=== PATIENT | female | born 1955 | race Caucasian/White ===

== ENCOUNTER 2024-02-29 07:29 | Outpatient (REF) | payer MEDICARE, SELFPAY ==
--- NOTE | ~2024-02-29 | MM_ITS ---
EXAMINATION: MM SCREENING DIGITAL BREAST TOMOSYNTHESIS, BILATERAL CLINICAL INFORMATION: Screening. Asymptomatic. COMPARISON: Mammography: This study is compared with prior exams dating back to 2017. TECHNIQUE: Digital breast tomosynthesis is performed in both the craniocaudal and mediolateral oblique views along with computer-aided detection (CAD). Synthesized 2D images are generated from the tomosynthesis. FINDINGS: The breasts are almost entirely fatty (ACR BI-RADS breast composition Category a). There are no significant masses, abnormal calcifications, or other abnormalities. MM/MM tomosynthesis screening BI IMPRESSION: No mammographic evidence of malignancy. ASSESSMENT: BI-RADS BI-RADS 1 - Negative RECOMMENDATION: Routine annual mammography screening. 1 year F/U This examination should not preclude the clinical evaluation of a suspicious palpable abnormality. This patient's information was entered into a reminder system with a target due date for their next mammogram.
== END 2024-02-29 07:30 | disposition home or self-care (01) ==
LOC: HO.MAMMO 07:29
PROVIDERS: PCP Internal Medicine; Visit Provider Internal Medicine
DX: Z12.31 Encounter for screening mammogram for malignant neoplasm of breast (principal)
CPT/HCPCS: 77063; 77067

== ENCOUNTER → 2024-02-29 07:30 | Outpatient (BNV) | payer MEDICARE, SELFPAY | PROVIDERS: PCP Internal Medicine; Visit Provider Radiology Diagnostic Radiology | DX: Z12.31 Encounter for screening mammogram for malignant neoplasm of breast (principal) | CPT/HCPCS: 77063; 77067 ==

== ENCOUNTER 2024-03-26 08:33 | Outpatient (AMB) | payer MEDICARE, SELFPAY ==
--- NOTE | 2024-03-26 08:32 | A.OFFVIS_ITS ---
Vital Signs 3 03/26/24 08:37 Height 5 ft 8 in Weight 247 lb 2 oz BMI 37.6 BP 108/66 Blood Pressure Location Rt brachial Position Sitting Pulse 70 Pulse Source Pulse Oximeter Pulse Oximetry (%) 91 L Oxygen Delivery Method Nasal Cannula Intake Visit Reasons: copd Allergies acetaminophen [From TYLENOL-CODEINE #3] Allergy (Intermediate, Unverified 03/26/24 08:39) FLUSHING From DEMEROL Allergy (Intermediate, Uncoded 03/26/24 08:39) VOMITING From TYLENOL-CODEINE #3 Allergy (Intermediate, Uncoded 03/26/24 08:39) FLUSHING Demerol Allergy (Unknown, Uncoded 03/26/24 08:39) Vomiting Tylenol/Codeine #3 Allergy (Unknown, Uncoded 03/26/24 08:39) Redness of Skin HPI HPI copd: Details: Jeny is a pleasant 68 year old female, former smoker with 20 pack year history, quit 20 years ago with underlying COPD, bronchietasis, diastolic dysfunction and h/o acute respiratory failure with hypoxemia on supplemental oxygen. She was referred by PCP for pulmonary evaluation. She was recently evaluated at [facility] in December for acute respiratory failure due to COPD exacerbation. Since then she has required supplemental oxygen. She reports suboptimal control on Trelegy and albuterol MDI. She continues to report dyspnea on exertion requiring 3-4 L of supplemental oxygen she and occasional dry cough. Her PCP recently placed referral for pulmonary rehab as well as a home sleep study for witnessed apneas. She denies any prior diagnosis of asthma. She reports son with asthma, otherwise no pertinent family history. She reports working in a [employer] company but denies any occupational exposures. 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 She is under the care of cardiology. Last echo 09/2023 EF 60-65% with grade I diastolic dysfunction. She denies any bilateral extremity edema, proximal nocturnal dyspnea or orthopnea. [facility] Social History (Updated 03/26/24 @ 08:44 by Lavinia Friedman [facility]) Patient Tobacco Use Status: Former Tobacco user Quit Date: 20 years ago Tobacco use type: Cigarette Review of Systems Const Denies chills, Denies excessive sweating, Denies fever(s), Denies headache(s) and Denies night sweats Eyes Denies dry eyes, Denies irritation and Denies itchy eyes ENT Reports Normal hearing present, Denies headache(s), Denies nasal congestion, Denies nasal discharge, Denies post nasal drip and Denies sore throat Card Denies chest pain, Denies chest pain at rest, Denies chest pain with activity, Denies claudication, Denies leg edema, Denies orthopnea and Denies paroxysmal nocturnal dyspnea Resp Denies chest congestion, Denies excessive phlegm production, Denies pain on inspiration, Denies pain with cough and Denies stridor Musc Denies myalgias Neuro Reports Normal hearing present and Denies headache(s) Endo Denies excessive sweating Newton/Lymph Denies lymphadenopathy Aller/Immun Denies itchy eyes and Denies seasonal rhinorrhea Physical Exam Vital Signs: Last Vital Signs Pulse 70 03/26/24 08:37 BP 108/66 03/26/24 08:37 Pulse Ox 91 L 03/26/24 08:37 Oxygen Delivery Method Nasal Cannula 03/26/24 08:37 BMI result Body Mass Index 37.6 Const General: cooperative, healthy appearing, comfortable, no acute distress, well developed and alert Nutritional Appearance: obese Orientation/consciousness: patient oriented x3 Limitations: no limitations HEENT Head: Yes normal to inspection, Yes normocephalic and Yes atraumatic Ears: hearing grossly normal bilaterally and external ears normal Eyes General: appearance normal, both eyes and all related structures Eyelids: Yes eyelids normal Sclerae: sclerae normal EOM: EOMs intact bilaterally Neck Neck: Yes normal visual inspection and Yes no lymphadenopathy Lymphatic: no lymphadenopathy noted Chest Chest palpation & inspection: normal inspection of the chest Resp Other: diminished lung sounds throughout Effort & Inspection: normal respiratory effort, able to speak in complete sentences, no audible wheezes, no cough, no stridor, not tachypneic, no tripod positioning and no use of accessory muscles Cardio Jugular venous distension: no JVD Rate: regular rate Rhythm: regular rhythm Skin Other: warm, dry General skin exam: no rashes or lesions noted Neuro General: patient oriented x3 Cranial nerves: Yes Normal hearing present Cognition (Neuro): normal cognition Gait exam (Neuro): Normal gait present Extrem General: Yes normal to inspection, Yes capillary refill normal, Yes no clubbing, cyanosis or edema and Yes no pedal edema Psych Appearance: grossly normal and well kempt Speech and movement: Normal speech and movement present and Clear speech present Affect: normal affect Attitude: cooperative Thought process: Normal thought process present Thought content: Normal thought content present Insight: Good insight present (Psych) Judgement: Good judgement present (Psych) Office Procedures 6 Minute Walk Time:: 09:18 SPO2 % at rest: 91 Pulse at rest: 66 SPO2 % during excercise: 80 Pulse during excercise: 112 SPO2 % after excercise: 92 Pulse after excercise: 88 Distance in yards walked: 50 Rober Score: 8 Performance Observations:: Patient walked unassisted on level ground at a slow pace. Patient walked for approx 1 minute before O2 saturation dropped to 84 then 80%. O2 applied via nasal cannula at 3L..After approx 2 minutes of rest saturation returned to 92%. O2 changed to 2L and walk continued and saturation dropped after a minute to 86 and then 80% with heart rate of 112..O2 increased to 3L and rested. Patient is short of breath and confirms this is what happens when she goes out. Patient will benefit from the use of supplemental oxygen. [id number] - 6 Minute Walk Results Reviewed Results Reviewed: Assessment & Plan Assessment & Plan (1) COPD (chronic obstructive pulmonary disease): Code(s): J44.9 - Chronic obstructive pulmonary disease, unspecified Category: Medical (2) History of acute respiratory failure: Code(s): Z87.09 - Personal history of other diseases of the respiratory system Category: Medical (3) On supplemental oxygen therapy: Code(s): Z99.81 - Dependence on supplemental oxygen Category: Medical Plan Jeny's symptoms are PFT revealed moderate to severe COPD with DLCO 21%. Will obtain CTA from December to review. Will also obtain prior echo from 09/2023, patient believes this was performed at [facility] as well. At this time, advised to continue Trelegy and will add DuoNeb b.i.d.. 6 minute walk test performed and patient requires 3 L at rest and 4 L with exertion, which is greater than noted in PCP referral. Patient has supplemental oxygen already established which is provided through [facility]. Will follow-up with patient in in 6-8 weeks or sooner if needed. All questions were answered and patient is in agreement of plan. Orders: Orders 2 AMB 6 minute walk 03/26/24 J44.9 - Chronic obstructive pulmonary disease, unspecified Coding Level of Care Code New Pt Level 4 (92829) Diagnoses COPD (chronic obstructive pulmonary disease) J44.9 History of acute respiratory failure Z87.09 On supplemental oxygen therapy Z99.81 CPT Codes Coding ([id number])
[2024-03-26 08:37] VITALS: BP 108/66; PULSE 70; O2SAT 91; BMI 37.6
[2024-03-26 09:49] VITALS: PULSE 66; O2SAT 91
== END 2024-03-26 09:52 | disposition home or self-care (01) ==
PROVIDERS: PCP Internal Medicine; Visit Provider Nurse Practitioner Family
DX: J44.9 Chronic obstructive pulmonary disease, unspecified (principal); Z87.09 Personal history of other diseases of the respiratory system; Z99.81 Dependence on supplemental oxygen
CPT/HCPCS: 94618; 99204

== ENCOUNTER → 2024-03-26 08:33 | Outpatient (BNVA) | payer MEDICARE, SELFPAY | PROVIDERS: PCP Internal Medicine; Visit Provider Nurse Practitioner Family | DX: J44.9 Chronic obstructive pulmonary disease, unspecified (principal); Z87.09 Personal history of other diseases of the respiratory system; Z79.899 Other long term (current) drug therapy; Z99.81 Dependence on supplemental oxygen | CPT/HCPCS: 94618; 99202 ==

== ENCOUNTER 2024-04-30 09:59 | Outpatient (AMB) | payer MEDICARE, SELFPAY ==
--- NOTE | 2024-04-30 10:04 | A.OFFVIS_ITS ---
Vital Signs 04/30/24 10:05 Height 5 ft 8 in Weight 247 lb 8 oz BMI 37.6 BP 104/68 Blood Pressure Location Lt brachial Position Sitting Pulse 63 Pulse Source Pulse Oximeter Pulse Oximetry (%) 95 Oxygen Delivery Method Nasal Cannula Intake Visit Reasons: COPD Allergies acetaminophen [From TYLENOL-CODEINE #3] Allergy (Intermediate, Unverified 04/30/24 10:09) FLUSHING From DEMEROL Allergy (Intermediate, Uncoded 04/30/24 10:09) VOMITING From TYLENOL-CODEINE #3 Allergy (Intermediate, Uncoded 04/30/24 10:09) FLUSHING Demerol Allergy (Unknown, Uncoded 04/30/24 10:09) Vomiting Tylenol/Codeine #3 Allergy (Unknown, Uncoded 04/30/24 10:09) Redness of Skin HPI HPI COPD: Details: Jeny is a pleasant 68 year old female, former smoker with 20 pack year history, quit 20 years ago with underlying COPD, bronchietasis, diastolic dysfunction and h/o acute respiratory failure with hypoxemia on supplemental oxygen. At the last visit, duoneb was added to regimen of Trelegy and albuterol MDI with improvements in symptoms. She reports occasional dyspnea on exertion and dry cough. She has been continuously using 3-4 L of supplemental oxygen, checking O2 frequently noting >92%. She has an upcoming sleep study and will likely be evaluated to nocturnal hypoxemia. [facility] Social History (Updated 03/26/24 @ 08:44 by Lavinia Friedman CMA) Patient Tobacco Use Status: Former Tobacco user Tobacco use type: Cigarette Review of Systems Const Denies chills, Denies excessive sweating, Denies fever(s), Denies headache(s) and Denies night sweats Eyes Denies dry eyes, Denies irritation and Denies itchy eyes ENT Reports Normal hearing present, Denies headache(s), Denies nasal congestion, Denies nasal discharge, Denies post nasal drip and Denies sore throat Card Denies chest pain, Denies chest pain at rest, Denies chest pain with activity, Denies claudication, Denies leg edema, Denies orthopnea and Denies paroxysmal nocturnal dyspnea Resp Denies chest congestion, Denies excessive phlegm production, Denies pain on inspiration, Denies pain with cough and Denies stridor Musc Denies myalgias Neuro Reports Normal hearing present and Denies headache(s) Endo Denies excessive sweating Newton/Lymph Denies lymphadenopathy Aller/Immun Denies itchy eyes and Denies seasonal rhinorrhea Physical Exam Vital Signs: Last Vital Signs Pulse 63 04/30/24 10:05 BP 104/68 04/30/24 10:05 Pulse Ox 95 04/30/24 10:05 Oxygen Delivery Method Nasal Cannula 04/30/24 10:05 BMI result Body Mass Index 37.6 Const General: cooperative, healthy appearing, comfortable, no acute distress, well developed and alert Nutritional Appearance: obese Orientation/consciousness: patient oriented x3 Limitations: no limitations HEENT Head: Yes normal to inspection, Yes normocephalic and Yes atraumatic Ears: hearing grossly normal bilaterally and external ears normal Eyes General: appearance normal, both eyes and all related structures Eyelids: Yes eyelids normal Sclerae: sclerae normal EOM: EOMs intact bilaterally Neck Neck: Yes normal visual inspection and Yes no lymphadenopathy Lymphatic: no lymphadenopathy noted Chest Chest palpation & inspection: normal inspection of the chest Resp Effort & Inspection: normal respiratory effort, able to speak in complete sentences, no audible wheezes, no cough, no stridor, not tachypneic, no tripod positioning and no use of accessory muscles Auscultation: diminished lung sounds Cardio Jugular venous distension: no JVD Rate: regular rate Rhythm: regular rhythm Skin Other: warm, dry General skin exam: no rashes or lesions noted Neuro General: patient oriented x3 Cranial nerves: Yes Normal hearing present Cognition (Neuro): normal cognition Gait exam (Neuro): Normal gait present Extrem General: Yes normal to inspection, Yes capillary refill normal, Yes no clubbing, cyanosis or edema and Yes no pedal edema Psych Appearance: grossly normal and well kempt Speech and movement: Normal speech and movement present and Clear speech present Affect: normal affect Attitude: cooperative Thought process: Normal thought process present Thought content: Normal thought content present Insight: Good insight present (Psych) Judgement: Good judgement present (Psych) Assessment & Plan Assessment & Plan (1) COPD (chronic obstructive pulmonary disease): Code(s): J44.9 - Chronic obstructive pulmonary disease, unspecified Category: Medical (2) History of acute respiratory failure: Code(s): Z87.09 - Personal history of other diseases of the respiratory system Category: Medical (3) On supplemental oxygen therapy: Code(s): Z99.81 - Dependence on supplemental oxygen Category: Medical (4) Emphysema of lung: Code(s): J43.9 - Emphysema, unspecified Category: Medical Plan Jeny reports good control of respiratory symptoms with Trelegy and duoneb. Advised to continue. Patient has been compliant with supplemental oxygen using 3 L at rest and 4 L with exertion. She is motivated to start pulmonary rehab and would like a referral placed through [facility] [facility]. Reviewed CTA report from 01/13 performed at [facility], noting emphysema. Will attempt to obtain actual images. Will follow-up with patient in 8-10 weeks or sooner if needed. All questions were answered and patient is in agreement of plan. Orders: Orders Pulmonary Rehab Today J44.9 - Chronic obstructive pulmonary disease, unspecified, Z99.81 - Dependence on supplemental oxygen Medications: New 2 [id number] 200-62.5-25 mcg (Trelegy Ellipta) 1 inh inhalation DAILY 60 ea 3RF Coding Level of Care Code Est Pt Level 4 (31962) Diagnoses COPD (chronic obstructive pulmonary disease) J44.9 History of acute respiratory failure Z87.09 On supplemental oxygen therapy Z99.81 Emphysema of lung J43.9
[2024-04-30 10:05] VITALS: BP 104/68; PULSE 63; O2SAT 95; BMI 37.6
== END 2024-04-30 10:46 | disposition home or self-care (01) ==
PROVIDERS: PCP Internal Medicine; Visit Provider Nurse Practitioner Family
DX: J44.9 Chronic obstructive pulmonary disease, unspecified (principal); Z87.09 Personal history of other diseases of the respiratory system; Z99.81 Dependence on supplemental oxygen; J43.9 Emphysema, unspecified
CPT/HCPCS: 99214

== ENCOUNTER → 2024-04-30 09:59 | Outpatient (BNVA) | payer MEDICARE, SELFPAY | PROVIDERS: PCP Internal Medicine; Visit Provider Nurse Practitioner Family | DX: J43.9 Emphysema, unspecified (principal); J44.9 Chronic obstructive pulmonary disease, unspecified; Z87.09 Personal history of other diseases of the respiratory system; Z99.81 Dependence on supplemental oxygen | CPT/HCPCS: 99212 ==

== ENCOUNTER 2024-06-18 11:30 | Outpatient (REF) | payer MEDICARE, SELFPAY ==
--- NOTE | ~2024-06-18 | XR_ITS ---
EXAMINATION: XR CHEST CLINICAL INFORMATION: Cough COMPARISON: None available. TECHNIQUE: 2 views of the chest were obtained. FINDINGS: vascularity. LUNGS: Diffuse reticular interstitial prominence is seen in bilateral lungs, with relative hyperlucency in bilateral upper lobes. No pneumothorax is seen. Medium-sized retrocardiac hiatus hernia containing air is present. BONES: Bony skeleton is intact. XR/XR chest 2V IMPRESSION: 1. Emphysematous COPD is present. 2. Medium-sized retrocardiac hiatus hernia is present.
== END 2024-06-18 11:31 | disposition home or self-care (01) ==
LOC: HO.XRAY 11:30
PROVIDERS: PCP Internal Medicine; Visit Provider Nurse Practitioner Family
DX: R05.9 Cough, unspecified (principal); J44.9 Chronic obstructive pulmonary disease, unspecified; J43.9 Emphysema, unspecified
CPT/HCPCS: 71046; 99212

== ENCOUNTER 2024-06-18 11:30 | Outpatient (AMB) | payer MEDICARE, MEDICAID, SELFPAY ==
[2024-06-18 11:32] VITALS: BP 110/64; PULSE 77; O2SAT 95; BMI 37.9
--- NOTE | 2024-06-18 11:32 | MHC.OFFVIS ---
Vital Signs 06/18/24 11:32 Height 5 ft 8 in Weight 249 lb 6 oz BMI 37.9 BP 110/64 Blood Pressure Location Lt brachial Position Sitting Pulse 77 Pulse Source Pulse Oximeter Pulse Oximetry (%) 95 Oxygen Delivery Method Nasal Cannula Oxygen Flow Rate 3 Intake Visit Reasons: Hypoxia Allergies acetaminophen [From TYLENOL-CODEINE #3] Allergy (Intermediate, Unverified 06/18/24 11:34) FLUSHING From DEMEROL Allergy (Intermediate, Uncoded 06/18/24 11:34) VOMITING From TYLENOL-CODEINE #3 Allergy (Intermediate, Uncoded 06/18/24 11:34) FLUSHING Demerol Allergy (Unknown, Uncoded 06/18/24 11:34) Vomiting Tylenol/Codeine #3 Allergy (Unknown, Uncoded 06/18/24 11:34) Redness of Skin HPI HPI Hypoxia: Details: Jeny is a pleasant 68 year old female, former smoker with 20 pack year history, quit 20 years ago with underlying COPD, bronchietasis, diastolic dysfunction and h/o acute respiratory failure with hypoxemia on supplemental oxygen. She has been moderately controlled on Trelegy and Duoneb. She reports continues to report occasional dyspnea on exertion and dry cough. Denies wheezing or chest tightness. She has been continuously using 4-5 L of supplemental oxygen, checking O2 frequently noting >92%. Since the last visit, she has attended pulmonary rehab. She attended today, with activity decreased to 89% on 6L recovering to 93% with 3L. She has noticed more dyspnea over the last few weeks. Denies BLE edema or orthopnea. [facility] Social History Patient Tobacco Use Status: Former Tobacco user Tobacco use type: Cigarette Review of Systems Const Denies chills, Denies excessive sweating, Denies fever(s), Denies headache(s) and Denies night sweats Eyes Denies dry eyes, Denies irritation and Denies itchy eyes ENT Reports Normal hearing present, Denies headache(s), Denies nasal congestion, Denies nasal discharge, Denies post nasal drip and Denies sore throat Card Denies chest pain, Denies chest pain at rest, Denies chest pain with activity, Denies claudication, Denies leg edema, Denies orthopnea and Denies paroxysmal nocturnal dyspnea Resp Denies chest congestion, Denies excessive phlegm production, Denies pain on inspiration, Denies pain with cough, Denies stridor and Denies wheezing Musc Denies myalgias Neuro Reports Normal hearing present and Denies headache(s) Endo Denies excessive sweating Newton/Lymph Denies lymphadenopathy Aller/Immun Denies itchy eyes, Denies seasonal rhinorrhea and Denies wheezing Physical Exam Vital Signs: Last Vital Signs Pulse 77 06/18/24 11:32 BP 110/64 06/18/24 11:32 Pulse Ox 95 06/18/24 11:32 Oxygen Delivery Method Nasal Cannula 06/18/24 11:32 Oxygen Flow Rate 3 06/18/24 11:32 BMI result Body Mass Index 37.9 Const General: cooperative, healthy appearing, comfortable, no acute distress, well developed and alert Nutritional Appearance: obese Orientation/consciousness: patient oriented x3 Limitations: no limitations HEENT Head: Yes normal to inspection, Yes normocephalic and Yes atraumatic Ears: hearing grossly normal bilaterally and external ears normal Eyes General: appearance normal, both eyes and all related structures Eyelids: Yes eyelids normal Sclerae: sclerae normal EOM: EOMs intact bilaterally Neck Neck: Yes normal visual inspection and Yes no lymphadenopathy Lymphatic: no lymphadenopathy noted Chest Chest palpation & inspection: normal inspection of the chest Resp Other: inspiratory bibasilar crackles, otherwise diminished no wheezing appreciated. Effort & Inspection: able to speak in complete sentences, no audible wheezes, no cough, no stridor, not tachypneic, no tripod positioning and no use of accessory muscles Cardio Jugular venous distension: no JVD Rate: regular rate Rhythm: regular rhythm Skin Other: warm, dry General skin exam: no rashes or lesions noted Neuro General: patient oriented x3 Cranial nerves: Yes Normal hearing present Cognition (Neuro): normal cognition Gait exam (Neuro): Normal gait present Extrem Other: trace BLE Psych Appearance: grossly normal and well kempt Speech and movement: Normal speech and movement present and Clear speech present Affect: normal affect Attitude: cooperative Thought process: Normal thought process present Thought content: Normal thought content present Insight: Good insight present (Psych) Judgement: Good judgement present (Psych) Assessment & Plan Assessment & Plan (1) COPD (chronic obstructive pulmonary disease): Code(s): J44.9 - Chronic obstructive pulmonary disease, unspecified Category: Medical (2) History of acute respiratory failure: Code(s): Z87.09 - Personal history of other diseases of the respiratory system Category: Medical (3) On supplemental oxygen therapy: Code(s): Z99.81 - Dependence on supplemental oxygen Category: Medical (4) Emphysema of lung: Code(s): J43.9 - Emphysema, unspecified Category: Medical Plan At baseline Jeny reports good control of respiratory symptoms with Trelegy and duoneb, however has noticed more dyspnea over the last few weeks. On exam patient with bibasilar inspiratory crackles. Will send for CXR. Patient aware if symptoms worsen or there is a need for increased oxygen, to seek emergent care. Will consider echo if there are signs suggestive of heart failure. All questions were answered and patient is in agreement of plan. Will follow up in 4 weeks or sooner if needed. Orders: Orders XR chest 2V 06/18/24 R05.9 - Cough, unspecified Coding Level of Care Code Est Pt Level 4 (03052) Diagnoses COPD (chronic obstructive pulmonary disease) J44.9 History of acute respiratory failure Z87.09 On supplemental oxygen therapy Z99.81 Emphysema of lung J43.9
== END 2024-06-18 12:18 | disposition home or self-care (01) ==
PROVIDERS: PCP Internal Medicine; Visit Provider Nurse Practitioner Family
DX: J44.9 Chronic obstructive pulmonary disease, unspecified (principal); Z87.09 Personal history of other diseases of the respiratory system; Z99.81 Dependence on supplemental oxygen; J43.9 Emphysema, unspecified
CPT/HCPCS: 99214

== ENCOUNTER 2024-07-11 11:49 | Outpatient (REF) | payer MEDICARE, SELFPAY ==
[2024-07-11 12:21] LABS: Blood Urea Nitrogen 23 mg/dL (9-16); Estimated Glomerular Filt Rate 43
== END 2024-07-11 11:50 | disposition home or self-care (01) ==
LOC: HO.LAB 11:49
PROVIDERS: PCP Internal Medicine; Visit Provider Nurse Practitioner Family
DX: Z01.818 Encounter for other preprocedural examination (principal)
CPT/HCPCS: 36415; 82565; 84520

== ENCOUNTER 2024-07-17 10:49 | Outpatient (AMB) | payer MEDICARE, MEDICAID, SELFPAY ==
--- NOTE | 2024-07-17 10:51 | MHC.OFFVIS ---
Vital Signs 07/17/24 10:52 Height 5 ft 8 in Weight 248 lb 8 oz BMI 37.8 BP 114/68 Blood Pressure Location Rt brachial Position Sitting Pulse 67 Pulse Source Pulse Oximeter Pulse Oximetry (%) 94 Oxygen Delivery Method Nasal Cannula Oxygen Flow Rate 3 Intake Visit Reasons: Hypoxia Allergies acetaminophen [From TYLENOL-CODEINE #3] Allergy (Intermediate, Unverified 07/17/24 10:54) FLUSHING From DEMEROL Allergy (Intermediate, Uncoded 07/17/24 10:54) VOMITING From TYLENOL-CODEINE #3 Allergy (Intermediate, Uncoded 07/17/24 10:54) FLUSHING Demerol Allergy (Unknown, Uncoded 07/17/24 10:54) Vomiting Tylenol/Codeine #3 Allergy (Unknown, Uncoded 07/17/24 10:54) Redness of Skin HPI HPI Hypoxia: Details: Jeny is a pleasant 68 year old female, former smoker with 20 pack year history, quit 20 years ago with underlying COPD, bronchiectasis, diastolic dysfunction and h/o acute respiratory failure with hypoxemia on supplemental oxygen. She has been moderately controlled on Trelegy and Duoneb. She continues to report occasional dyspnea on exertion and dry cough. Denies wheezing or chest tightness. She has been continuously using 3 L of supplemental oxygen, checking O2 frequently noting >92%. She has been attending pulmonary rehab and notes increasing requirements of supplemental oxygen with exertion, mostly with the treadmill. Reviewed last pulmonary rehab visit note, patient required up to 8L. At the last visit she was trialed on lasix with minimal improvement symptoms. She was sent for echo and chest CT however these have not been scheduled yet. She continues to deny BLE edema or orthopnea. [facility] Social History Patient Tobacco Use Status: Former Tobacco user Tobacco use type: Cigarette Review of Systems Const Denies chills, Denies excessive sweating, Denies fever(s), Denies headache(s) and Denies night sweats Eyes Denies dry eyes, Denies irritation and Denies itchy eyes ENT Reports Normal hearing present, Denies headache(s), Denies nasal congestion, Denies nasal discharge, Denies post nasal drip and Denies sore throat Card Denies chest pain, Denies chest pain at rest, Denies chest pain with activity, Denies claudication, Denies leg edema, Denies orthopnea and Denies paroxysmal nocturnal dyspnea Resp Denies chest congestion, Denies excessive phlegm production, Denies pain on inspiration, Denies pain with cough, Denies stridor and Denies wheezing Musc Denies myalgias Neuro Reports Normal hearing present and Denies headache(s) Endo Denies excessive sweating Newton/Lymph Denies lymphadenopathy Aller/Immun Denies itchy eyes, Denies seasonal rhinorrhea and Denies wheezing Physical Exam Vital Signs: Last Vital Signs Pulse 67 07/17/24 10:52 BP 114/68 07/17/24 10:52 Pulse Ox 94 07/17/24 10:52 Oxygen Delivery Method Nasal Cannula 07/17/24 10:52 Oxygen Flow Rate 3 07/17/24 10:52 BMI result Body Mass Index 37.8 Const General: cooperative, healthy appearing, comfortable, no acute distress, well developed and alert Nutritional Appearance: obese Orientation/consciousness: patient oriented x3 Limitations: no limitations HEENT Head: Yes normal to inspection, Yes normocephalic and Yes atraumatic Ears: hearing grossly normal bilaterally and external ears normal Eyes General: appearance normal, both eyes and all related structures Eyelids: Yes eyelids normal Sclerae: sclerae normal EOM: EOMs intact bilaterally Neck Neck: Yes normal visual inspection and Yes no lymphadenopathy Lymphatic: no lymphadenopathy noted Chest Chest palpation & inspection: normal inspection of the chest Resp Other: inspiratory bibasilar coarse crackles, otherwise diminished no wheezing appreciated. Effort & Inspection: able to speak in complete sentences, no audible wheezes, no cough, no stridor, not tachypneic, no tripod positioning and no use of accessory muscles Cardio Jugular venous distension: no JVD Rate: regular rate Rhythm: regular rhythm Skin Other: warm, dry General skin exam: no rashes or lesions noted Neuro General: patient oriented x3 Cranial nerves: Yes Normal hearing present Cognition (Neuro): normal cognition Gait exam (Neuro): Normal gait present Extrem Other: trace BLE Psych Appearance: grossly normal and well kempt Speech and movement: Normal speech and movement present and Clear speech present Affect: normal affect Attitude: cooperative Thought process: Normal thought process present Thought content: Normal thought content present Insight: Good insight present (Psych) Judgement: Good judgement present (Psych) Assessment & Plan Assessment & Plan (1) COPD (chronic obstructive pulmonary disease): Code(s): J44.9 - Chronic obstructive pulmonary disease, unspecified Category: Medical (2) History of acute respiratory failure: Code(s): Z87.09 - Personal history of other diseases of the respiratory system Category: Medical (3) On supplemental oxygen therapy: Code(s): Z99.81 - Dependence on supplemental oxygen Category: Medical (4) Emphysema of lung: Code(s): J43.9 - Emphysema, unspecified Category: Medical Plan Jeny continues with bibasilar inspiratory crackles, no symptomatic change with lasix. Awaiting chest CT and echo. Will look into why these were not scheduled. Advised to continue current regimen. Discussed if increasing need for supplemental oxygen while at rest, to seek emergent care. All questions were answered and patient is in agreement of plan. Will follow up to review results or sooner if needed. Coding Level of Care Code Est Pt Level 4 (61505) Diagnoses COPD (chronic obstructive pulmonary disease) J44.9 History of acute respiratory failure Z87.09 On supplemental oxygen therapy Z99.81 Emphysema of lung J43.9
[2024-07-17 10:52] VITALS: BP 114/68; PULSE 67; O2SAT 94; BMI 37.8
== END 2024-07-17 11:50 | disposition home or self-care (01) ==
PROVIDERS: PCP Internal Medicine; Visit Provider Nurse Practitioner Family
DX: J44.9 Chronic obstructive pulmonary disease, unspecified (principal); Z87.09 Personal history of other diseases of the respiratory system; Z99.81 Dependence on supplemental oxygen; J43.9 Emphysema, unspecified
CPT/HCPCS: 99214

== ENCOUNTER → 2024-07-17 10:49 | Outpatient (BNVA) | payer MEDICARE, MEDICAID, SELFPAY | PROVIDERS: PCP Internal Medicine; Visit Provider Nurse Practitioner Family | DX: J43.9 Emphysema, unspecified (principal); Z87.891 Personal history of nicotine dependence; Z99.81 Dependence on supplemental oxygen; Z87.09 Personal history of other diseases of the respiratory system | CPT/HCPCS: 99212 ==

== ENCOUNTER → 2024-08-13 09:53 | Outpatient (REF) | payer MEDICARE, MEDICAID, SELFPAY ==
--- NOTE | 2024-08-13 09:55 | CA_ITS ---
Transthoracic Echocardiogram Patient (Last, First, Middle): Jeny Diez A Gender: Female Date of : 1955 Age: 68 Procedure Date: 08/13/2024 Procedure Type: Transthoracic Echocardiogram Location: OP Height: 172.72 cm Weight: 111.13 kg BSA: 2.23 m2 Heart Rate: bpm BP: 114 / 66 mmHg Alignment Specialist: ANA M Referring MD: Dilcia Urban [employer] Symptoms: R06.00 - Dyspnea, unspecified Study Quality: Fair ECG Rhythm: Sinus Conclusions: - The left ventricular systolic function is normal. The calculated ejection fraction is 63% by biplane method. - No obvious valvular pathology seen on this study. - There is no evidence of pulmonary hypertension. Findings Left Ventricle Normal left ventricular cavity size. There is normal left ventricular wall thickness. The left ventricular systolic function is normal. The calculated ejection fraction is 63% by biplane method. There is no evidence of regional wall motion abnormalities. Diastolic function is normal for age. Right Ventricle Normal right ventricular cavity size and systolic function. Atria Both atria are normal in size. Aortic Valve There is a normal trileaflet aortic valve. There is no aortic valve stenosis. There is no aortic valve regurgitation. Mitral Valve The mitral valve appears normal. There is no mitral valve regurgitation. There is no mitral valve stenosis. Pulmonic Valve The pulmonic valve is likely normal. Tricuspid Valve There is trace tricuspid valve regurgitation. There is no evidence of pulmonary hypertension. Great Vessels The asc aorta is normal in size. Venous The inferior vena cava is normal in size and collapses greater than 50% with inspiration. Pericardium/Pleural There is no evidence of pericardial effusion. Prior Study Comparison No prior study available for comparison. Recommendations, Care & Conclusions No obvious valvular pathology seen on this study. Measurements 2D Linear Measurements IVSd: 1.00 0.6-0.9/0.6-1.0 cm LVIDd: 4.57 3.9-5.3/4.2-5.9 cm LVIDd Index: 2.05 2.4-3.2/2.2-3.1 cm/m2 LVIDs: 2.71 2.0-3.6 cm LVPWd: 1.08 0.7-1.1 cm LA Diam: 3.80 2.7-3.8/3.0-4.0 cm LAIDs Index: 1.70 1.5-2.3 cm/m2 LV Mass: 206.58 67-162/88-224 g LV Mass Index: 92.64 43-95/49-115 g/m2 LVOT Diam: 2.00 3.0+(-)1.3 cm 2D Systolic Function EF 4C: 65.60 >55% EF 2C: 60.80 >55% EF BiP: 63.30 >55% Mitral Valve MV Pk E: 0.51 MV PK A: 0.63 MV Decel Time: 355.00 E/A: 0.80 E'Lateral: 11.60 E'Medial: 6.53 E/E' Med: 7.80 E/E' Lat: 4.40 PHT: 104.00 MVA PHT: 2.12 Decel Pinal: 1.44 Aortic Valve AoV Pk Jin: 1.23 AoV Mn Jin: 0.90 AoV VTI: 0.30 AoV Pk Grad: 6.00 Aov Mn Grad: 4.00 JOLENE Cont.VTI: 2.47 LVOT LVOT Pk Jin: 1.02 LVOT Mn Jin: 0.72 LVOT VTI: 0.23 LVOT Pk Grad: 4.00 LVOT Mn Grad: 2.00 LVOT Diam: 2.00 LVOT Area: 3.14 Diastolic Function MV Pk E: 0.51 MV Pk A: 0.63 E/A: 0.80 E'Medial: 6.53 E/E' Med: 7.80 E' Laterial: 11.60 E/E' Lat: 4.40 Right Ventricle TAPSE (mm): 22.60 TVS' Jin: 10.70 Tricuspid Valve TR Pk Jin: 2.70 TR Pk Grad: 29.00 RA Press: 3.00 RVSP: 32.00 Great Vessels Aorta Sinus of Valsalva: 3.73 2.0-3.[address] [place]: 3.05 1.7-3.4 cm Ao Asc: 3.40 2.1-3.4 cm Updated in Other Vendor System with Status of Final Gaston Diane MD electronically signed on 08/14/2024 11:40:57 AM with status of Final
== END ==
LOC: HO.CARD 09:53
PROVIDERS: PCP Internal Medicine; Visit Provider Nurse Practitioner Family
DX: R06.00 Dyspnea, unspecified (principal)
CPT/HCPCS: 93306

== ENCOUNTER → 2024-08-13 09:55 | Outpatient (BNV) | payer MEDICARE, MEDICAID, SELFPAY | PROVIDERS: PCP Internal Medicine; Visit Provider Internal Medicine | DX: R06.02 Shortness of breath (principal) | CPT/HCPCS: 93306 ==

== ENCOUNTER 2024-08-27 07:45 | Outpatient (REF) | payer MEDICARE, MEDICAID, SELFPAY ==
--- NOTE | ~2024-08-27 | CT_ITS ---
EXAMINATION: CT CHEST WITH CONTRAST CLINICAL INFORMATION: Enlarged lymph nodes. COMPARISON: CT from an outside institution dated January 01, 2024. TECHNIQUE: Multidetector volumetric CT imaging of the chest was obtained after the administration of 65 mL of Omnipaque 350 intravenous contrast without immediate adverse reactions. Axial MIP volume rendering provided. Sagittal and coronal reformatted images were obtained. This CT examination was performed using dose optimization techniques as appropriate, variously including the following: *Automated exposure control *Adjustment of mA and/or kV according to patient size (this includes techniques or standardized protocols for targeted exams where dose is matched to indication/reason for exam; i.e. extremities or head) *Use of iterative reconstruction technique DLP: 208 mGy-cm FINDINGS: Submitted for interpretation on September 26, 2024. LUNGS: Centrilobular and paraseptal emphysematous changes, bilaterally. Honeycombing in the periphery of the upper and lower lung lobes. Pulmonary patchy groundglass in the periphery of the lungs. No consolidation. No gross pulmonary nodules. Respiratory airway is patent. MEDIASTINUM: Lymphadenopathy in the mediastinum/right pretracheal and pulmonary hilum bilaterally. The largest measures 2 cm. No aneurysm or dissection, thoracic aorta. Calcified plaques in the thoracic aortic arch and the origin of the left subclavian artery. Unable to evaluate the pulmonary artery and its main branches. No pericardial effusion. PLEURA: No pleural effusion. No pneumothorax. AXILLA: Fatty hilum lymph nodes both axillary. UPPER ABDOMEN: Hiatal hernia, moderate to large size. Cystic lesion in the upper pole midportion right kidney. Metallic coils in the epigastric abdominal wall likely Meige procedure. OSSEOUS STRUCTURES: Multilevel spondylosis without acute fracture or listhesis. No lytic or blastic lesions. CT/CT chest w IV con IMPRESSION: Mediastinal and perihilar lymphadenopathy, stable. Lymphoproliferative disorder versus sarcoidosis among other differential diagnosis. Emphysematous changes and associated honeycombing suggesting mixed of interstitial lung disease. Hiatal hernia, moderate size.. Fleischner guidelines were followed. Electronically signed by: Steve Cabrera MD 09/26/2024 02:36 PM EST
[2024-08-27] MEDS: iohexoL 350 MG/ML 100 ML INFUS..BTL IV (08:18)
[2024-08-28 10:33] LABS: Creatinine POC 1.2 mg/dL (0.5-1.4); GFR POC 46
== END 2024-08-27 07:46 | disposition home or self-care (01) ==
LOC: HO.CT 07:45
PROVIDERS: PCP Internal Medicine; Visit Provider Nurse Practitioner Family
DX: R59.0 Localized enlarged lymph nodes (principal)
CPT/HCPCS: 71260; 82565; Q9967

== ENCOUNTER → 2024-08-27 07:46 | Outpatient (BNV) | payer MEDICARE, MEDICAID, SELFPAY | PROVIDERS: PCP Internal Medicine; Visit Provider Radiology Diagnostic Radiology | DX: R59.0 Localized enlarged lymph nodes (principal) | CPT/HCPCS: 71260 ==

== ENCOUNTER 2024-09-03 09:57 | Outpatient (AMB) | payer MEDICARE, SELFPAY ==
[2024-09-03 09:58] VITALS: BP 108/62; PULSE 87; O2SAT 91; BMI 38.1
--- NOTE | 2024-09-03 09:58 | MHC.OFFVIS ---
Vital Signs 09/03/24 09:58 Height 5 ft 8 in Weight 250 lb 6 oz BMI 38.1 BP 108/62 Blood Pressure Location Lt brachial Position Sitting Pulse 87 Pulse Source Pulse Oximeter Pulse Oximetry (%) 91 L Oxygen Delivery Method Nasal Cannula Oxygen Flow Rate 4 Intake Visit Reasons: COPD Allergies acetaminophen [From TYLENOL-CODEINE #3] Allergy (Intermediate, Unverified 09/03/24 10:05) FLUSHING From DEMEROL Allergy (Intermediate, Uncoded 09/03/24 10:05) VOMITING From TYLENOL-CODEINE #3 Allergy (Intermediate, Uncoded 09/03/24 10:05) FLUSHING Demerol Allergy (Unknown, Uncoded 09/03/24 10:05) Vomiting Tylenol/Codeine #3 Allergy (Unknown, Uncoded 09/03/24 10:05) Redness of Skin HPI HPI COPD: Details: Jeny is a pleasant 68 year old female, former smoker with 20 pack year history, quit 20 years ago with underlying COPD, bronchiectasis, diastolic dysfunction and h/o acute respiratory failure with hypoxemia since COVID 12/13 on supplemental oxygen. 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 She has been moderately controlled on Trelegy and Duoneb. She continues to report occasional dyspnea on exertion and dry cough. Denies wheezing or chest tightness. She has been continuously using 3 L of supplemental oxygen, 5L with exertion checking O2 frequently noting >92%. She has two sessions left of pulmonary rehab. She denies any visits to urgent care or hospitalizations since the last visit. Today she presents to review echo and chest CT results. Unfortunately the chest CT is not formally read by radiology at this time. [facility] Social History Patient Tobacco Use Status: Former Tobacco user Tobacco use type: Cigarette Review of Systems Const Denies chills, Denies excessive sweating, Denies fever(s), Denies headache(s) and Denies night sweats Eyes Denies dry eyes, Denies irritation and Denies itchy eyes ENT Reports Normal hearing present, Denies headache(s), Denies nasal congestion, Denies nasal discharge, Denies post nasal drip and Denies sore throat Card Denies chest pain, Denies chest pain at rest, Denies chest pain with activity, Denies claudication, Denies leg edema, Denies orthopnea and Denies paroxysmal nocturnal dyspnea Resp Denies chest congestion, Denies excessive phlegm production, Denies pain on inspiration, Denies pain with cough, Denies stridor and Denies wheezing Musc Denies myalgias Neuro Reports Normal hearing present and Denies headache(s) Endo Denies excessive sweating Newton/Lymph Denies lymphadenopathy Aller/Immun Denies itchy eyes, Denies seasonal rhinorrhea and Denies wheezing Physical Exam Vital Signs: Last Vital Signs Pulse 87 09/03/24 09:58 BP 108/62 09/03/24 09:58 Pulse Ox 91 L 09/03/24 09:58 Oxygen Delivery Method Nasal Cannula 09/03/24 09:58 Oxygen Flow Rate 4 09/03/24 09:58 BMI result Body Mass Index 38.1 Const General: cooperative, healthy appearing, comfortable, no acute distress, well developed and alert Nutritional Appearance: obese Orientation/consciousness: patient oriented x3 Limitations: no limitations HEENT Head: Yes normal to inspection, Yes normocephalic and Yes atraumatic Ears: hearing grossly normal bilaterally and external ears normal Eyes General: appearance normal, both eyes and all related structures Eyelids: Yes eyelids normal Sclerae: sclerae normal EOM: EOMs intact bilaterally Neck Neck: Yes normal visual inspection and Yes no lymphadenopathy Lymphatic: no lymphadenopathy noted Chest Chest palpation & inspection: normal inspection of the chest Resp Other: inspiratory bibasilar coarse crackles, otherwise diminished no wheezing appreciated. Effort & Inspection: able to speak in complete sentences, no audible wheezes, no cough, no stridor, not tachypneic, no tripod positioning and no use of accessory muscles Cardio Jugular venous distension: no JVD Rate: regular rate Rhythm: regular rhythm Skin Other: warm, dry General skin exam: no rashes or lesions noted Neuro General: patient oriented x3 Cranial nerves: Yes Normal hearing present Cognition (Neuro): normal cognition Gait exam (Neuro): Normal gait present Extrem Other: trace BLE Psych Appearance: grossly normal and well kempt Speech and movement: Normal speech and movement present and Clear speech present Affect: normal affect Attitude: cooperative Thought process: Normal thought process present Thought content: Normal thought content present Insight: Good insight present (Psych) Judgement: Good judgement present (Psych) Assessment & Plan Assessment & Plan (1) COPD (chronic obstructive pulmonary disease): Code(s): J44.9 - Chronic obstructive pulmonary disease, unspecified Category: Medical (2) History of acute respiratory failure: Code(s): Z87.09 - Personal history of other diseases of the respiratory system Category: Medical (3) On supplemental oxygen therapy: Code(s): Z99.81 - Dependence on supplemental oxygen Category: Medical (4) Emphysema of lung: Code(s): J43.9 - Emphysema, unspecified Category: Medical Plan Jeny continues with bibasilar inspiratory crackles and upon arriving to exam room 91% on 3L, rechecked and 97% on 3 L at rest. Awaiting final read from radiology on chest CT. Possibility of evolving ILD. Will await read and possibly start on prednisone. Echo did not reveal any significant findings, nothing to suggest pulmonary HTN. Advised to continue current regimen, will consider daliresp if no findings of ILD on Chest CT. All questions were answered and patient is in agreement of plan. Will follow up in 4 weeks or sooner if needed. Medications: Refilled ipratropium-albuterol 0.5 mg-3 mg(2.5 mg base)/3 mL 3 mL inhalation Q6H PRN 180 mL 3RF wheezing [id number] 200-62.5-25 mcg (Trelegy Ellipta) 1 inh inhalation DAILY 60 ea 3RF Coding Level of Care Code Est Pt Level 4 (43107) Diagnoses COPD (chronic obstructive pulmonary disease) J44.9 History of acute respiratory failure Z87.09 On supplemental oxygen therapy Z99.81 Emphysema of lung J43.9
== END 2024-09-03 11:02 | disposition home or self-care (01) ==
PROVIDERS: PCP Internal Medicine; Visit Provider Nurse Practitioner Family
DX: J44.9 Chronic obstructive pulmonary disease, unspecified (principal); Z87.09 Personal history of other diseases of the respiratory system; Z99.81 Dependence on supplemental oxygen; J43.9 Emphysema, unspecified
CPT/HCPCS: 99214

== ENCOUNTER → 2024-09-03 09:57 | Outpatient (BNVA) | payer MEDICARE, SELFPAY | PROVIDERS: PCP Internal Medicine; Visit Provider Nurse Practitioner Family | DX: J44.9 Chronic obstructive pulmonary disease, unspecified (principal); J43.9 Emphysema, unspecified; Z87.09 Personal history of other diseases of the respiratory system; Z99.81 Dependence on supplemental oxygen | CPT/HCPCS: 99212 ==

== ENCOUNTER 2024-11-08 07:20 | Outpatient (REF) | payer MEDICARE, SELFPAY ==
--- NOTE | ~2024-11-08 | CT_ITS ---
EXAMINATION: CT CHEST WITHOUT CONTRAST CLINICAL INFORMATION: Cough COMPARISON: CT chest 08/27/2024 TECHNIQUE: Multidetector volumetric CT imaging of the chest was done. Axial MIP volume rendering provided. Sagittal and coronal reformatted images were obtained. This CT examination was performed using dose optimization techniques as appropriate, variously including the following: *Automated exposure control *Adjustment of mA and/or kV according to patient size (this includes techniques or standardized protocols for targeted exams where dose is matched to indication/reason for exam; i.e. extremities or head) *Use of iterative reconstruction technique DLP: 220 mGy-cm FINDINGS: LUNGS: There is moderate to marked emphysematous changes. Again seen is subpleural reticulation with some minimal honeycombing suggesting interstitial lung disease. Pleural calcification is present at the left lung base. No gross consolidations or suspicious pulmonary masses. MEDIASTINUM: Mediastinal lymph nodes appear smaller than prior. A right pretracheal lymph node had measured 1 cm in short axis dimension now measures 0.8 cm. Right hilar adenopathy was present previously which likely has decreased but evaluation is limited without IV contrast. CORONARY ARTERY CALCIFICATION: Mild to moderate PLEURA: There is no pleural effusion. No pleural mass or thickening. Pleural calcification on the left as described above. AXILLA: No lymphadenopathy. UPPER ABDOMEN: Moderate sized hiatal hernia again noted OSSEOUS STRUCTURES: Unremarkable. CT/CT chest wo IV con IMPRESSION: 1. Moderate to marked emphysematous changes with subpleural reticulation and minimal honeycombing suggesting interstitial lung disease. 2. Pleural calcification left lung base. 3. Mediastinal and right hilar adenopathy appears smaller than prior. 4. Moderate-sized hiatal hernia. 5. No acute intrathoracic disease. Fleischner guidelines were followed. Electronically signed by: Red Moncada MD 11/11/2024 01:00 PM [facility]
== END 2024-11-08 07:21 | disposition home or self-care (01) ==
LOC: HO.CT 07:20
PROVIDERS: PCP Internal Medicine; Visit Provider Nurse Practitioner Family
DX: R05.9 Cough, unspecified (principal); R93.89 Abnormal findings on diagnostic imaging of other specified body structures
CPT/HCPCS: 71250

== ENCOUNTER 2024-11-27 09:56 | Outpatient (AMB) | payer MEDICARE, SELFPAY ==
--- NOTE | 2024-11-27 10:02 | MHC.OFFVIS ---
Vital Signs 11/27/24 10:15 Pulse Oximetry (%) 88 L Oxygen Delivery Method Nasal Cannula Oxygen Flow Rate 8 Intake Visit Reasons: COPD/ CT FU Allergies acetaminophen [From TYLENOL-CODEINE #3] Allergy (Intermediate, Verified 11/27/24 11:38) FLUSHING From DEMEROL Allergy (Intermediate, Uncoded 11/27/24 11:38) VOMITING From TYLENOL-CODEINE #3 Allergy (Intermediate, Uncoded 11/27/24 11:38) FLUSHING Demerol Allergy (Unknown, Uncoded 11/27/24 11:38) Vomiting Tylenol/Codeine #3 Allergy (Unknown, Uncoded 11/27/24 11:38) Redness of Skin HPI HPI COPD/ CT FU: Details: Jeny is a pleasant 68 year old female, former smoker with 20 pack year history, quit 20 years ago with underlying COPD, bronchiectasis, diastolic dysfunction and h/o acute respiratory failure with hypoxemia since COVID 12/13 on supplemental oxygen. 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 She has been moderately controlled on Trelegy and Duoneb. Over the last few months she reported worsening dyspnea as well as increased oxygen demand. She was sent for chest CT which was suggestive of underlying ILD. She was started on prednisone 50 mg QD with significant improvements in symptoms, requiring 3L at rest and 4L with exertion vs prior requiring 8L with exertion. Unfortunately over the last 2-3 weeks developed URI with dry cough unable to expectorate, chest congestion, chills, worsening dyspnea, fatigue, wheezing and increase in O2 requirement. She did not call office or seek urgent care/PCP during this time. Upon arrival to room patient satting in the 50s on 3L, slow to recover to 88-92% on 8L. Discussed urgency of ED evaluation with ambulance however patient wanted to drive her. Notified ED of pending arrival, aware to go straight to ED with patient. Of note, patient did state over the few days she has been monitoring oxygen saturation and with any exertion desaturates anywhere to 50s-70s and low 90s with rest. [facility] Social History Patient Tobacco Use Status: Former Tobacco user Tobacco use type: Cigarette Review of Systems Const Denies chills, Denies excessive sweating, Denies fever(s), Denies headache(s) and Denies night sweats Eyes Denies dry eyes, Denies irritation and Denies itchy eyes ENT Reports Normal hearing present, Denies headache(s), Denies post nasal drip and Denies sore throat Card Denies chest pain, Denies chest pain at rest, Denies chest pain with activity, Denies claudication, Denies leg edema, Denies orthopnea and Denies paroxysmal nocturnal dyspnea Resp Denies excessive phlegm production, Denies pain on inspiration, Denies pain with cough and Denies stridor Musc Denies myalgias Neuro Reports Normal hearing present and Denies headache(s) Endo Denies excessive sweating Newton/Lymph Denies lymphadenopathy Aller/Immun Denies itchy eyes and Denies seasonal rhinorrhea Physical Exam Vital Signs: Last Vital Signs Pulse Ox 88 L 11/27/24 10:15 Oxygen Delivery Method Nasal Cannula 11/27/24 10:15 Oxygen Flow Rate 8 11/27/24 10:15 Const General: cooperative, well developed, alert and acute distress Nutritional Appearance: obese Orientation/consciousness: patient oriented x3 Limitations: no limitations HEENT Head: Yes normal to inspection, Yes normocephalic and Yes atraumatic Ears: hearing grossly normal bilaterally and external ears normal Eyes General: appearance normal, both eyes and all related structures Eyelids: Yes eyelids normal Sclerae: sclerae normal EOM: EOMs intact bilaterally Neck Neck: Yes normal visual inspection and Yes no lymphadenopathy Lymphatic: no lymphadenopathy noted Chest Chest palpation & inspection: normal inspection of the chest Resp Other: inspiratory bibasilar coarse crackles mid to lower lungs, harsh cough throughout visit, Effort & Inspection: Actively coughing, pursed lip breathing, respiratory distress, no stridor, not tachypneic, no tripod positioning and no use of accessory muscles Cardio Jugular venous distension: no JVD Rate: regular rate Rhythm: regular rhythm Skin Other: warm, dry General skin exam: no rashes or lesions noted Neuro General: patient oriented x3 Cranial nerves: Yes Normal hearing present Cognition (Neuro): normal cognition Gait exam (Neuro): Normal gait present Extrem Other: trace BLE Psych Appearance: grossly normal and well kempt Speech and movement: Normal speech and movement present and Clear speech present Affect: normal affect Attitude: cooperative Thought process: Normal thought process present Thought content: Normal thought content present Insight: Good insight present (Psych) Judgement: Good judgement present (Psych) Assessment & Plan Assessment & Plan (1) COPD (chronic obstructive pulmonary disease): Code(s): J44.9 - Chronic obstructive pulmonary disease, unspecified Category: Medical (2) History of acute respiratory failure: Code(s): Z87.09 - Personal history of other diseases of the respiratory system Category: Medical (3) On supplemental oxygen therapy: Code(s): Z99.81 - Dependence on supplemental oxygen Category: Medical (4) Emphysema of lung: Code(s): J43.9 - Emphysema, unspecified Category: Medical Plan Patient with worsening bronchitic symptoms over the last few weeks and increased oxygen demand, now in respiratory distress. Sending patient to ED for emergent evaluation for acute respiratory failure. Discussed importance for emergent evaluation with need for ambulance as she should not drive, however she called to take to ED. He was instructed to take patient immediately to ED, ensured patient had O2 tank for travel. All questions were answered and patient is in agreement of plan. Will follow up after discharge. Coding Level of Care Code Est Pt Level 5 (64048) Complex EM visit Add On G2211 Diagnoses COPD (chronic obstructive pulmonary disease) J44.9 History of acute respiratory failure Z87.09 On supplemental oxygen therapy Z99.81 Emphysema of lung J43.9
--- OUTSIDE RECORDS SUMMARY | 2024-11-27 10:10 | XMS_ITS | Patient Health Record ---
[facility] Address [address] [place] [address] Care Team Providers Care [employer] Name Role Phone Artis Whiting MD Primary Care Provider Dillon Hough Unavailable [phone] Allergies Allergen (clinical drug ingredient) Drug/Non Drug Allergy documented on EMR Reaction Allergy Type Onset Date Status meperidine Demerol vomiting Drug Allergy Active Adhesive Tape itch Drug Allergy Act ava codeine Codeine Skin turns red Drug Allergy Ac tive Reason For Referral No Information Medications Medication SIG (Take, Route, Frequency, Duration) Notes Start Date End Date Status Pravastatin Sodium 40 MG 1 tablet Orally Once a day Active Citalopram Hydrobromide 40 MG 0.5 tablet Orally Once a day 09/17/2015 Active Trelegy Ellipta 100-62.5-25 MCG/ACT 1 puff Inhalation Once a day Active Social History Tobacco Use: Social History Observation Description Date Details (start date - stop date) Former Smoker NA - NA Tobacco Use/Smoking Question Answer Notes Are you a: former smoker Additional Findings: Tobacco Non-User Current no n-smoker Alcohol Screen Question Answer Notes Did you have a drink containing alcohol in the p ast year? No Points 0 Interpretation Negative Tobacco use other than smoking: Question Answer Notes Are you an other tobacco user? 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 Plan Of Treatment Pending Test Test Name Order Date X ray : Foot, right 3V 03/16/2023 Insurance Providers Payer Name Payer Address Payer Phone Subscriber Number Group Number Insured Name Patient Relationship to Insured Coverage Start Date Coverage End Date A[employer] Medicare Complete [address] [address] [place] [address] [phone] [id number] Jeny Diez Self - patient is the insured [employer] [address] [place] [address] [id number] Jeny Diez Self - patient is the insured Medical (General) History Medical History History ICD Code Broken bones Chicken pox skin cancer Depression Measles Mumps Psoriasis/Eczema COPD Surgical History Surgery Date(Month/Year) back surgery lung surgery shoulder surgery Hospitalization History Reason Date(Month/Year) [facility]
[2024-11-27 10:15] VITALS: O2SAT 88
== END 2024-11-27 11:01 | disposition home or self-care (01) ==
PROVIDERS: PCP Internal Medicine; Visit Provider Nurse Practitioner Family
DX: J43.9 Emphysema, unspecified (principal); Z99.81 Dependence on supplemental oxygen; Z87.09 Personal history of other diseases of the respiratory system
CPT/HCPCS: 99215; G2211

== ENCOUNTER → 2024-11-27 09:56 | Outpatient (BNVA) | payer MEDICARE, SELFPAY | PROVIDERS: PCP Internal Medicine; Visit Provider Nurse Practitioner Family | DX: J44.9 Chronic obstructive pulmonary disease, unspecified (principal); J43.9 Emphysema, unspecified; Z87.09 Personal history of other diseases of the respiratory system; Z99.81 Dependence on supplemental oxygen | CPT/HCPCS: 99212 ==

== ENCOUNTER 2024-11-27 11:25 | Inpatient (IN) | payer MEDICARE, SELFPAY ==
[2024-11-27] VITALS (13 sets, daily range): BP systolic 95–128; BP diastolic 52–71; PULSE 74–107; RESP 16–30; TEMP 36.1–37.1; O2SAT 60–97; BMI 35.3; BMI 36.2
--- NOTE | ~2024-11-27 | US_ITS ---
CLINICAL HISTORY: DVT? PE Bilateral lower extremity duplex venous Doppler Comparison: None Technique: Grayscale/Color/Duplex Doppler sonographic evaluation of the deep venous system within both lower extremities. Findings: Right lower extremity Common femoral vein: Patent CFV/GSV junction: Patent Femoral vein: Patent Popliteal vein: Patent Infrapopliteal veins: Patent where seen Soft tissue: No focal abnormality Left lower extremity Common femoral vein: Patent CFV/GSV junction: Patent Femoral vein: Patent Popliteal vein: Patent Infrapopliteal veins: Occlusive thrombus in the posterior tibial vein. Thrombus in the small saphenous vein in the calf. Soft tissues: No focal abnormality Impression: 1. Negative for right lower extremity DVT 2. Positive DVT left posterior tibial vein. 3. Thrombus in the small saphenous vein left calf. This document has been electronically signed by: Tej Garvey MD on 11/30/2024 16:43:22
--- NOTE | ~2024-11-27 | CT_ITS ---
CLINICAL HISTORY: hypoxia CT angiography chest with contrast. 3D Postprocessing. Comparison: CT/[place] - CT CHEST WO IV CON - 11/08/24 07:36 EST Findings: The heart is normal size. RV/LV ratio is normal. Unremarkable thoracic aorta and great vessels. No aneurysm. There are filling defects within multiple pulmonary arteries with involvement of all lobes. Unremarkable visualized thyroid. There is an enlarged right paratracheal lymph node measuring 1.4 cm in short axis dimension. This is normal morphology and contains a fatty hilum but is significantly increased in size since the prior study. No hilar lymphadenopathy. Moderate hiatal hernia. There are diffuse ground-glass opacities within the bilateral lungs, new since the prior study. Multifocal pulmonary fibrosis with possible worsening. Moderate pulmonary emphysema. Small focus of pleural-based calcification within the left lower lobe without change. The upper abdomen is unremarkable. No acute fractures. IMPRESSION: 1. 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 No saddle embolus. No right heart strain. 2. Enlarged right paratracheal lymph node with interval increase in size. 3. Moderate hiatal hernia. 4. Diffuse ground-glass opacities within the bilateral lungs may be secondary to an interstitial infiltrate, interstitial edema or worsening of interstitial scarring. 5. There is an enlarged right paratracheal lymph node, significantly increased in size. This document has been electronically signed by: Mary Collins MD on 11/30/2024 14:34:15
--- NOTE | ~2024-11-27 | XR_ITS ---
EXAMINATION: XR CHEST 1 VIEW HISTORY: SOB COMPARISON: Comparison is made with the prior examination dated 06/18/2024. FINDINGS: A single AP portable view of the chest performed at 12:14 PM is submitted. There are low lung volumes. Again seen are increased interstitial opacities bilaterally, consistent with fibrosis. No definite focal airspace opacity is seen. There is no pleural effusion, pneumothorax, or pulmonary vascular congestion. The heart is normal in size. The bones are intact. XR/XR chest 1V IMPRESSION: Pulmonary fibrosis. No acute cardiopulmonary abnormality. Electronically signed by: Milo Burnett MD 11/27/2024 12:37 PM [facility]
--- NOTE | 2024-11-27 11:40 | PC.NURSE ---
tanvir presented to the ED private vehicle from pulm office, patient satting 60% on her baseline 3lNC. patient brought back to room 5, ED provider called to bed side, bilat IV started, lab work obtained. patient placed onnon rebreather 15L, came up to 96%. patient placed on 4l NC satting 88%. plan for neb treatment, crackles through out lungs.
[2024-11-27 11:45] LABS: MANUAL DIFF FLAG NO
[2024-11-27 11:47] LABS: Basophils Percent Auto 0.2 % (0-2); Hematocrit 40.7 % (37.0-47.0); Hemoglobin 13.7 g/dl (12.0-16.0); Imm Gran Pct Auto 1.1 % (0.0-0.4); Lymphocytes Absolute Auto 2.7 X10*3/uL (1.2-4.9); Lymphocytes Percent Auto 14.3 % (20-40); Mean Corpuscular HGB Conc 33.7 g/dl (31.0-35.0); Mean Corpuscular Hemoglobin 32.1 pg (27.0-33.0); Mean Corpuscular Volume 95.3 fL (80.0-98.0); Monocytes Absolute Auto 0.7 X10*3/uL (0.1-1.2); Monocytes Percent Auto 3.5 % (2-11); Neutrophils Absolute Auto 15.2 x10*3/uL (2.0-8.3); Neutrophils Percent Auto 80.9 % (45-73); Platelet Count 238 X10*3/uL (160-400); Red Blood Count 4.27 X10*6/uL (4.20-5.50); Red Cell Distribution Width 14.8 % (11.0-16.0); White Blood Count 18.8 X10*3/uL (4.8-10.8)
[2024-11-27 11:48] LABS: Venous Blood Gas Refer to POC result
[2024-11-27 11:51] LABS: VBG Base Excess 3.8 mmol/L; VBG HCO3 28 mmol/L (22-26); VBG pCO2 43 mmHg; VBG pH 7.42 (7.32-7.43); VBG pO2 30 mmHg
[2024-11-27] MEDS: Albuterol Sulfate 7.5 MG, Albuterol/Iprat 2.5/0.5MG 3 ML 3 ML INHALE (12:04)
[2024-11-27 12:07] LABS: Alanine Aminotransferase 42 U/L (0-31); Albumin Level 3.9 g/dL (3.5-5.0); Alkaline Phosphatase 54 U/L (39-117); Anion Gap 21 (12-20); Aspartate Amino Transferase 32 U/L (5-31); Blood Urea Nitrogen 24 mg/dL (9-16); Calcium 9.1 mg/dL (8.4-10.2); Carbon Dioxide 25 mmol/L (22-29); Chloride 102 mmol/L (96-108); Creatinine Clr Calc Pharmacy 54.9; Estimated Glomerular Filt Rate 42; Glucose Random 81 mg/dL (60-115); Potassium 3.6 mmol/L (3.3-5.1); Sodium 144 mmol/L (135-145); Total Protein 6.8 g/dL (6.5-8.0)
--- NOTE | 2024-11-27 12:19 | ED_ITS ---
HPI - SOB/Dyspnea General Chief Complaint: Dyspnea Stated Complaint: Diff Breathing Time Seen by Provider: 11/27/24 11:32 Source: patient Mode of arrival: ambulatory History of Present Illness ED Provider: Kourtney TRUONG Narrative: 68F presents with acute hypoxemic shortness of breath that has been worsening over the past few days. Patient with increased work of breathing/tachypnea and initially 66% O2 sat. Related Data Home Medications ?Medication ?Instructions ?Recorded ?Confirmed albuterol sulfate 90 mcg/actuation 2 puff inhalation Q6H PRN 03/26/24 aerosol inhaler citalopram 40 mg tablet (Celexa) 40 mg PO DAILY 03/26/24 pravastatin 40 mg tablet 40 mg PO BEDTIME 03/26/24 fluticasone fur. 200 mcg-umeclid 1 ea inhalation DAILY 11/27/24 62.5 mcg-vilant 25 mcg inhalat.powder (Trelegy Ellipta) Previous Rx's ?Medication ?Instructions ?Recorded furosemide 20 mg tablet (Lasix) 20 mg PO DAILY #5 tabs 06/19/24 ipratropium 0.5 mg-albuterol 3 mg 3 ml inhalation Q6H PRN wheezing 09/03/24 (2.5 mg base)/3 mL nebulization #180 mL soln prednisone 50 mg tablet 50 mg PO DAILY #30 tabs 11/11/24 Allergies Allergy/AdvReac Type Severity Reaction Status Date / Time acetaminophen Allergy Intermediate FLUSHING Verified 11/27/24 11:38 [From TYLENOL-CODEINE #3] From DEMEROL Allergy Intermediate VOMITING Uncoded 11/27/24 11:38 From TYLENOL-CODEINE #3 Allergy Intermediate FLUSHING Uncoded 11/27/24 11:38 Demerol Allergy Unknown Vomiting Uncoded 11/27/24 11:38 Tylenol/Codeine #3 Allergy Unknown Redness of Uncoded 11/27/24 11:38 Skin Review of Systems 2 Review of Systems: Pertinent positives and negatives as stated in HPI PMFSH Past Medical History Source: nursing notes reviewed Social History Social History Patient Tobacco Use Status: Former Tobacco user Tobacco use type: Cigarette Advance Directives: No Advance Directives Information Provided: Yes Do you have a plan to hurt others: No Plan Physical Exam 2 Vital Signs: Vital Signs: Last Vital Signs Temp 97.8 F 11/27/24 11:45 Pulse 107 H 11/27/24 12:27 Resp 20 11/27/24 12:27 BP 96/56 L 11/27/24 12:27 Pulse Ox 88 L 11/27/24 12:27 O2 Del Method High Flow Nasal C annula 11/27/24 12:27 O2 Flow Rate 40 11/27/24 12:27 FiO2 42 11/27/24 12:27 BMI result Body Mass Index 35.3 VITAL SIGNS: Reviewed. GENERAL: Well developed, well nourished, in no acute distress. HEAD: Normocephalic/atraumatic EYES: PERRLA, EOMI EARS: Ext canals without abnormality NOSE: Nares patent bilateral OROPHARYNX: no oral lesions noted, posterior pharynx clear NECK: Supple, no adenopathy LUNGS: Tachypnea, increased work of breathing, crackles, unable to complete sentences. SpO2<60> placed on nasal cannula and 100% non-rebreather CARDIOVASCULAR: Regular rate and rhythm without noted murmurs ABDOMEN: Soft, non-tender, non-distended with bowel sounds. MUSCULOSKELETAL: No tenderness, deformities, or effusions noted on gross inspection. EXTREMITIES: No cyanosis, clubbing or edema. SKIN: Inspection of the skin reveals no rashes NEUROLOGIC: Alert and oriented x 4. Strength and sensation to light touch were grossly intact x 4. Medications Administered Discontinued Medications Generic Name Dose Route Start Last Admin Trade Name Freq PRN Reason Stop Dose Admin Acetaminophen 975 mg 11/27/24 12:20 11/27/24 12:25 Acetaminophen 325 Mg Tablet PO 11/27/24 12:21 975 mg ONCE ONE Administration Albuterol Sulfate 7.5 mg/ 0 mg 11/27/24 11:55 11/27/24 12:04 Albuterol/Ipratropium 3 ml INHALE 11/27/24 11:56 10 each ONCE ONE Administration Methylprednisolone Sodium Succinate 125 mg 11/27/24 13:05 11/27/24 13:17 Methylprednisolone Sod Succ 125 Mg/2 Ml Vial IVPUSH 11/27/24 13:06 125 mg ONCE ONE Administration Medical Decision Making Medical Decision Making [facility] Narrative: 1130: 68-year-old female with history and clinical presentation, acute respiratory failure with hypoxemia and will rule out underlying viral or bacterial infection. INTERVENTION: Hi-flow, Nebs, steroids 1224: VBG does not demonstrate acute respiratory acidosis or hypercapnia so do not feel that respiratory failure secondary to COPD, elevated lactic acid does not meet indication for sepsis fluids and suspect that the elevation is secondary to nebulized treatments. I do not suspect bacteria pneumonia. I reviewed interpreted all investigations and there is a noninfectious leukocytosis as patient is currently on steroids, there is no anemia or thrombocytopenia. VBG does not demonstrate any respiratory acidosis, there is no significant hypercapnia over baseline. There is no demonstrated RUY/electrolyte and there are chronically stable elevated transaminases. Viral testing is positive for COVID-19. Chest x-ray negative for infiltrate or venous congestion. 1300: On re-evaluation patient is feeling much improved, she is alert and much easier breathing, she is tachycardic secondary to nebulized treatments. 1337: I discussed with inpatient hospitalist who have agreed to admission as long as patient continues to stay respiratory stable. Differential Diagnosis Differential Diagnoses: The differential diagnosis associated with the presentation includes See above Admission/Observation Consideration of admission/observation: Escalation of care including admission/observation considered Patient meets inpatient level of care. Consult Healthcare Provider Management of the patient was discussed with: Hospitalist See above Lab Data MDM Lab Attestation statement: I reviewed the patient's lab results. See above 11/27/24 11:39 11/27/24 11:39 Labs: Lab Results 11/27/24 11/27/24 11/27/24 Range/Units 11:39 11:41 11:45 WBC 18.8 H (4.8-10.8) X10*3/uL RBC 4.27 (4.20-5.50) X10*6/uL Hgb 13.7 (12.0-16.0) g/dl Hct 40.7 (37.0-47.0) % MCV 95.3 (80.0-98.0) fL MCH 32.1 (27.0-33.0) pg MCHC 33.7 (31.0-35.0) g/dl RDW 14.8 (11.0-16.0) % Plt Count 238 (160-400) X10*3/uL MPV 9.0 L (9.4-12.3) fL Immature Gran % (Auto) 1.1 H (0.0-0.4) % Neut % (Auto) 80.9 H (45-73) % Lymph % (Auto) 14.3 L (20-40) % [place] % (Auto) 3.5 (2-11) % Eos % (Auto) 0.0 (0-4) % Baso % (Auto) 0.2 (0-2) % Lymph # (Auto) 2.7 (1.2-4.9) X10*3/uL [place] # (Auto) 0.7 (0.1-1.2) X10*3/uL Eos # (Auto) 0.0 (0.0-0.4) X10*3/uL Baso # (Auto) 0.0 (0.0-0.2) X10*3/uL Abs Immat Gran (auto) 0.20 H (0.00-0.03) X10*3/uL Absolute Neuts (auto) 15.2 H (2.0-8.3) x10*3/uL Absolute Nucleated RBC 0.000 (0.0-0.012) X10*3/uL Nucleated RBC % (auto) 0.0 (0.0-0.2) /100WBC VBG pH 7.42 (7.32-7.43) VBG pCO2 43 mmHg VBG pO2 30 mmHg VBG HCO3 28 H (22-26) mmol/L VBG O2 Saturation 41.0 % VBG Base Excess 3.8 mmol/L Sodium 144 (135-145) mmol/L Potassium 3.6 (3.3-5.1) mmol/L Chloride 102 (96-108) mmol/L Carbon Dioxide 25 (22-29) mmol/L Anion Gap 21 H (12-20) BUN 24 H (9-16) mg/dL Creatinine 1.28 (0.5-1.4) mg/dL Estim Creat Clear Calc 54.9 Estimated GFR 42 Random Glucose 81 (60-115) mg/dL Lactic Acid (0.5-2.0) mmol/L Calcium 9.1 (8.4-10.2) mg/dL Total Bilirubin 0.7 (0.0-1.0) mg/dL AST 32 H (5-31) U/L ALT 42 H (0-31) U/L Alkaline Phosphatase 54 (39-117) U/L Total Protein 6.8 (6.5-8.0) g/dL Albumin 3.9 (3.5-5.0) g/dL Influenza Type A (PCR) NEGATIVE (Negative) Influenza Type B (PCR) NEGATIVE (Negative) RSV RNA Qual (PCR) NEGATIVE (Negative) SARS-CoV-2 RNA (RT-PCR) POSITIVE A (Negative) 11/27/24 Range/Units 12:00 WBC (4.8-10.8) X10*3/uL RBC (4.20-5.50) X10*6/uL Hgb (12.0-16.0) g/dl Hct (37.0-47.0) % MCV (80.0-98.0) fL MCH (27.0-33.0) pg MCHC (31.0-35.0) g/dl RDW (11.0-16.0) % Plt Count (160-400) X10*3/uL MPV (9.4-12.3) fL Immature Gran % (Auto) (0.0-0.4) % Neut % (Auto) (45-73) % Lymph % (Auto) (20-40) % [place] % (Auto) (2-11) % Eos % (Auto) (0-4) % Baso % (Auto) (0-2) % Lymph # (Auto) (1.2-4.9) X10*3/uL [place] # (Auto) (0.1-1.2) X10*3/uL Eos # (Auto) (0.0-0.4) X10*3/uL Baso # (Auto) (0.0-0.2) X10*3/uL Abs Immat Gran (auto) (0.00-0.03) X10*3/uL Absolute Neuts (auto) (2.0-8.3) x10*3/uL Absolute Nucleated RBC (0.0-0.012) X10*3/uL Nucleated RBC % (auto) (0.0-0.2) /100WBC VBG pH (7.32-7.43) VBG pCO2 mmHg VBG pO2 mmHg VBG HCO3 (22-26) mmol/L VBG O2 Saturation % VBG Base Excess mmol/L Sodium (135-145) mmol/L Potassium (3.3-5.1) mmol/L Chloride (96-108) mmol/L Carbon Dioxide (22-29) mmol/L Anion Gap (12-20) BUN (9-16) mg/dL Creatinine (0.5-1.4) mg/dL Estim Creat Clear Calc Estimated GFR Random Glucose (60-115) mg/dL Lactic Acid 2.8 H* (0.5-2.0) mmol/L Calcium (8.4-10.2) mg/dL Total Bilirubin (0.0-1.0) mg/dL AST (5-31) U/L ALT (0-31) U/L Alkaline Phosphatase (39-117) U/L Total Protein (6.5-8.0) g/dL Albumin (3.5-5.0) g/dL Influenza Type A (PCR) (Negative) Influenza Type B (PCR) (Negative) RSV RNA Qual (PCR) (Negative) SARS-CoV-2 RNA (RT-PCR) (Negative) Independent Interpretation I performed an independent interpretation of an: EKG Interpretation: See above Radiology Impression Discussion of test interpretation with radiology: I have reviewed the radiologist's reading. Radiologist Impression: See above External Record Review External record reviewed: Prior outpatient labs and Prior outpatient radiology Chronic Conditions COPD Critical Care Time Critical Care Time Critical Care Time: Yes Total Critical Care Time: 60 Attestation: I personally attest to this time spent taking care of the patient. Discharge Plan Discharge Clinical Impression: Acute hypoxemic respiratory failure, COVID-19 Patient Disposition: Admitted As Inpatient Print Language: Irish
[2024-11-27 12:20] LABS: Bilirubin Total 0.7 mg/dL (0.0-1.0)
[2024-11-27 12:22] LABS: Lactic Acid 2.8 mmol/L (0.5-2.0)
[2024-11-27] MEDS: Acetaminophen 325 MG TABLET 975 MG PO (12:25)
[2024-11-27 12:26] LABS: Influenza A PCR NEGATIVE (Negative); Influenza B PCR NEGATIVE (Negative); Resp Syncy Virus RNA Qual PCR NEGATIVE (Negative); SARS COV2 PCR INHOUSE POSITIVE (Negative)
[2024-11-27] MEDS: methylPREDNISolone Sod Succ 125 MG/2 ML VIAL IVPUSH (13:17)
--- NOTE | 2024-11-27 13:43 | PM.IMHP ---
History of Present Illness Date of Service: 11/27/24 Attending physician on admission: Marshall Leung Chief Complaint: SOB Pt is a 68-year-old female with a PMH significant for?HLD, pulmonary fibrosis, COPD on home O2 3L at rest and 4L with exertion, and former smoker with a 20 pack-year history who presents to the ED for pulmonology office after noting to be satting in the 50s on 3L O2. Pt reports has had increased SOB and difficulty breathing for the past few months. Was started on prednisone 50 mg daily at the end of August with initially significant improvement. Pt then began experiencing increased SOB, RODRIGUEZ, nonproductive cough, and ?extreme? fatigue x2-3 weeks. Pt increased her home O2 to 5 L at rest without significant improvement. Denies fever or myalgias, but has had some chills. No lower leg edema. Has been eating and drinking normally. Pt today went pulmonology office as a routine follow-up appointment. Denies chest pain/pressure, palpitations. No nausea, vomiting, abdominal pain. Denies headache. Pt was placed on high-flow in the ED and reports she has had significant improvement in symptoms. In the ED pt was tachycardic up to 107, tachypneic up to 30, with soft BP as low as 95/55, and desatting into the 60s on home 3L O2. Labs were significant for leukocytosis of 18.8, acid 2.8 AST 32 and ALT 42. CXR showed pulmonary fibrosis without acute cardiopulmonary abnormality. Pt was treated with DuoNeb, acetaminophen, and Solu-Medrol. Pt will be admitted to the hospital for treatment and further evaluation of acute on chronic hypoxic respiratory failure in the setting of acute COPD exacerbation secondary to acute COVID infection. Review of Systems Review of Systems: Negative except for that which is stated in [facility] Medical History (Updated 11/27/24 @ 14:38 by BECCA Morgan) HLD (hyperlipidemia) Pulmonary fibrosis Social History Patient Tobacco Use Status: Former Tobacco user Tobacco use type: Cigarette Advance Directives: No Advance Directives Information Provided: Yes Do you have a plan to hurt others: No Plan Meds Allergies Allergy/AdvReac Type Severity Reaction Status Date / Time acetaminophen Allergy Intermediate FLUSHING Verified 11/27/24 11:38 [From TYLENOL-CODEINE #3] From DEMEROL Allergy Intermediate VOMITING Uncoded 11/27/24 11:38 From TYLENOL-CODEINE #3 Allergy Intermediate FLUSHING Uncoded 11/27/24 11:38 Demerol Allergy Unknown Vomiting Uncoded 11/27/24 11:38 Tylenol/Codeine #3 Allergy Unknown Redness of Uncoded 11/27/24 11:38 Skin Home Medications ?Medication ?Instructions ?Recorded ?Confirmed ?Last Taken ?Type albuterol sulfate 90 mcg/actuation 2 puff inhalation Q6H PRN 03/26/24 11/27/24 Unknown History aerosol inhaler Shortness Of Breath Or Wheezing citalopram 40 mg tablet (Celexa) 40 mg PO DAILY 03/26/24 11/27/24 11/26/24 History pravastatin 40 mg tablet 40 mg PO BEDTIME 03/26/24 11/27/24 11/26/24 History fluticasone fur. 200 mcg-umeclid 1 ea inhalation DAILY 11/27/24 11/27/24 11/26/24 History 62.5 mcg-vilant 25 mcg inhalat.powder (Trelegy Ellipta) Physical Exam Vital Signs and Narrative: Vital Signs: Last Vital Signs Temp 97.8 F 11/27/24 11:45 Pulse 107 H 11/27/24 12:27 Resp 20 11/27/24 12:27 BP 96/56 L 11/27/24 12:27 Pulse Ox 88 L 11/27/24 12:27 O2 Del Method High Flow Nasal C annula 11/27/24 12:27 O2 Flow Rate 40 11/27/24 12:27 FiO2 42 11/27/24 12:27 BMI result Body Mass Index 35.3 Constitutional: Alert, in no acute distress. Mental Status: Oriented to person, place and time. Eyes: Pupils are equal, round, and reactive to light. Ear, Nose, and Throat: Oropharynx clear, mucous membranes moist. Ears and nose without deformities. Trachea midline. Respiratory: Mild expiratory crackles. On Hi Flow. Incapable of speaking in complete sentences. Cardiovascular: S1, S2 regular. No murmurs, rubs, or gallops. Gastrointestinal: Abdomen soft, non-tender, non-distended. Normal bowel sounds. Neurologic: Cranial nerves II-XII are grossly intact bilaterally. No focal neurological deficits. Moves all extremities spontaneously. Skin: Warm, dry. Extremities: No edema. Psychiatric: Normal mood and affect. Results Labs 11/27/24 11:39 11/27/24 11:39 Labs: Laboratory Results - last 24 hr 11/27/24 11/27/24 11/27/24 11:39 11:41 11:45 MCV 95.3 MCH 32.1 MCHC 33.7 RDW 14.8 Plt Count 238 MPV 9.0 L Immature Gran % (Auto) 1.1 H Neut % (Auto) 80.9 H Lymph % (Auto) 14.3 L Converse % (Auto) 3.5 Eos % (Auto) 0.0 Baso % (Auto) 0.2 Lymph # (Auto) 2.7 Converse # (Auto) 0.7 Eos # (Auto) 0.0 Baso # (Auto) 0.0 Abs Immat Gran (auto) 0.20 H Absolute Neuts (auto) 15.2 H Absolute Nucleated RBC 0.000 Nucleated RBC % (auto) 0.0 VBG pH 7.42 VBG pCO2 43 VBG pO2 30 VBG HCO3 28 H VBG O2 Saturation 41.0 VBG Base Excess 3.8 Anion Gap 21 H Estim Creat Clear Calc 54.9 Estimated GFR 42 Random Glucose 81 Lactic Acid Calcium 9.1 Total Bilirubin 0.7 AST 32 H ALT 42 H Alkaline Phosphatase 54 Total Protein 6.8 Albumin 3.9 Influenza Type A (PCR) NEGATIVE Influenza Type B (PCR) NEGATIVE RSV RNA Qual (PCR) NEGATIVE SARS-CoV-2 RNA (RT-PCR) POSITIVE A 11/27/24 12:00 MCV MCH MCHC RDW Plt Count MPV Immature Gran % (Auto) Neut % (Auto) Lymph % (Auto) Converse % (Auto) Eos % (Auto) Baso % (Auto) Lymph # (Auto) Converse # (Auto) Eos # (Auto) Baso # (Auto) Abs Immat Gran (auto) Absolute Neuts (auto) Absolute Nucleated RBC Nucleated RBC % (auto) VBG pH VBG pCO2 VBG pO2 VBG HCO3 VBG O2 Saturation VBG Base Excess Anion Gap Estim Creat Clear Calc Estimated GFR Random Glucose Lactic Acid 2.8 H* Calcium Total Bilirubin AST ALT Alkaline Phosphatase Total Protein Albumin Influenza Type A (PCR) Influenza Type B (PCR) RSV RNA Qual (PCR) SARS-CoV-2 RNA (RT-PCR) Imaging Radiologist's Impressions: Impressions Chest X-Ray 11/27/24 12:18 IMPRESSION: Pulmonary fibrosis. No acute cardiopulmonary abnormality. Electronically signed by: Milo Burnett MD 11/27/2024 12:37 PM EST Assessment and Plan (1) COVID-19: Status: Acute (2) Acute hypoxemic respiratory failure: Status: Acute Plan Pt is a 68-year-old female with a PMH significant for?HLD, pulmonary fibrosis, COPD on home O2 3L at rest and 4L with exertion, and former smoker with a 20 pack-year history who presents to the ED for pulmonology office after noting to be satting in the 50s on 3L O2. Pt will be admitted to the hospital for treatment and further evaluation of acute on chronic hypoxic respiratory failure in the setting of acute COPD exacerbation secondary to acute COVID infection. Acute on chronic hypoxic respiratory failure in the setting of COPD exacerbation from acute COVID infection Pt desatting to 50s on home 3L O2, COVID+ Will treat with Solu-Medrol, DuoNebs, guaifenesin, and azithromycin x3 days for pleiotropic effects Continued to high-flow for now, wean as tolerated to patient's chronic 3L NC Monitor respiratory status Viral sepsis Pt with tachycardia, tachypnea, initial lactic acid 2.8 with repeat 1.8 Secondary to viral COVID illness; CXR negative, leukocytosis secondary to chronic prednisone use, no indication of underlying pneumonia HLD Continue statin Mood disorder Continue citalopram Full Code Attending:?Dr. Leung DVT Prophylaxis: Lovenox Pt will require a hospitalization of at least two nights for treatment of?acute on chronic hypoxic respiratory failure in the setting of COPD exacerbation from acute COVID infection. Pt administration of increased supplemental O2 above baseline, IV steroids, and close of respiratory status. Quality Stroke Does the patient have a stroke diagnosis?: No VTE Prior VTE?: No VTE Risk Level:: Medical - moderate - high VTE Device Contraindication: Treatment Not Indicated VTE Drug Contraindication: N/A - Med Ordered
--- NOTE | 2024-11-27 13:57 | ECG_ITS ---
Test Reason : SOB Blood Pressure : */* mmHG Vent. Rate : 85 BPM Atrial Rate : 85 BPM P-R Int : 128 ms QRS Dur : 96 ms QT Int : 386 ms P-R-T Axes : 102 64 12 degrees QTcB Int : 459 ms Normal sinus rhythm Normal ECG No previous ECGs available Referred By: Dimple Oconnell Electronically Signed By: CHRISTINA LOVE
[2024-11-27 14:03] LABS: Reflex Lactate? Lactic Acid Added
--- NOTE | 2024-11-27 14:32 | PHA.MEDREC ---
Addendum entered by Michaela Ricketts [facility] 12/12/24 13:13: per Patient, and pharmacy claims. Pt takes Ozempic 0.5mg q7 days on . Addendum entered by Giovanna Moore [facility] 11/27/24 14:49: reviewed by [facility]. Original Note: Pharmacy Consult ? Medication Reconciliation Pharmacy has completed the medication reconciliation. Spoke to patient to confirm med list. patient states she is no longer taking Furosemide 20 mg. patient confirm she is still taking Prednisone 50 mg daily. Last time patient took her medications was 11/27/23.
[2024-11-27] MEDS: Albuterol/Iprat 2.5/0.5MG 3 ML AMPUL.NEB INHALE ×2 (14:45→20:08)
[2024-11-27 14:50] LABS: ~Lactic Acid-LAB USE ONLY 1.8 mmol/L (0.5-2.0)
[2024-11-27] MEDS: Azithromycin 500 MG in 0.9 % Sodium Chloride 250 ML 125 MG IV (14:51)
--- NOTE | 2024-11-27 16:12 | PC.NURSE ---
patient sitting up in bed, resp even and unlabored, patient remains on high flow o2, VSS. patient given sandwich, crackers, and jim flavio. patient is very polite
[2024-11-27] MEDS: Enoxaparin Sodium 40 MG/0.4 ML SYRINGE SUBCUT (17:04)
[2024-11-27] MEDS: Pravastatin Sodium 40 MG TABLET PO (19:44)
[2024-11-27] MEDS: methylPREDNISolone Sod Succ 125 MG/2 ML VIAL 60 MG IVPUSH (19:44)
[2024-11-27] MEDS: 0.9 % Sodium Chloride Flush 3 ML SYRINGE IVFLUSH (19:44)
[2024-11-27] MEDS: guaiFENesin DM 200/20/10 ML 10 ML SYRUP PO (19:55)
--- NOTE | 2024-11-27 20:03 | PC.NURSE ---
Addendum entered by Ariana Oh RN 11/28/24 02:12: Pt requesting tylenol for headache brought on by coughing episode after up to BR to void. Prn cough syrup given per pt request. Allergies on assuming care listed tylenol and tylenol w/ codeine respectively. Allergies reviewed with the patient who states she is allergic to codeine (flushing/rash she reports is her reaction) but NOT tylenol, and stated that she received tylenol previously this admission (confirmed in JAN). Covering Dr. Bustamante notified of patient request with prn order placed. Allergies list updated. Addendum entered by Ariana Oh RN 11/27/24 23:41: 22:00 hour: Patient noted with desats again to mid 80's on continuous spo2 monitoring. Senior Network Architect to bedside, pt states I was just rolling over onto her side/ repositioning herself in bed. Spo2 checked again showing 90-92% on the same 6L nc though slow to recover. Denies sob. Dr. Bustamante notified and spo2 goal clarification requested as pt has non-copd oxygen protocol ordered though is seen this admission for hypoxic respiratory failure in the setting of copd exacerbation 2/2 covid per MD report review. MD goal for >88% per [employer]. Original Note: Assumed care of patient at 19:00. Seen on S4, +covid. Pt on 4L nc on assuming care. Senior Network Architect notified by CMT of desats on continuous spo2 monitoring 86% lowest with good pleth. Senior Network Architect to bedside, pt states she just got back from the bathroom and took her oxygen off to go. Pt educated on calling staff for assistance to BR and importance on bringing her oxygen with her to the bathroom. +RODRIGUEZ, denies SOB at rest. Pt o2 increased to 6L with +effect, spo2 maintaining between 93-95%. Pt also states she wears 3L at home at rest, 4-5L with activity. Pt stated she will call for help though refused the bed alarm for this story writer despite education. Scheduled solumedrol and prn cough syrup given per JAN. RT to bedside for scheduled duoneb. Covering Dr. Bustamante notified of desats and interventions. Plan of care continues.
[2024-11-28] VITALS (10 sets, daily range): BP systolic 118–142; BP diastolic 59–77; PULSE 82–95; RESP 16–20; TEMP 36.3–37.2; O2SAT 89–95
[2024-11-28] MEDS: methylPREDNISolone Sod Succ 125 MG/2 ML VIAL 60 MG IVPUSH ×3 (01:50→13:28)
[2024-11-28] MEDS: guaiFENesin DM 200/20/10 ML 10 ML SYRUP PO ×4 (02:03→21:04)
[2024-11-28] MEDS: Acetaminophen 325 MG TABLET 650 MG PO (02:21)
--- NOTE | 2024-11-28 07:50 | PC.NURSE ---
pt reusing bed alarm. pts o2 on monitor was found to be in 60s. this RN founf pt in bathroom with no o2 on. pt was placed on 15L rob until able to rest. pt is currently in bed at 8L rob. re-educated pt to ring call bed and not to get up without staff assistance. pt understood at this time. will continue to re-educate pt during shift
[2024-11-28] MEDS: 0.9 % Sodium Chloride Flush 3 ML SYRINGE IVFLUSH ×3 (08:04→21:05)
[2024-11-28] MEDS: Escitalopram Oxalate 20 MG TABLET PO (08:04)
[2024-11-28] MEDS: Albuterol/Iprat 2.5/0.5MG 3 ML AMPUL.NEB INHALE ×4 (08:08→19:52)
--- NOTE | 2024-11-28 08:50 | MHC.CM.PN ---
IMM 11/28/23, EMR REVIEWED PT W/COVID19, CM COMPLETED INTAKE OVER PHONE HOWEVER THEN WENT TO BEDSIDE SO PT COULD SIGN HER HCP, PT PROVIDED W/EDUCATION AND NAMED HER MAYUR CORNEJO [phone] HER HCA AND HER DTR JOHN TOM [phone] HER ALTERNATE, [facility] AND PLACED IN CHART. PT REPORTS SHE LIVES W/, IS INDEP W/ALL CARE, HAS HOME O2 W/LINCARE AND USES 3L AT REST AND 4L W/ACTIVITY HOWEVER PRIOR TO COMING IN PT WAS USING 5 AND IT WAS NOT HELPING, NO HOME SERVICES AND GOAL FOR DC IS HOME. PCP ON FILE VERIFIED.
[2024-11-28] MEDS: Fluticasone/Umeclidinium/Vilanterol 200/62.5/25 BLST.W.DEV 1 PUFF INHALE (11:43)
--- NOTE | 2024-11-28 13:56 | P.PNIM_ITS ---
Subjective Subjective Date of Service: 11/28/24 Interval History: Minimal improvement since admission. Still with extreme desaturation off O2 and movement Review of Systems Denies chest pain Admits shortness of breath with minimal exertion Denies fever chills Denies nausea vomiting diarrhea Physical Exam 2 Vital Signs: Vital Signs: Last Vital Signs Temp 97.8 F 11/28/24 12:00 Pulse 85 11/28/24 12:00 Resp 16 11/28/24 12:00 BP 133/59 L 11/28/24 12:00 Pulse Ox 91 L 11/28/24 12:00 O2 Del Method Nasal Cannula 11/28/24 12:00 O2 Flow Rate 8 11/28/24 12:00 FiO2 42 11/27/24 16:00 BMI result Body Mass Index 36.2 Const: Other: Awake awake alert no acute distress. Able to speak in full sentences on 8 L Resp: Other: Diminished throughout with end inspiratory crackles to inferior scapular border bilaterally Cardio: Other: No S4; positive S1-S2; no S3 murmurs rubs or gallops GI: Other: Soft nontender nondistended normoactive bowel sounds Extrem: Other: No edema bilaterally Objective Data Active Medications Acetaminophen (Acetaminophen 325 Mg Tablet) 650 mg PO Q6H PRN PRN Reason: Pain, Mild (Pain Scale 1-3) Last Admin: 11/28/24 02:21 Dose: 650 mg Documented By: JACK Albuterol/Ipratropium (Albuterol/Iprat 2.5/0.5mg 3 Ml Ampul.Neb) 3 ml INHALE RQ4H WHILE AWAKE [facility] Last Admin: 11/28/24 11:43 Dose: 3 ml Documented By: MARIBEL Albuterol/Ipratropium (Albuterol/Iprat 2.5/0.5mg 3 Ml Ampul.Neb) 3 ml INHALE RQ4H WHILE AWAKE PRN PRN Reason: Shortness of Breath/Wheezing Calcium Carbonate (Calcium Carbonate 750 Mg Tab.Chew) 750 mg PO Q4H PRN PRN Reason: Heartburn Enoxaparin Sodium (Enoxaparin Sodium 40 Mg/0.4 Ml Syringe) 40 mg SUBCUT Q24H [facility] Last Admin: 11/27/24 17:04 Dose: 40 mg Documented By: RAINE Escitalopram Oxalate (Escitalopram Oxalate 20 Mg Tablet) 20 mg PO DAILY [facility] Last Admin: 11/28/24 08:04 Dose: 20 mg Documented By: KELSEY Fluticasone/Umeclidinium/Vilanterol (Fluticasone/Umeclidinium/Vilanterol 200/62.5/25 Blst.W.Dev) 1 puff INHALE RDAILY [facility] Last Admin: 11/28/24 11:43 Dose: 1 puff Documented By: MARIBEL Guaifenesin/Dextromethorphan (Guaifenesin Dm 200/20/10 Ml 10 Ml Syrup) 10 ml PO Q4H PRN PRN Reason: Cough Last Admin: 11/28/24 13:27 Dose: 10 ml Documented By: KELSEY Azithromycin 500 mg/ Sodium (Chloride) 250 mls @ 125 mls/hr IV Q24H [facility] Stop: 11/30/24 15:01 Last Infusion: 11/27/24 18:41 Dose: Infused Documented By: KELSEY Magnesium Hydroxide (Milk Of Magnesia 30 Ml Oral.Susp) 30 ml PO DAILY PRN PRN Reason: Constipation Melatonin (Melatonin 3 Mg Tablet) 6 mg PO BEDTIME PRN PRN Reason: Insomnia Methylprednisolone Sodium Succinate (Methylprednisolone Sod Succ 125 Mg/2 Ml Vial) 60 mg IVPUSH Q6H [facility] Stop: 11/28/24 18:59 Last Admin: 11/28/24 13:28 Dose: 60 mg Documented By: KELSEY Ondansetron HCl (Ondansetron Hcl 4 Mg/2 Ml Vial) 4 mg IVPUSH Q8H PRN PRN Reason: Nausea and Vomiting Pravastatin Sodium (Pravastatin Sodium 40 Mg Tablet) 40 mg PO BEDTIME [facility] Last Admin: 11/27/24 19:44 Dose: 40 mg Documented By: JACK Sodium Chloride (0.9 % Sodium Chloride Flush 3 Ml Syringe) 3 ml IVFLUSH QSHIFT [facility] Last Admin: 11/28/24 08:04 Dose: 3 ml Documented By: KELSEY Labs 11/27/24 11:39 11/27/24 11:39 Labs: Laboratory Results - last 24 hr 11/27/24 14:27 Lactic Acid F/U @ 2Hr 1.8 Assessment and Plan (1) Acute hypoxemic respiratory failure: Status: Acute (2) COVID-19: Status: Acute Plan Pt is a 68-year-old female with a PMH significant for?HLD, pulmonary fibrosis, COPD on home O2 3L at rest and 4L with exertion, and former smoker with a 20 pack-year history who presents to the ED for pulmonology office after noting to be satting in the 50s on 3L O2. Pt will be admitted to the hospital for treatment and further evaluation of acute on chronic hypoxic respiratory failure in the setting of acute COPD exacerbation secondary to acute COVID infection. 1.Acute on chronic hypoxic respiratory failure in the setting of COPD exacerbation from acute COVID infection -titrate O2 as tolerated -pulse dose steroids. Three days of azithromycin -adjust as indicated 2.Viral sepsis -resolved Full Code DVT Prophylaxis: Lovenox Quality Stroke Does the patient have a stroke diagnosis?: No VTE Prior VTE?: No VTE Risk Level:: Medical - moderate - high VTE Device Contraindication: Treatment Not Indicated VTE Drug Contraindication: N/A - Med Ordered
[2024-11-28] MEDS: Calcium Carbonate 750 MG TAB.CHEW PO ×2 (15:28→21:04)
[2024-11-28] MEDS: Enoxaparin Sodium 40 MG/0.4 ML SYRINGE SUBCUT (15:28)
[2024-11-28] MEDS: Azithromycin 500 MG in 0.9 % Sodium Chloride 250 ML 125 MG IV (15:28)
[2024-11-28 16:29] LABS: Glucose, Whole Blood 259 mg/dL (60-115)
[2024-11-28] MEDS: Insulin Lispro 100 UNIT/ML 3 ML VIAL SUBCUT ×2 (17:53→21:04)
[2024-11-28 20:19] LABS: Glucose, Whole Blood 231 mg/dL (60-115)
[2024-11-28] MEDS: Pravastatin Sodium 40 MG TABLET PO (21:04)
[2024-11-29] VITALS (10 sets, daily range): BP systolic 120–135; BP diastolic 63–70; PULSE 66–99; RESP 16–20; TEMP 36.1–36.9; O2SAT 87–97
[2024-11-29 07:10] LABS: MANUAL DIFF FLAG NO
[2024-11-29 07:13] LABS: Basophils Percent Auto 0.2 % (0-2); Hematocrit 33.4 % (37.0-47.0); Imm Gran Abs Auto 0.31 X10*3/uL (0.00-0.03); Imm Gran Pct Auto 1.7 % (0.0-0.4); Lymphocytes Absolute Auto 1.2 X10*3/uL (1.2-4.9); Lymphocytes Percent Auto 6.6 % (20-40); Mean Corpuscular HGB Conc 32.9 g/dl (31.0-35.0); Mean Corpuscular Volume 97.1 fL (80.0-98.0); Mean Platelet Volume 9.1 fL (9.4-12.3); Monocytes Absolute Auto 0.9 X10*3/uL (0.1-1.2); Monocytes Percent Auto 4.7 % (2-11); Neutrophils Percent Auto 86.8 % (45-73); Platelet Count 245 X10*3/uL (160-400); Red Blood Count 3.44 X10*6/uL (4.20-5.50); White Blood Count 18.4 X10*3/uL (4.8-10.8)
[2024-11-29 07:19] LABS: Glucose, Whole Blood 135 mg/dL (60-115)
[2024-11-29 07:39] LABS: Alanine Aminotransferase 32 U/L (0-31); Albumin Level 3.3 g/dL (3.5-5.0); Alkaline Phosphatase 41 U/L (39-117); Aspartate Amino Transferase 23 U/L (5-31); Bilirubin Total 0.4 mg/dL (0.0-1.0); Blood Urea Nitrogen 25 mg/dL (9-16); Calcium 9.1 mg/dL (8.4-10.2); Creatinine Clr Calc Pharmacy 67.8; Estimated Glomerular Filt Rate 52; Glucose Fasting 140 mg/dL (60-99); Total Protein 5.7 g/dL (6.5-8.0)
[2024-11-29 07:52] LABS: Anion Gap 13 (12-20); Carbon Dioxide 27 mmol/L (22-29); Chloride 109 mmol/L (96-108); Potassium 5.1 mmol/L (3.3-5.1); Sodium 144 mmol/L (135-145)
[2024-11-29] MEDS: Albuterol/Iprat 2.5/0.5MG 3 ML AMPUL.NEB INHALE ×4 (08:02→19:49)
[2024-11-29] MEDS: Fluticasone/Umeclidinium/Vilanterol 200/62.5/25 BLST.W.DEV 1 PUFF INHALE (08:02)
--- NOTE | 2024-11-29 08:25 | P.CDIM_ITS ---
PROVIDER RESPONSE TEXT: To clarify, the appropriate diagnosis supported by the clinical indicators: Obesity Due to excess calories QUERY TEXT: PHYSICIAN'S DOCUMENTATION REQUEST Date of Query: 11/29/2024 08:01 AM EST Patient Name: Jeny Diez Admit Date: 11/27/2024 Dear Marshall Leung DO, A review of the medical record indicates additional documentation may be needed. Please review below and update the documentation accordingly. Clinical Indicators: Height: 5ft 8in Weight: 108kg BMI: 36.2 Other Clinical Notes Supporting Significance of the BMI: Nursing notes Height and Weight: Obese class II If possible, please provide an associated diagnosis related to the abnormal BMI, such as: Overweight Obesity Due to excess calories Obesity Drug induced Obesity Due to other cause Specify the other cause Other (explain) Clinically unable to determine (explain) Thank you, Marybel Cooley, CCS, CDIS Use of terms such as suspected, likely, concern for, or probable (associated with a specific diagnosi s that is being evaluated, monitored, or treated as if it exists) are acceptable and can be coded in the inpatient se tting, when documented at the time of discharge. Please use your independent medical judgment in providing your response. THIS QUERY IS PART OF THE PERMANENT MEDICAL RECORD
[2024-11-29] MEDS: 0.9 % Sodium Chloride Flush 3 ML SYRINGE IVFLUSH ×3 (08:38→21:19)
[2024-11-29] MEDS: Acetaminophen 325 MG TABLET 650 MG PO (08:46)
[2024-11-29] MEDS: Escitalopram Oxalate 20 MG TABLET PO (08:47)
[2024-11-29 11:31] LABS: Glucose, Whole Blood 137 mg/dL (60-115)
--- NOTE | 2024-11-29 12:59 | P.PNIM_ITS ---
Subjective Subjective Date of Service: 11/29/24 Interval History: Sats acceptable at rest however drop significantly with ambulation. Minimal improvement since admission Review of Systems Denies chest pain Admits shortness of breath with minimal exertion Denies fever chills Denies nausea vomiting diarrhea Physical Exam 2 Vital Signs: Vital Signs: Last Vital Signs Temp 97.6 F 11/29/24 11:13 Pulse 86 11/29/24 11:24 Resp 18 11/29/24 11:24 BP 129/65 11/29/24 11:13 Pulse Ox 97 11/29/24 11:13 O2 Del Method Nasal Cannula 11/29/24 11:13 O2 Flow Rate 8 11/29/24 11:13 FiO2 42 11/27/24 16:00 BMI result Body Mass Index 36.2 Const: Other: Awake awake alert no acute distress. Able to speak in full sentences on 8 L Resp: Other: Diminished throughout with end inspiratory crackles to inferior scapular border bilaterally Cardio: Other: No S4; positive S1-S2; no S3 murmurs rubs or gallops GI: Other: Soft nontender nondistended normoactive bowel sounds Extrem: Other: No edema bilaterally Objective Data Active Medications Acetaminophen (Acetaminophen 325 Mg Tablet) 650 mg PO Q6H PRN PRN Reason: Pain, Mild (Pain Scale 1-3) Last Admin: 11/29/24 08:46 Dose: 650 mg Documented By: JAMIN Albuterol/Ipratropium (Albuterol/Iprat 2.5/0.5mg 3 Ml Ampul.Neb) 3 ml INHALE RQ4H WHILE AWAKE [facility] Last Admin: 11/29/24 11:24 Dose: 3 ml Documented By: MARIBEL Albuterol/Ipratropium (Albuterol/Iprat 2.5/0.5mg 3 Ml Ampul.Neb) 3 ml INHALE RQ4H WHILE AWAKE PRN PRN Reason: Shortness of Breath/Wheezing Calcium Carbonate (Calcium Carbonate 750 Mg Tab.Chew) 750 mg PO Q4H PRN PRN Reason: Heartburn Last Admin: 11/28/24 21:04 Dose: 750 mg Documented By: JACK Enoxaparin Sodium (Enoxaparin Sodium 40 Mg/0.4 Ml Syringe) 40 mg SUBCUT Q24H [facility] Last Admin: 11/28/24 15:28 Dose: 40 mg Documented By: KELSEY Escitalopram Oxalate (Escitalopram Oxalate 20 Mg Tablet) 20 mg PO DAILY [facility] Last Admin: 11/29/24 08:47 Dose: 20 mg Documented By: JAMIN Fluticasone/Umeclidinium/Vilanterol (Fluticasone/Umeclidinium/Vilanterol 200/62.5/25 Blst.W.Dev) 1 puff INHALE RDAILY [facility] Last Admin: 11/29/24 08:02 Dose: 1 puff Documented By: MARIBEL Glucose (Glucose Gel 15 Gm Gel..Gram.) 15 gm PO Q15M PRN; Protocol PRN Reason: per Hypoglycemia Standing Ord. Guaifenesin/Dextromethorphan (Guaifenesin Dm 200/20/10 Ml 10 Ml Syrup) 10 ml PO Q4H PRN PRN Reason: Cough Last Admin: 11/28/24 21:04 Dose: 10 ml Documented By: JACK Azithromycin 500 mg/ Sodium (Chloride) 250 mls @ 125 mls/hr IV Q24H [facility] Stop: 11/30/24 15:01 Last Infusion: 11/28/24 19:06 Dose: Infused Documented By: KELSEY Dextrose (D10) 250 mls @ 750 mls/hr IV Q15M PRN; Protocol PRN Reason: per Hypoglycemia Standing Ord. Insulin Human Lispro (Insulin Lispro 100 Unit/Ml 3 Ml Vial) 0 unit SUBCUT QIDACHS [facility]; Protocol Last Admin: 11/29/24 12:44 Dose: Not Given Documented By: JAMIN Non-Admin Reason: No Insulin Coverage Magnesium Hydroxide (Milk Of Magnesia 30 Ml Oral.Susp) 30 ml PO DAILY PRN PRN Reason: Constipation Melatonin (Melatonin 3 Mg Tablet) 6 mg PO BEDTIME PRN PRN Reason: Insomnia Ondansetron HCl (Ondansetron Hcl 4 Mg/2 Ml Vial) 4 mg IVPUSH Q8H PRN PRN Reason: Nausea and Vomiting Pravastatin Sodium (Pravastatin Sodium 40 Mg Tablet) 40 mg PO BEDTIME [facility] Last Admin: 11/28/24 21:04 Dose: 40 mg Documented By: JACK Sodium Chloride (0.9 % Sodium Chloride Flush 3 Ml Syringe) 3 ml IVFLUSH QSHIFT [facility] Last Admin: 11/29/24 08:38 Dose: 3 ml Documented By: JAMIN Labs 11/29/24 06:59 11/29/24 06:59 Labs: Laboratory Results - last 24 hr 11/28/24 11/28/24 11/29/24 16:25 20:16 06:59 MCV 97.1 MCH 32.0 MCHC 32.9 RDW 15.0 Plt Count 245 MPV 9.1 L Immature Gran % (Auto) 1.7 H Neut % (Auto) 86.8 H Lymph % (Auto) 6.6 L [place] % (Auto) 4.7 Eos % (Auto) 0.0 Baso % (Auto) 0.2 Lymph # (Auto) 1.2 [place] # (Auto) 0.9 Eos # (Auto) 0.0 Baso # (Auto) 0.0 Abs Immat Gran (auto) 0.31 H Absolute Neuts (auto) 16.0 H Absolute Nucleated RBC 0.000 Nucleated RBC % (auto) 0.0 Anion Gap 13 Estim Creat Clear Calc 67.8 Estimated GFR 52 POC Glucose 259 H 231 H Fasting Glucose 140 H Calcium 9.1 Total Bilirubin 0.4 AST 23 ALT 32 H Alkaline Phosphatase 41 Total Protein 5.7 L Albumin 3.3 L 11/29/24 11/29/24 07:16 11:27 MCV MCH MCHC RDW Plt Count MPV Immature Gran % (Auto) Neut % (Auto) Lymph % (Auto) [place] % (Auto) Eos % (Auto) Baso % (Auto) Lymph # (Auto) [place] # (Auto) Eos # (Auto) Baso # (Auto) Abs Immat Gran (auto) Absolute Neuts (auto) Absolute Nucleated RBC Nucleated RBC % (auto) Anion Gap Estim Creat Clear Calc Estimated GFR POC Glucose 135 H 137 H Fasting Glucose Calcium Total Bilirubin AST ALT Alkaline Phosphatase Total Protein Albumin Microbiology Microbiology Results: Microbiology 11/27/24 12:00 Blood Culture - Preliminary Blood - Venous No growth after 24 hours. 11/27/24 12:00 Blood Culture - Preliminary Blood - Venous No growth after 24 hours. Assessment and Plan (1) Acute hypoxemic respiratory failure: Status: Acute (2) COVID-19: Status: Acute Plan Pt is a 68-year-old female with a PMH significant for?HLD, pulmonary fibrosis, COPD on home O2 3L at rest and 4L with exertion, and former smoker with a 20 pack-year history who presents to the ED for pulmonology office after noting to be satting in the 50s on 3L O2. Pt will be admitted to the hospital for treatment and further evaluation of acute on chronic hypoxic respiratory failure in the setting of acute COPD exacerbation secondary to acute COVID infection. 1.Acute on chronic hypoxic respiratory failure in the setting of COPD exacerbation from acute COVID infection -titrate O2 as tolerated.... Slow to improve -pulse dose steroids. Three days of azithromycin(2/3) -adjust as indicated 2.Viral sepsis -resolved Full Code DVT Prophylaxis: Lovenox Quality Stroke Does the patient have a stroke diagnosis?: No VTE Prior VTE?: No VTE Risk Level:: Medical - moderate - high VTE Device Contraindication: Treatment Not Indicated VTE Drug Contraindication: N/A - Med Ordered
[2024-11-29] MEDS: Calcium Carbonate 750 MG TAB.CHEW PO (15:14)
--- NOTE | 2024-11-29 16:11 | MHC.CM.PN ---
EMR reviewed and per MD rounds, pt is not medically cleared for discharge due to management of covid-19 infection.
[2024-11-29 16:40] LABS: Glucose, Whole Blood 110 mg/dL (60-115)
[2024-11-29] MEDS: Azithromycin 500 MG in 0.9 % Sodium Chloride 250 ML 125 MG IV (17:59)
[2024-11-29] MEDS: Enoxaparin Sodium 40 MG/0.4 ML SYRINGE SUBCUT (18:02)
[2024-11-29] MEDS: Pravastatin Sodium 40 MG TABLET PO (21:18)
[2024-11-29 21:22] LABS: Glucose, Whole Blood 121 mg/dL (60-115)
[2024-11-30] VITALS (10 sets, daily range): BP systolic 97–139; BP diastolic 53–93; PULSE 75–92; RESP 16–20; TEMP 36.2–37; O2SAT 84–98
[2024-11-30 07:13] LABS: MANUAL DIFF FLAG NO
[2024-11-30 07:15] LABS: Basophils Percent Auto 0.2 % (0-2); Eosinophils Percent Auto 0.3 % (0-4); Hematocrit 32.2 % (37.0-47.0); Hemoglobin 10.8 g/dl (12.0-16.0); Imm Gran Abs Auto 0.34 X10*3/uL (0.00-0.03); Imm Gran Pct Auto 2.9 % (0.0-0.4); Lymphocytes Absolute Auto 2.3 X10*3/uL (1.2-4.9); Lymphocytes Percent Auto 20.1 % (20-40); Mean Corpuscular HGB Conc 33.5 g/dl (31.0-35.0); Mean Corpuscular Hemoglobin 32.2 pg (27.0-33.0); Mean Corpuscular Volume 96.1 fL (80.0-98.0); Mean Platelet Volume 8.9 fL (9.4-12.3); Monocytes Absolute Auto 0.6 X10*3/uL (0.1-1.2); Monocytes Percent Auto 4.7 % (2-11); Neutrophils Absolute Auto 8.3 x10*3/uL (2.0-8.3); Neutrophils Percent Auto 71.8 % (45-73); Platelet Count 239 X10*3/uL (160-400); Red Blood Count 3.35 X10*6/uL (4.20-5.50); White Blood Count 11.6 X10*3/uL (4.8-10.8)
[2024-11-30 07:33] LABS: Glucose, Whole Blood 78 mg/dL (60-115)
[2024-11-30 07:34] LABS: Alanine Aminotransferase 51 U/L (0-31); Albumin Level 3.2 g/dL (3.5-5.0); Alkaline Phosphatase 45 U/L (39-117); Anion Gap 12 (12-20); Aspartate Amino Transferase 33 U/L (5-31); Bilirubin Total 0.5 mg/dL (0.0-1.0); Blood Urea Nitrogen 27 mg/dL (9-16); Calcium 8.4 mg/dL (8.4-10.2); Carbon Dioxide 29 mmol/L (22-29); Chloride 109 mmol/L (96-108); Creatinine Clr Calc Pharmacy 67.2; Estimated Glomerular Filt Rate 52; Glucose Fasting 77 mg/dL (60-99); Potassium 4.5 mmol/L (3.3-5.1); Sodium 145 mmol/L (135-145); Total Protein 5.5 g/dL (6.5-8.0)
[2024-11-30] MEDS: Albuterol/Iprat 2.5/0.5MG 3 ML AMPUL.NEB INHALE ×4 (08:01→21:23)
[2024-11-30] MEDS: Fluticasone/Umeclidinium/Vilanterol 200/62.5/25 BLST.W.DEV 1 PUFF INHALE (08:01)
[2024-11-30] MEDS: 0.9 % Sodium Chloride Flush 3 ML SYRINGE IVFLUSH ×3 (08:07→21:09)
[2024-11-30] MEDS: Escitalopram Oxalate 20 MG TABLET PO (08:08)
[2024-11-30 09:24] LABS: C Reactive Protein 1.92 mg/dL (< or = 0.50)
[2024-11-30 09:47] LABS: Procalcitonin 0.05 ng/mL
[2024-11-30] MEDS: methylPREDNISolone Sod Succ 40 MG/ML VIAL 60 MG IVPUSH ×2 (11:00→17:26)
[2024-11-30 11:52] LABS: Glucose, Whole Blood 114 mg/dL (60-115)
[2024-11-30] MEDS: iohexoL 350 MG/ML 100 ML INFUS..BTL IV (13:57)
[2024-11-30] MEDS: Azithromycin 500 MG in 0.9 % Sodium Chloride 250 ML 125 MG IV (14:06)
--- NOTE | 2024-11-30 15:27 | P.PNIM_ITS ---
Subjective Subjective Date of Service: 11/30/24 Interval History: Pt was dyspneic + hypoxic this AM down to SaO2 88% on 10L nasal cannula I ordered HFNC and she is feeling better, SaO2 96% on 55% fiO2, 45 Lpm No hx of VTE. CTA positive for bilateral PEs without strain/saddle Review of Systems Review of Systems: Yes all other systems are reviewed and are negative Physical Exam 2 Vital Signs: Vital Signs: Last Vital Signs Temp 97.4 F 11/30/24 11:22 Pulse 81 11/30/24 11:34 Resp 18 11/30/24 11:34 BP 97/53 L 11/30/24 11:22 Pulse Ox 98 11/30/24 11:22 O2 Del Method High Flow Nasal C annula 11/30/24 11:22 O2 Flow Rate 50 11/30/24 11:22 FiO2 60 11/30/24 11:22 BMI result Body Mass Index 36.2 Gen: in no acute distress HEENT: sclera anicteric, moist mucus membranes Neck: supple Lungs: diminished Heart: regular rate and rhythm, no murmurs Abd: soft, non-tender, non-distended Ext: no edema Skin: warm/well-perfused Neuro: alert and oriented x3, no focal findings Psych: appropriate affect Objective Data Active Medications Acetaminophen (Acetaminophen 325 Mg Tablet) 650 mg PO Q6H PRN PRN Reason: Pain, Mild (Pain Scale 1-3) Last Admin: 11/29/24 08:46 Dose: 650 mg Documented By: JAMIN Albuterol/Ipratropium (Albuterol/Iprat 2.5/0.5mg 3 Ml Ampul.Neb) 3 ml INHALE RQ4H WHILE AWAKE [facility] Last Admin: 11/30/24 14:08 Dose: 3 ml Documented By: RAYMOND Albuterol/Ipratropium (Albuterol/Iprat 2.5/0.5mg 3 Ml Ampul.Neb) 3 ml INHALE RQ4H WHILE AWAKE PRN PRN Reason: Shortness of Breath/Wheezing Calcium Carbonate (Calcium Carbonate 750 Mg Tab.Chew) 750 mg PO Q4H PRN PRN Reason: Heartburn Last Admin: 11/29/24 15:14 Dose: 750 mg Documented By: FARRAH Enoxaparin Sodium (Enoxaparin Sodium 120 Mg/0.8 Ml Syringe) 110 mg SUBCUT Q12H [facility] Escitalopram Oxalate (Escitalopram Oxalate 20 Mg Tablet) 20 mg PO DAILY [facility] Last Admin: 11/30/24 08:08 Dose: 20 mg Documented By: RAYMOND Fluticasone/Umeclidinium/Vilanterol (Fluticasone/Umeclidinium/Vilanterol 200/62.5/25 Blst.W.Dev) 1 puff INHALE RDAILY [facility] Last Admin: 11/30/24 08:01 Dose: 1 puff Documented By: NADRE Glucose (Glucose Gel 15 Gm Gel..Gram.) 15 gm PO Q15M PRN; Protocol PRN Reason: per Hypoglycemia Standing Ord. Guaifenesin/Dextromethorphan (Guaifenesin Dm 200/20/10 Ml 10 Ml Syrup) 10 ml PO Q4H PRN PRN Reason: Cough Last Admin: 11/28/24 21:04 Dose: 10 ml Documented By: JACK Dextrose (D10) 250 mls @ 750 mls/hr IV Q15M PRN; Protocol PRN Reason: per Hypoglycemia Standing Ord. Insulin Human Lispro (Insulin Lispro 100 Unit/Ml 3 Ml Vial) 0 unit SUBCUT QIDACHS [facility]; Protocol Last Admin: 11/30/24 11:55 Dose: Not Given Documented By: RAYMOND Non-Admin Reason: No Insulin Coverage Magnesium Hydroxide (Milk Of Magnesia 30 Ml Oral.Susp) 30 ml PO DAILY PRN PRN Reason: Constipation Melatonin (Melatonin 3 Mg Tablet) 6 mg PO BEDTIME PRN PRN Reason: Insomnia Methylprednisolone Sodium Succinate (Methylprednisolone Sod Succ 40 Mg/Ml Vial) 60 mg IVPUSH Q8H [facility] Last Admin: 11/30/24 11:00 Dose: 60 mg Documented By: RAYMOND Ondansetron HCl (Ondansetron Hcl 4 Mg/2 Ml Vial) 4 mg IVPUSH Q8H PRN PRN Reason: Nausea and Vomiting Pravastatin Sodium (Pravastatin Sodium 40 Mg Tablet) 40 mg PO BEDTIME [facility] Last Admin: 11/29/24 21:18 Dose: 40 mg Documented By: FARRAH Sodium Chloride (0.9 % Sodium Chloride Flush 3 Ml Syringe) 3 ml IVFLUSH QSHIFT [facility] Last Admin: 11/30/24 08:07 Dose: 3 ml Documented By: RAYMOND Labs 11/30/24 07:03 11/30/24 07:03 Labs: Laboratory Results - last 24 hr 11/29/24 11/29/24 11/30/24 16:36 21:14 07:03 MCV 96.1 MCH 32.2 MCHC 33.5 RDW 15.0 Plt Count 239 MPV 8.9 L Immature Gran % (Auto) 2.9 H Neut % (Auto) 71.8 Lymph % (Auto) 20.1 [place] % (Auto) 4.7 Eos % (Auto) 0.3 Baso % (Auto) 0.2 Lymph # (Auto) 2.3 [place] # (Auto) 0.6 Eos # (Auto) 0.0 Baso # (Auto) 0.0 Abs Immat Gran (auto) 0.34 H Absolute Neuts (auto) 8.3 Absolute Nucleated RBC 0.000 Nucleated RBC % (auto) 0.0 Anion Gap 12 Estim Creat Clear Calc 67.2 Estimated GFR 52 POC Glucose 110 121 H Fasting Glucose 77 Calcium 8.4 D Total Bilirubin 0.5 AST 33 H ALT 51 H Alkaline Phosphatase 45 C-Reactive Protein 1.92 H Total Protein 5.5 L Albumin 3.2 L Procalcitonin 0.05 11/30/24 11/30/24 07:20 11:21 MCV MCH MCHC RDW Plt Count MPV Immature Gran % (Auto) Neut % (Auto) Lymph % (Auto) [place] % (Auto) Eos % (Auto) Baso % (Auto) Lymph # (Auto) [place] # (Auto) Eos # (Auto) Baso # (Auto) Abs Immat Gran (auto) Absolute Neuts (auto) Absolute Nucleated RBC Nucleated RBC % (auto) Anion Gap Estim Creat Clear Calc Estimated GFR POC Glucose 78 114 Fasting Glucose Calcium Total Bilirubin AST ALT Alkaline Phosphatase C-Reactive Protein Total Protein Albumin Procalcitonin ITS Impressions Chest X-Ray 11/27/24 12:18 IMPRESSION: Pulmonary fibrosis. No acute cardiopulmonary abnormality. Electronically signed by: Milo Burnett MD 11/27/2024 12:37 PM [facility] [place] 11/30 1. 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 No saddle embolus. No right heart strain. 2. Enlarged right paratracheal lymph node with interval increase in size. 3. Moderate hiatal hernia. 4. Diffuse ground-glass opacities within the bilateral lungs may be secondary to an interstitial infiltrate, interstitial edema or worsening of interstitial scarring. 5. There is an enlarged right paratracheal lymph node, significantly increased in size. Microbiology Microbiology Results: Microbiology 11/27/24 12:00 Blood Culture - Preliminary Blood - Venous No growth after 48 hours. 11/27/24 12:00 Blood Culture - Preliminary Blood - Venous No growth after 48 hours. Assessment and Plan (1) Acute hypoxemic respiratory failure: Status: Acute (2) COVID-19: Status: Acute Plan d3 for 68yo F with bronchiectasis, hx hypersensitivity pneumonitis, and COPD on home O2 3-4L and on prednisone 50 mg/d for past 3mo; sent in from Pulmonology with hypoxia to 50s, found to have Covid-19 infection acute-chronic hypoxic resp failure due to acute pulmonary emboli and COPD exacerbation from Covid-19 - CTA 11/30 with multifocal bilateral pulmonary artery embolism with iinvolvement of all lobes - resume IV methylprednisolone that had been started on admission 11/27 but then stopped 11/28; give 60mg IV methylprednisolone q8h - start therapeutic enoxaparin; check TTE + bilateral lower extremity Duplexes - now on HFNC; wean as tolerated - trend CRP - completed 3d of azithromycin - continue Trelegy, standing/prn nebs viral sepsis - SIRS physiology resolved CHRONIC ISSUES mood disorder: escitalopram HLD: statin dispo - TBD In my clinical judgment, the patient requires continued inpatient hospitalization for the following reasons: hypoxia Total time managing care of this patient today: 50 minutes. Quality Stroke Does the patient have a stroke diagnosis?: No VTE Prior VTE?: No VTE Risk Level:: Medical - moderate - high VTE Device Contraindication: Treatment Not Indicated VTE Drug Contraindication: N/A - Med Ordered
[2024-11-30] MEDS: Enoxaparin Sodium 120 MG/0.8 ML SYRINGE 110 MG SUBCUT (15:34)
[2024-11-30 16:30] LABS: Glucose, Whole Blood 147 mg/dL (60-115)
[2024-11-30 20:36] LABS: Glucose, Whole Blood 209 mg/dL (60-115)
[2024-11-30] MEDS: Pravastatin Sodium 40 MG TABLET PO (21:08)
[2024-11-30] MEDS: Insulin Lispro 100 UNIT/ML 3 ML VIAL SUBCUT (21:08)
[2024-12-01] VITALS (12 sets, daily range): BP systolic 111–130; BP diastolic 58–72; PULSE 66–97; RESP 18–20; TEMP 36.2–36.7; O2SAT 87–96
[2024-12-01] MEDS: Enoxaparin Sodium 120 MG/0.8 ML SYRINGE 110 MG SUBCUT ×2 (03:36→16:55)
[2024-12-01] MEDS: methylPREDNISolone Sod Succ 40 MG/ML VIAL 60 MG IVPUSH ×3 (03:36→16:55)
[2024-12-01 07:32] LABS: Glucose, Whole Blood 154 mg/dL (60-115)
[2024-12-01] MEDS: Fluticasone/Umeclidinium/Vilanterol 200/62.5/25 BLST.W.DEV 1 PUFF INHALE (07:47)
[2024-12-01] MEDS: Albuterol/Iprat 2.5/0.5MG 3 ML AMPUL.NEB INHALE ×4 (07:47→19:25)
[2024-12-01 07:59] LABS: Hematocrit 33.4 % (37.0-47.0); Hemoglobin 11.1 g/dl (12.0-16.0); Mean Corpuscular HGB Conc 33.2 g/dl (31.0-35.0); Mean Corpuscular Hemoglobin 31.6 pg (27.0-33.0); Mean Corpuscular Volume 95.2 fL (80.0-98.0); Mean Platelet Volume 9.4 fL (9.4-12.3); Platelet Count 294 X10*3/uL (160-400); Red Blood Count 3.51 X10*6/uL (4.20-5.50); Red Cell Distribution Width 14.7 % (11.0-16.0)
[2024-12-01 08:17] LABS: Anion Gap 14 (12-20); Blood Urea Nitrogen 25 mg/dL (9-16); Calcium 9.2 mg/dL (8.4-10.2); Carbon Dioxide 26 mmol/L (22-29); Chloride 106 mmol/L (96-108); Creatinine Clr Calc Pharmacy 81.9; Estimated Glomerular Filt Rate > 60; Glucose Random 152 mg/dL (60-115); Potassium 4.3 mmol/L (3.3-5.1); Sodium 142 mmol/L (135-145)
[2024-12-01 09:01] LABS: B Type Natriuretic Peptide 51 pg/mL (<100)
[2024-12-01] MEDS: Escitalopram Oxalate 20 MG TABLET PO (09:20)
[2024-12-01] MEDS: Insulin Lispro 100 UNIT/ML 3 ML VIAL SUBCUT ×3 (09:21→20:41)
[2024-12-01] MEDS: 0.9 % Sodium Chloride Flush 3 ML SYRINGE IVFLUSH ×3 (09:21→20:42)
[2024-12-01 11:36] LABS: Glucose, Whole Blood 254 mg/dL (60-115)
--- NOTE | 2024-12-01 16:31 | HO.PM.IMPN ---
Subjective Subjective Date of Service: 12/01/24 Interval History: feeling less short of breath coughing Review of Systems Review of Systems: Yes all other systems are reviewed and are negative Physical Exam Vital Signs: Vital Signs: Last Vital Signs Temp 97.1 F 12/01/24 16:00 Pulse 87 12/01/24 16:00 Resp 18 12/01/24 16:00 BP 127/64 12/01/24 16:00 Pulse Ox 96 12/01/24 16:00 O2 Del Method High Flow Nasal C annula 12/01/24 16:00 O2 Flow Rate 50 12/01/24 16:00 FiO2 60 12/01/24 16:00 BMI result Body Mass Index 36.2 Gen: in no acute distress HEENT: sclera anicteric, moist mucus membranes Neck: supple Lungs: diminished Heart: regular rate and rhythm, no murmurs Abd: soft, non-tender, non-distended Ext: no edema Skin: warm/well-perfused Neuro: alert and oriented x3, no focal findings Psych: appropriate affect Objective Data Active Medications Acetaminophen (Acetaminophen 325 Mg Tablet) 650 mg PO Q6H PRN PRN Reason: Pain, Mild (Pain Scale 1-3) Last Admin: 11/29/24 08:46 Dose: 650 mg Documented By: JAMIN Albuterol/Ipratropium (Albuterol/Iprat 2.5/0.5mg 3 Ml Ampul.Neb) 3 ml INHALE RQ4H WHILE AWAKE [facility] Last Admin: 12/01/24 15:25 Dose: 3 ml Documented By: ANDRE Albuterol/Ipratropium (Albuterol/Iprat 2.5/0.5mg 3 Ml Ampul.Neb) 3 ml INHALE RQ4H WHILE AWAKE PRN PRN Reason: Shortness of Breath/Wheezing Calcium Carbonate (Calcium Carbonate 750 Mg Tab.Chew) 750 mg PO Q4H PRN PRN Reason: Heartburn Last Admin: 11/29/24 15:14 Dose: 750 mg Documented By: FARRAH Enoxaparin Sodium (Enoxaparin Sodium 120 Mg/0.8 Ml Syringe) 110 mg SUBCUT Q12H [facility] Last Admin: 12/01/24 03:36 Dose: 110 mg Documented By: FARRAH Escitalopram Oxalate (Escitalopram Oxalate 20 Mg Tablet) 20 mg PO DAILY [facility] Last Admin: 12/01/24 09:20 Dose: 20 mg Documented By: RAYMOND Fluticasone/Umeclidinium/Vilanterol (Fluticasone/Umeclidinium/Vilanterol 200/62.5/25 Blst.W.Dev) 1 puff INHALE RDAILY [facility] Last Admin: 12/01/24 07:47 Dose: 1 puff Documented By: ANDRE Glucose (Glucose Gel 15 Gm Gel..Gram.) 15 gm PO Q15M PRN; Protocol PRN Reason: per Hypoglycemia Standing Ord. Guaifenesin/Dextromethorphan (Guaifenesin Dm 200/20/10 Ml 10 Ml Syrup) 10 ml PO Q4H PRN PRN Reason: Cough Last Admin: 11/28/24 21:04 Dose: 10 ml Documented By: JACK Dextrose (D10) 250 mls @ 750 mls/hr IV Q15M PRN; Protocol PRN Reason: per Hypoglycemia Standing Ord. Insulin Human Lispro (Insulin Lispro 100 Unit/Ml 3 Ml Vial) 0 unit SUBCUT QIDACHS [facility]; Protocol Last Admin: 12/01/24 12:17 Dose: 6 unit Documented By: RAYMOND Magnesium Hydroxide (Milk Of Magnesia 30 Ml Oral.Susp) 30 ml PO DAILY PRN PRN Reason: Constipation Melatonin (Melatonin 3 Mg Tablet) 6 mg PO BEDTIME PRN PRN Reason: Insomnia Methylprednisolone Sodium Succinate (Methylprednisolone Sod Succ 40 Mg/Ml Vial) 60 mg IVPUSH Q8H [facility] Last Admin: 12/01/24 09:21 Dose: 60 mg Documented By: RAYMOND Ondansetron HCl (Ondansetron Hcl 4 Mg/2 Ml Vial) 4 mg IVPUSH Q8H PRN PRN Reason: Nausea and Vomiting Pravastatin Sodium (Pravastatin Sodium 40 Mg Tablet) 40 mg PO BEDTIME [facility] Last Admin: 11/30/24 21:08 Dose: 40 mg Documented By: FARRAH Sodium Chloride (0.9 % Sodium Chloride Flush 3 Ml Syringe) 3 ml IVFLUSH QSHIFT [facility] Last Admin: 12/01/24 09:21 Dose: 3 ml Documented By: RAYMOND Labs 12/01/24 07:15 12/01/24 07:15 Labs: Laboratory Results - last 24 hr 11/30/24 11/30/24 12/01/24 16:19 20:31 07:15 MCV 95.2 MCH 31.6 MCHC 33.2 RDW 14.7 Plt Count 294 MPV 9.4 Absolute Nucleated RBC 0.000 Nucleated RBC % (auto) 0.0 Anion Gap 14 Estim Creat Clear Calc 81.9 Estimated GFR > 60 POC Glucose 147 H 209 H Random Glucose 152 H Calcium 9.2 D Troponin I High Sens 4.0 B-Natriuretic Peptide 51 12/01/24 12/01/24 07:16 11:15 MCV MCH MCHC RDW Plt Count MPV Absolute Nucleated RBC Nucleated RBC % (auto) Anion Gap Estim Creat Clear Calc Estimated GFR POC Glucose 154 H 254 H Random Glucose Calcium Troponin I High Sens B-Natriuretic Peptide Imaging Venous US: Radiologist's impression: US duplex BLE 11/30/24 1. Negative for right lower extremity DVT 2. Positive DVT left posterior tibial vein. 3. Thrombus in the small saphenous vein left calf. Assessment and Plan (1) Acute hypoxemic respiratory failure: Status: Acute (2) COVID-19: Status: Acute Plan d4 for 68yo F with bronchiectasis, hx hypersensitivity pneumonitis, and COPD on home O2 3-4L and on prednisone 50 mg/d for past 3mo; sent in from Pulmonology with hypoxia to 50s, found to have Covid-19 infection and multiple PEs acute-chronic hypoxic resp failure due to acute pulmonary emboli and COPD exacerbation from Covid-19 - CTA 11/30 with multifocal bilateral pulmonary artery embolism with involvement of all lobes - continue IV methylprednisolone 60 mg q8h - started therapeutic enoxaparin; consider changing to apixaban tomorrow - TTE pending; hs-Tn-I and Tn-I negative - now on HFNC; wean as tolerated [55% fiO2, 45 Lpm) - trend CRP - completed 3d of azithromycin - continue Trelegy, standing/prn nebs viral sepsis - SIRS physiology resolved CHRONIC ISSUES mood disorder: escitalopram HLD: statin dispo - TBD In my clinical judgment, the patient requires continued inpatient hospitalization for the following reasons: hypoxia Total time managing care of this patient today: 45 minutes. Quality Stroke Does the patient have a stroke diagnosis?: No VTE Prior VTE?: No VTE Risk Level:: Medical - moderate - high VTE Device Contraindication: Treatment Not Indicated VTE Drug Contraindication: N/A - Med Ordered
[2024-12-01 16:54] LABS: Glucose, Whole Blood 143 mg/dL (60-115)
[2024-12-01 20:22] LABS: Glucose, Whole Blood 230 mg/dL (60-115)
[2024-12-01] MEDS: guaiFENesin DM 200/20/10 ML 10 ML SYRUP PO (20:41)
[2024-12-01] MEDS: Pravastatin Sodium 40 MG TABLET PO (20:41)
[2024-12-02] VITALS (15 sets, daily range): BP systolic 111–138; BP diastolic 59–70; PULSE 61–89; RESP 16–20; TEMP 36.2–37.1; O2SAT 92–96
[2024-12-02] MEDS: methylPREDNISolone Sod Succ 40 MG/ML VIAL 60 MG IVPUSH ×2 (02:38→07:59)
[2024-12-02] MEDS: Enoxaparin Sodium 120 MG/0.8 ML SYRINGE 110 MG SUBCUT (02:39)
--- NOTE | 2024-12-02 07:00 | CA_ITS ---
Transthoracic Echocardiogram Patient (Last, First, Middle): Jeny Diez A Gender: Female Date of : 1955 Age: 68 Procedure Date: 12/02/2024 Procedure Type: Transthoracic Echocardiogram Location: [facility] [place] Height: 172.72 cm Weight: 107.96 kg BSA: 2.20 m2 Heart Rate: 70 bpm BP: 114 / 61 mmHg Shank Maker: Referring MD: [place] Darby MD Symptoms: assess for R heart strain, bilatearal PEs Study Quality: Adequate/limited echo ordered ECG Rhythm: Sinus Conclusions: - Normal left ventricular cavity size. There is mildly increased left ventricular wall thickness. The left ventricular systolic function is hyperdynamic. The visually estimated ejection fraction is >70%. There is no evidence of regional wall motion abnormalities. - Normal right ventricular cavity size and systolic function. Findings Left Ventricle Normal left ventricular cavity size. There is mildly increased left ventricular wall thickness. The left ventricular systolic function is hyperdynamic. The visually estimated ejection fraction is >70%. There is no evidence of regional wall motion abnormalities. Right Ventricle Normal right ventricular cavity size and systolic function. Tricuspid Valve Normal tricuspid valve structure. There is no tricuspid valve regurgitation. Normal right atrial pressure. There is no evidence of pulmonary hypertension. Venous The inferior vena cava is normal in size and collapses greater than 50% with inspiration. Pericardium/Pleural There is no evidence of pericardial effusion. Prior Study Comparison Changes noted compared to prior study dated: 08/13/2024. Hyperdynamic LV. No pulm HTN. Measurements 2D Linear Measurements IVSd: 1.03 0.6-0.9/0.6-1.0 cm LVIDd: 5.06 3.9-5.3/4.2-5.9 cm LVIDd Index: 2.30 2.4-3.2/2.2-3.1 cm/m2 LVIDs: 3.30 2.0-3.6 cm LVPWd: 1.01 0.7-1.1 cm LV Mass: 237.49 67-162/88-224 g LV Mass Index: 107.95 43-95/49-115 g/m2 2D Systolic Function EF 4C: 66.40 >55% EF 2C: 75.30 >55% EF BiP: 71.30 >55% Right Ventricle TAPSE (mm): 30.00 TVS' Jin: 18.80 Tricuspid Valve TR Pk Jin: 2.25 TR Pk Grad: 20.00 RA Press: 3.00 RVSP: 23.00 Updated in Other Vendor System with Status of Final Tree Marshall MD electronically signed on 12/02/2024 9:49:48 PM with status of Final
[2024-12-02 07:03] LABS: Hematocrit 30.7 % (37.0-47.0); Hemoglobin 10.1 g/dl (12.0-16.0); Mean Corpuscular HGB Conc 32.9 g/dl (31.0-35.0); Mean Corpuscular Hemoglobin 31.5 pg (27.0-33.0); Mean Corpuscular Volume 95.6 fL (80.0-98.0); Mean Platelet Volume 9.2 fL (9.4-12.3); Platelet Count 292 X10*3/uL (160-400); Red Blood Count 3.21 X10*6/uL (4.20-5.50); Red Cell Distribution Width 14.6 % (11.0-16.0); White Blood Count 16.5 X10*3/uL (4.8-10.8)
[2024-12-02 07:24] LABS: Venous Blood Gas Refer to POC result
[2024-12-02 07:25] LABS: VBG Base Excess 10.4 mmol/L; VBG HCO3 34 mmol/L (22-26); VBG pCO2 45 mmHg; VBG pH 7.48 (7.32-7.43); VBG pO2 65 mmHg
[2024-12-02 07:25] LABS: Anion Gap 14 (12-20); Blood Urea Nitrogen 31 mg/dL (9-16); C Reactive Protein 0.99 mg/dL (< or = 0.50); Carbon Dioxide 27 mmol/L (22-29); Chloride 106 mmol/L (96-108); Creatinine Clr Calc Pharmacy 73.4; Estimated Glomerular Filt Rate 57; Glucose Random 197 mg/dL (60-115); Potassium 4.5 mmol/L (3.3-5.1); Sodium 142 mmol/L (135-145)
[2024-12-02 07:35] LABS: Glucose, Whole Blood 184 mg/dL (60-115)
[2024-12-02 07:50] LABS: Procalcitonin 0.02 ng/mL
[2024-12-02] MEDS: Escitalopram Oxalate 20 MG TABLET PO (07:59)
[2024-12-02] MEDS: 0.9 % Sodium Chloride Flush 3 ML SYRINGE IVFLUSH ×3 (07:59→22:42)
[2024-12-02] MEDS: Insulin Lispro 100 UNIT/ML 3 ML VIAL SUBCUT ×4 (07:59→22:41)
[2024-12-02] MEDS: Albuterol/Iprat 2.5/0.5MG 3 ML AMPUL.NEB INHALE ×3 (08:12→15:15)
[2024-12-02] MEDS: Fluticasone/Umeclidinium/Vilanterol 200/62.5/25 BLST.W.DEV 1 PUFF INHALE (08:12)
[2024-12-02 11:27] LABS: Glucose, Whole Blood 250 mg/dL (60-115)
--- NOTE | 2024-12-02 12:29 | HO.PM.IMPN ---
Subjective Subjective Date of Service: 12/02/24 Interval History: feeling better, less wheeze though coughing a lot; no hemoptysis; no sputum production; no chest pain Review of Systems Review of Systems: Yes all other systems are reviewed and are negative Physical Exam Vital Signs: Vital Signs: Last Vital Signs Temp 97.5 F 12/02/24 11:33 Pulse 76 12/02/24 11:33 Resp 18 12/02/24 11:33 BP 126/60 12/02/24 11:33 Pulse Ox 94 12/02/24 11:33 O2 Del Method High Flow Nasal C annula 12/02/24 11:33 O2 Flow Rate 60 12/02/24 11:33 FiO2 40 12/02/24 11:33 BMI result Body Mass Index 36.2 Gen: in no acute distress HEENT: sclera anicteric, moist mucus membranes Neck: supple Lungs: diminished Heart: regular rate and rhythm, no murmurs Abd: soft, non-tender, non-distended Ext: no edema Skin: warm/well-perfused Neuro: alert and oriented x3, no focal findings Psych: appropriate affect Objective Data Active Medications Acetaminophen (Acetaminophen 325 Mg Tablet) 650 mg PO Q6H PRN PRN Reason: Pain, Mild (Pain Scale 1-3) Last Admin: 11/29/24 08:46 Dose: 650 mg Documented By: JAMIN Albuterol/Ipratropium (Albuterol/Iprat 2.5/0.5mg 3 Ml Ampul.Neb) 3 ml INHALE RQ4H WHILE AWAKE [facility] Last Admin: 12/02/24 11:32 Dose: 3 ml Documented By: MARIBEL Albuterol/Ipratropium (Albuterol/Iprat 2.5/0.5mg 3 Ml Ampul.Neb) 3 ml INHALE RQ4H WHILE AWAKE PRN PRN Reason: Shortness of Breath/Wheezing Calcium Carbonate (Calcium Carbonate 750 Mg Tab.Chew) 750 mg PO Q4H PRN PRN Reason: Heartburn Last Admin: 11/29/24 15:14 Dose: 750 mg Documented By: FARRAH Enoxaparin Sodium (Enoxaparin Sodium 120 Mg/0.8 Ml Syringe) 110 mg SUBCUT Q12H [facility] Last Admin: 12/02/24 02:39 Dose: 110 mg Documented By: HO.PETERR Escitalopram Oxalate (Escitalopram Oxalate 20 Mg Tablet) 20 mg PO DAILY [facility] Last Admin: 12/02/24 07:59 Dose: 20 mg Documented By: KELSEY Fluticasone/Umeclidinium/Vilanterol (Fluticasone/Umeclidinium/Vilanterol 200/62.5/25 Blst.W.Dev) 1 puff INHALE RDAILY [facility] Last Admin: 12/02/24 08:12 Dose: 1 puff Documented By: ELMER Glucose (Glucose Gel 15 Gm Gel..Gram.) 15 gm PO Q15M PRN; Protocol PRN Reason: per Hypoglycemia Standing Ord. Guaifenesin/Dextromethorphan (Guaifenesin Dm 200/20/10 Ml 10 Ml Syrup) 10 ml PO Q4H PRN PRN Reason: Cough Last Admin: 12/01/24 20:41 Dose: 10 ml Documented By: NEL Dextrose (D10) 250 mls @ 750 mls/hr IV Q15M PRN; Protocol PRN Reason: per Hypoglycemia Standing Ord. Insulin Human Lispro (Insulin Lispro 100 Unit/Ml 3 Ml Vial) [facility]; Protocol Last Admin: 12/02/24 07:59 Dose: 2 unit Documented By: KELSEY Magnesium Hydroxide (Milk Of Magnesia 30 Ml Oral.Susp) 30 ml PO DAILY PRN PRN Reason: Constipation Melatonin (Melatonin 3 Mg Tablet) 6 mg PO BEDTIME PRN PRN Reason: Insomnia Methylprednisolone Sodium Succinate (Methylprednisolone Sod Succ 40 Mg/Ml Vial) 60 mg IVPUSH Q8H [facility] Last Admin: 12/02/24 07:59 Dose: 60 mg Documented By: KELSEY Ondansetron HCl (Ondansetron Hcl 4 Mg/2 Ml Vial) 4 mg IVPUSH Q8H PRN PRN Reason: Nausea and Vomiting Pravastatin Sodium (Pravastatin Sodium 40 Mg Tablet) 40 mg PO BEDTIME [facility] Last Admin: 12/01/24 20:41 Dose: 40 mg Documented By: NEL Sodium Chloride (0.9 % Sodium Chloride Flush 3 Ml Syringe) 3 ml IVFLUSH QSHIFT [facility] Last Admin: 12/02/24 07:59 Dose: 3 ml Documented By: KELSEY Labs 12/02/24 06:31 12/02/24 06:31 Labs: Laboratory Results - last 24 hr 12/01/24 12/01/24 12/02/24 16:18 20:04 06:31 MCV 95.6 MCH 31.5 MCHC 32.9 RDW 14.6 Plt Count 292 MPV 9.2 L Absolute Nucleated RBC 0.000 Nucleated RBC % (auto) 0.0 VBG pH VBG pCO2 VBG pO2 VBG HCO3 VBG O2 Saturation VBG Base Excess Anion Gap 14 Estim Creat Clear Calc 73.4 Estimated GFR 57 POC Glucose 143 H 230 H Random Glucose 197 H Calcium 9.0 C-Reactive Protein 0.99 H Procalcitonin 0.02 12/02/24 12/02/24 12/02/24 07:18 07:24 11:20 MCV MCH MCHC RDW Plt Count MPV Absolute Nucleated RBC Nucleated RBC % (auto) VBG pH 7.48 H VBG pCO2 45 VBG pO2 65 VBG HCO3 34 H VBG O2 Saturation 92.0 VBG Base Excess 10.4 Anion Gap Estim Creat Clear Calc Estimated GFR POC Glucose 184 H 250 H Random Glucose Calcium C-Reactive Protein Procalcitonin Assessment and Plan (1) Acute hypoxemic respiratory failure: Status: Acute (2) COVID-19: Status: Acute Plan d5 for 68yo F with bronchiectasis, hx hypersensitivity pneumonitis, and COPD on home O2 3-4L and on prednisone 50 mg/d for past 3mo; sent in from Pulmonology clinic with hypoxia to 50s, found to have Covid-19 infection and multiple PEs acute-chronic hypoxic respiratory failure due to acute pulmonary emboli and COPD exacerbation from Covid-19 - CTA 11/30 with multifocal bilateral pulmonary artery embolism with involvement of all lobes - decrease IV methylprednisolone from 60 mg q8h to 40 mg q12h - started therapeutic enoxaparin; change to apixaban today, 10 mg bid x7d then 5 mg bid lifetime - TTE pending; hs-Tn-I and BNP normal - now on HFNC; wean as tolerated [55-60% fiO2, 45 Lpm) - CRP low - completed 3d of azithromycin - continue Trelegy, standing/prn nebs viral sepsis - SIRS physiology resolved CHRONIC ISSUES mood disorder: escitalopram HLD: statin dispo - TBD, PT eval once off of HFNC In my clinical judgment, the patient requires continued inpatient hospitalization for the following reasons: hypoxia Total time managing care of this patient today: 45 minutes. Quality Stroke Does the patient have a stroke diagnosis?: No VTE Prior VTE?: No VTE Risk Level:: Medical - moderate - high VTE Device Contraindication: Treatment Not Indicated VTE Drug Contraindication: N/A - Med Ordered
[2024-12-02] MEDS: guaiFENesin DM 200/20/10 ML 10 ML SYRUP PO (13:04)
--- NOTE | 2024-12-02 15:06 | MHC.CM.PN ---
EMR reviewed and per MD rounds, pt is not medically cleared for discharge due to management of hypoxia.
[2024-12-02 16:25] LABS: Glucose, Whole Blood 207 mg/dL (60-115)
[2024-12-02 21:21] LABS: Glucose, Whole Blood 193 mg/dL (60-115)
[2024-12-02] MEDS: Pravastatin Sodium 40 MG TABLET PO (22:41)
[2024-12-02] MEDS: methylPREDNISolone Sod Succ 40 MG/ML VIAL IVPUSH (22:41)
[2024-12-02] MEDS: Apixaban 5 MG TABLET 10 MG PO (22:41)
[2024-12-03] VITALS (13 sets, daily range): BP systolic 103–137; BP diastolic 62–70; PULSE 58–95; RESP 16–20; TEMP 36.1–36.8; O2SAT 85–94
[2024-12-03] MEDS: Albuterol/Iprat 2.5/0.5MG 3 ML AMPUL.NEB INHALE ×4 (07:16→20:56)
[2024-12-03 07:36] LABS: Glucose, Whole Blood 156 mg/dL (60-115)
[2024-12-03] MEDS: Fluticasone/Umeclidinium/Vilanterol 200/62.5/25 BLST.W.DEV 1 PUFF INHALE (07:45)
[2024-12-03] MEDS: methylPREDNISolone Sod Succ 40 MG/ML VIAL IVPUSH ×2 (08:20→20:37)
[2024-12-03] MEDS: Escitalopram Oxalate 20 MG TABLET PO (08:20)
[2024-12-03] MEDS: Insulin Lispro 100 UNIT/ML 3 ML VIAL SUBCUT ×4 (08:20→20:56)
[2024-12-03] MEDS: Apixaban 5 MG TABLET 10 MG PO ×2 (08:20→20:37)
[2024-12-03] MEDS: 0.9 % Sodium Chloride Flush 3 ML SYRINGE IVFLUSH ×2 (08:21→20:37)
[2024-12-03 11:34] LABS: Glucose, Whole Blood 222 mg/dL (60-115)
--- NOTE | 2024-12-03 11:58 | HO.PM.IMPN ---
Subjective Subjective Date of Service: 12/03/24 Interval History: breathing improved not wheezing but still on HFNC Review of Systems Review of Systems: Yes all other systems are reviewed and are negative Physical Exam Vital Signs: Vital Signs: Last Vital Signs Temp 98.2 F 12/03/24 07:38 Pulse 82 12/03/24 11:19 Resp 18 12/03/24 11:19 BP 119/66 12/03/24 07:38 Pulse Ox 91 L 12/03/24 07:38 O2 Del Method High Flow Nasal C annula 12/03/24 07:38 O2 Flow Rate 45 12/03/24 07:38 FiO2 50 12/03/24 07:38 BMI result Body Mass Index 36.2 Gen: in no acute distress HEENT: sclera anicteric, moist mucus membranes Neck: supple Lungs: diminished Heart: regular rate and rhythm, no murmurs Abd: soft, non-tender, non-distended Ext: no edema Skin: warm/well-perfused Neuro: alert and oriented x3, no focal findings Psych: appropriate affect Objective Data Active Medications Acetaminophen (Acetaminophen 325 Mg Tablet) 650 mg PO Q6H PRN PRN Reason: Pain, Mild (Pain Scale 1-3) Last Admin: 11/29/24 08:46 Dose: 650 mg Documented By: JAMIN Albuterol/Ipratropium (Albuterol/Iprat 2.5/0.5mg 3 Ml Ampul.Neb) 3 ml INHALE RQ4H WHILE AWAKE [facility] Last Admin: 12/03/24 11:19 Dose: 3 ml Documented By: MARIBEL Albuterol/Ipratropium (Albuterol/Iprat 2.5/0.5mg 3 Ml Ampul.Neb) 3 ml INHALE RQ4H WHILE AWAKE PRN PRN Reason: Shortness of Breath/Wheezing Apixaban (Apixaban 5 Mg Tablet) 10 mg PO BID [facility] Stop: 12/09/24 09:01 Last Admin: 12/03/24 08:20 Dose: 10 mg Documented By: IVORY Apixaban (Apixaban 5 Mg Tablet) 5 mg PO BID [facility] Calcium Carbonate (Calcium Carbonate 750 Mg Tab.Chew) 750 mg PO Q4H PRN PRN Reason: Heartburn Last Admin: 11/29/24 15:14 Dose: 750 mg Documented By: FARRAH Escitalopram Oxalate (Escitalopram Oxalate 20 Mg Tablet) 20 mg PO DAILY [facility] Last Admin: 12/03/24 08:20 Dose: 20 mg Documented By: IVORY Fluticasone/Umeclidinium/Vilanterol (Fluticasone/Umeclidinium/Vilanterol 200/62.5/25 Blst.W.Dev) 1 puff INHALE RDAILY [facility] Last Admin: 12/03/24 07:45 Dose: 1 puff Documented By: BRIDGET Glucose (Glucose Gel 15 Gm Gel..Gram.) 15 gm PO Q15M PRN; Protocol PRN Reason: per Hypoglycemia Standing Ord. Guaifenesin/Dextromethorphan (Guaifenesin Dm 200/20/10 Ml 10 Ml Syrup) 10 ml PO Q4H PRN PRN Reason: Cough Last Admin: 12/02/24 13:04 Dose: 10 ml Documented By: KELSEY Dextrose (D10) 250 mls @ 750 mls/hr IV Q15M PRN; Protocol PRN Reason: per Hypoglycemia Standing Ord. Insulin Human Lispro (Insulin Lispro 100 Unit/Ml 3 Ml Vial) [facility]; Protocol Last Admin: 12/03/24 11:41 Dose: 4 unit Documented By: IVORY Magnesium Hydroxide (Milk Of Magnesia 30 Ml Oral.Susp) 30 ml PO DAILY PRN PRN Reason: Constipation Melatonin (Melatonin 3 Mg Tablet) 6 mg PO BEDTIME PRN PRN Reason: Insomnia Methylprednisolone Sodium Succinate (Methylprednisolone Sod Succ 40 Mg/Ml Vial) 40 mg IVPUSH Q12H [facility] Last Admin: 12/03/24 08:20 Dose: 40 mg Documented By: IVORY Ondansetron HCl (Ondansetron Hcl 4 Mg/2 Ml Vial) 4 mg IVPUSH Q8H PRN PRN Reason: Nausea and Vomiting Pravastatin Sodium (Pravastatin Sodium 40 Mg Tablet) 40 mg PO BEDTIME [facility] Last Admin: 12/02/24 22:41 Dose: 40 mg Documented By: OLEG-VIRGIL Sodium Chloride (0.9 % Sodium Chloride Flush 3 Ml Syringe) 3 ml IVFLUSH QSHIFT [facility] Last Admin: 12/03/24 08:21 Dose: 3 ml Documented By: IVORY Labs 12/02/24 06:31 12/02/24 06:31 Labs: Laboratory Results - last 24 hr 12/02/24 12/02/24 12/03/24 16:17 21:02 07:27 POC Glucose 207 H 193 H 156 H 12/03/24 11:22 POC Glucose 222 H Microbiology Microbiology Results: Microbiology 11/27/24 12:00 Blood Culture - Final Blood - Venous No growth after 5 days. 11/27/24 12:00 Blood Culture - Final Blood - Venous No growth after 5 days. Assessment and Plan (1) Acute hypoxemic respiratory failure: Status: Acute (2) COVID-19: Status: Acute Plan d6 for 68yo F with bronchiectasis, hx hypersensitivity pneumonitis, and COPD on home O2 3-4L and on prednisone 50 mg/d for past 3mo; sent in from Pulmonology clinic with hypoxia to 50s, found to have Covid-19 infection and multiple PEs acute-chronic hypoxic respiratory failure due to acute pulmonary emboli and COPD exacerbation from Covid-19 - CTA 11/30 with multifocal bilateral pulmonary artery embolism with involvement of all lobes - decreased IV methylprednisolone from 60 mg q8h to 40 mg q12h 12/02, decrease further tomorrow - started therapeutic enoxaparin; changed to apixaban 12/02, 10 mg bid x7d then 5 mg bid lifetime - TTE without any signs of strain hs-Tn-I and BNP normal - now on HFNC; wean as tolerated [45% fiO2, 45 Lpm) - CRP low - completed 3d of azithromycin - continue Trelegy, standing/prn nebs viral sepsis - SIRS physiology resolved CHRONIC ISSUES mood disorder: escitalopram HLD: statin dispo - TBD, PT eval once off of HFNC In my clinical judgment, the patient requires continued inpatient hospitalization for the following reasons: hypoxia Total time managing care of this patient today: 35 minutes. Quality Stroke Does the patient have a stroke diagnosis?: No VTE Prior VTE?: No VTE Risk Level:: Medical - moderate - high VTE Device Contraindication: Treatment Not Indicated VTE Drug Contraindication: N/A - Med Ordered
[2024-12-03 17:14] LABS: Glucose, Whole Blood 208 mg/dL (60-115)
[2024-12-03] MEDS: Pravastatin Sodium 40 MG TABLET PO (20:37)
[2024-12-03 20:39] LABS: Glucose, Whole Blood 212 mg/dL (60-115)
[2024-12-04] VITALS (12 sets, daily range): BP systolic 103–137; BP diastolic 55–79; PULSE 68–80; RESP 14–20; TEMP 36.1–37.2; O2SAT 89–94
[2024-12-04 07:12] LABS: Glucose, Whole Blood 191 mg/dL (60-115)
[2024-12-04] MEDS: Apixaban 5 MG TABLET 10 MG PO ×2 (07:55→20:16)
[2024-12-04] MEDS: Insulin Lispro 100 UNIT/ML 3 ML VIAL SUBCUT ×3 (07:56→21:18)
[2024-12-04] MEDS: Escitalopram Oxalate 20 MG TABLET PO (07:56)
[2024-12-04] MEDS: 0.9 % Sodium Chloride Flush 3 ML SYRINGE IVFLUSH (07:57)
[2024-12-04] MEDS: Fluticasone/Umeclidinium/Vilanterol 200/62.5/25 BLST.W.DEV 1 PUFF INHALE (08:08)
--- NOTE | 2024-12-04 10:22 | P.PNIM_ITS ---
Subjective Subjective Date of Service: 12/04/24 Interval History: desaturates with movement but overall feels better cough improved no wheezing Review of Systems Review of Systems: Yes all other systems are reviewed and are negative Physical Exam 2 Vital Signs: Vital Signs: Last Vital Signs Temp 98.9 F 12/04/24 07:36 Pulse 73 12/04/24 08:11 Resp 20 12/04/24 08:11 BP 127/63 12/04/24 07:36 Pulse Ox 93 12/04/24 07:36 O2 Del Method High Flow Nasal C annula 12/04/24 07:36 O2 Flow Rate 45 12/03/24 12:00 FiO2 47 12/03/24 12:00 BMI result Body Mass Index 36.2 Gen: in no acute distress HEENT: sclera anicteric, moist mucus membranes Neck: supple Lungs: diminished Heart: regular rate and rhythm, no murmurs Abd: soft, non-tender, non-distended Ext: no edema Skin: warm/well-perfused Neuro: alert and oriented x3, no focal findings Psych: appropriate affect Objective Data Active Medications Acetaminophen (Acetaminophen 325 Mg Tablet) 650 mg PO Q6H PRN PRN Reason: Pain, Mild (Pain Scale 1-3) Last Admin: 11/29/24 08:46 Dose: 650 mg Documented By: JAMIN Albuterol/Ipratropium (Albuterol/Iprat 2.5/0.5mg 3 Ml Ampul.Neb) 3 ml INHALE RQ4H WHILE AWAKE PRN PRN Reason: Shortness of Breath/Wheezing Apixaban (Apixaban 5 Mg Tablet) 10 mg PO BID [facility] Stop: 12/09/24 09:01 Last Admin: 12/04/24 07:55 Dose: 10 mg Documented By: IVORY Apixaban (Apixaban 5 Mg Tablet) 5 mg PO BID [facility] Calcium Carbonate (Calcium Carbonate 750 Mg Tab.Chew) 750 mg PO Q4H PRN PRN Reason: Heartburn Last Admin: 11/29/24 15:14 Dose: 750 mg Documented By: FARRAH Escitalopram Oxalate (Escitalopram Oxalate 20 Mg Tablet) 20 mg PO DAILY [facility] Last Admin: 12/04/24 07:56 Dose: 20 mg Documented By: IVORY Fluticasone/Umeclidinium/Vilanterol (Fluticasone/Umeclidinium/Vilanterol 200/62.5/25 Blst.W.Dev) 1 puff INHALE RDAILY [facility] Last Admin: 12/04/24 08:08 Dose: 1 puff Documented By: MARIBEL Glucose (Glucose Gel 15 Gm Gel..Gram.) 15 gm PO Q15M PRN; Protocol PRN Reason: per Hypoglycemia Standing Ord. Guaifenesin/Dextromethorphan (Guaifenesin Dm 200/20/10 Ml 10 Ml Syrup) 10 ml PO Q4H PRN PRN Reason: Cough Last Admin: 12/02/24 13:04 Dose: 10 ml Documented By: KELSEY Dextrose (D10) 250 mls @ 750 mls/hr IV Q15M PRN; Protocol PRN Reason: per Hypoglycemia Standing Ord. Insulin Human Lispro (Insulin Lispro 100 Unit/Ml 3 Ml Vial) [facility]; Protocol Last Admin: 12/04/24 07:56 Dose: 2 unit Documented By: IVORY Magnesium Hydroxide (Milk Of Magnesia 30 Ml Oral.Susp) 30 ml PO DAILY PRN PRN Reason: Constipation Melatonin (Melatonin 3 Mg Tablet) 6 mg PO BEDTIME PRN PRN Reason: Insomnia Methylprednisolone Sodium Succinate (Methylprednisolone Sod Succ 40 Mg/Ml Vial) 40 mg IVPUSH Q24H [facility] Ondansetron HCl (Ondansetron Hcl 4 Mg/2 Ml Vial) 4 mg IVPUSH Q8H PRN PRN Reason: Nausea and Vomiting Pravastatin Sodium (Pravastatin Sodium 40 Mg Tablet) 40 mg PO BEDTIME [facility] Last Admin: 12/03/24 20:37 Dose: 40 mg Documented By: CUBA Sodium Chloride (0.9 % Sodium Chloride Flush 3 Ml Syringe) 3 ml IVFLUSH QSHIFT [facility] Last Admin: 12/04/24 07:57 Dose: 3 ml Documented By: IVORY Labs 12/02/24 06:31 12/02/24 06:31 Labs: Laboratory Results - last 24 hr 12/03/24 12/03/24 12/03/24 11:22 16:28 20:33 POC Glucose 222 H 208 H 212 H 12/04/24 07:01 POC Glucose 191 H Assessment and Plan (1) Acute hypoxemic respiratory failure: Status: Acute (2) COVID-19: Status: Acute Plan d7 for 68yo F with bronchiectasis, hx hypersensitivity pneumonitis, and COPD on home O2 3-4L and on prednisone 50 mg/d for past 3mo; sent in from Pulmonology clinic with hypoxia to 50s, found to have Covid-19 infection and multiple PEs acute-chronic hypoxic respiratory failure due to acute pulmonary emboli and COPD exacerbation from Covid-19 - CTA 11/30 with multifocal bilateral pulmonary artery embolism with involvement of all lobes, Doppler with L posterior tibial DVT - Steroids: Decreased IV methylprednisolone from 60 mg q8h to 40 mg q12h 12/02, to 40 mg q24h 12/04. This equals her chronic dose of prednisone 50 mg/d. - Initially treated with therapeutic enoxaparin; changed to apixaban 12/02, 10 mg bid x7d then 5 mg bid 12/09-lifetime - TTE without any signs of strain; hs-Tn-I and BNP normal - now on HFNC; wean as tolerated [45% fiO2, 45 Lpm] to NC - CRP low - completed 3d of azithromycin - continue Trelegy, standing/prn nebs viral sepsis - SIRS physiology resolved CHRONIC ISSUES mood disorder: escitalopram HLD: statin dispo - TBD, PT eval once off of HFNC, may require STR In my clinical judgment, the patient requires continued inpatient hospitalization for the following reasons: hypoxia Total time managing care of this patient today: 35 minutes. Quality Stroke Does the patient have a stroke diagnosis?: No VTE Prior VTE?: No VTE Risk Level:: Medical - moderate - high VTE Device Contraindication: Treatment Not Indicated VTE Drug Contraindication: N/A - Med Ordered
[2024-12-04 11:45] LABS: Glucose, Whole Blood 238 mg/dL (60-115)
--- NOTE | 2024-12-04 11:56 | MHC.CM.PN ---
EMR reviewed and per MD rounds, pt is not medically cleared for discharge due to management of hypoxia, pt continues on hi-flow.
--- NOTE | 2024-12-04 13:40 | P.DS_ITS ---
DS: Providers Provider Date of Service: 12/04/24 Date of admission: 11/27/24 14:12 Date of discharge: 12/04/24 Primary care physician: Artis Whiting MD DS: Diagnosis Discharge Diagnosis (1) Acute hypoxemic respiratory failure: Status: Acute (2) COVID-19: Status: Acute (3) Bronchiectasis: Status: Acute (4) Multiple pulmonary emboli: Status: Acute (5) Deep venous thrombosis: Status: Acute (6) Viral sepsis: Status: Acute DS: Summary Hospital Course Hospital Course: From the history and physical by the admitting hospitalist, BECCA Morgan, 11/27/24: Pt is a 68-year-old female with a PMH significant for?HLD, pulmonary fibrosis, COPD on home O2 3L at rest and 4L with exertion, and former smoker with a 20 pack-year history who presents to the ED for pulmonology office after noting to be satting in the 50s on 3L O2. Pt reports has had increased SOB and difficulty breathing for the past few months. Was started on prednisone 50 mg daily at the end of August with initially significant improvement. Pt then began exper iencing increased SOB, RODRIGUEZ, nonproductive cough, and ?extreme? fatigue x2-3 weeks. Pt increased her home O2 to 5 L at rest without significant improvement. Denies fever or myalgias, but has had some chills. No lower leg edema. Has been eating and drinking normally. Pt today went pulmonology office as a routine follow-up appointment. Denies chest pain/pressure, palpitations. No nausea, vomiting, abdominal pain. Denies headache. Pt was placed on high-flow in the ED and reports she has had significant improvement in symptoms. In the ED pt was tachycardic up to 107, tachypneic up to 30, with soft BP as low as 95/55, and desatting into the 60s on home 3L O2. Labs were significant for leukocytosis of 18.8, acid 2.8 AST 32 and ALT 42. CXR showed pulmonary fibrosis without acute cardiopulmonary abnormality. Pt was treated with DuoNeb, acetaminophen, and Solu-Medrol. Pt will be admitted to the hospital for treatment and further evaluation of acute on chronic hypoxic respiratory failure in the setting of acute COPD exacerbation secondary to acute COVID infection. Ms Diez is a 68yo F with bronchiectasis, hx hypersensitivity pneumonitis, and COPD on home O2 3-4L and on prednisone 50 mg/d for past 3mo. She was sent in from Pulmonology clinic with hypoxia with SaO2 in the 50s. She was found to have Covid-19 infection initially and admitted to the telemetry unit with prolonged steroid treatment. Ultimately, she was diagnosed with multifocal bilateral pulmonary artery embolism with involvement of all lobes. Doppler with L posterior tibial DVT. She was initially treated with therapeutic enoxaparin; changed to apixaban 12/02, 10 mg bid x7d then 5 mg bid 12/09-lifetime. TTE without any signs of strain; hs-Tn-I and BNP normal. She was on high-flow nasal cannula and weaned to ____. She was discharged to ___. Physical Exam Vital Signs: Vital Signs: Last Vital Signs Temp 98.1 F 12/04/24 11:32 Pulse 80 12/04/24 11:32 Resp 20 12/04/24 11:32 BP 103/73 12/04/24 11:32 Pulse Ox 90 L 12/04/24 11:32 O2 Del Method High Flow Nasal C annula 12/04/24 11:32 O2 Flow Rate 45 12/04/24 11:32 FiO2 47 12/04/24 11:32 BMI result Body Mass Index 36.2 Gen: in no acute distress HEENT: sclera anicteric, moist mucus membranes Neck: supple Lungs: diminished Heart: regular rate and rhythm, no murmurs Abd: soft, non-tender, non-distended Ext: no edema Skin: warm/well-perfused Neuro: alert and oriented x3, no focal findings Psych: appropriate affect DS: Data Data Completed and Pending Completed studies during hospitalization [Text1]: Laboratory Results WBC 16.5 X10*3/uL (4.8-10.8) H 12/02/24 06:31 RBC 3.21 X10*6/uL (4.20-5.50) L 12/02/24 06:31 Hgb 10.1 g/dl (12.0-16.0) L 12/02/24 06:31 Hct 30.7 % (37.0-47.0) L 12/02/24 06:31 MCV 95.6 fL (80.0-98.0) 12/02/24 06:31 MCH 31.5 pg (27.0-33.0) 12/02/24 06: MCHC 32.9 g/dl (31.0-35.0) 12/02/24 06:31 RDW 14.6 % (11.0-16.0) 12/02/24 06:31 Plt Count 292 X10*3/uL (160-400) 12/02/24 06:31 MPV 9.2 fL (9.4-12.3) L 12/02/24 06:31 Immature Gran % (Auto) 2.9 % (0.0-0.4) H 11/30/24 07:03 Neut % (Auto) 71.8 % (45-73) 11/30/24 07:03 Lymph % (Auto) 20.1 % (20-40) 11/30/24 07:03 Guthrie % (Auto) 4.7 % (2-11) 11/30/24 07:03 Eos % (Auto) 0.3 % (0-4) 11/30/24 07:03 Baso % (Auto) 0.2 % (0-2) 11/30/24 07:03 Lymph # (Auto) 2.3 X10*3/uL (1.2-4.9) 11/30/24 07:03 Guthrie # (Auto) 0.6 X10*3/uL (0.1-1.2) 11/30/24 07:03 Eos # (Auto) 0.0 X10*3/uL (0.0-0.4) 11/30/24 07:03 Baso # (Auto) 0.0 X10*3/uL (0.0-0.2) 11/30/24 07:03 Abs Immat Gran (auto) 0.34 X10*3/uL (0.00-0.03) H 11/30/24 07:03 Absolute Neuts (auto) 8.3 x10*3/uL (2.0-8.3) 11/30/24 07:03 Absolute Nucleated RBC 0.000 X10*3/uL (0.0-0.012) 12/02/24 06:31 Nucleated RBC % (auto) 0.0 /100WBC (0.0-0.2) 12/02/24 06:31 VBG pH 7.48 (7.32-7.43) H 12/02/24 07:18 VBG pCO2 45 mmHg 12/02/24 07:18 VBG pO2 65 mmHg 12/02/24 07:18 VBG HCO3 34 mmol/L (22-26) H 12/02/24 07:18 VBG O2 Saturation 92.0 % 12/02/24 07:18 VBG Base Excess 10.4 mmol/L 12/02/24 07:18 Sodium 142 mmol/L (135-145) 12/02/24 06:31 Potassium 4.5 mmol/L (3.3-5.1) 12/02/24 06:31 Chloride 106 mmol/L (96-108) 12/02/24 06:31 Carbon Dioxide 27 mmol/L (22-29) 12/02/24 06:31 Anion Gap 14 (12-20) 12/02/24 06:31 BUN 31 mg/dL (9-16) H 12/02/24 06:31 Creatinine 0.97 mg/dL (0.5-1.4) 12/02/24 06:31 Estim Creat Clear Calc 73.4 12/02/24 06:31 Estimated GFR 57 12/02/24 06:31 POC Glucose 238 mg/dL (60-115) H 12/04/24 11:39 Random Glucose 197 mg/dL (60-115) H 12/02/24 06:31 Fasting Glucose 77 mg/dL (60-99) 11/30/24 07:03 Lactic Acid 2.8 mmol/L (0.5-2.0) H* 11/27/24 12:00 Lactic Acid F/U @ 2Hr 1.8 mmol/L (0.5-2.0) 11/27/24 14:27 Calcium 9.0 mg/dL (8.4-10.2) 12/02/24 06:31 Total Bilirubin 0.5 mg/dL (0.0-1.0) 11/30/24 07:03 AST 33 U/L (5-31) H 11/30/24 07:03 ALT 51 U/L (0-31) H 11/30/24 07:03 Alkaline Phosphatase 45 U/L (39-117) 11/30/24 07:03 Troponin I High Sens 4.0 ng/L (<3.5-17.0) 12/01/24 07:15 C-Reactive Protein 0.99 mg/dL (< or = 0.50) H 12/02/24 06:31 B-Natriuretic Peptide 51 pg/mL (<100) 12/01/24 07:15 Total Protein 5.5 g/dL (6.5-8.0) L 11/30/24 07:03 Albumin 3.2 g/dL (3.5-5.0) L 11/30/24 07:03 Procalcitonin 0.02 ng/mL 12/02/24 06:31 Influenza Type A (PCR) NEGATIVE (Negative) 11/27/24 11:41 Influenza Type B (PCR) NEGATIVE (Negative) 11/27/24 11:41 RSV RNA Qual (PCR) NEGATIVE (Negative) 11/27/24 11:41 SARS-CoV-2 RNA (RT-PCR) POSITIVE (Negative) A 11/27/24 11:41 Impressions Chest X-Ray 11/27/24 12:18 IMPRESSION: Pulmonary fibrosis. No acute cardiopulmonary abnormality. Electronically signed by: Milo Burnett MD 11/27/2024 12:37 PM [facility] [place] CTA chest 11/30/24 1. 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 No saddle embolus. No right heart strain. 2. Enlarged right paratracheal lymph node with interval increase in size. 3. Moderate hiatal hernia. 4. Diffuse ground-glass opacities within the bilateral lungs may be secondary to an interstitial infiltrate, interstitial edema or worsening of interstitial scarring. 5. There is an enlarged right paratracheal lymph node, significantly increased in size. Bilateral venous duplex 11/30/24 1. Negative for right lower extremity DVT 2. Positive DVT left posterior tibial vein. 3. Thrombus in the small saphenous vein left calf. Discharge Plan Discharge Referrals: Artis Whiting MD [Primary Care Provider] - 1 Week Discharge Medications: No Action prednisone 50 mg tablet 50 mg PO DAILY Qty: 30 0RF Trelegy Ellipta 200-62.5-25 mcg blister with device 1 ea INHALATION DAILY citalopram [Celexa] 40 mg tablet 40 mg PO DAILY pravastatin 40 mg tablet 40 mg PO BEDTIME albuterol sulfate 90 mcg/actuation HFA aerosol inhaler 2 puff inhalation Q6H PRN (Reason: Shortness Of Breath Or Wheezing) ipratropium-albuterol 0.5 mg-3 mg(2.5 mg base)/3 mL solution for nebulization 3 ml inhalation Q6H PRN (Reason: wheezing) Qty: 180 3RF Print Language: Nepali
[2024-12-04 15:42] LABS: COVID-19 Test Negative (Negative); IDNOW Serial# 58CA691E
[2024-12-04 15:44] LABS: Glucose, Whole Blood 106 mg/dL (60-115)
[2024-12-04] MEDS: Pravastatin Sodium 40 MG TABLET PO (20:16)
[2024-12-04] MEDS: methylPREDNISolone Sod Succ 40 MG/ML VIAL IVPUSH (20:16)
[2024-12-04 20:45] LABS: Glucose, Whole Blood 171 mg/dL (60-115)
[2024-12-05] VITALS (10 sets, daily range): BP systolic 97–142; BP diastolic 57–85; PULSE 65–95; RESP 16–20; TEMP 36.1–36.8; O2SAT 90–98
[2024-12-05 07:35] LABS: Glucose, Whole Blood 160 mg/dL (60-115)
[2024-12-05] MEDS: Escitalopram Oxalate 20 MG TABLET PO (08:30)
[2024-12-05] MEDS: Apixaban 5 MG TABLET 10 MG PO ×2 (08:30→22:01)
[2024-12-05] MEDS: 0.9 % Sodium Chloride Flush 3 ML SYRINGE IVFLUSH ×2 (08:31→23:39)
[2024-12-05] MEDS: Insulin Lispro 100 UNIT/ML 3 ML VIAL SUBCUT ×3 (08:31→22:01)
[2024-12-05] MEDS: Fluticasone/Umeclidinium/Vilanterol 200/62.5/25 BLST.W.DEV 1 PUFF INHALE (08:34)
--- NOTE | 2024-12-05 11:39 | P.PNIM_ITS ---
Subjective Subjective Date of Service: 12/05/24 Interval History: weaned from HFNC to 8L via Campos cannula and maintaining SaO2 92-93% dyspnea and wheezing resolved, minimal cough Review of Systems Review of Systems: Yes all other systems are reviewed and are negative Physical Exam 2 Vital Signs: Vital Signs: Last Vital Signs Temp 97.0 F 12/05/24 08:00 Pulse 78 12/05/24 08:39 Resp 18 12/05/24 08:39 BP 130/69 12/05/24 08:00 Pulse Ox 94 12/05/24 08:00 O2 Del Method High Flow Nasal C annula 12/05/24 08:00 O2 Flow Rate 45 12/05/24 08:00 FiO2 47 12/05/24 08:00 BMI result Body Mass Index 36.2 Gen: in no acute distress HEENT: sclera anicteric, moist mucus membranes Neck: supple Lungs: clear bilaterally Heart: regular rate and rhythm, no murmurs Abd: soft, non-tender, non-distended Ext: no edema Skin: warm/well-perfused Neuro: alert and oriented x3, no focal findings Psych: appropriate affect Objective Data Active Medications Acetaminophen (Acetaminophen 325 Mg Tablet) 650 mg PO Q6H PRN PRN Reason: Pain, Mild (Pain Scale 1-3) Last Admin: 11/29/24 08:46 Dose: 650 mg Documented By: JAMIN Albuterol/Ipratropium (Albuterol/Iprat 2.5/0.5mg 3 Ml Ampul.Neb) 3 ml INHALE RQ4H WHILE AWAKE PRN PRN Reason: Shortness of Breath/Wheezing Apixaban (Apixaban 5 Mg Tablet) 10 mg PO BID [facility] Stop: 12/09/24 09:01 Last Admin: 12/05/24 08:30 Dose: 10 mg Documented By: NORMA Apixaban (Apixaban 5 Mg Tablet) 5 mg PO BID [facility] Calcium Carbonate (Calcium Carbonate 750 Mg Tab.Chew) 750 mg PO Q4H PRN PRN Reason: Heartburn Last Admin: 11/29/24 15:14 Dose: 750 mg Documented By: FARRAH Escitalopram Oxalate (Escitalopram Oxalate 20 Mg Tablet) 20 mg PO DAILY [facility] Last Admin: 12/05/24 08:30 Dose: 20 mg Documented By: NORMA Fluticasone/Umeclidinium/Vilanterol (Fluticasone/Umeclidinium/Vilanterol 200/62.5/25 Blst.W.Dev) 1 puff INHALE RDAILY [facility] Last Admin: 12/05/24 08:34 Dose: 1 puff Documented By: MARBIEL Glucose (Glucose Gel 15 Gm Gel..Gram.) 15 gm PO Q15M PRN; Protocol PRN Reason: per Hypoglycemia Standing Ord. Guaifenesin/Dextromethorphan (Guaifenesin Dm 200/20/10 Ml 10 Ml Syrup) 10 ml PO Q4H PRN PRN Reason: Cough Last Admin: 12/02/24 13:04 Dose: 10 ml Documented By: KELSEY Dextrose (D10) 250 mls @ 750 mls/hr IV Q15M PRN; Protocol PRN Reason: per Hypoglycemia Standing Ord. Insulin Human Lispro (Insulin Lispro 100 Unit/Ml 3 Ml Vial) [facility] Protocol Last Admin: 12/05/24 08:31 Dose: 2 unit Documented By: NORMA Magnesium Hydroxide (Milk Of Magnesia 30 Ml Oral.Susp) 30 ml PO DAILY PRN PRN Reason: Constipation Melatonin (Melatonin 3 Mg Tablet) 6 mg PO BEDTIME PRN PRN Reason: Insomnia Methylprednisolone Sodium Succinate (Methylprednisolone Sod Succ 40 Mg/Ml Vial) 40 mg IVPUSH Q24H [facility] Last Admin: 12/04/24 20:16 Dose: 40 mg Documented By: RADHA Ondansetron HCl (Ondansetron Hcl 4 Mg/2 Ml Vial) 4 mg IVPUSH Q8H PRN PRN Reason: Nausea and Vomiting Pravastatin Sodium (Pravastatin Sodium 40 Mg Tablet) 40 mg PO BEDTIME [facility] Last Admin: 12/04/24 20:16 Dose: 40 mg Documented By: RADHA Sodium Chloride (0.9 % Sodium Chloride Flush 3 Ml Syringe) 3 ml IVFLUSH QSHIFT [facility] Last Admin: 12/05/24 08:31 Dose: 3 ml Documented By: NORMA Labs 12/02/24 06:31 12/02/24 06:31 Labs: Laboratory Results - last 24 hr 12/04/24 12/04/24 12/04/24 11:39 15:20 15:35 POC Glucose 238 H 106 COVID-19 ([facility]) Negative COVID-19 Clin Com See Note 12/04/24 12/05/24 20:34 07:31 POC Glucose 171 H 160 H COVID-19 ([facility]) COVID-19 Clin Com Assessment and Plan (1) Acute hypoxemic respiratory failure: Status: Acute (2) COVID-19: Status: Acute Plan d8 for 68yo F with bronchiectasis, hx hypersensitivity pneumonitis, and COPD on home O2 3-4L and on prednisone 50 mg/d for past 3mo; sent in from Pulmonology clinic with hypoxia to 50s, found to have Covid-19 infection and multiple PEs acute-chronic hypoxic respiratory failure due to acute pulmonary emboli and COPD exacerbation from Covid-19 - CTA 11/30 with multifocal bilateral pulmonary artery embolism with involvement of all lobes, Doppler with L posterior tibial DVT - Steroids: Decreased IV methylprednisolone from 60 mg q8h to 40 mg q12h 12/02, to 40 mg q24h 12/04. Will change to her chronic dose of prednisone 50 mg/d which is equivalent to 40 mg of methylprednisolone. - Initially treated with therapeutic enoxaparin; changed to apixaban 12/02, 10 mg bid x7d then 5 mg bid 12/09-lifetime - TTE without any signs of strain; hs-Tn-I and BNP normal - weaned off HFNC to Campos cannula at 8L - CRP low - completed 3d of azithromycin - continue Trelegy, standing/prn nebs viral sepsis - SIRS physiology resolved CHRONIC ISSUES mood disorder: escitalopram HLD: statin dispo - PT eval, needs to be on 6L or less of O2 prior to discharge In my clinical judgment, the patient requires continued inpatient hospitalization for the following reasons: hypoxia Total time managing care of this patient today: 35 minutes. Quality Stroke Does the patient have a stroke diagnosis?: No VTE Prior VTE?: No VTE Risk Level:: Medical - moderate - high VTE Device Contraindication: Treatment Not Indicated VTE Drug Contraindication: N/A - Med Ordered
[2024-12-05 11:55] LABS: Glucose, Whole Blood 161 mg/dL (60-115)
[2024-12-05 16:35] LABS: Glucose, Whole Blood 103 mg/dL (60-115)
[2024-12-05 20:40] LABS: Glucose, Whole Blood 183 mg/dL (60-115)
[2024-12-05] MEDS: Pravastatin Sodium 40 MG TABLET PO (22:01)
[2024-12-06 03:14] VITALS: BP 116/58; PULSE 67; RESP 20; TEMP 36.3; O2SAT 96
[2024-12-06 07:02] LABS: Glucose, Whole Blood 80 mg/dL (60-115)
[2024-12-06 07:26] VITALS: BP 102/54; PULSE 73; RESP 20; TEMP 36.9; O2SAT 95
[2024-12-06] MEDS: Fluticasone/Umeclidinium/Vilanterol 200/62.5/25 BLST.W.DEV 1 PUFF INHALE (07:56)
[2024-12-06] MEDS: 0.9 % Sodium Chloride Flush 3 ML SYRINGE IVFLUSH ×3 (09:30→20:17)
[2024-12-06] MEDS: Apixaban 5 MG TABLET 10 MG PO ×2 (09:30→20:17)
[2024-12-06] MEDS: Escitalopram Oxalate 20 MG TABLET PO (09:30)
[2024-12-06] MEDS: predniSONE 10 MG TABLET 50 MG PO (09:30)
--- NOTE | 2024-12-06 10:35 | P.PNIM_ITS ---
Subjective Subjective Date of Service: 12/06/24 Interval History: seen and examined no symptoms of rest, dsypnea and hypoxia with exertion (going to commode) was down to 8L yesterday, now back on 15 Review of Systems Negative except HPI/interval history. Physical Exam 2 Vital Signs: Vital Signs: Last Vital Signs Temp 98.4 F 12/06/24 07:26 Pulse 73 12/06/24 07:26 Resp 20 12/06/24 07:26 BP 102/54 L 12/06/24 07:26 Pulse Ox 95 12/06/24 07:26 O2 Del Method Nasal Cannula 12/06/24 07:26 O2 Flow Rate 15 12/06/24 07:26 FiO2 47 12/05/24 08:00 BMI result Body Mass Index 36.2 Const: Other: General - no acute distress, appears comfortable Cardiovascular - regular rate and rhythm, S1-S2 Lungs - dim sounds with scattered rales Abdomen - soft, nontender, no rebound or guarding Extremities - no edema bilaterally Neuro - awake and alert, no focal deficits Objective Data Active Medications Acetaminophen (Acetaminophen 325 Mg Tablet) 650 mg PO Q6H PRN PRN Reason: Pain, Mild (Pain Scale 1-3) Last Admin: 11/29/24 08:46 Dose: 650 mg Documented By: JAMIN Albuterol/Ipratropium (Albuterol/Iprat 2.5/0.5mg 3 Ml Ampul.Neb) 3 ml INHALE RQ4H WHILE AWAKE PRN PRN Reason: Shortness of Breath/Wheezing Apixaban (Apixaban 5 Mg Tablet) 10 mg PO BID [facility] Stop: 12/09/24 09:01 Last Admin: 12/06/24 09:30 Dose: 10 mg Documented By: BALAJI Apixaban (Apixaban 5 Mg Tablet) 5 mg PO BID [facility] Calcium Carbonate (Calcium Carbonate 750 Mg Tab.Chew) 750 mg PO Q4H PRN PRN Reason: Heartburn Last Admin: 11/29/24 15:14 Dose: 750 mg Documented By: FARRAH Escitalopram Oxalate (Escitalopram Oxalate 20 Mg Tablet) 20 mg PO DAILY [facility] Last Admin: 12/06/24 09:30 Dose: 20 mg Documented By: BALAJI Fluticasone/Umeclidinium/Vilanterol (Fluticasone/Umeclidinium/Vilanterol 200/62.5/25 Blst.W.Dev) 1 puff INHALE RDAILY [facility] Last Admin: 12/06/24 07:56 Dose: 1 puff Documented By: CONCHA Glucose (Glucose Gel 15 Gm Gel..Gram.) 15 gm PO Q15M PRN; Protocol PRN Reason: per Hypoglycemia Standing Ord. Guaifenesin/Dextromethorphan (Guaifenesin Dm 200/20/10 Ml 10 Ml Syrup) 10 ml PO Q4H PRN PRN Reason: Cough Last Admin: 12/02/24 13:04 Dose: 10 ml Documented By: KELSEY Dextrose (D10) 250 mls @ 750 mls/hr IV Q15M PRN; Protocol PRN Reason: per Hypoglycemia Standing Ord. Insulin Human Lispro (Insulin Lispro 100 Unit/Ml 3 Ml Vial) 0 unit SUBCUT QIDACHS [facility]; Protocol Last Admin: 12/06/24 07:48 Dose: Not Given Documented By: BALAJI Non-Admin Reason: No Insulin Coverage Magnesium Hydroxide (Milk Of Magnesia 30 Ml Oral.Susp) 30 ml PO DAILY PRN PRN Reason: Constipation Melatonin (Melatonin 3 Mg Tablet) 6 mg PO BEDTIME PRN PRN Reason: Insomnia Ondansetron HCl (Ondansetron Hcl 4 Mg/2 Ml Vial) 4 mg IVPUSH Q8H PRN PRN Reason: Nausea and Vomiting Pravastatin Sodium (Pravastatin Sodium 40 Mg Tablet) 40 mg PO BEDTIME [facility] Last Admin: 12/05/24 22:01 Dose: 40 mg Documented By: HORACE Prednisone (Prednisone 10 Mg Tablet) 50 mg PO DAILY [facility] Last Admin: 12/06/24 09:30 Dose: 50 mg Documented By: BALAJI Sodium Chloride (0.9 % Sodium Chloride Flush 3 Ml Syringe) 3 ml IVFLUSH QSHIFT [facility] Last Admin: 12/06/24 09:30 Dose: 3 ml Documented By: BALAJI Labs 12/02/24 06:31 12/02/24 06:31 Labs: Laboratory Results - last 24 hr 12/05/24 12/05/24 12/05/24 11:47 16:24 20:26 POC Glucose 161 H 103 183 H 12/06/24 06:56 POC Glucose 80 Assessment and Plan (1) Acute hypoxemic respiratory failure: Status: Acute (2) COVID-19: Status: Acute Plan d8 for 68yo F with bronchiectasis, hx hypersensitivity pneumonitis, and COPD on home O2 3-4L and on prednisone 50 mg/d for past 3mo; sent in from Pulmonology clinic with hypoxia to 50s, found to have Covid-19 infection and multiple PEs acute-chronic hypoxic respiratory failure due to acute pulmonary emboli and COPD exacerbation from Covid-19 currently requiring 15L - if not improved, will check cxr - CTA 11/30 with multifocal bilateral pulmonary artery embolism with involvement of all lobes, Doppler with L posterior tibial DVT - Steroids: Decreased IV methylprednisolone from 60 mg q8h to 40 mg q12h 12/02, to 40 mg q24h 12/04. Changed to her baseline 50mg prednisone - Initially treated with therapeutic enoxaparin; changed to apixaban 12/02, 10 mg bid x7d then 5 mg bid 12/09-lifetime - TTE without any signs of strain; hs-Tn-I and BNP normal - weaned off HFNC to Campos cannula at 8L - CRP low - completed 3d of azithromycin - continue Trelegy, standing/prn nebs viral sepsis - SIRS physiology resolved CHRONIC ISSUES mood disorder: escitalopram HLD: statin dispo - PT eval, needs to be on 6L or less of O2 prior to discharge In my clinical judgment, the patient requires continued inpatient hospitalization for the following reasons: weaning of o2 requirements to transition to rehab Total time managing care of this patient today: 35 minutes. Quality Stroke Does the patient have a stroke diagnosis?: No VTE Prior VTE?: No VTE Risk Level:: Medical - moderate - high VTE Device Contraindication: Treatment Not Indicated VTE Drug Contraindication: N/A - Med Ordered
[2024-12-06 10:56] LABS: Glucose, Whole Blood 146 mg/dL (60-115)
--- NOTE | 2024-12-06 11:06 | MHC.CM.PN ---
EMR REVIEWED, PT W/COVID 19, PE AND COPD EXAC, PT REMIANS ON 15L O2 BASELINE IS 4L AT REST, P.T. RECOMMENDING PULMONARY REHAB, SNF REFERRAL PLACED TO [facility] D/T PULMONARY PROGRAMS, CM WILL CONT TO FOLLOW DC NEEDS.
[2024-12-06 11:28] VITALS: BP 94/55; PULSE 77; RESP 20; TEMP 37; O2SAT 94
[2024-12-06 16:00] VITALS: BP 135/65; PULSE 85; RESP 18; TEMP 35.9; O2SAT 91
[2024-12-06 16:16] LABS: Glucose, Whole Blood 229 mg/dL (60-115)
[2024-12-06] MEDS: Insulin Lispro 100 UNIT/ML 3 ML VIAL SUBCUT ×2 (16:40→22:13)
[2024-12-06 19:32] VITALS: BP 108/59; PULSE 88; RESP 18; TEMP 36; O2SAT 92
[2024-12-06] MEDS: Pravastatin Sodium 40 MG TABLET PO (20:17)
[2024-12-06 20:44] LABS: Glucose, Whole Blood 244 mg/dL (60-115)
[2024-12-06 23:17] VITALS: BP 122/72; PULSE 78; RESP 18; TEMP 36.7; O2SAT 93
[2024-12-07 03:55] VITALS: BP 119/63; PULSE 72; RESP 18; TEMP 36.6; O2SAT 98
--- NOTE | 2024-12-07 05:52 | PC.NURSE ---
Patient not tolerating 8L rob nasal cannula. Sats to 70% with movement to bedside commode and takes her several minutes to come back up. Occasionally sats at 70% while lying low fowlers with left lung down sleeping and RN has to wake her up to reposition. Currently on 10L rob with a sat of 90%.
[2024-12-07 07:03] VITALS: BP 109/66; PULSE 72; RESP 17; TEMP 36.3; O2SAT 95
[2024-12-07 07:37] LABS: Glucose, Whole Blood 108 mg/dL (60-115)
[2024-12-07] MEDS: Apixaban 5 MG TABLET 10 MG PO ×2 (09:44→21:18)
[2024-12-07] MEDS: Escitalopram Oxalate 20 MG TABLET PO (09:44)
[2024-12-07] MEDS: predniSONE 10 MG TABLET 50 MG PO (09:44)
[2024-12-07] MEDS: 0.9 % Sodium Chloride Flush 3 ML SYRINGE IVFLUSH ×3 (09:47→21:18)
--- NOTE | 2024-12-07 10:06 | P.PNIM_ITS ---
Subjective Subjective Date of Service: 12/07/24 Interval History: hypoxia on minimal exertionn, feels okay at rest Physical Exam 2 Vital Signs: Vital Signs: Last Vital Signs Temp 97.4 F 12/07/24 07:03 Pulse 72 12/07/24 07:03 Resp 17 12/07/24 07:03 BP 109/66 12/07/24 07:03 Pulse Ox 95 12/07/24 07:03 O2 Del Method Nasal Cannula 12/07/24 07:03 O2 Flow Rate 10 12/07/24 07:03 FiO2 47 12/05/24 08:00 BMI result Body Mass Index 36.2 Const: Other: General - no acute distress, appears comfortable Cardiovascular - regular rate and rhythm, S1-S2 Lungs - dim sounds with scattered rales Abdomen - soft, nontender, no rebound or guarding Extremities - no edema bilaterally Neuro - awake and alert, no focal deficits Objective Data Active Medications Acetaminophen (Acetaminophen 325 Mg Tablet) 650 mg PO Q6H PRN PRN Reason: Pain, Mild (Pain Scale 1-3) Last Admin: 11/29/24 08:46 Dose: 650 mg Documented By: JAMIN Albuterol/Ipratropium (Albuterol/Iprat 2.5/0.5mg 3 Ml Ampul.Neb) 3 ml INHALE RQ4H WHILE AWAKE PRN PRN Reason: Shortness of Breath/Wheezing Apixaban (Apixaban 5 Mg Tablet) 10 mg PO BID [facility] Stop: 12/09/24 09:01 Last Admin: 12/07/24 09:44 Dose: 10 mg Documented By: IVORY Apixaban (Apixaban 5 Mg Tablet) 5 mg PO BID [facility] Calcium Carbonate (Calcium Carbonate 750 Mg Tab.Chew) 750 mg PO Q4H PRN PRN Reason: Heartburn Last Admin: 11/29/24 15:14 Dose: 750 mg Documented By: FARRAH Escitalopram Oxalate (Escitalopram Oxalate 20 Mg Tablet) 20 mg PO DAILY [facility] Last Admin: 12/07/24 09:44 Dose: 20 mg Documented By: IVORY Fluticasone/Umeclidinium/Vilanterol (Fluticasone/Umeclidinium/Vilanterol 200/62.5/25 Blst.W.Dev) 1 puff INHALE RDAILY [facility] Last Admin: 12/06/24 07:56 Dose: 1 puff Documented By: CONCHA Glucose (Glucose Gel 15 Gm Gel..Gram.) 15 gm PO Q15M PRN; Protocol PRN Reason: per Hypoglycemia Standing Ord. Guaifenesin/Dextromethorphan (Guaifenesin Dm 200/20/10 Ml 10 Ml Syrup) 10 ml PO Q4H PRN PRN Reason: Cough Last Admin: 12/02/24 13:04 Dose: 10 ml Documented By: KELSEY Dextrose (D10) 250 mls @ 750 mls/hr IV Q15M PRN; Protocol PRN Reason: per Hypoglycemia Standing Ord. Insulin Human Lispro (Insulin Lispro 100 Unit/Ml 3 Ml Vial) 0 unit SUBCUT QIDACHS [facility]; Protocol Last Admin: 12/07/24 07:42 Dose: Not Given Documented By: IVORY Non-Admin Reason: No Insulin Coverage Magnesium Hydroxide (Milk Of Magnesia 30 Ml Oral.Susp) 30 ml PO DAILY PRN PRN Reason: Constipation Melatonin (Melatonin 3 Mg Tablet) 6 mg PO BEDTIME PRN PRN Reason: Insomnia Ondansetron HCl (Ondansetron Hcl 4 Mg/2 Ml Vial) 4 mg IVPUSH Q8H PRN PRN Reason: Nausea and Vomiting Pravastatin Sodium (Pravastatin Sodium 40 Mg Tablet) 40 mg PO BEDTIME [facility] Last Admin: 12/06/24 20:17 Dose: 40 mg Documented By: CUBA Prednisone (Prednisone 10 Mg Tablet) 50 mg PO DAILY [facility] Last Admin: 12/07/24 09:44 Dose: 50 mg Documented By: IVORY Sodium Chloride (0.9 % Sodium Chloride Flush 3 Ml Syringe) 3 ml IVFLUSH QSHIFT [facility] Last Admin: 12/07/24 09:47 Dose: 3 ml Documented By: IVORY Labs 12/02/24 06:31 12/02/24 06:31 Labs: Laboratory Results - last 24 hr 12/06/24 12/06/24 12/06/24 10:52 16:11 20:35 POC Glucose 146 H 229 H 244 H 12/07/24 07:18 POC Glucose 108 Assessment and Plan (1) Acute hypoxemic respiratory failure: Status: Acute (2) COVID-19: Status: Acute Plan 68F PMH bronchiectasis, hx hypersensitivity pneumonitis, and COPD with chronic hypoxic respiratory failure on home O2 3-4L and on prednisone 50 mg/d for past 3mo; sent in from Pulmonology clinic with hypoxia to 50s, found to have Covid-19 infection and multiple PEs acute-chronic hypoxic respiratory failure due to acute pulmonary emboli and COPD exacerbation from Covid-19 CTA 11/30 with multifocal bilateral pulmonary artery embolism with involvement of all lobes, Doppler with L posterior tibial DVT Steroids: Decreased IV methylprednisolone from 60 mg q8h to 40 mg q12h 12/02, to 40 mg q24h 12/04. Changed to her baseline 50mg prednisone Initially treated with therapeutic enoxaparin; changed to apixaban 12/02, 10 mg bid x7d then 5 mg bid 12/09-lifetime TTE without any signs of strain; hs-Tn-I and BNP normal weaned off HFNC to Campos cannula at 8L CRP low completed 3d of azithromycin continue Trelegy, standing/prn nebs viral sepsis SIRS physiology resolved CHRONIC ISSUES mood disorder: escitalopram HLD: statin dispo - PT eval, needs to be on 6L or less of O2 prior to discharge reason for continued hospitalization:weaning down to 6L Total time managing care of this patient today: 35 minutes. Quality Stroke Does the patient have a stroke diagnosis?: No VTE Prior VTE?: No VTE Risk Level:: Medical - moderate - high VTE Device Contraindication: Treatment Not Indicated VTE Drug Contraindication: N/A - Med Ordered
[2024-12-07 11:14] LABS: Glucose, Whole Blood 158 mg/dL (60-115)
[2024-12-07] MEDS: Fluticasone/Umeclidinium/Vilanterol 200/62.5/25 BLST.W.DEV 1 PUFF INHALE (11:25)
[2024-12-07 11:30] VITALS: PULSE 81; RESP 20; O2SAT 97
[2024-12-07 11:33] VITALS: BP 115/68; PULSE 86; RESP 19; TEMP 36.2; O2SAT 97
[2024-12-07] MEDS: Insulin Lispro 100 UNIT/ML 3 ML VIAL SUBCUT ×3 (12:32→21:18)
[2024-12-07 15:35] VITALS: BP 108/61; PULSE 84; RESP 18; TEMP 36.3; O2SAT 93
[2024-12-07 16:25] LABS: Glucose, Whole Blood 250 mg/dL (60-115)
[2024-12-07 19:58] VITALS: BP 101/58; PULSE 84; RESP 18; TEMP 36.9; O2SAT 93
[2024-12-07 20:35] LABS: Glucose, Whole Blood 218 mg/dL (60-115)
[2024-12-07] MEDS: Pravastatin Sodium 40 MG TABLET PO (21:18)
[2024-12-08] VITALS (7 sets, daily range): BP systolic 106–127; BP diastolic 59–72; PULSE 64–83; RESP 14–20; TEMP 36–37.1; O2SAT 91–97
[2024-12-08 07:02] LABS: Hematocrit 30.7 % (37.0-47.0); Hemoglobin 10.2 g/dl (12.0-16.0); Mean Corpuscular HGB Conc 33.2 g/dl (31.0-35.0); Mean Corpuscular Hemoglobin 32.4 pg (27.0-33.0); Mean Corpuscular Volume 97.5 fL (80.0-98.0); Mean Platelet Volume 9.5 fL (9.4-12.3); Platelet Count 291 X10*3/uL (160-400); Red Blood Count 3.15 X10*6/uL (4.20-5.50); Red Cell Distribution Width 14.9 % (11.0-16.0); White Blood Count 15.1 X10*3/uL (4.8-10.8)
[2024-12-08 07:22] LABS: Anion Gap 11 (12-20); Blood Urea Nitrogen 29 mg/dL (9-16); Calcium 8.6 mg/dL (8.4-10.2); Carbon Dioxide 27 mmol/L (22-29); Chloride 108 mmol/L (96-108); Estimated Glomerular Filt Rate 59; Glucose Random 118 mg/dL (60-115); Potassium 4.3 mmol/L (3.3-5.1); Sodium 142 mmol/L (135-145)
[2024-12-08 07:47] LABS: Glucose, Whole Blood 92 mg/dL (60-115)
[2024-12-08] MEDS: Fluticasone/Umeclidinium/Vilanterol 200/62.5/25 BLST.W.DEV 1 PUFF INHALE (08:14)
[2024-12-08] MEDS: Apixaban 5 MG TABLET 10 MG PO ×2 (08:35→21:30)
[2024-12-08] MEDS: predniSONE 10 MG TABLET 50 MG PO (08:36)
[2024-12-08] MEDS: Escitalopram Oxalate 20 MG TABLET PO (08:36)
[2024-12-08] MEDS: 0.9 % Sodium Chloride Flush 3 ML SYRINGE IVFLUSH ×3 (08:43→21:32)
--- NOTE | 2024-12-08 09:48 | HO.PM.IMPN ---
Subjective Subjective Date of Service: 12/08/24 Interval History: hypoxia on minimal exertionn, feels okay at rest Physical Exam Vital Signs: Vital Signs: Last Vital Signs Temp 97.1 F 12/08/24 08:00 Pulse 68 12/08/24 08:16 Resp 18 12/08/24 08:16 BP 106/72 12/08/24 08:00 Pulse Ox 94 12/08/24 08:00 O2 Del Method Oxymizer 12/08/24 08:00 O2 Flow Rate 7 12/08/24 08:00 FiO2 47 12/05/24 08:00 BMI result Body Mass Index 36.2 Const: Other: General - no acute distress, appears comfortable Cardiovascular - regular rate and rhythm, S1-S2 Lungs - dim sounds with scattered rales Abdomen - soft, nontender, no rebound or guarding Extremities - no edema bilaterally Neuro - awake and alert, no focal deficits Objective Data Active Medications Acetaminophen (Acetaminophen 325 Mg Tablet) 650 mg PO Q6H PRN PRN Reason: Pain, Mild (Pain Scale 1-3) Last Admin: 11/29/24 08:46 Dose: 650 mg Documented By: JAMIN Albuterol/Ipratropium (Albuterol/Iprat 2.5/0.5mg 3 Ml Ampul.Neb) 3 ml INHALE RQ4H WHILE AWAKE PRN PRN Reason: Shortness of Breath/Wheezing Apixaban (Apixaban 5 Mg Tablet) 10 mg PO BID [facility] Stop: 12/09/24 09:01 Last Admin: 12/08/24 08:35 Dose: 10 mg Documented By: IVORY Apixaban (Apixaban 5 Mg Tablet) 5 mg PO BID [facility] Calcium Carbonate (Calcium Carbonate 750 Mg Tab.Chew) 750 mg PO Q4H PRN PRN Reason: Heartburn Last Admin: 11/29/24 15:14 Dose: 750 mg Documented By: FARRAH Escitalopram Oxalate (Escitalopram Oxalate 20 Mg Tablet) 20 mg PO DAILY [facility] Last Admin: 12/08/24 08:36 Dose: 20 mg Documented By: IVORY Fluticasone/Umeclidinium/Vilanterol (Fluticasone/Umeclidinium/Vilanterol 200/62.5/25 Blst.W.Dev) 1 puff INHALE RDAILY [facility] Last Admin: 12/08/24 08:14 Dose: 1 puff Documented By: ELMER Glucose (Glucose Gel 15 Gm Gel..Gram.) 15 gm PO Q15M PRN; Protocol PRN Reason: per Hypoglycemia Standing Ord. Guaifenesin/Dextromethorphan (Guaifenesin Dm 200/20/10 Ml 10 Ml Syrup) 10 ml PO Q4H PRN PRN Reason: Cough Last Admin: 12/02/24 13:04 Dose: 10 ml Documented By: KELSEY Dextrose (D10) 250 mls @ 750 mls/hr IV Q15M PRN; Protocol PRN Reason: per Hypoglycemia Standing Ord. Insulin Human Lispro (Insulin Lispro 100 Unit/Ml 3 Ml Vial) 0 unit SUBCUT QIDACHS [facility]; Protocol Last Admin: 12/08/24 08:02 Dose: Not Given Documented By: IVORY Non-Admin Reason: No Insulin Coverage Magnesium Hydroxide (Milk Of Magnesia 30 Ml Oral.Susp) 30 ml PO DAILY PRN PRN Reason: Constipation Melatonin (Melatonin 3 Mg Tablet) 6 mg PO BEDTIME PRN PRN Reason: Insomnia Ondansetron HCl (Ondansetron Hcl 4 Mg/2 Ml Vial) 4 mg IVPUSH Q8H PRN PRN Reason: Nausea and Vomiting Pravastatin Sodium (Pravastatin Sodium 40 Mg Tablet) 40 mg PO BEDTIME [facility] Last Admin: 12/07/24 21:18 Dose: 40 mg Documented By: ACE Prednisone (Prednisone 10 Mg Tablet) 50 mg PO DAILY [facility] Last Admin: 12/08/24 08:36 Dose: 50 mg Documented By: IVORY Sodium Chloride (0.9 % Sodium Chloride Flush 3 Ml Syringe) 3 ml IVFLUSH QSHIFT [facility] Last Admin: 12/08/24 08:43 Dose: 3 ml Documented By: IVORY Labs 12/08/24 06:14 12/08/24 06:14 Labs: Laboratory Results - last 24 hr 12/07/24 12/07/24 12/07/24 11:09 16:16 20:30 MCV MCH MCHC RDW Plt Count MPV Absolute Nucleated RBC Nucleated RBC % (auto) Anion Gap Estim Creat Clear Calc Estimated GFR POC Glucose 158 H 250 H 218 H Random Glucose Calcium 12/08/24 12/08/24 06:14 07:39 MCV 97.5 MCH 32.4 MCHC 33.2 RDW 14.9 Plt Count 291 MPV 9.5 Absolute Nucleated RBC 0.000 Nucleated RBC % (auto) 0.0 Anion Gap 11 L Estim Creat Clear Calc 75.0 Estimated GFR 59 POC Glucose 92 Random Glucose 118 H Calcium 8.6 Assessment and Plan (1) Acute hypoxemic respiratory failure: Status: Acute (2) COVID-19: Status: Acute Plan 68F PMH bronchiectasis, hx hypersensitivity pneumonitis, and COPD with chronic hypoxic respiratory failure on home O2 3-4L and on prednisone 50 mg/d for past 3mo; sent in from Pulmonology clinic with hypoxia to 50s, found to have Covid-19 infection and multiple PEs acute-chronic hypoxic respiratory failure due to acute pulmonary emboli and COPD exacerbation from Covid-19 CTA 11/30 with multifocal bilateral pulmonary artery embolism with involvement of all lobes, Doppler with L posterior tibial DVT Steroids: Decreased IV methylprednisolone from 60 mg q8h to 40 mg q12h 12/02, to 40 mg q24h 12/04. Changed to her baseline 50mg prednisone Initially treated with therapeutic enoxaparin; changed to apixaban 12/02, 10 mg bid x7d then 5 mg bid 12/09-lifetime TTE without any signs of strain; hs-Tn-I and BNP normal weaned off HFNC to Campos cannula at 8L CRP low completed 3d of azithromycin continue Trelegy, standing/prn nebs viral sepsis SIRS physiology resolved CHRONIC ISSUES mood disorder: escitalopram HLD: statin dispo - PT eval, needs to be on 6L or less of O2 prior to discharge reason for continued hospitalization:weaning down to 6L Total time managing care of this patient today: 35 minutes. Quality Stroke Does the patient have a stroke diagnosis?: No VTE Prior VTE?: No VTE Risk Level:: Medical - moderate - high VTE Device Contraindication: Treatment Not Indicated VTE Drug Contraindication: N/A - Med Ordered
[2024-12-08 11:38] LABS: Glucose, Whole Blood 174 mg/dL (60-115)
[2024-12-08] MEDS: Insulin Lispro 100 UNIT/ML 3 ML VIAL SUBCUT ×3 (11:57→21:30)
[2024-12-08 15:28] LABS: Glucose, Whole Blood 270 mg/dL (60-115)
[2024-12-08 21:29] LABS: Glucose, Whole Blood 271 mg/dL (60-115)
[2024-12-08] MEDS: Pravastatin Sodium 40 MG TABLET PO (21:30)
[2024-12-09] VITALS (7 sets, daily range): BP systolic 107–119; BP diastolic 52–72; PULSE 71–82; RESP 14–20; TEMP 36.2–37; O2SAT 88–96
[2024-12-09] MEDS: Fluticasone/Umeclidinium/Vilanterol 200/62.5/25 BLST.W.DEV 1 PUFF INHALE (08:24)
[2024-12-09 08:56] LABS: Glucose, Whole Blood 79 mg/dL (60-115)
[2024-12-09] MEDS: predniSONE 10 MG TABLET 50 MG PO (09:12)
[2024-12-09] MEDS: 0.9 % Sodium Chloride Flush 3 ML SYRINGE IVFLUSH ×3 (09:12→20:57)
[2024-12-09] MEDS: Escitalopram Oxalate 20 MG TABLET PO (09:12)
[2024-12-09] MEDS: Apixaban 5 MG TABLET 10 MG PO (09:12)
--- NOTE | 2024-12-09 10:35 | P.PNIM_ITS ---
Subjective Subjective Date of Service: 12/09/24 Interval History: hearing loss, hypoxia on minimal exertionn, feels okay at rest Physical Exam 2 Vital Signs: Vital Signs: Last Vital Signs Temp 97.2 F 12/09/24 08:00 Pulse 76 12/09/24 08:28 Resp 20 12/09/24 08:28 BP 119/72 12/09/24 08:00 Pulse Ox 92 12/09/24 08:00 O2 Del Method Oxymizer 12/09/24 08:00 O2 Flow Rate 7 12/09/24 08:00 FiO2 47 12/05/24 08:00 BMI result Body Mass Index 36.2 Const: Other: General - no acute distress, appears comfortable Cardiovascular - regular rate and rhythm, S1-S2 Lungs - dim sounds with scattered rales Abdomen - soft, nontender, no rebound or guarding Extremities - no edema bilaterally Neuro - awake and alert, no focal deficits Objective Data Active Medications Acetaminophen (Acetaminophen 325 Mg Tablet) 650 mg PO Q6H PRN PRN Reason: Pain, Mild (Pain Scale 1-3) Last Admin: 11/29/24 08:46 Dose: 650 mg Documented By: JAMIN Albuterol/Ipratropium (Albuterol/Iprat 2.5/0.5mg 3 Ml Ampul.Neb) 3 ml INHALE RQ4H WHILE AWAKE PRN PRN Reason: Shortness of Breath/Wheezing Apixaban (Apixaban 5 Mg Tablet) 5 mg PO BID [facility] Calcium Carbonate (Calcium Carbonate 750 Mg Tab.Chew) 750 mg PO Q4H PRN PRN Reason: Heartburn Last Admin: 11/29/24 15:14 Dose: 750 mg Documented By: FARRAH Escitalopram Oxalate (Escitalopram Oxalate 20 Mg Tablet) 20 mg PO DAILY [facility] Last Admin: 12/09/24 09:12 Dose: 20 mg Documented By: TIFFANIE Fluticasone/Umeclidinium/Vilanterol (Fluticasone/Umeclidinium/Vilanterol 200/62.5/25 Blst.W.Dev) 1 puff INHALE RDAILY [facility] Last Admin: 12/09/24 08:24 Dose: 1 puff Documented By: MARIBEL Glucose (Glucose Gel 15 Gm Gel..Gram.) 15 gm PO Q15M PRN; Protocol PRN Reason: per Hypoglycemia Standing Ord. Guaifenesin/Dextromethorphan (Guaifenesin Dm 200/20/10 Ml 10 Ml Syrup) 10 ml PO Q4H PRN PRN Reason: Cough Last Admin: 12/02/24 13:04 Dose: 10 ml Documented By: KELSEY Dextrose (D10) 250 mls @ 750 mls/hr IV Q15M PRN; Protocol PRN Reason: per Hypoglycemia Standing Ord. Insulin Human Lispro (Insulin Lispro 100 Unit/Ml 3 Ml Vial) 0 unit SUBCUT QIDACHS [facility]; Protocol Last Admin: 12/09/24 09:09 Dose: Not Given Documented By: TIFFANIE Non-Admin Reason: No Insulin Coverage Magnesium Hydroxide (Milk Of Magnesia 30 Ml Oral.Susp) 30 ml PO DAILY PRN PRN Reason: Constipation Melatonin (Melatonin 3 Mg Tablet) 6 mg PO BEDTIME PRN PRN Reason: Insomnia Ondansetron HCl (Ondansetron Hcl 4 Mg/2 Ml Vial) 4 mg IVPUSH Q8H PRN PRN Reason: Nausea and Vomiting Pravastatin Sodium (Pravastatin Sodium 40 Mg Tablet) 40 mg PO BEDTIME [facility] Last Admin: 12/08/24 21:30 Dose: 40 mg Documented By: RADHA Prednisone (Prednisone 10 Mg Tablet) 50 mg PO DAILY [facility] Last Admin: 12/09/24 09:12 Dose: 50 mg Documented By: TIFFANIE Sodium Chloride (0.9 % Sodium Chloride Flush 3 Ml Syringe) [facility] Last Admin: 12/09/24 09:12 Dose: 3 ml Documented By: TIFFANIE Labs 12/08/24 06:14 12/08/24 06:14 Labs: Laboratory Results - last 24 hr 12/08/24 12/08/24 12/08/24 11:33 15:18 21:21 POC Glucose 174 H 270 H 271 H 12/09/24 08:17 POC Glucose 79 Assessment and Plan (1) Acute hypoxemic respiratory failure: Status: Acute (2) COVID-19: Status: Acute Plan 68F PMH bronchiectasis, hx hypersensitivity pneumonitis, and COPD with chronic hypoxic respiratory failure on home O2 3-4L and on prednisone 50 mg/d for past 3mo; sent in from Pulmonology clinic with hypoxia to 50s, found to have Covid-19 infection and multiple PEs acute-chronic hypoxic respiratory failure due to acute pulmonary emboli and COPD exacerbation from Covid-19 CTA 11/30 with multifocal bilateral pulmonary artery embolism with involvement of all lobes, Doppler with L posterior tibial DVT Steroids: Decreased IV methylprednisolone from 60 mg q8h to 40 mg q12h 12/02, to 40 mg q24h 12/04. Changed to her baseline 50mg prednisone Initially treated with therapeutic enoxaparin; changed to apixaban 12/02, 10 mg bid x7d then 5 mg bid 12/09-lifetime TTE without any signs of strain; hs-Tn-I and BNP normal weaned off HFNC to Campos cannula at 7-8L CRP low completed 3d of azithromycin continue Trelegy, standing/prn nebs viral sepsis SIRS physiology resolved CHRONIC ISSUES mood disorder: escitalopram HLD: statin dispo - PT eval, needs to be on 6L or less of O2 prior to discharge reason for continued hospitalization:weaning down to accceptable level for pulm rehab Total time managing care of this patient today: 35 minutes. Quality Stroke Does the patient have a stroke diagnosis?: No VTE Prior VTE?: No VTE Risk Level:: Medical - moderate - high VTE Device Contraindication: Treatment Not Indicated VTE Drug Contraindication: N/A - Med Ordered
--- NOTE | 2024-12-09 10:38 | MHC.CM.PN ---
Addendum entered by Ashley Sanches RN 12/09/24 15:06: [facility] DID CONFIRM THEY DO NOT HAVE PULMONARY REHAB OR TAKE PT'S MANAGAED MEDICARE PLAN, PT AGREEABLE TO [facility] WHO WILL GO FOR AUTH IN AM ONCE [employer] REOPENS. Addendum entered by Ashley Sanches RN 12/09/24 12:29: CM DISCUSSED CASE W/PT WHO REPORTS HER FIRST CHOICE IS [facility], PT AWARE THEY LIKELY DO NOT HAVE PULMONARY PROGRAM, PT AGREEABLE TO [facility] IF [facility] CAN NOT ACCOMMODATE. Addendum entered by Ashley Sanches RN 12/09/24 11:49: [facility] OFFERING STR BED HOWEVER REPORT THEY CONFIRMED THAT PT'S [employer] INSURANCE IS CLOSED AND THEY WILL SUBMIT FOR AUTH TOMORROW 12/10, HOSPITALIST/NSG UPDATED. Original Note: EMR REVIEWED, PT W/COVID 19, PE AND COPD EXAC NOW DOWN TO 7L O2 W/OXIMIZER MASK, SNF REFERRAL UPDATED AND CM AWAITING TOSEE IF PT WILL BE ABLE TO TRANSFER TODAY.
[2024-12-09] MEDS: Insulin Lispro 100 UNIT/ML 3 ML VIAL SUBCUT ×3 (12:40→20:55)
[2024-12-09 12:57] LABS: Glucose, Whole Blood 169 mg/dL (60-115)
[2024-12-09 16:56] LABS: Glucose, Whole Blood 218 mg/dL (60-115)
[2024-12-09 20:53] LABS: Glucose, Whole Blood 199 mg/dL (60-115)
[2024-12-09] MEDS: Apixaban 5 MG TABLET PO (20:55)
[2024-12-09] MEDS: Pravastatin Sodium 40 MG TABLET PO (20:55)
[2024-12-10] VITALS (7 sets, daily range): BP systolic 99–120; BP diastolic 56–82; PULSE 69–90; RESP 16–20; TEMP 36.2–37.1; O2SAT 90–95
[2024-12-10 07:33] LABS: Glucose, Whole Blood 81 mg/dL (60-115)
[2024-12-10] MEDS: Escitalopram Oxalate 20 MG TABLET PO (08:07)
[2024-12-10] MEDS: 0.9 % Sodium Chloride Flush 3 ML SYRINGE IVFLUSH ×3 (08:07→21:28)
[2024-12-10] MEDS: predniSONE 10 MG TABLET 50 MG PO (08:07)
[2024-12-10] MEDS: Apixaban 5 MG TABLET PO ×2 (08:07→21:28)
[2024-12-10] MEDS: Fluticasone/Umeclidinium/Vilanterol 200/62.5/25 BLST.W.DEV 1 PUFF INHALE (08:09)
--- NOTE | 2024-12-10 09:40 | HO.PM.IMPN ---
Subjective Subjective Date of Service: 12/10/24 Interval History: hearing loss, hypoxia on minimal exertionn, feels okay at rest Physical Exam Vital Signs: Vital Signs: Last Vital Signs Temp 97.4 F 12/10/24 08:00 Pulse 76 12/10/24 08:11 Resp 18 12/10/24 08:11 BP 114/70 12/10/24 08:00 Pulse Ox 95 12/10/24 08:00 O2 Del Method Nasal Cannula 12/10/24 08:00 O2 Flow Rate 7 12/10/24 08:00 FiO2 47 12/05/24 08:00 BMI result Body Mass Index 36.2 Const: Other: General - no acute distress, appears comfortable Cardiovascular - regular rate and rhythm, S1-S2 Lungs - dim sounds with scattered rales Abdomen - soft, nontender, no rebound or guarding Extremities - no edema bilaterally Neuro - awake and alert, no focal deficits Objective Data Active Medications Acetaminophen (Acetaminophen 325 Mg Tablet) 650 mg PO Q6H PRN PRN Reason: Pain, Mild (Pain Scale 1-3) Last Admin: 11/29/24 08:46 Dose: 650 mg Documented By: JAMIN Albuterol/Ipratropium (Albuterol/Iprat 2.5/0.5mg 3 Ml Ampul.Neb) 3 ml INHALE RQ4H WHILE AWAKE PRN PRN Reason: Shortness of Breath/Wheezing Apixaban (Apixaban 5 Mg Tablet) 5 mg PO BID [facility] Last Admin: 12/10/24 08:07 Dose: 5 mg Documented By: TIFFANIE Calcium Carbonate (Calcium Carbonate 750 Mg Tab.Chew) 750 mg PO Q4H PRN PRN Reason: Heartburn Last Admin: 11/29/24 15:14 Dose: 750 mg Documented By: FARRAH Escitalopram Oxalate (Escitalopram Oxalate 20 Mg Tablet) 20 mg PO DAILY [facility] Last Admin: 12/10/24 08:07 Dose: 20 mg Documented By: TIFFANIE Fluticasone/Umeclidinium/Vilanterol (Fluticasone/Umeclidinium/Vilanterol 200/62.5/25 Blst.W.Dev) 1 puff INHALE RDAILY [facility] Last Admin: 12/10/24 08:09 Dose: 1 puff Documented By: MARIBEL Glucose (Glucose Gel 15 Gm Gel..Gram.) 15 gm PO Q15M PRN; Protocol PRN Reason: per Hypoglycemia Standing Ord. Guaifenesin/Dextromethorphan (Guaifenesin Dm 200/20/10 Ml 10 Ml Syrup) 10 ml PO Q4H PRN PRN Reason: Cough Last Admin: 12/02/24 13:04 Dose: 10 ml Documented By: RICCIAV Dextrose (D10) 250 mls @ 750 mls/hr IV Q15M PRN; Protocol PRN Reason: per Hypoglycemia Standing Ord. Insulin Human Lispro (Insulin Lispro 100 Unit/Ml 3 Ml Vial) 0 unit SUBCUT QIDACHS [facility]; Protocol Last Admin: 12/10/24 08:03 Dose: Not Given Documented By: TIFFANIE Non-Admin Reason: No Insulin Coverage Magnesium Hydroxide (Milk Of Magnesia 30 Ml Oral.Susp) 30 ml PO DAILY PRN PRN Reason: Constipation Melatonin (Melatonin 3 Mg Tablet) 6 mg PO BEDTIME PRN PRN Reason: Insomnia Ondansetron HCl (Ondansetron Hcl 4 Mg/2 Ml Vial) 4 mg IVPUSH Q8H PRN PRN Reason: Nausea and Vomiting Pravastatin Sodium (Pravastatin Sodium 40 Mg Tablet) 40 mg PO BEDTIME [facility] Last Admin: 12/09/24 20:55 Dose: 40 mg Documented By: RADHA Prednisone (Prednisone 10 Mg Tablet) 50 mg PO DAILY [facility] Last Admin: 12/10/24 08:07 Dose: 50 mg Documented By: TIFFANIE Sodium Chloride (0.9 % Sodium Chloride Flush 3 Ml Syringe) 3 ml IVFLUSH QSHIFT [facility] Last Admin: 12/10/24 08:07 Dose: 3 ml Documented By: TIFFANIE Labs 12/08/24 06:14 12/08/24 06:14 Labs: Laboratory Results - last 24 hr 12/09/24 12/09/24 12/09/24 11:42 16:48 20:47 POC Glucose 169 H 218 H 199 H 12/10/24 07:28 POC Glucose 81 Assessment and Plan (1) Acute hypoxemic respiratory failure: Status: Acute (2) COVID-19: Status: Acute Plan 68F PMH bronchiectasis, hx hypersensitivity pneumonitis, and COPD with chronic hypoxic respiratory failure on home O2 3-4L and on prednisone 50 mg/d for past 3mo; sent in from Pulmonology clinic with hypoxia to 50s, found to have Covid-19 infection and multiple PEs acute-chronic hypoxic respiratory failure due to acute pulmonary emboli and COPD exacerbation from Covid-19 CTA 11/30 with multifocal bilateral pulmonary artery embolism with involvement of all lobes, Doppler with L posterior tibial DVT Steroids: Decreased IV methylprednisolone from 60 mg q8h to 40 mg q12h 12/02, to 40 mg q24h 12/04. Changed to her baseline 50mg prednisone Initially treated with therapeutic enoxaparin; changed to apixaban 12/02, 10 mg bid x7d then 5 mg bid 12/09-lifetime TTE without any signs of strain; hs-Tn-I and BNP normal weaned off HFNC to Campos cannula continue to wean to acceptable pulm rehab level CRP low completed 3d of azithromycin continue Trelegy, standing/prn nebs heraing loss likely due to covid, outpatient ENT/audiology viral sepsis SIRS physiology resolved CHRONIC ISSUES mood disorder: escitalopram HLD: statin reason for continued hospitalization:weaning down to accceptable level for pulm rehab Total time managing care of this patient today: 35 minutes. Quality Stroke Does the patient have a stroke diagnosis?: No VTE Prior VTE?: No VTE Risk Level:: Medical - moderate - high VTE Device Contraindication: Treatment Not Indicated VTE Drug Contraindication: N/A - Med Ordered
[2024-12-10 11:26] LABS: Glucose, Whole Blood 219 mg/dL (60-115)
[2024-12-10] MEDS: Insulin Lispro 100 UNIT/ML 3 ML VIAL SUBCUT ×3 (11:45→21:32)
[2024-12-10 16:50] LABS: Glucose, Whole Blood 223 mg/dL (60-115)
[2024-12-10] MEDS: Pravastatin Sodium 40 MG TABLET PO (21:28)
[2024-12-10 21:31] LABS: Glucose, Whole Blood 177 mg/dL (60-115)
[2024-12-10] MEDS: Acetaminophen 325 MG TABLET 650 MG PO (21:37)
[2024-12-11] VITALS (7 sets, daily range): BP systolic 106–129; BP diastolic 57–69; PULSE 74–84; RESP 18–20; TEMP 36.1–37.1; O2SAT 90–96
[2024-12-11] MEDS: Fluticasone/Umeclidinium/Vilanterol 200/62.5/25 BLST.W.DEV 1 PUFF INHALE (07:30)
[2024-12-11 08:38] LABS: Glucose, Whole Blood 88 mg/dL (60-115)
[2024-12-11] MEDS: Apixaban 5 MG TABLET PO ×2 (09:04→20:24)
[2024-12-11] MEDS: Escitalopram Oxalate 20 MG TABLET PO (09:04)
[2024-12-11] MEDS: predniSONE 10 MG TABLET 50 MG PO (09:04)
[2024-12-11] MEDS: 0.9 % Sodium Chloride Flush 3 ML SYRINGE IVFLUSH ×3 (09:08→20:25)
--- NOTE | 2024-12-11 09:34 | MHC.CM.PN ---
Addendum entered by Ashley Snaches RN 12/11/24 15:04: RECEIVED MESSAGE THAT [facility] IS REQUESTING PEER TO PEER BY 12/12 at 10am [phone] [employer], MESSAGE W/DETAILS SENT TO HOSPITALIST VIA [employer]. Addendum entered by Ashley Sanches RN 12/11/24 13:43: AUTH STILL PENDING, PER LIAISON POSSIBLY IN PHYSICIANS REVIEW. Original Note: ANTIC PT WILL DC TO PULMONARY REHAB AT [facility] PENDING INSUR AUTH, PT WILL NEED [employer] FOR BLS TRANSPORT
[2024-12-11 11:26] LABS: Glucose, Whole Blood 195 mg/dL (60-115)
--- NOTE | 2024-12-11 11:51 | P.PNIM_ITS ---
Subjective Subjective Date of Service: 12/11/24 Interval History: hearing loss, hypoxia on minimal exertionn, feels okay at rest Physical Exam 2 Vital Signs: Vital Signs: Last Vital Signs Temp 97.7 F 12/11/24 08:00 Pulse 74 12/11/24 08:00 Resp 20 12/11/24 08:00 BP 119/62 12/11/24 08:00 Pulse Ox 94 12/11/24 08:00 O2 Del Method Oxymizer 12/11/24 08:00 O2 Flow Rate 6 12/11/24 04:00 FiO2 47 12/05/24 08:00 BMI result Body Mass Index 36.2 Const: Other: General - no acute distress, appears comfortable Cardiovascular - regular rate and rhythm, S1-S2 Lungs - dim sounds with scattered rales Abdomen - soft, nontender, no rebound or guarding Extremities - no edema bilaterally Neuro - awake and alert, no focal deficits Objective Data Active Medications Acetaminophen (Acetaminophen 325 Mg Tablet) 650 mg PO Q6H PRN PRN Reason: Pain, Mild (Pain Scale 1-3) Last Admin: 12/10/24 21:37 Dose: 650 mg Documented By: SUE Albuterol/Ipratropium (Albuterol/Iprat 2.5/0.5mg 3 Ml Ampul.Neb) 3 ml INHALE RQ4H WHILE AWAKE PRN PRN Reason: Shortness of Breath/Wheezing Apixaban (Apixaban 5 Mg Tablet) 5 mg PO BID [facility] Last Admin: 12/11/24 09:04 Dose: 5 mg Documented By: LINDY Calcium Carbonate (Calcium Carbonate 750 Mg Tab.Chew) 750 mg PO Q4H PRN PRN Reason: Heartburn Last Admin: 11/29/24 15:14 Dose: 750 mg Documented By: FARRAH Escitalopram Oxalate (Escitalopram Oxalate 20 Mg Tablet) 20 mg PO DAILY [facility] Last Admin: 12/11/24 09:04 Dose: 20 mg Documented By: LINDY Fluticasone/Umeclidinium/Vilanterol (Fluticasone/Umeclidinium/Vilanterol 200/62.5/25 Blst.W.Dev) 1 puff INHALE RDAILY [facility] Last Admin: 12/11/24 07:30 Dose: 1 puff Documented By: MELISSA Glucose (Glucose Gel 15 Gm Gel..Gram.) 15 gm PO Q15M PRN; Protocol PRN Reason: per Hypoglycemia Standing Ord. Guaifenesin/Dextromethorphan (Guaifenesin Dm 200/20/10 Ml 10 Ml Syrup) 10 ml PO Q4H PRN PRN Reason: Cough Last Admin: 12/02/24 13:04 Dose: 10 ml Documented By: KELSEY Dextrose (D10) 250 mls @ 750 mls/hr IV Q15M PRN; Protocol PRN Reason: per Hypoglycemia Standing Ord. Insulin Human Lispro (Insulin Lispro 100 Unit/Ml 3 Ml Vial) 0 unit SUBCUT QIDACHS [facility]; Protocol Last Admin: 12/11/24 08:42 Dose: Not Given Documented By: LINDY Non-Admin Reason: No Insulin Coverage Magnesium Hydroxide (Milk Of Magnesia 30 Ml Oral.Susp) 30 ml PO DAILY PRN PRN Reason: Constipation Melatonin (Melatonin 3 Mg Tablet) 6 mg PO BEDTIME PRN PRN Reason: Insomnia Ondansetron HCl (Ondansetron Hcl 4 Mg/2 Ml Vial) 4 mg IVPUSH Q8H PRN PRN Reason: Nausea and Vomiting Pravastatin Sodium (Pravastatin Sodium 40 Mg Tablet) 40 mg PO BEDTIME [facility] Last Admin: 12/10/24 21:28 Dose: 40 mg Documented By: SUE Prednisone (Prednisone 10 Mg Tablet) 50 mg PO DAILY [facility] Last Admin: 12/11/24 09:04 Dose: 50 mg Documented By: LINDY Sodium Chloride (0.9 % Sodium Chloride Flush 3 Ml Syringe) 3 ml IVFLUSH QSHIFT [facility] Last Admin: 12/11/24 09:08 Dose: 3 ml Documented By: LINDY Labs 12/08/24 06:14 12/08/24 06:14 Labs: Laboratory Results - last 24 hr 12/10/24 12/10/24 12/11/24 16:42 21:28 08:23 POC Glucose 223 H 177 H 88 12/11/24 11:22 POC Glucose 195 H Assessment and Plan (1) Acute hypoxemic respiratory failure: Status: Acute (2) COVID-19: Status: Acute Plan 68F PMH bronchiectasis, hx hypersensitivity pneumonitis, and COPD with chronic hypoxic respiratory failure on home O2 3-4L and on prednisone 50 mg/d for past 3mo; sent in from Pulmonology clinic with hypoxia to 50s, found to have Covid-19 infection and multiple PEs acute-chronic hypoxic respiratory failure due to acute pulmonary emboli and COPD exacerbation from Covid-19 CTA 11/30 with multifocal bilateral pulmonary artery embolism with involvement of all lobes, Doppler with L posterior tibial DVT Steroids: Decreased IV methylprednisolone from 60 mg q8h to 40 mg q12h 12/02, to 40 mg q24h 12/04. Changed to her baseline 50mg prednisone Initially treated with therapeutic enoxaparin; changed to apixaban 12/02, 10 mg bid x7d then 5 mg bid 12/09-lifetime TTE without any signs of strain; hs-Tn-I and BNP normal weaned off HFNC to Campos cannula continue to wean to acceptable pulm rehab level CRP low completed 3d of azithromycin continue Trelegy, standing/prn nebs heraing loss likely due to covid, outpatient ENT/audiology viral sepsis SIRS physiology resolved CHRONIC ISSUES mood disorder: escitalopram HLD: statin reason for continued hospitalization:weaning down to accceptable level for pulm rehab Total time managing care of this patient today: 35 minutes. Quality Stroke Does the patient have a stroke diagnosis?: No VTE Prior VTE?: No VTE Risk Level:: Medical - moderate - high VTE Device Contraindication: Treatment Not Indicated VTE Drug Contraindication: N/A - Med Ordered
[2024-12-11] MEDS: Insulin Lispro 100 UNIT/ML 3 ML VIAL SUBCUT ×3 (12:32→22:15)
[2024-12-11 13:06] LABS: Estimated Average Glucose 140 mg/dL; Hemoglobin A1C 127.5051 umol/L; Hemoglobin A1c % 6.5 % (<6.0); Total Hemoglobin (HGBA1C) 2653.3388 umol/L
[2024-12-11 16:36] LABS: Glucose, Whole Blood 322 mg/dL (60-115)
[2024-12-11] MEDS: Pravastatin Sodium 40 MG TABLET PO (20:24)
[2024-12-11 20:45] LABS: Glucose, Whole Blood 189 mg/dL (60-115)
[2024-12-12] VITALS: BP 127/70; PULSE 81; RESP 20; TEMP 36.1; O2SAT 92
[2024-12-12 04:00] VITALS: BP 122/64; PULSE 74; RESP 20; TEMP 36.9; O2SAT 94
[2024-12-12 07:29] LABS: Glucose, Whole Blood 89 mg/dL (60-115)
[2024-12-12] MEDS: Fluticasone/Umeclidinium/Vilanterol 200/62.5/25 BLST.W.DEV 1 PUFF INHALE (07:48)
[2024-12-12 07:50] VITALS: PULSE 76; RESP 20; O2SAT 92
[2024-12-12 08:00] VITALS: BP 121/69; PULSE 68; RESP 18; TEMP 37.1; O2SAT 95
[2024-12-12] MEDS: Escitalopram Oxalate 20 MG TABLET PO (08:07)
[2024-12-12] MEDS: Apixaban 5 MG TABLET PO (08:07)
[2024-12-12] MEDS: predniSONE 10 MG TABLET 50 MG PO (08:07)
[2024-12-12] MEDS: 0.9 % Sodium Chloride Flush 3 ML SYRINGE IVFLUSH (08:08)
[2024-12-12] MEDS: Acetaminophen 325 MG TABLET 650 MG PO (08:12)
--- NOTE | 2024-12-12 09:12 | MHC.CM.PN ---
IMM 12/12/24 DELIVERED TO BEDSIDE, PT DISCHARGING TO DAILY [facility] AT 11AM [facility]IA [facility] FOR BLS TRANSPORT
--- NOTE | 2024-12-12 09:49 | P.DS_ITS ---
DS: Providers Provider Date of Service: 12/11/24 <Kristopher Rodriges MD - Last Filed: 12/11/24 13:08> 12/12/24 <Barry Ambrose MD - Last Filed: 12/12/24 13:31> Date of admission: 11/27/24 14:12 <Kristopher Rodriges MD - Last Filed: 12/11/24 13:08> Date of discharge: 12/11/24 <Kristopher Rodriges MD - Last Filed: 12/11/24 13:08> 12/12/24 <Barry Ambrose MD - Last Filed: 12/12/24 13:31> Primary care physician: Artis Whiting MD <Kristopher Rodriges MD - Last Filed: 12/11/24 13:08> DS: Diagnosis Discharge Diagnosis (1) Acute hypoxemic respiratory failure: Status: Acute <Kristopher Rodriges MD - Last Filed: 12/11/24 13:08> (2) COVID-19: Status: Acute <Kristopher Rodriges MD - Last Filed: 12/11/24 13:08> DS: Summary Hospital Course Hospital Course: from initial hpi: 68-year-old female with a PMH significant for?HLD, pulmonary fibrosis, COPD on home O2 3L at rest and 4L with exertion, and former smoker with a 20 pack-year history who presents to the ED for pulmonology office after noting to be satting in the 50s on 3L O2. Pt reports has had increased SOB and difficulty breathing for the past few months. Was started on prednisone 50 mg daily at the end of August with initially significant improvement. Pt then began experiencing increased SOB, RODRIGUEZ, nonproductive cough, and ?extreme? fatigue x2-3 weeks. Pt increased her home O2 to 5 L at rest without significant improvement. Denies fever or myalgias, but has had some chills. No lower leg edema. Has been eating and drinking normally. Pt today went pulmonology office as a routine follow-up appointment. Denies chest pain/pressure, palpitations. No nausea, vomiting, abdominal pain. Denies headache. Pt was placed on high-flow in the ED and reports she has had significant improvement in symptoms. In the ED pt was tachycardic up to 107, tachypneic up to 30, with soft BP as low as 95/55, and desatting into the 60s on home 3L O2. Labs were significant for leukocytosis of 18.8, acid 2.8 AST 32 and ALT 42. CXR showed pulmonary fibrosis without acute cardiopulmonary abnormality. Pt was treated with DuoNeb, acetaminophen, and Solu-Medrol. Pt will be admitted to the hospital for treatment and further evaluation of acute on chronic hypoxic respiratory failure in the setting of acute COPD exacerbation secondary to acute COVID infection. hospital course: The patient was admitted for acute on chronic hypoxic respiratory failure secondary to an acute pulmonary embolism (PE) and COPD exacerbation from COVID- 19. A CTA performed on 11/30/2024 revealed multifocal bilateral pulmonary artery embolisms involving all lobes. A Doppler ultrasound identified a left posterior tibial deep vein thrombosis (DVT). The patient was treated with a steroid taper and is now back on her baseline prednisone dose of 50 mg daily. Anticoagulation was initially managed with therapeutic enoxaparin (Lovenox) and transitioned to high-dose apixaban, currently dosed at 5 mg twice daily for life. An echocardiogram showed no signs of right heart strain. Oxygen support was gradually reduced to 6 L/min via a Campos mask. The clinical course was complicated by hearing loss, likely attributable to COVID-19. Outpatient follow- up with ENT and audiology is recommended. The patient also experienced hyperglycemia during hospitalization, managed with insulin. An A1c of 6.5% was consistent with prediabetes. The patient will begin low-dose metformin with continued monitoring of blood glucose levels. The patient is scheduled for discharge to pulmonary rehabilitation, with an anticipated duration of less than 30 days. <Kristopher Rodriges MD - Last Filed: 12/11/24 13:08> Time Attestation Discharge Coordination Time (in mins): 45 <Barry Ambrose MD - Last Filed: 12/12/24 13:31> Quality: Safe Use of Opioids Does Pt have an Active Cancer Diagnosis on the Problem List?: No <Barry Ambrose MD - Last Filed: 12/12/24 13:31> Quality: Stroke Does the patient have a stroke diagnosis?: No <Barry Ambrose MD - Last Filed: 12/12/24 13:31> Physical Exam Vital Signs: Vital Signs: Last Vital Signs Temp 97.7 F 12/11/24 08:00 Pulse 74 12/11/24 08:00 Resp 20 12/11/24 08:00 BP 119/62 12/11/24 08:00 Pulse Ox 94 12/11/24 08:00 O2 Del Method Oxymizer 12/11/24 08:00 O2 Flow Rate 6 12/11/24 04:00 FiO2 47 12/05/24 08:00 BMI result Body Mass Index 36.2 <Kristopher Rodriges MD - Last Filed: 12/11/24 13:08> Vital Signs: Selected Entries 12/12/24 08:00 Temperature 98.8 F Pulse Rate 68 Respiratory Rate 18 Blood Pressure 121/69 Pulse Oximetry 95 Oxygen Delivery Me thod Oxymizer Oxygen Flow Rate 6 <Barry Ambrose MD - Last Filed: 12/12/24 13:31> Const: Other: General - no acute distress, appears comfortable Cardiovascular - regular rate and rhythm, S1-S2 Lungs - dim sounds with scattered rales Abdomen - soft, nontender, no rebound or guarding Extremities - no edema bilaterally Neuro - awake and alert, no focal deficits <Kristopher Rodriges MD - Last Filed: 12/11/24 13:08> DS: Data Data Completed and Pending Labs on day of discharge: Laboratory Results - last 24 hr 12/10/24 12/10/24 12/11/24 16:42 21:28 08:23 POC Glucose 223 H 177 H 88 12/11/24 11:22 POC Glucose 195 H <Kristopher Rodriges MD - Last Filed: 12/11/24 13:08> Discharge Plan Discharge Anticipated Discharge Date/Time: 12/12/24 09:56 <Kristopher Rodriges MD - Last Filed: 12/11/24 13:08> Patient Disposition: Xfer SNF <Kristopher Rodriges MD - Last Filed: 12/11/24 13:08> Discharge Diagnosis: COVID, PE <Kristopher Rodriges MD - Last Filed: 12/11/24 13:08> COVID, PE <Barry Ambrose MD - Last Filed: 12/12/24 13:31> Referrals: [facility] [Outside] - 1 Week (PULMONARY REHAB) Artis Whiting MD [Primary Care Provider] - 1 Week [facility] [Physician] - 1 Week (hearing loss) <Kristopher Rodriges MD - Last Filed: 12/11/24 13:08> Discharge Medications: New Eliquis 5 mg Tablet 5 mg PO BID Qty: 0 0RF metformin 500 mg tablet 500 mg PO BIDWMEAL Qty: 180 0RF Continued prednisone 50 mg tablet 50 mg PO DAILY Qty: 30 0RF Trelegy Ellipta 200-62.5-25 mcg blister with device 1 ea INHALATION DAILY citalopram [Celexa] 40 mg tablet 40 mg PO DAILY pravastatin 40 mg tablet 40 mg PO BEDTIME albuterol sulfate 90 mcg/actuation HFA aerosol inhaler 2 puff inhalation Q6H PRN (Reason: Shortness Of Breath Or Wheezing) ipratropium-albuterol 0.5 mg-3 mg(2.5 mg base)/3 mL solution for nebulization 3 ml inhalation Q6H PRN (Reason: wheezing) Qty: 180 3RF No Action Ozempic 0.25 mg or 0.5 mg (2 mg/3 mL) pen injector 0.5 mg subcut TH <Kristopher Rodriges MD - Last Filed: 12/11/24 13:08> Discharge Orders: Discharge Order (Routine); Ordered 12/12/24 Ordered By: Barry Ambrose <Krisotpher Rodriges MD - Last Filed: 12/11/24 13:08> Diet: Diabetic diet <Kristopher Rodriges MD - Last Filed: 12/11/24 13:08> Diabetic diet <Barry Ambrose MD - Last Filed: 12/12/24 13:31> Activity on Discharge: As tolerated <Kristopher Rodriges MD - Last Filed: 12/11/24 13:08> As tolerated <Barry Ambrose MD - Last Filed: 12/12/24 13:31> Stand Alone Forms: Patient Portal Discharge page <Kristopher Rodriges MD - Last Filed: 12/11/24 13:08> Print Language: Dutch <Kristopher Rodriges MD - Last Filed: 12/11/24 13:08> Care Plan Goals: manage pe, hearing loss and pulmonary rehab <Kristopher Rodriges MD - Last Filed: 12/11/24 13:08> Health Concerns: PE, copd, hyperglycemia <Kristopher Rodriges MD - Last Filed: 12/11/24 13:08> Plan of Treatment: to pulmonary rehab [facility] for PE for at least 6 months continue prednisone chroically for chronic respiratory failure and copd <Kristopher Rodriges MD - Last Filed: 12/11/24 13:08> Assessment: see above <Kristopher Rodriges MD - Last Filed: 12/11/24 13:08>
[2024-12-12 11:31] LABS: Glucose, Whole Blood 203 mg/dL (60-115)
[2024-12-12 12:00] VITALS: BP 101/55; PULSE 80; RESP 14; TEMP 37; O2SAT 95
[2024-12-12] MEDS: Insulin Lispro 100 UNIT/ML 3 ML VIAL SUBCUT (12:28)
--- NOTE | 2024-12-16 12:48 | P.CDIM_ITS ---
PROVIDER RESPONSE TEXT: To clarify, the appropriate diagnosis supported by the clinical indicators: Viral Sepsis QUERY TEXT: PHYSICIAN'S DOCUMENTATION REQUEST Date of Query: 12/13/2024 08:58 AM EST Patient Name: Jeny Diez Admit Date: 11/27/2024 Dear Barry Ambrose MD, RETROSPECTIVE QUERY A review of the medical record indicates additional documentation may be needed. Please review below and update the documentation accordingly. Clinical indicators: H&P 11/27 - Viral Sepsis with tachycardia, tachypnea, initial lactic acid 2.8 with repeat 1.8. Secondary to viral Covid illness. Progress notes within the written Plan 11/28 - Viral Sepsis, resolved. Progress note dated 11/30 - viral sepsis, SIRS physiology resolved, WBC 18.8 Temp 18.8 HR 88/107 BP 98/53L RR 30 Discharge summary diagnosis: Acute hypoxemic respiratory failure/COVID 19 ED 11/27 - elevated lactic acid does not meet indication for sepsis fluids and suspect that the elevati on is secondary to nebulized txts. Patient was treated with DuoNeb, acetaminophen, Solumedrol, azithromycin x 3 days, high-flow for now, wean as tolerated. Sepsis Systemic manifestations of infection, with 2 or more SIRS criteria which include: Fever > 100.4?F or hypothermia < 96.8?F Leukocytosis - WBC > 12,000 or leukopenia, WBC < 4,000, or > 10% bands Tachycardia- > 90 beats/minute Tachypnea- RR > 20 breaths/minute or PaCO2 < 32mmHg Continuation of a medical diagnosis written within the medical record and, if agree, placed in the lisa summary: Viral Sepsis After study the Viral Sepsis has been ruled out SIRS Other (explain) Clinically unable to determine (explain) Thank you, Marybel Cooley, CCS, CDIS Use of terms such as suspected, likely, concern for, or probable (associated with a specific diagnosi s that is being evaluated, monitored, or treated as if it exists) are acceptable and can be coded in the inpatient se tting, when documented at the time of discharge. Please use your independent medical judgment in providing your response. THIS QUERY IS PART OF THE PERMANENT MEDICAL RECORD
== END 2024-12-12 15:25 | disposition skilled nursing facility (03) | DRG 190 ==
LOC: HO.ED 12:26 → HO.EDOVER 14:24 → HO.IMC 16:54
PROVIDERS: Family Medicine; Hospitalist; Internal Medicine; Admitting Provider Student in an Organized Health Care Education/Training Program; Emergency Provider Student in an Organized Health Care Education/Training Program; PCP Internal Medicine; Visit Provider Internal Medicine
DX: J44.1 Chronic obstructive pulmonary disease with (acute) exacerbation (principal); I26.99 Other pulmonary embolism without acute cor pulmonale; J96.21 Acute and chronic respiratory failure with hypoxia; U07.1 COVID-19; I82.442 Acute embolism and thrombosis of left tibial vein; F39 Unspecified mood [affective] disorder; E78.5 Hyperlipidemia, unspecified; J84.178 Other interstitial pulmonary diseases with fibrosis in diseases classified elsewhere; E66.09 Other obesity due to excess calories; Z68.36 Body mass index [BMI] 36.0-36.9, adult; Z99.81 Dependence on supplemental oxygen; Z87.891 Personal history of nicotine dependence; Z79.899 Other long term (current) drug therapy
CPT/HCPCS: 0241U; 36415; 71045; 71275; 80048; 80053; 82803; 82947; 83036; 83605; 83880; 84145; 84484; 85025; 85027; 86140; 87040; 87635; 93005; 93308; 93970; 94640; 97116; 97161; 97530; 99285; J0456; J1650; J2919; Q9957; Q9967

== ENCOUNTER → 2024-11-27 11:34 | Outpatient (BNV) | payer MEDICARE, SELFPAY | PROVIDERS: Emergency Provider Student in an Organized Health Care Education/Training Program; PCP Internal Medicine; Visit Provider Radiology Diagnostic Radiology | DX: R06.02 Shortness of breath (principal) | CPT/HCPCS: 71045 ==

== ENCOUNTER → 2024-11-27 13:57 | Outpatient (BNV) | payer MEDICARE, SELFPAY | PROVIDERS: Admitting Provider Student in an Organized Health Care Education/Training Program; Emergency Provider Student in an Organized Health Care Education/Training Program; PCP Internal Medicine; Visit Provider Internal Medicine | DX: R06.02 Shortness of breath (principal) | CPT/HCPCS: 93010 ==

== ENCOUNTER 2024-11-27 14:12 | Outpatient (BNV) | payer MEDICARE, SELFPAY | END 2024-11-30 13:18 | PROVIDERS: Admitting Provider Student in an Organized Health Care Education/Training Program; Emergency Provider Student in an Organized Health Care Education/Training Program; PCP Internal Medicine; Visit Provider Radiology Diagnostic Radiology | DX: R09.02 Hypoxemia (principal); I82.442 Acute embolism and thrombosis of left tibial vein | CPT/HCPCS: 71275; 93970 ==

== ENCOUNTER 2024-11-27 14:12 | Outpatient (BNV) | payer MEDICARE, SELFPAY | END 2024-12-02 07:00 | PROVIDERS: Admitting Provider Student in an Organized Health Care Education/Training Program; Emergency Provider Student in an Organized Health Care Education/Training Program; PCP Internal Medicine; Visit Provider Internal Medicine Cardiovascular Disease | DX: I26.99 Other pulmonary embolism without acute cor pulmonale (principal) | CPT/HCPCS: 93308 ==

== ENCOUNTER → 2024-11-27 14:12 | Outpatient (BNV) | payer MEDICARE, SELFPAY | PROVIDERS: Admitting Provider Student in an Organized Health Care Education/Training Program; Emergency Provider Student in an Organized Health Care Education/Training Program; PCP Internal Medicine; Visit Provider Student in an Organized Health Care Education/Training Program | DX: U07.1 COVID-19 (principal); J96.21 Acute and chronic respiratory failure with hypoxia; J44.1 Chronic obstructive pulmonary disease with (acute) exacerbation | CPT/HCPCS: 99223; 99232; 99233 ==

== ENCOUNTER 2024-12-13 05:48 | Outpatient (REF) | payer MEDICARE, SELFPAY ==
[2024-12-13 05:50] LABS: MANUAL DIFF FLAG NO
[2024-12-13 06:12] LABS: Basophils Percent Auto 0.2 % (0-2); Eosinophils Percent Auto 0.1 % (0-4); Hematocrit 33.9 % (37.0-47.0); Imm Gran Abs Auto 0.34 X10*3/uL (0.00-0.03); Imm Gran Pct Auto 2.3 % (0.0-0.4); Lymphocytes Absolute Auto 2.9 X10*3/uL (1.2-4.9); Lymphocytes Percent Auto 19.4 % (20-40); Mean Corpuscular HGB Conc 32.4 g/dl (31.0-35.0); Mean Corpuscular Hemoglobin 32.2 pg (27.0-33.0); Mean Corpuscular Volume 99.1 fL (80.0-98.0); Mean Platelet Volume 9.5 fL (9.4-12.3); Monocytes Percent Auto 6.7 % (2-11); NRBC Pct Auto 0.3 /100WBC (0.0-0.2); Neutrophils Absolute Auto 10.5 x10*3/uL (2.0-8.3); Neutrophils Percent Auto 71.3 % (45-73); Platelet Count 305 X10*3/uL (160-400); Red Blood Count 3.42 X10*6/uL (4.20-5.50); Red Cell Distribution Width 15.4 % (11.0-16.0); White Blood Count 14.7 X10*3/uL (4.8-10.8)
[2024-12-13 06:28] LABS: Alanine Aminotransferase 32 U/L (0-31); Albumin Level 3.5 g/dL (3.5-5.0); Alkaline Phosphatase 46 U/L (39-117); Anion Gap 12 (12-20); Aspartate Amino Transferase 18 U/L (5-31); Bilirubin Total 0.5 mg/dL (0.0-1.0); Blood Urea Nitrogen 24 mg/dL (9-16); Calcium 9.2 mg/dL (8.4-10.2); Carbon Dioxide 26 mmol/L (22-29); Chloride 111 mmol/L (96-108); Estimated Glomerular Filt Rate 57; Glucose Random 84 mg/dL (60-115); Potassium 3.9 mmol/L (3.3-5.1); Sodium 145 mmol/L (135-145)
== END 2024-12-13 05:49 | disposition home or self-care (01) ==
LOC: HO.MMNH1L 05:48
PROVIDERS: Visit Provider Nurse Practitioner
DX: J96.21 Acute and chronic respiratory failure with hypoxia (principal)
CPT/HCPCS: 36415; 80053; 85025

== ENCOUNTER 2024-12-16 06:19 | Outpatient (REF) | payer MEDICARE, SELFPAY ==
[2024-12-16 06:04] LABS: MANUAL DIFF FLAG NO
--- OUTSIDE RECORDS SUMMARY | 2024-12-16 06:33 | XMS_ITS | Encounter Summary ---
Author Organization [facility] Address [address] [place] [address] Care Team Providers Care Lift Truck Operator Name Role Phone Artis Whiting MD Primary Care Provider [phone] Reason for Visit * Reason Onset Date Comments Appointment 12/05/2024 1st Notification Encounter Details Date Type Department Care Team ([facility] st Contact Info) Description 12/05/2024 Telephone Lung Screening Program - [address] [place] [address] Brook Danielle [place] Appointment (1st Notification) Social History Tobacco Use Types Packs/Day Years Used Date Smoking Tobacco: Former Smokeless Tobacco: Never Alcohol Use Standard Drinks/Week Comments Not Currently 0 (1 standard drink = 0.6 oz pur e alcohol) Sex and Gender Information Value Date Recorded Sex Assigned at Not on file Gender Identity Not on file Sexual Orientation Not on file documented as of this encounter Progress Notes * Brook Danielle MA - 12/05/2024 11:59 AM EST Jeny Diez was contacted by the Lung Cancer Screening Program today to confirm the appointment of their Lung Cancer Screening. The [facility] No answer left answer For all screenings scheduled during the week, the patient will check in at Patient Registration on the first floor of the main hospital. For screenings that take place on the weekend or after 5pm, check-in directly in Radiology. The patient was given the Lung Cancer Screening Program phone number, , to contact if they have any additional questions, concerns or need to reschedule. Patients are encouraged to call our office and reschedule if they are exhibiting any cold-like symptoms, have recently been treated for Pneumonia or Influenza (the flu) or have had another CT of their Chest since their last screening. documented in this encounter Plan of Treatment Upcoming Encounters Date Type Department Care Team (Late st Contact Info) Description 12/23/2024 10:30 AM EST Appointment [facility] CT Scan [address] [place] [address] documented as of this encounter Visit Diagnoses Not on filedocumented in this encounter Care Teams Lift Truck Operator Relationship Specialty Start Date End Date Artis Whiting MD PCP - General 08/10/23 documented as of this encounter
--- OUTSIDE RECORDS SUMMARY | 2024-12-16 06:33 | XMS_ITS | Patient Health Record ---
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 Plan Of Treatment Pending Test Test Name Order Date X ray : Foot, right 3V 03/16/2023 Insurance Providers Payer Name Payer Address Payer Phone Subscriber Number Group Number Insured Name Patient Relationship to Insured Coverage Start Date Coverage End Date AARP Medicare Complete [address] [address] [place] [address] [id number] Jeny Diez Self - patient is the insured Medicare [employer] [address] [place] [address] [id number] Jeny Diez Self - patient is the insured Medical (General) History Medical History History ICD Code Broken bones Chicken pox skin cancer Depression Measles Mumps Psoriasis/Eczema COPD Surgical History Surgery Date(Month/Year) back surgery lung surgery shoulder surgery Hospitalization History Reason Date(Month/Year) [facility] xrays bilateral ankles 08/11/15
--- OUTSIDE RECORDS SUMMARY | 2024-12-16 06:33 | XMS_ITS ---
Author Organization [employer] [facility] Care Team Providers Care Senior Government Program Analyst Name Role Phone Unavailable Primary Care Provider Unavailabl e Encounters Encounter Date Encounter Type Encounter Diagnosis Care Provider Facility Start: 12-09-2024 12:00-0500 End: 12-16-2024 01:140500 Transcribe Orders Bilateral hearing loss Artis Whiting MD Work Phone: [facility] Comment on above: Bilateral hearing lo ss, unspecified hearing loss type (Primary Dx) Plan of Treatment Date Care Activity Detail Author Start: 2032 RSV Vaccine 60 years and older and Patients (1 - 1-dose 75+ series) RSV Vaccine 60 years and older and Patients (1 - 1-dose 75+ series) [facility] Start: 07-21-2024 COVID-19 Vaccine ( season) COVID-19 Vaccine ( season) [facility] Start: 2007 Hzv zoster vacc recombinant adjuvanted im njx Zoster (Shingles) Vaccine (1 of 2) [facility] Start: 2007 Pneumococcal Vaccine s 50+ (1 of 1 - PCV) Pneumococcal Vaccines 50+ (1 of 1 - PCV) [facility] Start: 1976 DTaP/Tdap/Td Vaccine s (1 - Tdap) DTaP/Tdap/Td Vaccines (1 - Tdap) [facility] Start: 1955 Hepatitis C screening Hepatiti s C Virus Screening [facility] Problems Active Problems Problem Classification Problem Date Last Recorded Documented Date Chronic Condition Indicator Provider Other ear and sense organ disorders (1 source) Bilateral hearing loss; Translations: [Unspecified hearing loss, bilateral] 12-09-2024 Chronic Elisa Andres Social History Date Type Detail Facility Start: 1955 Sex assigned at Not on file [facility] Gender identity Not on file [facility] Note Date & Type Note Facility Evaluation note Diagnosis Bilateral hearing loss, unspecified hearing loss type- Primary documented in this encounter [facility] Reason for Referral Specialty Diagnoses / Procedures Referred By Terrie mcintyre Referred To Contact Otolaryngology Diagnoses Bilateral hearing loss, unspecified hearing loss type Artis Whiting MD [address] [address] [facility] [address] [place] [address] Referral ID Status Reason Start Date Expiration Date Visits Requested Visits Authorized [id number] Pending Review Consult 12/09/2024 12/10/2025 1 1 Additional Source Comments FOR RECORDS PERTAINING TO PATIENTS WHO ARE OR HAVE BEEN ENROLLED IN A CHEMICAL DEPENDENCY/SUBSTANCEABUSE PROGRAM, SOME INFORMATION MAY BE OMITTED. This clinical summary was aggregated from multiple sources. Caution should be exercised in using it in the provision of clinical care. This summary normalizes information from multiple sources, and as a consequence, information in this document may materially change the coding, format and clinical context of patient data. In addition, data may be omitted in some cases. CLINICAL DECISIONS SHOULD BE BASED ON THE PRIMARY CLINICAL RECORDS. [employer] provides no warranty or guarantee of the accuracy or completeness of information in this document.The following information is based on time limited clinical information
--- OUTSIDE RECORDS SUMMARY | 2024-12-16 06:33 | XMS_ITS | Clinical Summary ---
Author Organization [facility] Address [address] [place] [address] Phone Care Team Providers Care Plating Stripper Name Role Phone Artis Whiting MD Primary Care Provider [phone] Encounters Date Type Department Care Team Description 12/05/2024 Telephone Lung Screening Program - [address] [id number] Brook Danielle [place] Appointment (1st Notification) from Last 3 Months Medical History Medical History Date Comments Depression DX:Depression Family History Medical History Relation Name Comments Coronary artery disease Father Heart attack Father Other: diabetes mellitus Father Stroke Mother Relation Name Status Comments Father Mother Social History Tobacco Use Types Packs/Day Years Used Date Smoking Tobacco: Former Smokeless Tobacco: Never Alcohol Use Standard Drinks/Week Comments Not Currently 0 (1 standard drink = 0.6 oz pur e alcohol) Sex and Gender Information Value Date Recorded Sex Assigned at Not on file Gender Identity Not on file Sexual Orientation Not on file Obstetrics History Last Filed Vital Signs Vital Sign Reading Time Taken Comments Blood Pressure 116/60 02/12/2024 10:58 AM EDT Pulse 73 02/12/2024 10:58 AM EDT Temperature - - Respiratory Rate - - Oxygen Saturation 90% 02/12/2024 10:58 AM EDT on 3Lo2 Inhaled Oxygen Concentration - - Weight 111 kg (245 lb) 02/12/2024 10:58 AM EDT Height 172.7 cm (5' 8 ) 02/12/2024 10:58 AM EDT Body Mass Index 37.25 02/12/2024 10:58 AM EDT Plan of Treatment Upcoming Encounters Date Type Department Care Team (Late st Contact Info) Description 12/23/2024 10:30 AM EST Appointment [facility] Scan [address] [place] [address] Health Maintenance Due Date Last Done Comments Breast Cancer Screening 1955 Pneumococcal Vaccine: 65+ Ye ars (1 of 2 - PCV) 1963 DTaP,Tdap,and Td Vaccines (1 - Tdap) 1976 Zoster Vaccines (1 of 2) 2007 RSV Immunization Patients 60 + Years Old (1 - Risk 60-74 years 1-dose series) 2017 Cholesterol Screening (Lipid Panel) 10/23/2022 Colorectal Cancer Screening: Colonoscopy 10/23/2022 Depression Screening 10/23/2022 Hepatitis C Screening 10/23/2022 Medicare Annual Wellness Visit 10/23/2022 Osteoporosis Screening (Bone Density Screening) 10/23/2022 Social Influencers of Health Screening 10/23/2022 Falls Risk Assessment 2022 COVID-19 Vaccine (2023-2 5 season) 2024 Influenza Vaccine (#1) 2024 HIB Vaccines Aged Out No longer eligi ble based on patient's age to complete this topic HPV Vaccines Aged Out No longer eligi ble based on patient's age to complete this topic Hepatitis A Vaccines Aged Out No long er eligible based on patient's age to complete this topic Hepatitis B Vaccines Aged Out No long er eligible based on patient's age to complete this topic IPV Vaccines Aged Out No longer eligi ble based on patient's age to complete this topic MMR Vaccines Aged Out No longer eligi ble based on patient's age to complete this topic Meningococcal ACWY Vaccine Aged Out N o longer eligible based on patient's age to complete this topic RSV Immunization Patients Un lidia 20 months Aged Out No longer eligible b ased on patient's age to complete this topic Varicella Vaccines Aged Out No longer eligible based on patient's age to complete this topic Care Teams Plating Stripper Relationship Specialty Start Date End Date Artis Whiting MD PCP - General 08/10/23
[2024-12-16 07:10] LABS: Basophils Percent Auto 0.1 % (0-2); Hematocrit 29.5 % (37.0-47.0); Hemoglobin 9.6 g/dl (12.0-16.0); Imm Gran Pct Auto 1.8 % (0.0-0.4); Lymphocytes Percent Auto 17.9 % (20-40); Mean Corpuscular HGB Conc 32.5 g/dl (31.0-35.0); Mean Corpuscular Hemoglobin 32.5 pg (27.0-33.0); Mean Platelet Volume 9.6 fL (9.4-12.3); Monocytes Absolute Auto 0.8 X10*3/uL (0.1-1.2); Monocytes Percent Auto 7.7 % (2-11); NRBC Pct Auto 0.2 /100WBC (0.0-0.2); Neutrophils Percent Auto 72.5 % (45-73); Platelet Count 242 X10*3/uL (160-400); Red Blood Count 2.95 X10*6/uL (4.20-5.50); Red Cell Distribution Width 15.8 % (11.0-16.0)
[2024-12-16 07:13] LABS: Anion Gap 14 (12-20); Blood Urea Nitrogen 29 mg/dL (9-16); Calcium 9.2 mg/dL (8.4-10.2); Carbon Dioxide 27 mmol/L (22-29); Chloride 108 mmol/L (96-108); Estimated Glomerular Filt Rate 49; Glucose Random 88 mg/dL (60-115); Potassium 3.8 mmol/L (3.3-5.1); Sodium 145 mmol/L (135-145)
== END 2024-12-16 06:20 | disposition home or self-care (01) ==
LOC: HO.MMNH1L 06:19
PROVIDERS: Visit Provider Nurse Practitioner
DX: J96.21 Acute and chronic respiratory failure with hypoxia (principal)
CPT/HCPCS: 36415; 80048; 85025

== ENCOUNTER 2024-12-26 19:58 | Emergency (ER) | payer MEDICARE, SELFPAY ==
--- NOTE | ~2024-12-26 | XR_ITS ---
CLINICAL HISTORY: sob 1 view chest x-ray Comparison: [place] - CT ANGIO CHEST PE PROTOCOL - 11/30/24 13:18 EST CR/SR - XR CHEST 1V - 11/27/24 12:14 EST Findings: Scattered bilateral fine reticular opacities compatible with chronic interstitial lung disease as previously noted. Areas of ground-glass opacification are likely related to chronic interstitial lung disease as well. Superimposed pneumonia is not entirely excluded. Heart size is normal. A hiatal hernia is noted. No acute fracture. IMPRESSION: No significant interval changes. Findings most compatible with chronic lung disease. This document has been electronically signed by: Prasanth Watson MD on 12/26/2024 22:22:59
[2024-12-26 20:06] VITALS: BP 112/82; BP 117/66; PULSE 102; PULSE 76; RESP 18; TEMP 36.6; O2SAT 95; O2SAT 97; BMI 45.2
[2024-12-26 21:15] VITALS: BP 105/63; PULSE 91; RESP 18; O2SAT 95
--- NOTE | 2024-12-26 21:23 | ED.EPISTAXIS ---
History of Present Illness General Chief Complaint: Epistaxis Stated Complaint: Nose bleed Time Seen by Provider: 12/26/24 21:23 Source: patient Mode of arrival: EMS Limitations: no limitations History of Present Illness HPI Narrative: 68-year-old female with a PMH significant for?HLD, pulmonary fibrosis, COPD on home O2 3L at rest and 4L with exertion, admitted on 11/27/2024 discharged on 12/12/2024 for acute on chronic hypoxic respiratory failure secondary to acute bilateral pulmonary embolism and COVID-19 started on Eliquis comes here for nosebleed which lasted for about 30 minutes prior to arrival no active nosebleed now patient has been having intermittent bleeding since started on Eliquis usually lasting for few minutes Related Data Home Medications ?Medication ?Instructions ?Recorded ?Confirmed albuterol sulfate 90 mcg/actuation 2 puff inhalation Q6H PRN 03/26/24 11/27/24 aerosol inhaler Shortness Of Breath Or Wheezing citalopram 40 mg tablet (Celexa) 40 mg PO DAILY 03/26/24 11/27/24 pravastatin 40 mg tablet 40 mg PO BEDTIME 03/26/24 11/27/24 fluticasone fur. 200 mcg-umeclid 1 ea inhalation DAILY 11/27/24 11/27/24 62.5 mcg-vilant 25 mcg inhalat.powder (Trelegy Ellipta) semaglutide 0.25 mg or 0.5 mg (2 0.5 mg subcut TH 12/12/24 12/12/24 mg/3 mL) subcutaneous pen injector (Ozempic) Previous Rx's ?Medication ?Instructions ?Recorded ipratropium 0.5 mg-albuterol 3 mg 3 ml inhalation Q6H PRN wheezing 09/03/24 (2.5 mg base)/3 mL nebulization #180 mL soln prednisone 50 mg tablet 50 mg PO DAILY #30 tabs 11/11/24 apixaban 5 mg tablet (Eliquis) 5 mg PO BID #0 tabs 12/11/24 metformin 500 mg tablet 500 mg PO BIDWMEAL #180 tabs 12/11/24 Allergies Allergy/AdvReac Type Severity Reaction Status Date / Time codeine Allergy Intermediate Rash Verified 12/26/24 20:11 From DEMEROL Allergy Intermediate VOMITING Uncoded 12/26/24 20:11 Demerol Allergy Unknown Vomiting Uncoded 12/26/24 20:11 Review of Systems Review of Systems: Yes all other systems are reviewed and are negative [facility] Past Medical History Medical History HLD (hyperlipidemia) Pulmonary fibrosis Social History Social History Household Members: Spouse Housing: House Comment: pt rings call morris appropriately for assistance OOB Patient Tobacco Use Status: Former Tobacco user Tobacco use type: Cigarette service: No Physical Exam Vital Signs: Vital Signs: Last Vital Signs Temp 98.6 F 12/26/24 22:50 Pulse 82 12/26/24 22:50 Resp 16 12/26/24 22:50 BP 108/64 12/26/24 22:50 Pulse Ox 95 12/26/24 22:50 O2 Del Method Oxymask 12/26/24 22:50 O2 Flow Rate 6 12/26/24 22:50 Oxygen Flow Rate 6 12/26/24 20:06 BMI result Body Mass Index 45.2 Appearance: Alert. Oriented X3. No acute distress. Eyes: No pallor or icterus ENT: Pharynx normal. Oral Mucosa moist nares clear no source of bleeding noticed no active bleeding Neck: Normal inspection. Neck supple. CVS: Normal heart rate and rhythm. Pulses normal. Respiratory: No respiratory distress. Equal air entry bilateral, bilateral prolonged expiration with wheezing and fine crackles Abdomen: Soft and nontender. Bowel sounds are present, no mass palpable, no CVA tenderness Skin: Skin warm and dry. Normal skin color. Normal skin turgor. Extremities: No lower extremity edema. No calf tenderness Neuro: Oriented X 3. No motor deficit. Medical Decision Making Medical Decision Making [facility] Narrative: Patient with recurrent epistaxis on Eliquis no active bleeding noticed at this time labs are stable patient advised to hold the Eliquis for tonight and restarted Eliquis in case no epistaxis from follow up with ENT Lab Data [facility] Lab Attestation statement: I reviewed the patient's lab results. 12/26/24 20:18 12/26/24 20:18 Labs: Lab Results 12/26/24 12/26/24 Range/Units 20:13 20:18 WBC 10.9 H (4.8-10.8) X10*3/uL RBC 3.34 L (4.20-5.50) X10*6/uL Hgb 11.1 L (12.0-16.0) g/dl Hct 33.6 L (37.0-47.0) % MCV 100.6 H (80.0-98.0) fL MCH 33.2 H (27.0-33.0) pg MCHC 33.0 (31.0-35.0) g/dl RDW 15.8 (11.0-16.0) % Plt Count 292 (160-400) X10*3/uL MPV 9.5 (9.4-12.3) fL Immature Gran % (Auto) 4.6 H (0.0-0.4) % Neut % (Auto) 83.0 H (45-73) % Lymph % (Auto) 8.4 L (20-40) % [place] % (Auto) 3.5 (2-11) % Eos % (Auto) 0.0 (0-4) % Baso % (Auto) 0.5 (0-2) % Lymph # (Auto) 0.9 L (1.2-4.9) X10*3/uL [place] # (Auto) 0.4 (0.1-1.2) X10*3/uL Eos # (Auto) 0.0 (0.0-0.4) X10*3/uL Baso # (Auto) 0.1 (0.0-0.2) X10*3/uL Abs Immat Gran (auto) 0.50 H (0.00-0.03) X10*3/uL Absolute Neuts (auto) 9.1 H (2.0-8.3) x10*3/uL Absolute Nucleated RBC 0.020 H (0.0-0.012) X10*3/uL Nucleated RBC % (auto) 0.2 (0.0-0.2) /100WBC PT 15.5 H (10.9-12.4) SEC INR 1.3 H (0.9-1.1) Sodium 139 (135-145) mmol/L Potassium 4.6 D (3.3-5.1) mmol/L Chloride 108 (96-108) mmol/L Carbon Dioxide 20 L (22-29) mmol/L Anion Gap 16 (12-20) BUN 31 H (9-16) mg/dL Creatinine 1.40 (0.5-1.4) mg/dL Estim Creat Clear Calc 43.2 Estimated GFR 38 Random Glucose 180 H (60-115) mg/dL Calcium 9.0 (8.4-10.2) mg/dL Total Bilirubin 0.6 (0.0-1.0) mg/dL AST 16 (5-31) U/L ALT 21 (0-31) U/L Alkaline Phosphatase 37 L (39-117) U/L Total Protein 6.2 L (6.5-8.0) g/dL Albumin 3.7 (3.5-5.0) g/dL Discharge Plan Discharge Clinical Impression: Epistaxis Patient Disposition: Home, Self-Care Instructions: Nosebleed (ED) Additional Instructions: Local care as advised Hold Eliquis tonight and restart in a.m. if no nasal bleed Use oxygen mask and humidifier Follow with brew house supervisor tomorrow as scheduled Prescriptions: No Action prednisone 50 mg tablet 50 mg PO DAILY Qty: 30 0RF Trelegy Ellipta 200-62.5-25 mcg blister with device 1 ea INHALATION DAILY Eliquis 5 mg Tablet 5 mg PO BID Qty: 0 0RF metformin 500 mg tablet 500 mg PO BIDWMEAL Qty: 180 0RF Ozempic 0.25 mg or 0.5 mg (2 mg/3 mL) pen injector 0.5 mg subcut TH citalopram [Celexa] 40 mg tablet 40 mg PO DAILY pravastatin 40 mg tablet 40 mg PO BEDTIME albuterol sulfate 90 mcg/actuation HFA aerosol inhaler 2 puff inhalation Q6H PRN (Reason: Shortness Of Breath Or Wheezing) ipratropium-albuterol 0.5 mg-3 mg(2.5 mg base)/3 mL solution for nebulization 3 ml inhalation Q6H PRN (Reason: wheezing) Qty: 180 3RF Interventions: ED Discharge Assessment Last Done: 12/26/24 22:50 Discharge Date/Time: 12/26/24 23:00 Print Language: Polish
[2024-12-26 21:31] LABS: MANUAL DIFF FLAG NO
[2024-12-26 21:32] LABS: Basophils Absolute Auto 0.1 X10*3/uL (0.0-0.2); Basophils Percent Auto 0.5 % (0-2); Hematocrit 33.6 % (37.0-47.0); Hemoglobin 11.1 g/dl (12.0-16.0); Imm Gran Pct Auto 4.6 % (0.0-0.4); Lymphocytes Absolute Auto 0.9 X10*3/uL (1.2-4.9); Lymphocytes Percent Auto 8.4 % (20-40); Mean Corpuscular Hemoglobin 33.2 pg (27.0-33.0); Mean Corpuscular Volume 100.6 fL (80.0-98.0); Mean Platelet Volume 9.5 fL (9.4-12.3); Monocytes Absolute Auto 0.4 X10*3/uL (0.1-1.2); Monocytes Percent Auto 3.5 % (2-11); NRBC Pct Auto 0.2 /100WBC (0.0-0.2); Neutrophils Absolute Auto 9.1 x10*3/uL (2.0-8.3); Platelet Count 292 X10*3/uL (160-400); Red Blood Count 3.34 X10*6/uL (4.20-5.50); Red Cell Distribution Width 15.8 % (11.0-16.0); White Blood Count 10.9 X10*3/uL (4.8-10.8)
[2024-12-26 21:36] LABS: INTERNATIONAL NORM RATIO 1.3 (0.9-1.1); Prothrombin Time 15.5 SEC (10.9-12.4)
[2024-12-26 21:42] LABS: Alanine Aminotransferase 21 U/L (0-31); Albumin Level 3.7 g/dL (3.5-5.0); Alkaline Phosphatase 37 U/L (39-117); Anion Gap 16 (12-20); Aspartate Amino Transferase 16 U/L (5-31); Bilirubin Total 0.6 mg/dL (0.0-1.0); Blood Urea Nitrogen 31 mg/dL (9-16); Carbon Dioxide 20 mmol/L (22-29); Chloride 108 mmol/L (96-108); Creatinine Clr Calc Pharmacy 43.2; Estimated Glomerular Filt Rate 38; Glucose Random 180 mg/dL (60-115); Potassium 4.6 mmol/L (3.3-5.1); Sodium 139 mmol/L (135-145); Total Protein 6.2 g/dL (6.5-8.0)
--- NOTE | 2024-12-26 22:38 | PC.NURSE ---
late entry: on arrival 2009 Isai Hannon and Yung HANNON made aware of pt sx and on eliquis, stated to obtain labs as ordered and monitor for further bleeding/resp sx. at that time no bleeding noted. 2114 18g iv established to L. ac. had 1 more episode of bleeding lasting few minutes, Isai Hannon made aware and verbal order to place clamp on nose to provide pressure. improved bleeding, vitals stable. pt axox4 speaking full clear sentences, no resp distress noted. currently pt is axox4 no further bleeding noted. pt verbalizes d/c education provided by and this RN, awaiting ride by /daughter.
[2024-12-26 22:50] VITALS: BP 108/64; PULSE 82; RESP 16; TEMP 37; O2SAT 95
== END 2024-12-26 23:00 | disposition home or self-care (01) ==
PROVIDERS: Emergency Provider Internal Medicine; PCP Internal Medicine
DX: R04.0 Epistaxis (principal); Z87.891 Personal history of nicotine dependence; Z79.01 Long term (current) use of anticoagulants; Z79.899 Other long term (current) drug therapy
CPT/HCPCS: 36415; 71045; 80053; 85025; 85610; 99282; 99283

== ENCOUNTER → 2024-12-26 21:47 | Outpatient (BNV) | payer MEDICARE, SELFPAY | PROVIDERS: Emergency Provider Internal Medicine; PCP Internal Medicine; Visit Provider Radiology Diagnostic Radiology | DX: J44.9 Chronic obstructive pulmonary disease, unspecified (principal) | CPT/HCPCS: 71045 ==

== ENCOUNTER 2024-12-27 11:00 | Outpatient (AMB) | payer MEDICARE, SELFPAY ==
--- NOTE | 2024-12-27 11:05 | A.OFFVIS_ITS ---
Vital Signs 12/27/24 11:06 Pulse 90 Pulse Source Pulse Oximeter Pulse Oximetry (%) 90 L Oxygen Delivery Method Nasal Cannula Oxygen Flow Rate 6 Intake Visit Reasons: Acute hypoxemic respiratory failure Mobile Battery Technician Required: No Accompanied by: Daughter Allergies codeine Allergy (Intermediate, Verified 12/27/24 12:47) Rash From DEMEROL Allergy (Intermediate, Uncoded 12/27/24 12:47) VOMITING Demerol Allergy (Unknown, Uncoded 12/27/24 12:47) Vomiting Medication List - Last Reconciled 12/27/24 by Fatimah Feliciano LPN albuterol sulfate 90 mcg/actuation 2 puffs inhalation Q6H PRN apixaban (Eliquis) 5 mg PO BID citalopram (Celexa) 40 mg PO DAILY [id number] 200-62.5-25 mcg (Trelegy Ellipta) 1 ea inhalation DAILY ipratropium-albuterol 0.5 mg-3 mg(2.5 mg base)/3 mL 3 mL inhalation Q6H PRN metformin 500 mg PO BIDWMEAL pravastatin 40 mg PO BEDTIME prednisone 50 mg PO DAILY semaglutide (Ozempic) 0.5 mg subcut TH HPI HPI Acute hypoxemic respiratory failure: Details: Jeny is a pleasant 68 year old female, former smoker with 20 pack year history, quit 20 years ago with underlying COPD, bronchiectasis, diastolic dysfunction and h/o acute respiratory failure with hypoxemia since COVID 12/13 on supplemental oxygen. 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 She has been moderately controlled on Trelegy and Duoneb. Over the last few months she reported worsening dyspnea as well as increased oxygen demand. She was sent for chest CT which was suggestive of underlying ILD. She was started on prednisone 50 mg QD with significant improvements in symptoms, requiring 3L at rest and 4L with exertion vs prior requiring 8L with exertion. She was scheduled for a follow up on 11/28 to taper predisone however was sent to the ED for significant hypoxia, down to 55% on 3L with exertion, along with chest congestion, chills, worsening dyspnea, fatigue, wheezing and increase in O2 requirement. She was admitted from 11/27-12/12 with acute respiratory failure with hypoxia secondary to COVID 19 and multiple PEs. She was treated with IV abx, IV steroids, nebs, and took quite some time to be titrated off BiPAP. Ultimately she was discharged to SNF on 6L with exertion. She reportedly left after 4 days at SNF for subtoptimal care and was supposed to have a visiting nurse as well as PT arranged however still awaiting this. Upon arrival to room today, she was in a wheelchair and 84% on 6L pulsed supplemental oxygen. She reports bronchitic symptoms have resolved however continues with hypoxia, daughter reports down to the 40s on supplemental oxygen with any ambulation at home, which Jeny did not disclose. She is a poor historian and seemingly minimizes symptoms. She also continues to report fatigue has not improved, denies fevers, chest congestion or chills. She has been taking Trelelgy and using DuoNeb PRN. Her daughter, Nohemi, noted patient desaturated to the 50s again when ambulating from wheelchair to car. Of note, she was started on Eliquis for PEs however had developed significant epistaxis on 3-4 occasions, last episode yesterday warranting an ED visit. In the ED h/h stable, CXR revealed chronic changes with possible superimposed PNA. During her ED visit, there was question of decreasing eliquis however patient is only 1 month out from multiple pulmonary embolisms. PFSH Medical History HLD (hyperlipidemia) Pulmonary fibrosis Social History Household Members: Spouse Housing: House Comment: pt rings call morris appropriately for assistance OOB Patient Tobacco Use Status: Former Tobacco user Tobacco use type: Cigarette Advance Directives: No Advance Directives Information Provided: Yes Do you have a plan to hurt others: No Plan service: No Review of Systems Const Denies chills, Denies excessive sweating, Denies fever(s), Denies headache(s) and Denies night sweats Eyes Denies dry eyes, Denies irritation and Denies itchy eyes ENT Reports Normal hearing present, Denies headache(s), Denies post nasal drip and Denies sore throat Card Denies chest pain, Denies chest pain at rest, Denies chest pain with activity, Denies claudication, Denies leg edema, Denies orthopnea and Denies paroxysmal nocturnal dyspnea Resp Denies excessive phlegm production, Denies pain on inspiration, Denies pain with cough and Denies stridor Musc Denies myalgias Neuro Reports Normal hearing present and Denies headache(s) Endo Denies excessive sweating [place]/Lymph Denies lymphadenopathy Aller/Immun Denies itchy eyes and Denies seasonal rhinorrhea Physical Exam Vital Signs: Last Vital Signs Pulse 90 12/27/24 11:06 Pulse Ox 90 L 12/27/24 11:06 Oxygen Delivery Method Nasal Cannula 12/27/24 11:06 Oxygen Flow Rate 6 12/27/24 11:06 Const Other: cushingoid appearance General: cooperative, well developed and alert Nutritional Appearance: obese Orientation/consciousness: patient oriented x3 Limitations: wheelchair HEENT Head: Yes normal to inspection, Yes normocephalic and Yes atraumatic Ears: hearing grossly normal bilaterally and external ears normal Eyes General: appearance normal, both eyes and all related structures Eyelids: Yes eyelids normal Sclerae: sclerae normal EOM: EOMs intact bilaterally Neck Neck: Yes normal visual inspection and Yes no lymphadenopathy Lymphatic: no lymphadenopathy noted Chest Chest palpation & inspection: normal inspection of the chest Resp Other: inspiratory bibasilar crackles R>L Effort & Inspection: no cough, no pursed lip breathing, no respiratory distress, no stridor, not tachypneic, no tripod positioning and no use of accessory muscles Auscultation: crackles, no wheezes and lung sounds not diminished Cardio Jugular venous distension: no JVD Rate: regular rate Rhythm: regular rhythm Skin Other: warm, dry General skin exam: no rashes or lesions noted Neuro General: patient oriented x3 Cranial nerves: Yes Normal hearing present Cognition (Neuro): normal cognition Gait exam (Neuro): Normal gait present Extrem Other: trace BLE Psych Appearance: grossly normal and well kempt Speech and movement: Normal speech and movement present and Clear speech present Affect: normal affect Attitude: cooperative Thought process: Normal thought process present Thought content: Normal thought content present Insight: Good insight present (Psych) Judgement: Good judgement present (Psych) Assessment & Plan Assessment & Plan (1) Chronic respiratory failure: Code(s): J96.10 - Chronic respiratory failure, unspecified whether with hypoxia or hypercapnia Category: Medical (2) History of pulmonary embolism: Code(s): Z86.711 - Personal history of pulmonary embolism Category: Medical (3) Pulmonary fibrosis: Code(s): J84.10 - Pulmonary fibrosis, unspecified Category: Medical (4) COPD (chronic obstructive pulmonary disease): Code(s): J44.9 - Chronic obstructive pulmonary disease, unspecified Category: Medical (5) On supplemental oxygen therapy: Code(s): Z99.81 - Dependence on supplemental oxygen Category: Medical (6) Emphysema of lung: Code(s): J43.9 - Emphysema, unspecified Category: Medical Plan Patient with continued hypoxia, daughter reports down into the 40s on supplemental oxygen with any ambulation. Today she initially presented in wheelchair however once daughter transferring her from wheelchair to car she desaturated into the 50s on 6 L. Although patient reports bronchitic symptoms have resolved, only lingering fatigue, patient has not taken Eliquis this morning due to epistaxis and continues with significant hypoxia with minimal exertion. Advised ED evaluation. We had discussed recent ED evaluation for epistaxis and the recommendations to continue 5 mg BID for at least three months as long as no significant bleeds develop. She is aware that she will on Eliquis for life. In the mean time will send for labs to assess for any underlying CTD as well as assess for any immunodeficiences. We also discussed NIV, will send for in lab sleep study, prior home sleep study invalid. Discussed tapering prednisone, decrease by 10 mg every 2-3 weeks depending on symptoms. All questions were answered and patient is in agreement of plan. Will follow up after ED evaluation/discharge. Orders: Orders GABO Reflex Titer and Pattern Today J84.10 - Pulmonary fibrosis, unspecified Scleroderma 70 Antibody Today J84.10 - Pulmonary fibrosis, unspecified Immunoglobulins,IgG IgA IgM Today U07.1 - COVID-19 RT PSG in-lab sleep study Today J96.10 - Chronic respiratory failure, unspecified whether with hypoxia or hypercapnia Anti DNA DS Antibody Today J84.10 - Pulmonary fibrosis, unspecified Sjogren's Antibodies Today J84.10 - Pulmonary fibrosis, unspecified Immunoglobulin G Subclasses Today U07.1 - COVID-19 Rheumatoid Factor Today J84.10 - Pulmonary fibrosis, unspecified Coding Level of Care Code Est Pt Level 5 (33406) Complex EM visit Add On G2211 Diagnoses Chronic respiratory failure J96.10 History of pulmonary embolism Z86.711 Pulmonary fibrosis J84.10 COPD (chronic obstructive pulmonary disease) J44.9 On supplemental oxygen therapy Z99.81 Emphysema of lung J43.9
[2024-12-27 11:06] VITALS: PULSE 90; O2SAT 90
--- OUTSIDE RECORDS SUMMARY | 2024-12-27 12:05 | XMS_ITS ---
Author Organization [facility] Address Unknown Allergies, Adverse Reactions, Alerts Substance Reaction Status Noted Date Resolved Date Demerol active 12/12/2024 Codeine active 12/12/2024 Medications Medication Dose Frequency Directions Start Date End Abimael e Ipratropium-Albutero l Inhalation Solution 0.5-2.5 (3) MG/3ML 3 mL 3 ml inhale orally e very 6 hours as needed for wheezing 12/12/2024 12/16/2024 Citalopram Hydrobromide Oral Tablet 40 MG 1 {tbl} 24 h Give 1 tablet by malick th one time a day for ANTIDEPRESSANTS 12/13/2024 12/16/2024 Eliquis Oral Tablet 5 MG 1 {tbl} 12 h Give 1 tablet by malick th every 12 hours for ANTICOAGULANTS 12/13/2024 12/16/2024 Albuterol Sulfate HFA Inhalation Aerosol Solution 108 (90 Base) MCG/ACT 2 2 puff inhale orally every 6 hours as needed for wheezing or shortness of breath 12/12/2024 12/16/2024 metFORMIN HCl Oral Tablet 500 MG 1 {tbl} 12 h Give 1 tablet by malick th every 12 hours for ANTIDIABETICS 12/13/2024 12/16/2024 Pravastatin Sodium Oral Tablet 40 MG 1 {tbl} Give 1 tablet by malick th at bedtime for ANTIHYPERLIPIDEMICS 12/13/2024 12/16/2024 predniSONE Oral Tablet 50 MG 1 {tbl} 24 h Give 1 tablet by malick th one time a day for CORTICOSTEROIDS 12/13/2024 12/16/2024 Trelegy Ellipta Inhalation Aerosol Powder Breath Activated 200-62.5-25 MCG/ACT 1 24 h 1 inhalation inhale orally one time a day for ANTIASTHMATIC AND BRONCHODILATOR AGENTS 12/13/2024 12/16/2024 Dulcolax Suppository 10 MG 1 Insert 1 suppository rectally as needed for Constipation every 3 days if No Bowel Movement and Milk of Magnesia ineffective 12/12/2024 12/16/2024 Milk of Magnesia Suspension 400 MG/5ML 30 mL Give 30 ml by mouth as needed for Constipation daily 12/12/2024 12/16/2024 Fleet Enema Enema 7-19 GM/118ML 1 Insert 1 application rectally as needed for Constipation daily 12/12/2024 12/16/2024 Tubersol Solution 5 UNIT/0.1ML 0.1 mL Inject 0.1 ml intradermally one time only for 1st PPD test until 12/12/2024 23:58 Inject 0.1ml[5TU] intradermally within 24 hours of admission. Record site. Read in 48 hours. If negative, administer 2nd step in 7-10 days, read in 48 hours and record 12/13/2024 12/16/2024 Tubersol Solution 5 UNIT/0.1ML 0.1 mL Inject 0.1 ml intradermally one time only for 2nd PPD test until 12/29/2024 23:59 Inject 0.1ml[5TU] intradermally. Record site. Read in 48 hours and record. 2024 12/16/2024 Acetaminophen Oral Tablet 325 MG 2 {tbl} Give 2 tablet by malick th every 6 hours as needed for Pain Total Dose 650mg DO NOT EXCEED 3 grams in 24 hours 12/13/2024 12/16/2024 Acetaminophen Oral Tablet 325 MG 2 {tbl} Give 2 tablet by malick th every 6 hours as needed for Temperature greater than 101.F Total Dose 650mg DO NOT EXCEED 3 grams in 24 hours 12/13/2024 12/16/2024 Milk of Magnesia Oral Suspension 400 MG/5ML 30 mL Give 30 ml by mouth every 24 hours as needed for Constipation Give 30ml by mouth if no bowel movement in 3 days (9 Shifts). 12/16/2024 12/16/2024 Bisacodyl Rectal Suppository 10 MG 1 Insert 1 suppository rectally every 24 hours as needed for Constipation Give 1 Suppository (10mg) via rectum if no results from Milk of Magnesia after 24 hours. 12/16/2024 12/16/2024 Fleet Enema 1 Insert 1 unit r ectally as needed for Constipation. Give if no results from laxative suppository. 12/16/2024 12/16/2024 Trelegy Ellipta Inhalation Aerosol Powder Breath Activated 200-62.5-25 MCG/ACT 1 24 h 1 inhalation inhale orally one time a day for ANTIASTHMATIC AND BRONCHODILATOR AGENTS RINSE MOUTH WITH WATER AFTER USE THEN SPIT OUT 12/17/2024 12/16/2024 Medications Administered Medication Dose Frequency Status Start Date End Date Ipratropium-Albuterol Inhala tion Solution 0.5-2.5 (3) MG/3ML 3 mL 12/12/2024 Citalopram Hydrobromide Oral Tablet 40 MG 1 {tbl} 24 h 12/16/2024 Eliquis Oral Tablet 5 MG 1 {tbl} 12 h 12/16 Albuterol Sulfate HFA Inhala tion Aerosol Solution 108 (90 Base) MCG/ACT 2 12/12/2024 metFORMIN HCl Oral Tablet 500 MG 1 {tbl} 12 h 12/16/2024 Pravastatin Sodium Oral Tablet 40 MG 1 {tbl} 12/16/2024 predniSONE Oral Tablet 50 MG 1 {tbl} 24 h 0 12/16/2024 Trelegy Ellipta Inhalation A erosol Powder Breath Activated 200-62.5-25 MCG/ACT 1 24 h 12/16/2024 Dulcolax Suppository 10 MG 1 Milk of Magnesia Suspension 400 MG/5ML 30 mL 12/12/2024 Fleet Enema Enema 7-19 GM/118ML 1 12/12/2024 Tubersol Solution 5 UNIT/0.1ML 0.1 mL 12/13/2024 Tubersol Solution 5 UNIT/0.1ML 0.1 mL 2024 Acetaminophen Oral Tablet 325 MG 2 {tbl} 12/14/2024 Acetaminophen Oral Tablet 325 MG 2 {tbl} 12/13/2024 Milk of Magnesia Oral Suspen jami 400 MG/5ML 30 mL 12/16/2024 Bisacodyl Rectal Suppository 10 MG 1 12/16/2024 Fleet Enema 1 12/16/2024 Trelegy Ellipta Inhalation A erosol Powder Breath Activated 200-62.5-25 MCG/ACT 1 24 h 12/17/2024 Problems Problem Status Start Date End Date ACUTE AND CHRONIC RESPIRATOR Y FAILURE WITH HYPOXIA (Primary) (J96.21 - ICD-10-CM) ACTIVE 12/12/2024 CHRONIC OBSTRUCTIVE PULMONAR Y DISEASE WITH (ACUTE) EXACERBATION (J44.1 - ICD-10-CM) ACTIVE 12/12/2024 BRONCHIECTASIS, UNCOMPLICATED (J47.9 - ICD-10-CM) ACTI VE 12/12/2024 COVID-19 (U07.1 - ICD-10-CM) ACTIVE 12/12/2024 DEPENDENCE ON SUPPLEMENTAL OXYGEN (Z99.81 - ICD-10-CM) ACTIVE 12/12/2024 OTHER PULMONARY EMBOLISM WIT HOUT ACUTE COR PULMONALE (I26.99 - ICD-10-CM) ACTIVE 12/12/2024 MAJOR DEPRESSIVE DISORDER, S ABIEL EPISODE, UNSPECIFIED (F32.9 - ICD-10-CM) ACTIVE 12/12/2024 HYPERLIPIDEMIA, UNSPECIFIED (E78.5 - ICD-10-CM) ACTIVE 12/12/2024 PULMONARY FIBROSIS, UNSPECIFIED (J84.10 - ICD-10-CM) A CTIVE 12/12/2024 Encounters Encounter Performer Performer Role Encounter Diagnoses Location Date Discharge - Discharged to home or self care - Home - [facility] 03:52 pm EST - 02:55 pm EST Social History Vital Signs Vital Sign Reading Time Taken painLevel 0 {score} 12/16/2024 04:58 am EST painLevel 0 {score} 12/15/2024 03:44 pm EST painLevel 0 {score} 12/15/2024 02:03 pm EST painLevel 0 {score} 12/15/2024 01:40 am EST painLevel 0 {score} 12/14/2024 03:46 pm EST painLevel 0 {score} 12/14/2024 03:46 pm EST painLevel 5 {score} 12/14/2024 12:19 pm EST painLevel 0 {score} 12/14/2024 10:24 am EST painLevel 0 {score} 12/14/2024 06:52 am EST painLevel 0 {score} 12/13/2024 03:11 pm EST painLevel 0 {score} 12/13/2024 02:22 pm EST painLevel 0 {score} 12/13/2024 06:19 am EST oxygenSaturation 93 % 12/15/2024 03:4 4 pm EST oxygenSaturation 92 % 12/14/2024 03:4 6 pm EST oxygenSaturation 94 % 12/13/2024 03:1 1 pm EST oxygenSaturation 93 % 12/12/2024 06:4 5 pm EST heartrate 84 /min 12/15/2024 03:44 pm EST heartrate 78 /min 12/14/2024 03:46 pm EST heartrate 86 /min 12/13/2024 03:11 pm EST heartrate 88 /min 12/12/2024 06:44 pm EST temperature 98.2 [degF] 12/15/2024 03:44 pm EST temperature 98.6 [degF] 12/14/2024 03:46 pm EST temperature 97.7 [degF] 12/13/2024 03:11 pm EST temperature 97.9 [degF] 12/12/2024 06:45 pm EST systolicValue 108 mm[Hg] 12/15/2024 03:44 pm EST diastolicValue 64 mm[Hg] 12/15/2024 03:44 pm EST systolicValue 114 mm[Hg] 12/14/2024 03:46 pm EST diastolicValue 66 mm[Hg] 12/14/2024 03:46 pm EST systolicValue 134 mm[Hg] 12/13/2024 03:11 pm EST diastolicValue 75 mm[Hg] 12/13/2024 03:11 pm EST systolicValue 132 mm[Hg] 12/12/2024 06:44 pm EST diastolicValue 74 mm[Hg] 12/12/2024 06:44 pm EST respirations 16 /min 12/15/2024 03:44 pm EST respirations 16 /min 12/14/2024 03:46 pm EST respirations 16 /min 12/13/2024 03:11 pm EST respirations 20 /min 12/12/2024 06:45 pm EST weight 214.2 [lb_av] 12/12/2024 06:46 pm EST height 68 [in_us] 12/12/2024 04:21 pm EST
--- OUTSIDE RECORDS SUMMARY | 2024-12-27 12:05 | XMS_ITS | Clinical Summary ---
Author Organization [facility] Address [address] [place] [address] Care Team Providers Care Aviation Technician Aircraft Name Role Phone Unavailable Primary Care Provider Unavailabl e Encounters Date Type Department Care Team Description 12/09/2024 Transcribe Orders [facility] Artis Whiting MD Bilateral hearing loss, unspecified hearing loss type (Primary Dx) from Last 3 Months Social History Tobacco Use Types Packs/Day Years Used Date Smoking Tobacco: Never Assessed Sex and Gender Information Value Date Recorded Sex Assigned at Not on file Gender Identity Not on file Sexual Orientation Not on file Plan of Treatment Health Maintenance Due Date Last Done Comments Hepatitis C Virus Screening 1955 DTaP/Tdap/Td Vaccines (1 - Tdap) 1976 Pneumococcal Vaccines 50+ (1 of 1 - PCV) 2007 Zoster (Shingles) Vaccine (1 of 2) 2007 COVID-19 Vaccine ( - 2023-2 5 season) 2024 RSV Vaccine 60 years and old er and Patients (1 - 1-dose 75+ series) 2032 Hepatitis B Vaccines Aged Out No long er eligible based on patient's age to complete this topic
--- OUTSIDE RECORDS SUMMARY | 2024-12-27 12:05 | XMS_ITS | Encounter Summary ---
Author Organization [facility] Address [address] [place] [address] Care Team Providers Care Screener Perfumer Name Role Phone Unavailable Primary Care Provider Unavailabl e Reason for Referral * ENT (Routine) - Pending Review Specialty Diagnoses / Procedures Referred By Terrie mcintyre Referred To Contact Otolaryngology Diagnoses Bilateral hearing loss, unspecified hearing loss type Artis Whiting MD [address] [address] [facility] [address] [place] [phone] Referral ID Status Reason Start Date Expiration Date Visits Requested Visits Authorized [id number] Pending Review Consult 12/09/2024 12/10/2025 1 1 Encounter Details Date Type Department Care Team (Latest Contact Info) Description 12/09/2024 Transcribe Orders [facility] PRIMARY [facility]ARE [facility] Artis Whiting MD [address] [address] Bilateral hearing loss, unspecified hearing loss type (Primary Dx) Social History Tobacco Use Types Packs/Day Years Used Date Smoking Tobacco: Never Assessed Sex and Gender Information Value Date Recorded Sex Assigned at Not on file Gender Identity Not on file Sexual Orientation Not on file documented as of this encounter Plan of Treatment Scheduled Referrals Name Type Priority Associated Diagnoses Orde r Schedule Ambulatory referral to ENT Outpatient Referral Routine Bilateral hearing loss, unspecified hearing loss type Ordered: 12/09/2024 documented as of this encounter Visit Diagnoses Diagnosis Bilateral hearing loss, unspecified hearing loss type- Primary documented in this encounter
--- OUTSIDE RECORDS SUMMARY | 2024-12-27 12:05 | XMS_ITS | Encounter Summary ---
Author Organization [facility] Address [address] [place] [address] Care Team Providers Care Transformation Manager Name Role Phone Artis Whiting MD Primary Care Provider [phone] Reason for Visit * Reason Onset Date Comments Appointment 12/05/2024 1st Notification Encounter Details Date Type Department Care Team ([facility] st Contact Info) Description 12/05/2024 Telephone Lung Screening Program - [address] [place] [phone] Brook Danielle [place] Appointment (1st Notification) Social [...] [facility] No answer left answer For all screenings [...] Care Team (Late st Contact Info) Description 01/04/2025 8:30 AM EST Appointment [facility] CT Scan [address] [place] [address] documented as of this encounter Visit Diagnoses Not on filedocumented in this encounter Care Teams Transformation Manager Relationship Specialty Start Date End Date Artis Whiting MD PCP - General 08/10/23 documented as of this encounter
--- OUTSIDE RECORDS SUMMARY | 2024-12-27 12:05 | XMS_ITS | Clinical Summary ---
Author Organization [facility] Address [address] [place] [address] Phone Care Team Providers Care Sports Physiotherapist Name Role Phone Artis Whiting MD Primary Care Provider [phone] Medications Medication Sig Dispensed Refills Start Date End Date Status albuterol HFA (PROAIR HFA ; PROVENTIL HFA ; VENTOLIN HFA) 90 mcg/actuation inhaler Inhale 2 puffs by mouth every 6 (six) hours if needed for wheezing. 1 each 1 12/23/2024 02/21/2025 Active Encounters Date Type Department Care Team Description 12/05/2024 Telephone Lung Screening Program - [address] [place] [id number] Brook Danielle [place] Appointment (1st Notification) from [...] Info) Description 01/04/2025 8:30 AM EST Appointment [facility] CT Scan [address] [place] [address] Health Maintenance Due Date Last [...] 10/23/2022 Falls Risk Assessment 2022 COVID-19 Vaccine ( - 2023-2 5 season) 2024 Influenza Vaccine (#1) 2024 [...] age to complete this topic Care Teams Sports Physiotherapist Relationship Specialty Start Date End Date Artis Whtiing MD PCP - General 08/10/23
--- OUTSIDE RECORDS SUMMARY | 2024-12-27 12:06 | XMS_ITS | Patient Health Record ---
Author [facility] Address [address] [facility] 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 Plan Of Treatment Pending Test Test Name Order Date X ray : Foot, right 3V 03/16/2023 Insurance Providers Payer Name Payer Address Payer Phone Subscriber Number Group Number Insured Name Patient Relationship to Insured Coverage Start Date Coverage End Date A[employer] Medicare Complete [address] [address] [place] [address] [id number] Jeny Diez Self - patient is the insured [employer] [address] [place] [address] [id number] Jeny Diez Self - patient is the insured Medical (General) History Medical History History ICD Code Broken bones Chicken pox skin cancer Depression Measles Mumps Psoriasis/Eczema COPD Surgical History Surgery Date(Month/Year) back surgery lung surgery shoulder surgery [place] History Reason Date[place] [facility] [place]
== END 2024-12-27 11:53 | disposition home or self-care (01) ==
PROVIDERS: PCP Internal Medicine; Visit Provider Nurse Practitioner Family
DX: J96.10 Chronic respiratory failure, unspecified whether with hypoxia or hypercapnia (principal); Z86.711 Personal history of pulmonary embolism; J84.10 Pulmonary fibrosis, unspecified; J44.9 Chronic obstructive pulmonary disease, unspecified; Z99.81 Dependence on supplemental oxygen; J43.9 Emphysema, unspecified
CPT/HCPCS: 99214; G2211

== ENCOUNTER 2024-12-27 11:56 | Outpatient (REF) | payer MEDICARE, SELFPAY ==
--- OUTSIDE RECORDS SUMMARY | 2024-12-27 12:58 | XMS_ITS | Encounter Summary ---
Author Organization [facility] Address [address] [place] [id number] Care Team Providers Care Time Signal Wirer Name Role Phone Unavailable Primary Care Provider Unavailabl e Reason for Referral * ENT (Routine) - Pending Review Specialty Diagnoses / Procedures Referred By Terrie mcintyre Referred To Contact Otolaryngology Diagnoses Bilateral hearing loss, unspecified hearing loss type Artis Whiting MD [address] [address] [facility] [address] [place] [phone] Referral ID Status Reason Start Date Expiration Date Visits Requested Visits Authorized [id number] Pending Review Consult 12/09/2024 12/10/2025 1 1 Encounter Details Date Type Department Care Team (Latest Contact Info) Description 12/09/[address] [facility] PRIMARY CARE SCAN Artis Whiting MD [address] [address] Bilateral hearing loss, unspecified hearing loss type [...]
--- OUTSIDE RECORDS SUMMARY | 2024-12-27 12:58 | XMS_ITS | Clinical Summary ---
Author Organization [facility] Address [address] [place] [address] Phone Care Team Providers Care Campaign Fundraiser Name Role Phone Artis Whiting MD Primary Care Provider [phone] Medications Medication Sig Dispensed Refills Start Date End Date Status albuterol HFA (PROAIR HFA ; PROVENTIL HFA ; VENTOLIN HFA) 90 mcg/actuation inhaler Inhale 2 puffs by mouth every 6 (six) hours if needed for wheezing. 1 each 1 12/23/2024 02/21/2025 Active Encounters Date Type Department Care Team Description 12/05/2024 Telephone Lung Screening Program - [address] [place] [phone] [place] Daniel[place] Appointment (1st Notification) from [...] Info) Description 01/04/2025 8:30 AM EST Appointment [facility] CT Scan [address] [place] [address] Health Maintenance Due Date Last [...] age to complete this topic Care Teams Campaign Fundraiser Relationship Specialty Start Date End Date Artis Whiting MD PCP - General 08/10/23
--- OUTSIDE RECORDS SUMMARY | 2024-12-27 12:58 | XMS_ITS | Clinical Summary ---
Author Organization [facility] Address [address] [place] [address] Care Team Providers Care Data Warehousing Engineer Name Role Phone Unavailable Primary Care Provider Unavailabl e Encounters Date Type Department Care Team Description 12/09/2024 Transcribe Orders [facility] PRIMARY CARE SCAN Artis Whiting MD [...]
--- OUTSIDE RECORDS SUMMARY | 2024-12-27 12:58 | XMS_ITS | Encounter Summary ---
Author Organization [facility] Address [address] [place] [address] Care Team Providers Care Quote Clerk Name Role Phone Artis Whiting MD Primary Care Provider [phone] Reason for Visit * Reason Onset Date Comments Appointment 12/05/2024 1st Notification Encounter Details Date Type Department Care Team ([facility] st Contact Info) Description 12/05/2024 Telephone Lung Screening Program - [address] [place] [address] [place] Danielle [place] Appointment (1st Notification) Social [...] [facility] No answer left answer For all screenings [...] Info) Description 01/04/2025 8:30 AM EST Appointment [facility] CT Scan [address] [place] [address] documented as of this encounter Visit Diagnoses Not on filedocumented in this encounter Care Teams Quote Clerk Relationship Specialty Start Date End Date Artis Whiting MD PCP - General 08/10/23 documented as of this encounter
[2024-12-27 14:47] LABS: Rheumatoid Factor < 13.0 IU/mL (<15.0)
[2024-12-29 14:54] LABS: Immunoglobulin G Subclass 1 205 mg/dL (382-929); Immunoglobulin G Subclass 2 75 mg/dL (241-700); Immunoglobulin G Subclass 3 18 mg/dL (22-178); Immunoglobulin G Subclass 4 11.7 mg/dL (4-86); Immunoglobulin G Total 348 mg/dL (600-1540)
[2024-12-30 07:47] LABS: IgA 109 mg/dL (70-320); IgG 382 mg/dL (600-1540); IgM 75 mg/dL (50-300)
[2024-12-30 16:04] LABS: Anti DNA DS Antibody <1 IU/mL; Antibody to SS-A Antigen <1.0 NEG AI (<1.0 NEG); Antibody to SS-B Antigen <1.0 NEG AI (<1.0 NEG); Scleroderma 70 Antibody <1.0 NEG AI (<1.0 NEG)
[2025-01-03 09:44] LABS: Anti Nuclear Antibody Screen POSITIVE (NEGATIVE)
[2025-01-03 09:52] LABS: Anti Nuclear Antibody Titer 1:40 titer
== END 2024-12-27 11:57 | disposition home or self-care (01) ==
LOC: HO.WFDLDS 11:56
PROVIDERS: Visit Provider Nurse Practitioner Family
DX: Z13.89 Encounter for screening for other disorder (principal)
CPT/HCPCS: 36415; 82784; 86038; 86225; 86235; 86431

== ENCOUNTER 2024-12-27 12:41 | Inpatient (IN) | payer MEDICARE, SELFPAY ==
[2024-12-27] VITALS (9 sets, daily range): BP systolic 94–131; BP diastolic 49–80; PULSE 76–120; RESP 14–28; TEMP 36.6–36.9; O2SAT 71–95; BMI 35.6
--- NOTE | ~2024-12-27 | XR_ITS ---
EXAMINATION: XR CHEST CLINICAL INFORMATION: sob COMPARISON: December 26, 2024 TECHNIQUE: Frontal view of the chest was obtained. FINDINGS: Focal patchy opacities in the periphery of the lungs. Pulmonary reticular nodular pattern. No hyperinflation. No pneumothorax. Heart silhouette size is normal. XR/XR chest 1V IMPRESSION: Slight improved aeration with persistent multifocal pneumonia versus pulmonary hemorrhage versus pulmonary edema versus pneumonitis among other etiologies. Electronically signed by: Steve Cabrera MD 12/27/2024 01:04 PM PATTIE VAZQUEZ
--- NOTE | ~2024-12-27 | US_ITS ---
CLINICAL HISTORY: Hypoxia, ?DVT Venous duplex ultrasound bilateral lower extremity Comparison: US - US VENOUS DUPLEX LE BI - 11/30/24 15:39 EST Findings: The visualized deep veins are fully compressible with normal Doppler color flow and spectral tracings. The left posterior tibial and small saphenous veins now appear to be patent. No popliteal cyst. IMPRESSION: 1. Negative for bilateral lower extremity deep vein thrombosis. This document has been electronically signed by: Mary Collins MD on 12/28/2024 15:44:34
--- NOTE | ~2024-12-27 | CT_ITS ---
EXAMINATION: CT ANGIOGRAM CHEST CLINICAL INFORMATION: Hypoxia. COMPARISON: November 30, 2024. TECHNIQUE: Multiple axial images were obtained through the chest after the administration of 65 mL of Omnipaque 350 intravenous contrast. Extensive vascular post-processing including two-dimensional and three-dimensional reformatted images were created and reviewed on an independent workstation. This CT examination was performed using dose optimization techniques as appropriate, variously including the following: *Automated exposure control *Adjustment of mA and/or kV according to patient size (this includes techniques or standardized protocols for targeted exams where dose is matched to indication/reason for exam; i.e. extremities or head) *Use of iterative reconstruction technique DLP: 383 mGy centimeter. FINDINGS: No intraluminal filling defects within the main pulmonary artery or its main branches. No aneurysm or dissection, thoracic aorta. Bilateral, multifocal, patchy and confluent pulmonary groundglass. Centrilobular and paraseptal emphysematous changes. Punctate calcifications in the periphery of the left lower lung lobe. No pleural effusion. No pneumothorax. 1.5 cm prominent lymph node, right pretracheal. No pericardial effusion. Hiatal hernia, moderate volume. Calcified plaques in the thoracic aorta and its main branches as well as the coronary arteries. No acute fracture or listhesis in the axial skeleton. No lytic or blastic lesions. The sternum is intact. No acute rib fracture. CT/CT angio chest PE protocol IMPRESSION: No acute pulmonary artery emboli. Resolved since prior CT images chest report. No aneurysm or dissection, thoracic aorta. Acute on chronic airspace disease versus pulmonary edema versus pneumonitis versus drug toxicity. Hiatal hernia, moderate to large volume. Fleischner guidelines were followed. Electronically signed by: Steve Cabrera MD 12/27/2024 02:28 PM EST
--- NOTE | 2024-12-27 12:46 | ECG_ITS ---
Test Reason : sob Blood Pressure : */* mmHG Vent. Rate : 89 BPM Atrial Rate : 89 BPM P-R Int : 132 ms QRS Dur : 86 ms QT Int : 366 ms P-R-T Axes : 2 28 18 degrees QTcB Int : 445 ms Normal sinus rhythm Normal ECG When compared with ECG of 27-Nov-2024 14:15, No significant change was found Referred By: Dorothy Romero Electronically Signed By: Tree Marshall
--- NOTE | 2024-12-27 12:49 | ED_ITS ---
HPI - General Adult General Chief complaint: Upper Respiratory Symptoms Stated complaint: Low Oxygen Level Sent by Time Seen by Provider: 12/27/24 13:15 Source: patient Mode of arrival: wheelchair Limitations: no limitations History of Present Illness ED Provider: Connie Curry PA-C HPI narrative: Patient is a 68 year old assigned female at with a history of PE on Eliquis, COPD on supplemental oxygen, and recent epistaxis presenting to the emergency department today with shortness of breath. Patient states that she was at her air conditioning specialist's office when her oxygen saturation was found to be in the mid 50s - so she was sent to the ER. Patient denies any dizziness, lightheadedness, abdominal pain, nausea, vomiting, fever, chills, blurry vision, double vision, loss of vision, chest pain, back pain, night sweats, pain with urination, increased urinary frequency, increased urinary urgency, blood in her urine or stool, syncope or a near syncopal episode, recent trauma or falls, bowel incontinence, bladder incontinence, or any other complaints at this time. Relieving factors: none Exacerbating factors: none Associated symptoms: shortness of breath Treatments prior to arrival: other (Eliquis) Related Data Home Medications ?Medication ?Instructions ?Recorded ?Confirmed albuterol sulfate 90 mcg/actuation 2 puff inhalation Q6H PRN 03/26/24 12/27/24 aerosol inhaler Shortness Of Breath Or Wheezing citalopram 40 mg tablet (Celexa) 40 mg PO DAILY 03/26/24 12/27/24 pravastatin 40 mg tablet 40 mg PO BEDTIME 03/26/24 12/27/24 fluticasone fur. 200 mcg-umeclid 1 ea inhalation DAILY 11/27/24 12/27/24 62.5 mcg-vilant 25 mcg inhalat.powder (Trelegy Ellipta) nystatin 100,000 unit/gram topical 1 appl topical BID PRN Rash 12/27/24 12/27/24 cream omeprazole 20 mg capsule,delayed 20 mg PO DAILY@0630 12/27/24 12/27/24 release semaglutide 1 mg/dose (4 mg/3 mL) 1 mg subcut TH 12/27/24 12/27/24 subcutaneous pen injector (Ozempic) Previous Rx's ?Medication ?Instructions ?Recorded ipratropium 0.5 mg-albuterol 3 mg 3 ml inhalation Q6H PRN wheezing 09/03/24 (2.5 mg base)/3 mL nebulization #180 mL soln prednisone 50 mg tablet 50 mg PO DAILY #30 tabs 11/11/24 apixaban 5 mg tablet (Eliquis) 5 mg PO BID #0 tabs 12/11/24 metformin 500 mg tablet 500 mg PO BIDWMEAL #180 tabs 12/11/24 Allergies Allergy/AdvReac Type Severity Reaction Status Date / Time codeine Allergy Intermediate Rash Verified 12/27/24 12:47 From DEMEROL Allergy Intermediate VOMITING Uncoded 12/27/24 12:47 Demerol Allergy Unknown Vomiting Uncoded 12/27/24 12:47 Review of Systems 2 Constitutional: Constitutional: Reports no additional constitutional complaints, Denies chills, Denies fever(s) and Denies night sweats Eyes: Eyes: Reports no additional eye complaints, Denies blurry vision, Denies change in vision, Denies diplopia, Denies eye discharge, Denies loss of vision and Denies eye pain ENT: Denies dizziness Cardiovascular: Cardiovascular: Reports no additional cardiovascular complaints, Denies chest pain, Denies lightheadedness, Denies Loss of Consciousness and Reports dyspnea Respiratory: Respiratory: Reports no additional respiratory complaints and Reports dyspnea Gastrointestinal: Gastrointestinal: Reports no additional gastrointestinal complaints, Denies abdominal pain, Denies melena, Denies hematochezia, Denies change in bowel habits and Denies change in stool character Genitourinary: Genitourinary: Denies hematuria, Denies urinary frequency, Denies dysuria, Denies urinary incontinence, Denies urinary hesitancy and Denies urinary urgency Musculoskeletal: Musculoskeletal: Reports no additional musculoskeletal complaints, Denies numbness and Denies tingling Neurologic: Denies dizziness, Denies loss of vision, Denies numbness and Denies tingling Psychiatric: Psychiatric: Reports no additional psychiatric complaints Endocrine: Endocrine: Reports no additional endocrine complaints Hematologic/Lymphatic: Hematologic/Lymphatic: Reports no additional hematologic/lymphatic complaints Allergic/Immunologic: Allergic/Immunologic: Reports no additional allergic/immunologic complaints PMFSH Past Medical History Attestation statement: The following information was validated with the patient. Source: old records reviewed and nursing notes reviewed Medical History HLD (hyperlipidemia) Pulmonary fibrosis Social History Social History Household Members: Spouse Housing: House Comment: pt rings call morris appropriately for assistance OOB Patient Tobacco Use Status: Former Tobacco user Tobacco use type: Cigarette Smoked in Last 30 Days: No Use of substances other than those prescribed or required for medical reasons: No Advance Directives: No Advance Directives Information Provided: Yes Do you have a plan to hurt others: No Plan service: No Physical Exam ED Vital Signs: Vital Signs - 24 hr 12/27/24 12:43 12/27/24 13:05 12/27/24 13:06 Temperature 98 F Pulse Rate 104 H 120 H Respiratory Rate 28 H 26 H Blood Pressure 131/80 94/49 L Pulse Oximetry 88 L 71 L 80 L Oxygen Delivery Method Nasal Cannula Nasal Cannula Oxymask Oxygen Flow Rate 6 8 12/27/24 13:06 12/27/24 13:06 12/27/24 13:14 Temperature Pulse Rate 93 83 Respiratory Rate 22 H 20 Blood Pressure 107/64 Pulse Oximetry 89 L 93 92 Oxygen Delivery Method Non-Rebreather Mask Oxymizer Oxymask Oxygen Flow Rate 15 4 3 12/27/24 13:50 12/27/24 15:45 12/27/24 16:33 Temperature 98.3 F Pulse Rate 85 76 Respiratory Rate 16 19 Blood Pressure 121/76 124/68 Pulse Oximetry 93 93 93 Oxygen Delivery Method Oxymizer Oxymizer Oxymizer Oxygen Flow Rate 3 3 BMI result Body Mass Index 35.6 Const General: cooperative, no acute distress, alert and awake Nutritional Appearance: well nourished Orientation/consciousness: patient oriented x3 Limitations: no limitations HENMT Head: Yes normal to inspection and Yes atraumatic Ears: hearing grossly normal bilaterally and external ears normal General nose exam: Normal external nose present, no nasal discharge noted and no epistaxis Face and sinus: Yes normal facial exam, No abrasion and No laceration Mouth: Normal oral and palatal mucosa present, no drooling and no muffled voice Eyes General: appearance normal, both eyes and all related structures Periorbital: periorbital findings normal Eyelids: Yes eyelids normal Conjunctivae: conjunctivae normal Pupils: Equal, round and reactive pupils present EOM: EOMs intact bilaterally Neck Neck: Yes normal visual inspection, Yes full ROM and Yes no lymphadenopathy Chest Chest palpation & inspection: normal inspection of the chest Resp Effort & Inspection: able to speak in complete sentences and labored Auscultation: diminished lung sounds bilateral in the lower lung martinez GI Inspection: Yes normal to inspection Neuro General: patient oriented x3, moves all extremities and CN's II-XI intact bilaterally Cranial nerves: Yes Equal, round and reactive pupils present Cognition (Neuro): normal cognition Extrem General: Yes normal to inspection, Yes full ROM and Yes capillary refill normal Psych Appearance: grossly normal Mental Status: mental status grossly normal Affect: normal affect Attitude: cooperative Thought process: Normal thought process present Thought content: Normal thought content present Insight: Good insight present (Psych) Course Course Course Narrative: This is a rapid medical exam performed by Dorothy Romero PA-C. The patient is a 68-year-old female who is morbidly obese, with a history of COPD on 6 L at baseline, PE, DVT who is anticoagulated, presents with worsening hypoxia. Patient was at her pulmonology office, with minimal movement, her oxygen drops to 86% on her 6 L nasal cannula. Patient denies recent cough or cold symptoms no fevers. We are expediting the patient's care, she is being brought in to the ED. I am ordering screening labs, trop, BNP, viral panel, blood cultures lactic, EKG chest x-ray. Medications Administered Generic Name Dose Route Start Last Admin Trade Name Freq PRN Reason Stop Dose Admin Methylprednisolone Sodium Succinate 40 mg 12/27/24 19:00 12/27/24 19:51 Methylprednisolone Sod Succ 40 Mg/Ml Vial IVPUSH 40 mg Q12H JO Administration Discontinued Medications Generic Name Dose Route Start Last Admin Trade Name Freq PRN Reason Stop Dose Admin Sodium Chloride 1,000 mls @ 200 mls/hr 12/27/24 14:00 12/27/24 14:35 Ns IVCONT 12/27/24 18:59 200 mls/hr .Q5H JO Administration Iohexol 100 ml 12/27/24 14:06 12/27/24 14:07 Iohexol 350 Mg/Ml 100 Ml Infus..Btl IV 12/27/24 14:07 65 ml ONCE ONE Administration Medical Decision Making Medical Decision Making MDM Narrative: Patient is a 68 year old assigned female at with a history of PE on Eliquis, COPD on supplemental oxygen, and recent epistaxis presenting to the emergency department today with shortness of breath. Patient's physical exam was as noted in the physical exam portion of this note. Patient's blood work showed an elevated WBC count of 15.1 (likely secondary to prednisone use), initial lactic acid of 4.2 with repeat of 1.6, and BNP 44. Patient's EKG was unremarkable. Patient's chest x-ray showed slight improved aeration with persistent multifocal pneumonia vs. pulmonary hemorrhage vs. pulmonary edema vs. pneumonitis. I spoke with the patient's air conditioning specialist Dr. Orozco who recommended a CT PE study. CT PE study showed no evidence of remaining PEs but did show evidence of pneumonoitis. While in the department the patient desaturated to the mid 70s and was placed on an Oxymizer which helped considerably. Dr. Orozco speculated that the patient's pneumonitis is secondary to accidental aspiration of blood during her multiple epistaxis episodes and recommended medical admission for continued oxygenation and possible discussion around IVC filter placement vs. anti-coag use. I spoke to the hospitalist team who agreed to admission. I explained my physical exam findings as well as all test results to the patient. I answered all questions asked by the patient. Patient verbalized agreement and understanding with this treatment plan and admission. Differential Diagnosis Differential Diagnoses: The differential diagnosis associated with the presentation includes Pneumonitis Blood aspiration Hypoxia Admission/Observation Consideration of admission/observation: Escalation of care including admission/observation considered Patient admitted as noted in the MDM Rationale portion of this note. Consult Healthcare Provider Management of the patient was discussed with: Hospitalist (agreed to admission as noted in the MDM Rationale portion of this note.) and Train Examiner (Spoke with the patient's air conditioning specialist as noted in the MDM Rationale portion of this note.) Lab Data [facility] Lab Attestation statement: I reviewed the patient's lab results. My interpretation of these results are in the MDM Rationale portion of this note. 12/27/24 13:15 12/27/24 13:15 Labs: Lab Results 12/27/24 12/27/24 12/27/24 Range/Units 13:15 13:22 15:55 WBC 15.1 H (4.8-10.8) X10*3/uL RBC 3.52 L (4.20-5.50) X10*6/uL Hgb 11.5 L (12.0-16.0) g/dl Hct 34.8 L (37.0-47.0) % MCV 98.9 H (80.0-98.0) fL MCH 32.7 (27.0-33.0) pg MCHC 33.0 (31.0-35.0) g/dl RDW 15.8 (11.0-16.0) % Plt Count 285 (160-400) X10*3/uL MPV 9.3 L (9.4-12.3) fL Immature Gran % (Auto) 4.6 H (0.0-0.4) % Neut % (Auto) 69.5 (45-73) % Lymph % (Auto) 18.3 L (20-40) % Craven % (Auto) 6.6 (2-11) % Eos % (Auto) 0.5 (0-4) % Baso % (Auto) 0.5 (0-2) % Lymph # (Auto) 2.8 (1.2-4.9) X10*3/uL Craven # (Auto) 1.0 (0.1-1.2) X10*3/uL Eos # (Auto) 0.1 (0.0-0.4) X10*3/uL Baso # (Auto) 0.1 (0.0-0.2) X10*3/uL Abs Immat Gran (auto) 0.69 H (0.00-0.03) X10*3/uL Absolute Neuts (auto) 10.5 H (2.0-8.3) x10*3/uL Absolute Nucleated RBC 0.040 H (0.0-0.012) X10*3/uL Nucleated RBC % (auto) 0.3 H (0.0-0.2) /100WBC PT 13.1 H (10.9-12.4) SEC INR 1.1 (0.9-1.1) APTT 26.0 (26.0-36.8) SEC VBG pH 7.39 (7.32-7.43) VBG pCO2 43 mmHg VBG pO2 32 mmHg VBG HCO3 26 (22-26) mmol/L VBG O2 Saturation 50.0 % VBG Base Excess 1.6 mmol/L Sodium 143 (135-145) mmol/L Potassium 3.5 D (3.3-5.1) mmol/L Chloride 107 (96-108) mmol/L Carbon Dioxide 23 (22-29) mmol/L Anion Gap 17 (12-20) BUN 27 H (9-16) mg/dL Creatinine 1.34 (0.5-1.4) mg/dL Estim Creat Clear Calc 52.6 Estimated GFR 40 Random Glucose 123 H (60-115) mg/dL Lactic Acid 4.2 H* (0.5-2.0) mmol/L Lactic Acid F/U @ 2Hr 1.6 (0.5-2.0) mmol/L Calcium 9.3 (8.4-10.2) mg/dL Magnesium 1.7 (1.6-2.6) mg/dL Troponin I High Sens 7.9 D (<3.5-17.0) ng/L B-Natriuretic Peptide 44 (<100) pg/mL Influenza Type A (PCR) NEGATIVE (Negative) Influenza Type B (PCR) NEGATIVE (Negative) RSV RNA Qual (PCR) NEGATIVE (Negative) SARS-CoV-2 RNA (RT-PCR) NEGATIVE (Negative) Independent Interpretation I performed an independent interpretation of an: EKG, Plain X-Ray and CT Scan Interpretation: My interpretation is in agreement with the radiologist's impression of these imaging studies. L Report Number: [id number]: Total DLP = 383.00 mGy-cm EXAMINATION: CT ANGIOGRAM CHEST CLINICAL INFORMATION: Hypoxia. COMPARISON: November 30, 2024. TECHNIQUE: Multiple axial images were obtained through the chest after the administration of 65 mL of Omnipaque 350 intravenous contrast. Extensive vascular post-processing including two-dimensional and three- dimensional reformatted images were created and reviewed on an independent workstation. This CT examination was performed using dose optimization techniques as appropriate, variously including the following: *Automated exposure control *Adjustment of mA and/or kV according to patient size (this includes techniques or standardized protocols for targeted exams where dose is matched to indication/reason for exam; i.e. extremities or head) *Use of iterative reconstruction technique DLP: 383 mGy centimeter. FINDINGS: No intraluminal filling defects within the main pulmonary artery or its main branches. No aneurysm or dissection, thoracic aorta. Bilateral, multifocal, patchy and confluent pulmonary groundglass. Centrilobular and paraseptal emphysematous changes. Punctate calcifications in the periphery of the left lower lung lobe. No pleural effusion. No pneumothorax. 1.5 cm prominent lymph node, right pretracheal. No pericardial effusion. Hiatal hernia, moderate volume. Calcified plaques in the thoracic aorta and its main branches as well as the coronary arteries. No acute fracture or listhesis in the axial skeleton. No lytic or blastic lesions. The sternum is intact. No acute rib fracture. CT/CT angio chest PE protocol IMPRESSION: No acute pulmonary artery emboli. Resolved since prior CT images chest report. No aneurysm or dissection, thoracic aorta. Acute on chronic airspace disease versus pulmonary edema versus pneumonitis versus drug toxicity. Hiatal hernia, moderate to large volume. Fleischner guidelines were followed. Electronically signed by: Steve Cabrera MD 12/27/2024 02:28 PM EST RP Dictated By: Steve Haider MD Signed By: Electronically signed by Steve Lara MD 12/27/24 1428 EXAMINATION: XR CHEST CLINICAL INFORMATION: sob COMPARISON: December 26, 2024 TECHNIQUE: Frontal view of the chest was obtained. FINDINGS: Focal patchy opacities in the periphery of the lungs. Pulmonary reticular nodular pattern. No hyperinflation. No pneumothorax. Heart silhouette size is normal. XR/XR chest 1V IMPRESSION: Slight improved aeration with persistent multifocal pneumonia versus pulmonary hemorrhage versus pulmonary edema versus pneumonitis among other etiologies. Electronically signed by: Steve Cabrera MD 12/27/2024 01:04 PM EST RP Dictated By: Steve Haider MD Signed By: Electronically signed by Steve Lara MD 12/27/24 1304 Vent. Rate: 89 BPM Atrial Rate: 89 BPM P-R Int: 132 ms QRS Dur: 86 ms QT Int: 366 ms P-R-T Axes: 2 28 18 degrees QTcB Int: 445 ms Normal sinus rhythm Normal ECG When compared with ECG of 27-Nov-2024 14:15, No significant change was found DD/ 1301 Radiology Impression Discussion of test interpretation with radiology: I have reviewed the radiologist's reading. Critical Care Time Critical Care Time Critical Care Time: Yes Total Critical Care Time: 47 Attestation: I spent 47 minutes of Critical Care Time with this patient. This does not include time spent on separately reported billable procedures. Discharge Plan Discharge Clinical Impression: Pneumonitis, Hypoxia Patient Disposition: Admitted As Inpatient
[2024-12-27 13:25] LABS: MANUAL DIFF FLAG NO
[2024-12-27 13:27] LABS: Venous Blood Gas Refer to POC result
[2024-12-27 13:27] LABS: VBG Base Excess 1.6 mmol/L; VBG HCO3 26 mmol/L (22-26); VBG pCO2 43 mmHg; VBG pH 7.39 (7.32-7.43); VBG pO2 32 mmHg
[2024-12-27 13:28] LABS: Basophils Absolute Auto 0.1 X10*3/uL (0.0-0.2); Basophils Percent Auto 0.5 % (0-2); Eosinophils Absolute Auto 0.1 X10*3/uL (0.0-0.4); Eosinophils Percent Auto 0.5 % (0-4); Hematocrit 34.8 % (37.0-47.0); Hemoglobin 11.5 g/dl (12.0-16.0); Imm Gran Abs Auto 0.69 X10*3/uL (0.00-0.03); Imm Gran Pct Auto 4.6 % (0.0-0.4); Lymphocytes Absolute Auto 2.8 X10*3/uL (1.2-4.9); Lymphocytes Percent Auto 18.3 % (20-40); Mean Corpuscular Hemoglobin 32.7 pg (27.0-33.0); Mean Corpuscular Volume 98.9 fL (80.0-98.0); Mean Platelet Volume 9.3 fL (9.4-12.3); Monocytes Percent Auto 6.6 % (2-11); NRBC Pct Auto 0.3 /100WBC (0.0-0.2); Neutrophils Absolute Auto 10.5 x10*3/uL (2.0-8.3); Neutrophils Percent Auto 69.5 % (45-73); Platelet Count 285 X10*3/uL (160-400); Red Blood Count 3.52 X10*6/uL (4.20-5.50); Red Cell Distribution Width 15.8 % (11.0-16.0); White Blood Count 15.1 X10*3/uL (4.8-10.8)
[2024-12-27 13:33] LABS: INTERNATIONAL NORM RATIO 1.1 (0.9-1.1); Prothrombin Time 13.1 SEC (10.9-12.4)
[2024-12-27 13:41] LABS: Anion Gap 17 (12-20); Blood Urea Nitrogen 27 mg/dL (9-16); Calcium 9.3 mg/dL (8.4-10.2); Carbon Dioxide 23 mmol/L (22-29); Chloride 107 mmol/L (96-108); Creatinine Clr Calc Pharmacy 52.6; Estimated Glomerular Filt Rate 40; Glucose Random 123 mg/dL (60-115); Magnesium 1.7 mg/dL (1.6-2.6); Potassium 3.5 mmol/L (3.3-5.1); Sodium 143 mmol/L (135-145)
[2024-12-27 13:46] LABS: B Type Natriuretic Peptide 44 pg/mL (<100)
[2024-12-27 13:48] LABS: Troponin-I High Sensitivity 7.9 ng/L (<3.5-17.0)
[2024-12-27 13:50] LABS: Lactic Acid 4.2 mmol/L (0.5-2.0)
--- OUTSIDE RECORDS SUMMARY | 2024-12-27 13:50 | XMS_ITS | Clinical Summary ---
Author Organization [facility] Address [address] [place] [address] Phone Care Team Providers Care Club Licensee Name Role Phone Artis Whiting MD Primary Care Provider [phone] Medications Medication Sig Dispensed Refills Start Date End Date Status albuterol HFA (PROAIR HFA ; PROVENTIL HFA ; VENTOLIN HFA) 90 mcg/actuation inhaler Inhale 2 puffs by mouth every 6 (six) hours if needed for wheezing. 1 each 1 12/23/2024 02/21/2025 Active Encounters Date Type Department Care Team Description 12/05/2024 Telephone Lung Screening Program - [address] [place] [phone] [place] Danielle [place] Appointment (1st Notification) from [...] Info) Description 01/04/2025 8:30 AM EST Appointment [facility] CT Scan [address] [place] [address] Health Maintenance Due Date Last [...] age to complete this topic Care Teams Club Licensee Relationship Specialty Start Date End Date Artis Whiting MD PCP - General 08/10/23
--- OUTSIDE RECORDS SUMMARY | 2024-12-27 13:50 | XMS_ITS | Encounter Summary ---
Author Organization [facility] Address [address] [place] [address] Care Team Providers Care Director Of Government Sales Name Role Phone Artis Whiting MD Primary Care Provider [phone] Reason for Visit * Reason Onset Date Comments Appointment 12/05/2024 1st Notification Encounter Details Date Type Department Care Team ([facility] st Contact Info) Description 12/05/2024 Telephone Lung Screening Program - [address] [place] [address] [place] Danielle [place] Appointment (1st Notification) Social [...] have [facility] No answer left answer For all screenings [...] Info) Description 01/04/2025 8:30 AM EST Appointment [facility] CT Scan [address] [place] [address] documented as of this encounter Visit Diagnoses Not on filedocumented in this encounter Care Teams Director Of Government Sales Relationship Specialty Start Date End Date Artis Whiting MD PCP - General 08/10/23 documented as of this encounter
--- OUTSIDE RECORDS SUMMARY | 2024-12-27 13:50 | XMS_ITS | Encounter Summary ---
Author Organization [facility] Address [address] [place] [address] Care Team Providers Care Configuration Developer Name Role Phone Unavailable Primary Care Provider Unavailabl e Reason for Referral * ENT (Routine) - Pending Review Specialty Diagnoses / Procedures Referred By Terrie mcintyre Referred To Contact Otolaryngology Diagnoses Bilateral hearing loss, unspecified hearing loss type Artis Whiting MD [address] [address] [facility] [address] [place] [phone] Referral ID Status Reason Start Date Expiration Date Visits Requested Visits Authorized [id number] Pending Review Consult 12/09/2024 12/10/2025 1 1 Encounter Details Date Type Department Care Team (Latest Contact Info) Description 12/09/2024 Transcribe Orders [facility] PRIMARY CARE SCAN Artis Whiting MD [address] [address] Bilateral hearing loss, unspecified hearing loss type [...]
--- OUTSIDE RECORDS SUMMARY | 2024-12-27 13:50 | XMS_ITS | Clinical Summary ---
Author Organization [facility] Address [address] [place] [address] Care Team Providers Care Lamination Assembler Name Role Phone Unavailable Primary Care Provider Unavailabl e Encounters Date Type Department Care Team Description 12/09/2024 Transcribe Orders [facility] PRIMARY CARE SCAN Artis Whiting MD [...]
--- NOTE | 2024-12-27 14:03 | PC.NURSE ---
pt to CT at this time. plan of care ongoing.
[2024-12-27] MEDS: iohexoL 350 MG/ML 100 ML INFUS..BTL IV (14:07)
[2024-12-27 14:09] LABS: Influenza A PCR NEGATIVE (Negative); Influenza B PCR NEGATIVE (Negative); Resp Syncy Virus RNA Qual PCR NEGATIVE (Negative); SARS COV2 PCR INHOUSE NEGATIVE (Negative)
[2024-12-27] MEDS: 0.9 % Sodium Chloride 1,000 ML 200 ML IVCONT (14:35)
[2024-12-27 15:24] LABS: Reflex Lactate? Lactic Acid Added
[2024-12-27 16:13] LABS: ~Lactic Acid-LAB USE ONLY 1.6 mmol/L (0.5-2.0)
--- NOTE | 2024-12-27 17:54 | PHA.MEDREC ---
Addendum entered by Issac Ferrara [facility] 12/27/24 18:06: med rec reviewed Original Note: Pharmacy Consult ? Medication Reconciliation Pharmacy has completed the medication reconciliation. Spoke with patient and she was able to confirm her medications. Patient confirmed her Eliquis 5mg tab taking it twice a day. Patient confirmed her Ozempic 0.5mg once a week and confirmed she takes it on and confirmed she took it 12/26. The patient states she went and saw her Dr yesterday that was decreasing her Prednisone 50mg dose to 40mg but did not remember the directions and states it was sent to [facility] pharmacy here in [place]; I called them and they state they did not receive anything for that patient yesterday or today. She confirmed she last took her medications yesterday morning.
--- NOTE | 2024-12-27 17:58 | PM.IMHP ---
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 Pt was previously admitted to the hospital last month from 11/27-12/12 where she was treated for chronic hypoxic respiratory failure secondary to acute pulmonary embolism COPD exacerbation from COVID-19. Was initially treated with therapeutic Lovenox and transitioned to Eliquis 5 mg b.i.d.. Since then pt has developed significant epistaxis on at least 3-4 occasions, presenting to the ED last night on 12/26 for treatment. This morning pt presented for pulmonology follow-up and found that her O2 sat dip to 56% and she transitioned from wheelchair to car. Pt reports often will monitor her O2 sats with a home pulse ox, and notes she often becomes hypoxic with exertion, though normally not into the 50s. Complains of chronic SOB and difficulty breathing with exertion, which is currently around baseline. Pt denies cough or wheezing. No fever, sore throat, rhinorrhea, or nasal congestion. Pt states yesterday had some lightheadedness and dizziness with standing, though thought it was secondary to nosebleed. Overall pt reports she feels around baseline. In the ED pt was tachycardic up to 104, tachypneic up to 28, and hypoxic as low as 71% on 6L NC. Labs were significant for leukocytosis of 15.1, lactic acid 4.2 with repeat 1.6, creatinine 1.34. Otherwise grossly unremarkable and around baseline for pt. Stable microcytic anemia of 11.5/38 with MCV 98.9. No significant electrolyte abnormalities. CXR showed slight improved aeration with persistent multifocal pneumonia vs pulmonary hemorrhage vs pulmonary edema vs pneumonitis among other etiologies. CTA of chest found no acute pulmonary artery emboli, resolved since prior CT images. Did show acute on chronic airspace disease vs pulmonary edema vs pneumonitis vs drug toxicity. EKG demonstrated normal sinus rhythm without significant ischemic changes. Pt was treated with IVF. Pt will be admitted to the hospital for treatment and further evaluation of acute on chronic hypoxic respiratory failure concerning for long COVID syndrome. Review of Systems Review of Systems: Negative except for that which is stated in the [facility] Medical History HLD (hyperlipidemia) Pulmonary fibrosis Social History Household Members: Spouse Housing: House Do you presently have visiting nurse or other home services: No Comment: pt rings call morris appropriately for assistance OOB Patient Tobacco Use Status: Former Tobacco user Tobacco use type: Cigarette Smoked in Last 30 Days: No e-Cigarette/Vaping Use: Never Used Patient Interested in Nicotine Replacement: No Patient Given Instructions on How to Stop Smoking: No Second Hand Smoke Exposure: No Use of substances other than those prescribed or required for medical reasons: No Currently Displaying Signs/Symptoms of Drug Intoxication Withdrawal: No Any prior treatment program specific to substance use: No Have you been hit, kicked, punched, or otherwise hurt by someone within the past year? If so, by whom?: No Do you feel safe in your current relationship?: Yes Is there a partner from a previous relationship who is making you feel unsafe now?: No Are you made to feel afraid or neglected: No Advance Directives: No Advance Directives Information Provided: Yes Do you have a plan to hurt others: No Plan Nutrition Risks: No Nutritional Risk Patient : No : No Poor oral hygiene: No service: No Meds Allergies Allergy/AdvReac Type Severity Reaction Status Date / Time codeine Allergy Intermediate Rash Verified 12/27/24 12:47 From DEMEROL Allergy Intermediate VOMITING Uncoded 12/27/24 12:47 Demerol Allergy Unknown Vomiting Uncoded 12/27/24 12:47 Active Medications: Current Medications Sodium Chloride (Ns) 1,000 mls @ 200 mls/hr IVCONT .Q5H JO Stop: 12/27/24 18:59 Last Admin: 12/27/24 14:35 Dose: 200 mls/hr Home Medications ?Medication ?Instructions ?Recorded ?Confirmed ?Last Taken ?Type albuterol sulfate 90 mcg/actuation 2 puff inhalation Q6H PRN 03/26/24 12/27/24 Unknown History aerosol inhaler Shortness Of Breath Or Wheezing citalopram 40 mg tablet (Celexa) 40 mg PO DAILY 03/26/24 12/27/24 12/26/24 History pravastatin 40 mg tablet 40 mg PO BEDTIME 03/26/24 12/27/24 12/25/24 History fluticasone fur. 200 mcg-umeclid 1 ea inhalation DAILY 11/27/24 12/27/24 12/26/24 History 62.5 mcg-vilant 25 mcg inhalat.powder (Trelegy Ellipta) nystatin 100,000 unit/gram topical 1 appl topical BID PRN Rash 12/27/24 12/27/24 Unknown History cream omeprazole 20 mg capsule,delayed 20 mg PO DAILY@0630 12/27/24 12/27/24 12/26/24 History release semaglutide 1 mg/dose (4 mg/3 mL) 1 mg subcut TH 12/27/24 12/27/24 12/26/24 History subcutaneous pen injector (Ozempic) Physical Exam Vital Signs and Narrative: Vital Signs: Last Vital Signs Temp 98.3 F 12/27/24 15:45 Pulse 76 12/27/24 15:45 Resp 19 12/27/24 15:45 BP 124/68 12/27/24 15:45 Pulse Ox 93 12/27/24 16:33 O2 Del Method Oxymizer 12/27/24 16:33 O2 Flow Rate 3 12/27/24 15:45 Oxygen Flow Rate 3 12/27/24 16:33 BMI result Body Mass Index 35.6 General: AOx3, no acute distress Resp: CTA bilaterally CVS: S1, S2, RRR GI: +BS, NT, no distention Skin: Warm, dry Neuro: Cranial nerves II-XII grossly intact bilaterally. Motor grossly intact bilaterally Extremities: No edema Psych: Appropriate affect Results Labs 12/28/24 06:33 12/28/24 06:33 Labs: Laboratory Results - last 24 hr 12/27/24 12/27/24 12/27/24 13:15 13:22 15:55 MCV 98.9 H MCH 32.7 MCHC 33.0 RDW 15.8 Plt Count 285 MPV 9.3 L Immature Gran % (Auto) 4.6 H Neut % (Auto) 69.5 Lymph % (Auto) 18.3 L [place] % (Auto) 6.6 Eos % (Auto) 0.5 Baso % (Auto) 0.5 Lymph # (Auto) 2.8 [place] # (Auto) 1.0 Eos # (Auto) 0.1 Baso # (Auto) 0.1 Abs Immat Gran (auto) 0.69 H Absolute Neuts (auto) 10.5 H Absolute Nucleated RBC 0.040 H Nucleated RBC % (auto) 0.3 H PT 13.1 H INR 1.1 APTT 26.0 VBG pH 7.39 VBG pCO2 43 VBG pO2 32 VBG HCO3 26 VBG O2 Saturation 50.0 VBG Base Excess 1.6 Anion Gap 17 Estim Creat Clear Calc 52.6 Estimated GFR 40 Random Glucose 123 H Lactic Acid 4.2 H* Lactic Acid F/U @ 2Hr 1.6 Calcium 9.3 Magnesium 1.7 Troponin I High Sens 7.9 D B-Natriuretic Peptide 44 Influenza Type A (PCR) NEGATIVE Influenza Type B (PCR) NEGATIVE RSV RNA Qual (PCR) NEGATIVE SARS-CoV-2 RNA (RT-PCR) NEGATIVE Imaging Radiologist's Impressions: Impressions Chest X-Ray 12/27/24 12:46 IMPRESSION: Slight improved aeration with persistent multifocal pneumonia versus pulmonary hemorrhage versus pulmonary edema versus pneumonitis among other etiologies. Electronically signed by: Steve Cabrera MD 12/27/2024 01:04 PM EST RP Chest CTA 12/27/24 13:59 IMPRESSION: No acute pulmonary artery emboli. Resolved since prior CT images chest report. No aneurysm or dissection, thoracic aorta. Acute on chronic airspace disease versus pulmonary edema versus pneumonitis versus drug toxicity. Hiatal hernia, moderate to large volume. Fleischner guidelines were followed. 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 Pt will be admitted to the hospital for treatment and further evaluation of acute on chronic hypoxic respiratory failure concerning for long COVID syndrome. Acute on chronic hypoxic respiratory failure concerning for long COVID syndrome Pt sent to the ED from pulmonology office after desatting into the 50s on home 6L Pt denies SOB or difficulty breathing at rest, no cough or URI symptoms Tested negative for flu, RSV, COVID CTA negative for acute pulmonary artery emboli, though showed acute on chronic airspace disease vs pulmonary edema vs pneumonitis No sepsis: No clear bacterial source, no indication for antibiotic use at this time Will treat with Solu-Medrol, DuoNebs and guaifenesin p.r.n. Pulmonology consult Titrate supplemental O2 to 88-90% on home 6L, wean as tolerated Monitor respiratory status Acute lactic acidosis, resolved Lactic acid 4.2 with repeat 1.6 after fluids No sepsis: Secondary to hypoxemia Tachycardia secondary to albuterol use leukocytosis chronic and secondary to chronic steroid use No clear bacterial source or indication for antibiotic use at this time COPD Not in acute exacerbation Continue home inhalers HLD Continue statin Mood disorder Continue citalopram Full Code Attending:?Dr. Darby DVT Prophylaxis: On Eliquis Pt will require a hospitalization of at least two nights for treatment of?acute on chronic hypoxic respiratory failure concerning for long COVID syndrome. Given significant levels of patient's hypoxia, she will require hospital level care for administration of IV steroids and specialist consult with pulmonology. Quality Stroke Does the patient have a stroke diagnosis?: No VTE Prior VTE?: Yes VTE Risk Level:: Medical - moderate - high VTE Device Contraindication: Treatment Not Indicated VTE Drug Contraindication: N/A - Med Ordered
[2024-12-27] MEDS: methylPREDNISolone Sod Succ 40 MG/ML VIAL IVPUSH (19:51)
[2024-12-27 20:45] LABS: Glucose, Whole Blood 123 mg/dL (60-115)
[2024-12-27] MEDS: Apixaban 5 MG TABLET PO (20:50)
[2024-12-27] MEDS: Pravastatin Sodium 40 MG TABLET PO (22:11)
--- NOTE | 2024-12-27 22:36 | PC.NURSE ---
Patient alert and oriented x4. She denies any pain at this time. Patient requested purewick placement. Patient on 4 LPM via oxymizer. Patient desats with minimal exertion, O2 down to mid 70's with purewick placement. O2 flow increased to 8 LPM with improvement noted, O2 Sat to 93%. O2 titrated to 4 LPM with stable readings 90-93%. patient offers no complaints at present, call morris in patient's reach.
[2024-12-28] VITALS (11 sets, daily range): BP systolic 99–119; BP diastolic 58–73; PULSE 73–84; RESP 15–20; TEMP 36–36.4; O2SAT 90–95
[2024-12-28] MEDS: methylPREDNISolone Sod Succ 40 MG/ML VIAL IVPUSH (06:37)
[2024-12-28] MEDS: Omeprazole 20 MG CAPSULE.DR PO (06:37)
[2024-12-28 06:57] LABS: Hematocrit 28.8 % (37.0-47.0); Hemoglobin 9.6 g/dl (12.0-16.0); Mean Corpuscular HGB Conc 33.3 g/dl (31.0-35.0); Mean Corpuscular Hemoglobin 32.7 pg (27.0-33.0); Mean Platelet Volume 9.3 fL (9.4-12.3); Platelet Count 245 X10*3/uL (160-400); Red Blood Count 2.94 X10*6/uL (4.20-5.50); Red Cell Distribution Width 15.9 % (11.0-16.0)
[2024-12-28 07:25] LABS: Glucose, Whole Blood 161 mg/dL (60-115)
[2024-12-28 08:02] LABS: Anion Gap 13 (12-20); Blood Urea Nitrogen 23 mg/dL (9-16); Calcium 8.5 mg/dL (8.4-10.2); Carbon Dioxide 23 mmol/L (22-29); Chloride 111 mmol/L (96-108); Creatinine Clr Calc Pharmacy 78.4; Estimated Glomerular Filt Rate > 60; Glucose Random 150 mg/dL (60-115); Potassium 4.1 mmol/L (3.3-5.1); Sodium 143 mmol/L (135-145)
[2024-12-28] MEDS: Escitalopram Oxalate 20 MG TABLET PO (08:34)
[2024-12-28] MEDS: Apixaban 5 MG TABLET PO ×2 (08:34→20:32)
[2024-12-28] MEDS: Insulin Lispro 100 UNIT/ML 3 ML VIAL SUBCUT ×2 (08:34→16:25)
[2024-12-28] MEDS: 0.9 % Sodium Chloride Flush 3 ML SYRINGE IVFLUSH ×3 (08:35→23:58)
[2024-12-28 11:25] LABS: Glucose, Whole Blood 136 mg/dL (60-115)
[2024-12-28] MEDS: Fluticasone/Umeclidinium/Vilanterol 200/62.5/25 BLST.W.DEV 1 PUFF INHALE (11:33)
--- NOTE | 2024-12-28 12:40 | P.PNIM_ITS ---
Subjective Subjective Date of Service: 12/28/24 Interval History: dyspneic with exertion but chronic Review of Systems Review of Systems: Yes all other systems are reviewed and are negative Physical Exam 2 Vital Signs: Vital Signs: Last Vital Signs Temp 96.9 F 12/28/24 11:23 Pulse 78 12/28/24 11:34 Resp 15 12/28/24 11:34 BP 103/61 12/28/24 11:23 Pulse Ox 92 12/28/24 11:23 O2 Del Method Nasal Cannula 12/28/24 11:23 O2 Flow Rate 4 12/28/24 11:23 Oxygen Flow Rate 3 12/27/24 16:33 BMI result Body Mass Index 35.6 Gen: in no acute distress HEENT: sclera anicteric, moist mucus membranes Neck: supple Lungs: fine inspiratory crackles bilaterally Heart: regular rate and rhythm, no murmurs Abd: soft, non-tender, non-distended Ext: no edema Skin: warm/well-perfused Neuro: alert and oriented x3, no focal findings Psych: appropriate affect Objective Data Active Medications Acetaminophen (Acetaminophen 325 Mg Tablet) 650 mg PO Q6H PRN PRN Reason: Pain, Mild 1-3,fever,headache Albuterol Sulfate (Albuterol Sulfate 90 Mcg 8 Gm Inhaler) 2 puff INHALE Q6H PRN PRN Reason: Shortness Of Breath Or Wheezing Albuterol/Ipratropium (Albuterol/Iprat 2.5/0.5mg 3 Ml Ampul.Neb) 3 ml INHALE Q6H PRN PRN Reason: wheezing Apixaban (Apixaban 5 Mg Tablet) 5 mg PO BID [facility] Last Admin: 12/28/24 08:34 Dose: 5 mg Documented By: MINH Calcium Carbonate (Calcium Carbonate 750 Mg Tab.Chew) 750 mg PO Q4H PRN PRN Reason: Heartburn Dextrose (Dextrose 50 % 25 Gm/50 Ml Syringe) 25 gm IVPUSH Q15M PRN; Protocol PRN Reason: per Hypoglycemia Standing Ord. Escitalopram Oxalate (Escitalopram Oxalate 20 Mg Tablet) 20 mg PO DAILY [facility] Last Admin: 12/28/24 08:34 Dose: 20 mg Documented By: MINH Fluticasone/Umeclidinium/Vilanterol (Fluticasone/Umeclidinium/Vilanterol 200/62.5/25 Blst.W.Dev) 1 puff INHALE RDAILY [facility] Last Admin: 12/28/24 11:33 Dose: 1 puff Documented By: ADRIANA Glucose (Glucose Gel 15 Gm Gel..Gram.) 15 gm PO Q15M PRN; Protocol PRN Reason: per Hypoglycemia Standing Ord. Guaifenesin/Dextromethorphan (Guaifenesin Dm 200/20/10 Ml 10 Ml Syrup) 10 ml PO Q4H PRN PRN Reason: Cough Insulin Human Lispro (Insulin Lispro 100 Unit/Ml 3 Ml Vial) 0 unit SUBCUT QIDACHS [facility]; Protocol Last Admin: 12/28/24 12:07 Dose: Not Given Documented By: DENISSE Non-Admin Reason: No Insulin Coverage Magnesium Hydroxide (Milk Of Magnesia 30 Ml Oral.Susp) 30 ml PO DAILY PRN PRN Reason: Constipation Melatonin (Melatonin 3 Mg Tablet) 6 mg PO BEDTIME PRN PRN Reason: Insomnia Methylprednisolone Sodium Succinate (Methylprednisolone Sod Succ 40 Mg/Ml Vial) 40 mg IVPUSH Q12H [facility] Last Admin: 12/28/24 06:37 Dose: 40 mg Documented By: ARNULFO Omeprazole (Omeprazole 20 Mg Capsule.) 20 mg PO DAILY@0630 [facility] Last Admin: 12/28/24 06:37 Dose: 20 mg Documented By: ARNULFO Ondansetron HCl (Ondansetron Hcl 4 Mg/2 Ml Vial) 4 mg IVPUSH Q8H PRN PRN Reason: Nausea and Vomiting Pravastatin Sodium (Pravastatin Sodium 40 Mg Tablet) 40 mg PO BEDTIME [facility] Last Admin: 12/27/24 22:11 Dose: 40 mg Documented By: LAFLAMCalvin Sodium Chloride (0.9 % Sodium Chloride Flush 3 Ml Syringe) 3 ml IVFLUSH QSHIFT [facility] Last Admin: 12/28/24 08:35 Dose: 3 ml Documented By: MCGINNM Labs 12/28/24 06:33 12/28/24 06:33 Labs: Laboratory Results - last 24 hr 12/27/24 12/27/24 12/27/24 13:15 13:22 15:55 MCV 98.9 H MCH 32.7 MCHC 33.0 RDW 15.8 Plt Count 285 MPV 9.3 L Immature Gran % (Auto) 4.6 H Neut % (Auto) 69.5 Lymph % (Auto) 18.3 L [place] % (Auto) 6.6 Eos % (Auto) 0.5 Baso % (Auto) 0.5 Lymph # (Auto) 2.8 [place] # (Auto) 1.0 Eos # (Auto) 0.1 Baso # (Auto) 0.1 Abs Immat Gran (auto) 0.69 H Absolute Neuts (auto) 10.5 H Absolute Nucleated RBC 0.040 H Nucleated RBC % (auto) 0.3 H PT 13.1 H INR 1.1 APTT 26.0 VBG pH 7.39 VBG pCO2 43 VBG pO2 32 VBG HCO3 26 VBG O2 Saturation 50.0 VBG Base Excess 1.6 Anion Gap 17 Estim Creat Clear Calc 52.6 Estimated GFR 40 POC Glucose Random Glucose 123 H Lactic Acid 4.2 H* Lactic Acid F/U @ 2Hr 1.6 Calcium 9.3 Magnesium 1.7 Troponin I High Sens 7.9 D B-Natriuretic Peptide 44 Influenza Type A (PCR) NEGATIVE Influenza Type B (PCR) NEGATIVE RSV RNA Qual (PCR) NEGATIVE SARS-CoV-2 RNA (RT-PCR) NEGATIVE 12/27/24 12/28/24 12/28/24 20:42 06:33 07:18 MCV 98.0 MCH 32.7 MCHC 33.3 RDW 15.9 Plt Count 245 MPV 9.3 L Immature Gran % (Auto) Neut % (Auto) Lymph % (Auto) [place] % (Auto) Eos % (Auto) Baso % (Auto) Lymph # (Auto) [place] # (Auto) Eos # (Auto) Baso # (Auto) Abs Immat Gran (auto) Absolute Neuts (auto) Absolute Nucleated RBC 0.000 Nucleated RBC % (auto) 0.0 PT INR APTT VBG pH VBG pCO2 VBG pO2 VBG HCO3 VBG O2 Saturation VBG Base Excess Anion Gap 13 Estim Creat Clear Calc 78.4 Estimated GFR > 60 POC Glucose 123 H 161 H Random Glucose 150 H Lactic Acid Lactic Acid F/U @ 2Hr Calcium 8.5 D Magnesium Troponin I High Sens B-Natriuretic Peptide Influenza Type A (PCR) Influenza Type B (PCR) RSV RNA Qual (PCR) SARS-CoV-2 RNA (RT-PCR) 12/28/24 11:19 MCV MCH MCHC RDW Plt Count MPV Immature Gran % (Auto) Neut % (Auto) Lymph % (Auto) [place] % (Auto) Eos % (Auto) Baso % (Auto) Lymph # (Auto) [place] # (Auto) Eos # (Auto) Baso # (Auto) Abs Immat Gran (auto) Absolute Neuts (auto) Absolute Nucleated RBC Nucleated RBC % (auto) PT INR APTT VBG pH VBG pCO2 VBG pO2 VBG HCO3 VBG O2 Saturation VBG Base Excess Anion Gap Estim Creat Clear Calc Estimated GFR POC Glucose 136 H Random Glucose Lactic Acid Lactic Acid F/U @ 2Hr Calcium Magnesium Troponin I High Sens B-Natriuretic Peptide Influenza Type A (PCR) Influenza Type B (PCR) RSV RNA Qual (PCR) SARS-CoV-2 RNA (RT-PCR) Assessment and Plan (1) COPD (chronic obstructive pulmonary disease): Status: Acute Plan d2 for 68yo with pulmonary fibrosis, hypersensitivity pneumonitis, COPD on home O2 6-8L and chronic prednisone 50 mg/d, recent hospitalization for Covid-19 and DVT/PE on apixaban 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 due to hypoxia acute-chronic hypoxic respiratory failure post-Covid pneumonitis - CTA negative for PE - IV methylprednisolone, nebs - Pulmonology consult - wean O2 as tolerated acute lactic acidosis - likely due to hypoxia/albuterol COPD - continue Trelegy hx VTE/PE - continue apixaban mood disorder - escitalopram dispo - TBD In my clinical judgment, the patient requires continued inpatient hospitalization for the following reasons: hypoxia Quality Stroke Does the patient have a stroke diagnosis?: No VTE Prior VTE?: Yes VTE Risk Level:: Medical - moderate - high VTE Device Contraindication: Treatment Not Indicated VTE Drug Contraindication: N/A - Med Ordered
--- NOTE | 2024-12-28 13:02 | MHC.CM.PN ---
IMM DELIVERED. PATIENT LIVES IN A HOME W/ . FUNCTIONALLY INDEPENDENT. HAS HOME O2 VIA [place] - 6L @ REST AND 8L W/ EXERTION. RECENT STAY AT [facility] 12/12-12/16. REPORTS SHE DC'D SHE WAS NOT HAPPY W/ THE CARE SHE RECEIVED. HCP ON FILE AND VERIFIED. PCP UDAY FORD MD DP: PT ROBERT PENDING. REPORTS SHE IS NOT OPEN TO ANY STR AFTER HER RECENT EXPERIENCE. GOAL IS HOME W/ SERVICES, PREFERS [facility]. REFERRAL SENT VIA [facility]. CM WILL CONTINUE TO FOLLOW.
--- NOTE | 2024-12-28 13:33 | PM.CNPUL ---
History of Present Illness History of Present Illness Consult date: 12/28/24 Chief complaint: Acute on chronic hypoxic respiratory failure Narrative: 68-year-old lady, former 20 pack-year smoker, with underlying COPD, bronchiectasis, interstitial lung disease, recent pulmonary emboli now on Eliquis, on supplemental oxygen at 3-4 L at baseline admitted on 12/27/2024 with acute on chronic hypoxia on a background of recent epistaxis, likely related to aspiration blood. Follow-up CT angio chest shows no evidence of pulmonary emboli. Her lower extremity Dopplers are pending. Overall FiO2 requirements improving patient now is at her baseline 3-4 L requirements. Review of Systems Constitutional: Constitutional: Denies daytime sleepiness, Denies excessive sweating, Denies fatigue, Denies fever(s), Denies lethargy, Denies malaise, Denies night sweats, Denies snoring and Denies weight loss Eyes: Eyes: Denies blurry vision and Denies itchy eyes ENT: Denies nasal congestion, Denies post nasal drip, Denies sinus pain, Denies sinus pressure and Denies other ( Thrush) Cardiovascular: Cardiovascular: Denies chest pain, Denies pedal edema, Denies dyspnea, Reports dyspnea on exertion, Denies orthopnea and Denies paroxysmal nocturnal dyspnea Respiratory: Respiratory: Denies cough, Denies hemoptysis, Denies excessive phlegm production, Denies dyspnea, Reports dyspnea on exertion, Denies snoring and Denies wheezing Gastrointestinal: Gastrointestinal: Denies abdominal pain and Denies heartburn Musculoskeletal: Musculoskeletal: Denies myalgias, Denies arthralgias and Denies joint swelling Integumentary/Breasts: Skin/Breast: Denies rash Neurologic: Denies memory loss and Denies seizure-like activity Psychiatric: Psychiatric: Denies abnormal sleep pattern, Denies anxiety and Denies memory loss Endocrine: Endocrine: Denies excessive sweating, Denies fatigue and Denies heat intolerance Hematologic/Lymphatic: Hematologic/Lymphatic: Denies easy bruising Allergic/Immunologic: Allergic/Immunologic: Denies itchy eyes, Denies seasonal rhinorrhea and Denies wheezing PMFSH Past Medical History Medical History HLD (hyperlipidemia) Pulmonary fibrosis Social History Social History Household Members: Spouse Housing: House Do you presently have visiting nurse or other home services: No Comment: pt rings call morris appropriately for assistance OOB Patient Tobacco Use Status: Former Tobacco user Tobacco use type: Cigarette Smoked in Last 30 Days: No e-Cigarette/Vaping Use: Never Used Patient Interested in Nicotine Replacement: No Patient Given Instructions on How to Stop Smoking: No Second Hand Smoke Exposure: No Use of substances other than those prescribed or required for medical reasons: No Currently Displaying Signs/Symptoms of Drug Intoxication Withdrawal: No Any prior treatment program specific to substance use: No Have you been hit, kicked, punched, or otherwise hurt by someone within the past year? If so, by whom?: No Do you feel safe in your current relationship?: Yes Is there a partner from a previous relationship who is making you feel unsafe now?: No Are you made to feel afraid or neglected: No Advance Directives: No Advance Directives Information Provided: Yes Do you have a plan to hurt others: No Plan Nutrition Risks: No Nutritional Risk Patient : No : No Poor oral hygiene: No service: No Meds Allergies Allergy/AdvReac Type Severity Reaction Status Date / Time codeine Allergy Intermediate Rash Verified 12/27/24 12:47 From DEMEROL Allergy Intermediate VOMITING Uncoded 12/27/24 12:47 Demerol Allergy Unknown Vomiting Uncoded 12/27/24 12:47 Active Medications: Current Medications Acetaminophen (Acetaminophen 325 Mg Tablet) 650 mg PO Q6H PRN PRN Reason: Pain, Mild 1-3,fever,headache Albuterol Sulfate (Albuterol Sulfate 90 Mcg 8 Gm Inhaler) 2 puff INHALE Q6H PRN PRN Reason: Shortness Of Breath Or Wheezing Albuterol/Ipratropium (Albuterol/Iprat 2.5/0.5mg 3 Ml Ampul.Neb) 3 ml INHALE Q6H PRN PRN Reason: wheezing Apixaban (Apixaban 5 Mg Tablet) 5 mg PO BID JO Last Admin: 12/28/24 08:34 Dose: 5 mg Calcium Carbonate (Calcium Carbonate 750 Mg Tab.Chew) 750 mg PO Q4H PRN PRN Reason: Heartburn Dextrose (Dextrose 50 % 25 Gm/50 Ml Syringe) 25 gm IVPUSH Q15M PRN; Protocol PRN Reason: per Hypoglycemia Standing Ord. Escitalopram Oxalate (Escitalopram Oxalate 20 Mg Tablet) 20 mg PO DAILY [facility] Last Admin: 12/28/24 08:34 Dose: 20 mg Fluticasone/Umeclidinium/Vilanterol (Fluticasone/Umeclidinium/Vilanterol 200/62.5/25 Blst.W.Dev) 1 puff INHALE RDAILY [facility] Last Admin: 12/28/24 11:33 Dose: 1 puff Glucose (Glucose Gel 15 Gm Gel..Gram.) 15 gm PO Q15M PRN; Protocol PRN Reason: per Hypoglycemia Standing Ord. Guaifenesin/Dextromethorphan (Guaifenesin Dm 200/20/10 Ml 10 Ml Syrup) 10 ml PO Q4H PRN PRN Reason: Cough Insulin Human Lispro (Insulin Lispro 100 Unit/Ml 3 Ml Vial) 0 unit SUBCUT QIDACHS [facility]; Protocol Last Admin: 12/28/24 12:07 Dose: Not Given Magnesium Hydroxide (Milk Of Magnesia 30 Ml Oral.Susp) 30 ml PO DAILY PRN PRN Reason: Constipation Melatonin (Melatonin 3 Mg Tablet) 6 mg PO BEDTIME PRN PRN Reason: Insomnia Omeprazole (Omeprazole 20 Mg Capsule.Dr) 20 mg PO DAILY@0630 [facility] Last Admin: 12/28/24 06:37 Dose: 20 mg Ondansetron HCl (Ondansetron Hcl 4 Mg/2 Ml Vial) 4 mg IVPUSH Q8H PRN PRN Reason: Nausea and Vomiting Pravastatin Sodium (Pravastatin Sodium 40 Mg Tablet) 40 mg PO BEDTIME [facility] Last Admin: 12/27/24 22:11 Dose: 40 mg Sodium Chloride (0.9 % Sodium Chloride Flush 3 Ml Syringe) 3 ml IVFLUSH QSHIFT [facility] Last Admin: 12/28/24 08:35 Dose: 3 ml Home Medications ?Medication ?Instructions ?Recorded ?Confirmed ?Last Taken ?Type albuterol sulfate 90 mcg/actuation 2 puff inhalation Q6H PRN 03/26/24 12/27/24 Unknown History aerosol inhaler Shortness Of Breath Or Wheezing citalopram 40 mg tablet (Celexa) 40 mg PO DAILY 03/26/24 12/27/24 12/26/24 History pravastatin 40 mg tablet 40 mg PO BEDTIME 05/06/1212/27/24 12/25/24 History fluticasone fur. 200 mcg-umeclid 1 ea inhalation DAILY 11/27/24 12/27/24 12/26/24 History 62.5 mcg-vilant 25 mcg inhalat.powder (Trelegy Ellipta) nystatin 100,000 unit/gram topical 1 appl topical BID PRN Rash 12/27/24 12/27/24 Unknown History cream omeprazole 20 mg capsule,delayed 20 mg PO DAILY@0630 12/27/24 12/27/24 12/26/24 History release semaglutide 1 mg/dose (4 mg/3 mL) 1 mg subcut TH 12/27/24 12/27/24 12/26/24 History subcutaneous pen injector (Ozempic) Physical Exam Vital Signs: Vital Signs: Last Vital Signs Temp 96.9 F 12/28/24 11:23 Pulse 78 12/28/24 11:34 Resp 15 12/28/24 11:34 BP 103/61 12/28/24 11:23 Pulse Ox 92 12/28/24 11:23 O2 Del Method Nasal Cannula 12/28/24 11:23 O2 Flow Rate 4 12/28/24 11:23 Oxygen Flow Rate 3 12/27/24 16:33 BMI result Body Mass Index 35.6 Const: General: no acute distress and alert Nutritional Appearance: obese Orientation/consciousness: Other orientation findings ( oriented) HEENT: Head: Yes atraumatic Eyes: General: appearance normal, both eyes and all related structures Sclerae: sclerae normal EOM: EOMs intact bilaterally Neck: Neck: Yes supple Lymphatic: no lymphadenopathy noted Resp: Effort & Inspection: normal respiratory effort and no use of accessory muscles Auscultation: clear to auscultation bilaterally Cardio: Rate: regular rate Rhythm: regular rhythm Heart sounds: no gallops, no murmurs and no rubs Skin: General skin exam: other ( warm) Extrem: General: No clubbing, No cyanosis and Yes edema (Trace bilateral) Results Laboratory Findings 12/28/24 06:33 12/28/24 06:33 ABG, PT/INR, D-dimer: PT/INR, D-dimer PT 13.1 SEC (10.9-12.4) H 12/27/24 13:15 INR 1.1 (0.9-1.1) 12/27/24 13:15 Abnormal lab findings: Abnormal Labs 12/27/24 12/27/24 12/28/24 13:15 20:42 06:33 WBC 15.1 H RBC 3.52 L 2.94 L Hgb 11.5 L 9.6 L Hct 34.8 L 28.8 L MCV 98.9 H MPV 9.3 L 9.3 L Immature Gran % (Auto) 4.6 H Lymph % (Auto) 18.3 L Abs Immat Gran (auto) 0.69 H Absolute Neuts (auto) 10.5 H Absolute Nucleated RBC 0.040 H Nucleated RBC % (auto) 0.3 H PT 13.1 H Chloride 111 H BUN 27 H 23 H POC Glucose 123 H Random Glucose 123 H 150 H Lactic Acid 4.2 H* 12/28/24 12/28/24 07:18 11:19 WBC RBC Hgb Hct MCV MPV Immature Gran % (Auto) Lymph % (Auto) Abs Immat Gran (auto) Absolute Neuts (auto) Absolute Nucleated RBC Nucleated RBC % (auto) PT Chloride BUN POC Glucose 161 H 136 H Random Glucose Lactic Acid Assessment and Plan (1) Acute on chronic hypoxic respiratory failure: Status: Acute (2) COPD (chronic obstructive pulmonary disease): Status: Acute (3) Pulmonary fibrosis: Status: Acute (4) Bronchiectasis: Status: Acute (5) History of pulmonary embolism: Status: Acute Plan Impression: 68-year-old lady with underlying COPD, bronchiectasis, pulmonary fibrosis, supplemental oxygen 34 L dependent admitted with acute on chronic hypoxic respiratory failure on the background of epistaxis, now improved. CT angio chest resolution of previously noted pulmonary emboli. Lower extremity Doppler is pending. Recommendation: Poor tolerance of Eliquis with multiple major epistaxis events. If lower extremity Dopplers is negative, consider switching to aspirin, if positive, consider Ciarra filter. Acute component of hypoxia resolved, likely secondary to blood aspiration. No wheezing noted, at this time would suggest stopping systemic glucocorticoids. Procedures Date of Service Date of Service: 12/28/24
[2024-12-28 16:19] LABS: Glucose, Whole Blood 164 mg/dL (60-115)
[2024-12-28 20:17] LABS: Glucose, Whole Blood 117 mg/dL (60-115)
[2024-12-28] MEDS: Pravastatin Sodium 40 MG TABLET PO (20:32)
[2024-12-29] VITALS (9 sets, daily range): BP systolic 102–127; BP diastolic 56–63; PULSE 79–86; RESP 14–20; TEMP 36.2–36.9; O2SAT 89–96
[2024-12-29] MEDS: Albuterol/Iprat 2.5/0.5MG 3 ML AMPUL.NEB INHALE (00:21)
--- NOTE | 2024-12-29 06:24 | PC.NURSE ---
patient with poor O2 sats in upper 80's approx midnight. Difficulty maintaining 90%, COPD. O2 titrated and respiratory therapist called. UDN with good effect.
[2024-12-29] MEDS: Omeprazole 20 MG CAPSULE.DR PO ×2 (06:39→07:30)
[2024-12-29 07:22] LABS: Glucose, Whole Blood 96 mg/dL (60-115)
[2024-12-29] MEDS: 0.9 % Sodium Chloride Flush 3 ML SYRINGE IVFLUSH ×3 (07:29→20:37)
[2024-12-29] MEDS: Apixaban 5 MG TABLET PO (07:30)
[2024-12-29] MEDS: Escitalopram Oxalate 20 MG TABLET PO (07:30)
[2024-12-29] MEDS: Fluticasone/Umeclidinium/Vilanterol 200/62.5/25 BLST.W.DEV 1 PUFF INHALE (07:51)
[2024-12-29] MEDS: predniSONE 20 MG TABLET 40 MG PO (10:09)
[2024-12-29 11:08] LABS: Glucose, Whole Blood 140 mg/dL (60-115)
--- NOTE | 2024-12-29 12:02 | HO.PM.IMPN ---
Subjective Subjective Date of Service: 12/29/24 Interval History: desaturates with activity no wheezing Review of Systems Review of Systems: Yes all other systems are reviewed and are negative Physical Exam Vital Signs: Vital Signs: Last Vital Signs Temp 98.0 F 12/29/24 11:43 Pulse 81 12/29/24 11:43 Resp 20 12/29/24 11:43 BP 102/59 L 12/29/24 11:43 Pulse Ox 92 12/29/24 11:43 O2 Del Method Nasal Cannula 12/29/24 11:43 O2 Flow Rate 4 12/29/24 11:43 Oxygen Flow Rate 3 12/27/24 16:33 BMI result Body Mass Index 35.6 Gen: in no acute distress HEENT: sclera anicteric, moist mucus membranes Neck: supple Lungs: fine inspiratory crackles bilaterally Heart: regular rate and rhythm, no murmurs Abd: soft, non-tender, non-distended Ext: no edema Skin: warm/well-perfused Neuro: alert and oriented x3, no focal findings Psych: appropriate affect Objective Data Active Medications Acetaminophen (Acetaminophen 325 Mg Tablet) 650 mg PO Q6H PRN PRN Reason: Pain, Mild 1-3,fever,headache Albuterol Sulfate (Albuterol Sulfate 90 Mcg 8 Gm Inhaler) 2 puff INHALE Q6H PRN PRN Reason: Shortness Of Breath Or Wheezing Albuterol/Ipratropium (Albuterol/Iprat 2.5/0.5mg 3 Ml Ampul.Neb) 3 ml INHALE Q6H PRN PRN Reason: wheezing Last Admin: 12/29/24 00:21 Dose: 3 ml Documented By: BRIDGET Aspirin (Aspirin 325 Mg Tablet) 325 mg PO DAILY [facility] Last Admin: 12/29/24 10:07 Dose: Not Given Documented By: DENISSE Non-Admin Reason: held per [place] was adm this am Calcium Carbonate (Calcium Carbonate 750 Mg Tab.Chew) 750 mg PO Q4H PRN PRN Reason: Heartburn Dextrose (Dextrose 50 % 25 Gm/50 Ml Syringe) 25 gm IVPUSH Q15M PRN; Protocol PRN Reason: per Hypoglycemia Standing Ord. Escitalopram Oxalate (Escitalopram Oxalate 20 Mg Tablet) 20 mg PO DAILY [facility] Last Admin: 12/29/24 07:30 Dose: 20 mg Documented By: DENISSE Fluticasone/Umeclidinium/Vilanterol (Fluticasone/Umeclidinium/Vilanterol 200/62.5/25 Blst.W.Dev) 1 puff INHALE RDAILY [facility] Last Admin: 12/29/24 07:51 Dose: 1 puff Documented By: MARIBEL Glucose (Glucose Gel 15 Gm Gel..Gram.) 15 gm PO Q15M PRN; Protocol PRN Reason: per Hypoglycemia Standing Ord. Guaifenesin/Dextromethorphan (Guaifenesin Dm 200/20/10 Ml 10 Ml Syrup) 10 ml PO Q4H PRN PRN Reason: Cough Insulin Human Lispro (Insulin Lispro 100 Unit/Ml 3 Ml Vial) 0 unit SUBCUT QIDACHS [facility]; Protocol Last Admin: 12/29/24 11:21 Dose: Not Given Documented By: DENISSE Non-Admin Reason: No Insulin Coverage Magnesium Hydroxide (Milk Of Magnesia 30 Ml Oral.Susp) 30 ml PO DAILY PRN PRN Reason: Constipation Melatonin (Melatonin 3 Mg Tablet) 6 mg PO BEDTIME PRN PRN Reason: Insomnia Omeprazole (Omeprazole 20 Mg Capsule.Dr) 20 mg PO DAILY@0630 [facility] Last Admin: 12/29/24 07:30 Dose: 20 mg Documented By: DENISSE Ondansetron HCl (Ondansetron Hcl 4 Mg/2 Ml Vial) 4 mg IVPUSH Q8H PRN PRN Reason: Nausea and Vomiting Pravastatin Sodium (Pravastatin Sodium 40 Mg Tablet) 40 mg PO BEDTIME [facility] Last Admin: 12/28/24 20:32 Dose: 40 mg Documented By: ARNULFO Prednisone (Prednisone 20 Mg Tablet) 40 mg PO DAILY [facility] Last Admin: 12/29/24 10:09 Dose: 40 mg Documented By: DENISSE Sodium Chloride (0.9 % Sodium Chloride Flush 3 Ml Syringe) 3 ml IVFLUSH QSHIFT [facility] Last Admin: 12/29/24 07:29 Dose: 3 ml Documented By: DENISSE Labs 12/28/24 06:33 12/28/24 06:33 Labs: Laboratory Results - last 24 hr 12/28/24 12/28/24 12/29/24 15:54 19:41 07:18 POC Glucose 164 H 117 H 96 12/29/24 11:04 POC Glucose 140 H CTA chest 12/28/24 No acute pulmonary artery emboli. Resolved since prior CT images chest report. No aneurysm or dissection, thoracic aorta. Acute on chronic airspace disease versus pulmonary edema versus pneumonitis versus drug toxicity. Hiatal hernia, moderate to large volume bilateral leg duplex 12/28/24 Negative for bilateral lower extremity deep vein thrombosis. Microbiology Microbiology Results: Microbiology 12/27/24 13:15 Blood Culture - Preliminary Blood - Venous No growth after 24 hours. 12/27/24 13:15 Blood Culture - Preliminary Blood - Venous No growth after 24 hours. Assessment and Plan (1) COPD (chronic obstructive pulmonary disease): Status: Acute Plan d3 for 68yo with pulmonary fibrosis, hypersensitivity pneumonitis, COPD on home O2 6-8L and chronic prednisone 50 mg/d, recent hospitalization for Covid-19 and DVT/PE on apixaban sent in from horse stud manager's office due to hypoxia acute-chronic hypoxic respiratory failure post-Covid pneumonitis - CTA negative for PE - Pulmonology consulted, acute hypoxia thought due to aspiration of blood from epistaxis, recommended stopping IV steroids - continue prn nebs, Trelegy inhaler - resume prednisone which her outpatient horse stud manager had just decreased from 50 to 40 mg daily - wean O2 as tolerated acute lactic acidosis - likely due to hypoxia/albuterol COPD - continue Trelegy hx VTE/PE - had multiple severe nosebleeds on apixaban; no residual clot on CTA or leg venous duplex; change to ASA 325 mg daily mood disorder - escitalopram dispo - PT consulted; recommend STR/IPR In my clinical judgment, the patient requires continued inpatient hospitalization for the following reasons: placement Total time managing care of this patient today: 35 minutes. Quality Stroke Does the patient have a stroke diagnosis?: No VTE Prior VTE?: Yes VTE Risk Level:: Medical - moderate - high VTE Device Contraindication: Treatment Not Indicated VTE Drug Contraindication: N/A - Med Ordered
--- NOTE | 2024-12-29 13:20 | MHC.CM.PN ---
Plan for dc to [facility] tomorrow 12/30. Patient aware and agrees w/ plan.
--- NOTE | 2024-12-29 13:25 | MHC.CM.PN ---
Per MD patient medically cleared for dc. Now agrees to pul rehab, but declines to return to [facility]. Referrals to [facility]. Awaiting bed offer. Will need auth.
[2024-12-29 16:14] LABS: Glucose, Whole Blood 171 mg/dL (60-115)
[2024-12-29] MEDS: Insulin Lispro 100 UNIT/ML 3 ML VIAL SUBCUT ×2 (16:53→20:36)
[2024-12-29 20:24] LABS: Glucose, Whole Blood 175 mg/dL (60-115)
[2024-12-29] MEDS: Pravastatin Sodium 40 MG TABLET PO (20:35)
[2024-12-30] VITALS (7 sets, daily range): BP systolic 93–116; BP diastolic 50–67; PULSE 73–99; RESP 16–20; TEMP 36.1–37.1; O2SAT 85–94
[2024-12-30] MEDS: Calcium Carbonate 750 MG TAB.CHEW PO (01:24)
[2024-12-30 07:55] LABS: Glucose, Whole Blood 91 mg/dL (60-115)
[2024-12-30] MEDS: Fluticasone/Umeclidinium/Vilanterol 200/62.5/25 BLST.W.DEV 1 PUFF INHALE (08:19)
[2024-12-30] MEDS: 0.9 % Sodium Chloride Flush 3 ML SYRINGE IVFLUSH ×2 (09:29→16:37)
[2024-12-30] MEDS: Aspirin 325 MG TABLET PO (09:29)
[2024-12-30] MEDS: Escitalopram Oxalate 20 MG TABLET PO (09:30)
[2024-12-30] MEDS: predniSONE 20 MG TABLET 40 MG PO (09:30)
[2024-12-30 11:47] LABS: Glucose, Whole Blood 140 mg/dL (60-115)
[2024-12-30 15:48] LABS: Glucose, Whole Blood 175 mg/dL (60-115)
--- NOTE | 2024-12-30 15:50 | MHC.CM.PN ---
per rounds pt is ready for dc awaitng auth from ins
[2024-12-30] MEDS: Insulin Lispro 100 UNIT/ML 3 ML VIAL SUBCUT ×2 (16:37→21:00)
--- NOTE | 2024-12-30 16:55 | P.PNIM_ITS ---
Subjective Subjective Date of Service: 12/30/24 Interval History: Had epistaxis early this morning now resolved, offers no other acute medical issues, no worsening shortness of breath, on 6 L at rest and 8 L with exertion, currently at baseline. Review of Systems All other system reviewed and are negative Physical Exam 2 Vital Signs: Vital Signs: Last Vital Signs Temp 98.7 F 12/30/24 15:29 Pulse 84 12/30/24 15:29 Resp 16 12/30/24 15:29 BP 109/53 L 12/30/24 15:29 Pulse Ox 92 12/30/24 15:29 O2 Del Method Nasal Cannula 12/30/24 15:29 O2 Flow Rate 4 12/30/24 15:29 Oxygen Flow Rate 3 12/27/24 16:33 BMI result Body Mass Index 35.6 Const: Other: Gen: in no acute distress HEENT: sclera anicteric, moist mucus membranes Neck: supple Lungs: Diminished , no acute distress Heart: regular rate and rhythm, no murmurs Abd: soft, non-tender, non-distended, bowel sounds audible Ext: no edema Skin: warm/well-perfused Neuro: alert and oriented x3, no focal findings Psych: appropriate affect Objective Data Active Medications Acetaminophen (Acetaminophen 325 Mg Tablet) 650 mg PO Q6H PRN PRN Reason: Pain, Mild 1-3,fever,headache Albuterol Sulfate (Albuterol Sulfate 90 Mcg 8 Gm Inhaler) 2 puff INHALE Q6H PRN PRN Reason: Shortness Of Breath Or Wheezing Albuterol/Ipratropium (Albuterol/Iprat 2.5/0.5mg 3 Ml Ampul.Neb) 3 ml INHALE Q6H PRN PRN Reason: wheezing Last Admin: 12/29/24 00:21 Dose: 3 ml Documented By: BRIDGET Aspirin (Aspirin 325 Mg Tablet) 325 mg PO DAILY [facility] Last Admin: 12/30/24 09:29 Dose: 325 mg Documented By: TAMAR Calcium Carbonate (Calcium Carbonate 750 Mg Tab.Chew) 750 mg PO Q4H PRN PRN Reason: Heartburn Last Admin: 12/30/24 01:24 Dose: 750 mg Documented By: TRENT Dextrose (Dextrose 50 % 25 Gm/50 Ml Syringe) 25 gm IVPUSH Q15M PRN; Protocol PRN Reason: per Hypoglycemia Standing Ord. Escitalopram Oxalate (Escitalopram Oxalate 20 Mg Tablet) 20 mg PO DAILY [facility] Last Admin: 12/30/24 09:30 Dose: 20 mg Documented By: TAMAR Fluticasone/Umeclidinium/Vilanterol (Fluticasone/Umeclidinium/Vilanterol 200/62.5/25 Blst.W.Dev) 1 puff INHALE RDAILY [facility] Last Admin: 12/30/24 08:19 Dose: 1 puff Documented By: MELISSA Glucose (Glucose Gel 15 Gm Gel..Gram.) 15 gm PO Q15M PRN; Protocol PRN Reason: per Hypoglycemia Standing Ord. Guaifenesin/Dextromethorphan (Guaifenesin Dm 200/20/10 Ml 10 Ml Syrup) 10 ml PO Q4H PRN PRN Reason: Cough Insulin Human Lispro (Insulin Lispro 100 Unit/Ml 3 Ml Vial) 0 unit SUBCUT QIDACHS [facility]; Protocol Last Admin: 12/30/24 16:37 Dose: 2 unit Documented By: TAMAR Magnesium Hydroxide (Milk Of Magnesia 30 Ml Oral.Susp) 30 ml PO DAILY PRN PRN Reason: Constipation Melatonin (Melatonin 3 Mg Tablet) 6 mg PO BEDTIME PRN PRN Reason: Insomnia Omeprazole (Omeprazole 20 Mg Capsule.Dr) 20 mg PO DAILY@0630 [facility] Last Admin: 12/29/24 07:30 Dose: 20 mg Documented By: DENISSE Ondansetron HCl (Ondansetron Hcl 4 Mg/2 Ml Vial) 4 mg IVPUSH Q8H PRN PRN Reason: Nausea and Vomiting Pravastatin Sodium (Pravastatin Sodium 40 Mg Tablet) 40 mg PO BEDTIME [facility] Last Admin: 12/29/24 20:35 Dose: 40 mg Documented By: DOMINIQUE Prednisone (Prednisone 20 Mg Tablet) 40 mg PO DAILY [facility] Last Admin: 12/30/24 09:30 Dose: 40 mg Documented By: TAMAR Sodium Chloride (0.9 % Sodium Chloride Flush 3 Ml Syringe) 3 ml IVFLUSH QSHIFT [facility] Last Admin: 12/30/24 16:37 Dose: 3 ml Documented By: TAMAR Labs 12/28/24 06:33 12/28/24 06:33 Labs: Laboratory Results - last 24 hr 02/07/25 02/07/25 02/07/25 13:15 13:22 15:55 MCV 98.9 H MCH 32.7 MCHC 33.0 RDW 15.8 Plt Count 285 MPV 9.3 L Immature Gran % (Auto) 4.6 H Neut % (Auto) 69.5 Lymph % (Auto) 18.3 L [place] % (Auto) 6.6 Eos % (Auto) 0.5 Baso % (Auto) 0.5 Lymph # (Auto) 2.8 [place] # (Auto) 1.0 Eos # (Auto) 0.1 Baso # (Auto) 0.1 Abs Immat Gran (auto) 0.69 H Absolute Neuts (auto) 10.5 H Absolute Nucleated RBC 0.040 H Nucleated RBC % (auto) 0.3 H PT 13.1 H INR 1.1 APTT 26.0 VBG pH 7.39 VBG pCO2 43 VBG pO2 32 VBG HCO3 26 VBG O2 Saturation 50.0 VBG Base Excess 1.6 Anion Gap 17 Estim Creat Clear Calc 52.6 Estimated GFR 40 POC Glucose Random Glucose 123 H Lactic Acid 4.2 H* Lactic Acid F/U @ 2Hr 1.6 Calcium 9.3 Magnesium 1.7 Troponin I High Sens 7.9 D B-Natriuretic Peptide 44 Influenza Type A (PCR) NEGATIVE Influenza Type B (PCR) NEGATIVE RSV RNA Qual (PCR) NEGATIVE SARS-CoV-2 RNA (RT-PCR) NEGATIVE 12/27/24 12/29/24 12/30/24 20:42 19:44 07:39 MCV MCH MCHC RDW Plt Count MPV Immature Gran % (Auto) Neut % (Auto) Lymph % (Auto) [place] % (Auto) Eos % (Auto) Baso % (Auto) Lymph # (Auto) [place] # (Auto) Eos # (Auto) Baso # (Auto) Abs Immat Gran (auto) Absolute Neuts (auto) Absolute Nucleated RBC Nucleated RBC % (auto) PT INR APTT VBG pH VBG pCO2 VBG pO2 VBG HCO3 VBG O2 Saturation VBG Base Excess Anion Gap Estim Creat Clear Calc Estimated GFR POC Glucose 123 H 175 H 91 Random Glucose Lactic Acid Lactic Acid F/U @ 2Hr Calcium Magnesium Troponin I High Sens B-Natriuretic Peptide Influenza Type A (PCR) Influenza Type B (PCR) RSV RNA Qual (PCR) SARS-CoV-2 RNA (RT-PCR) 12/30/24 12/30/24 11:38 15:33 MCV MCH MCHC RDW Plt Count MPV Immature Gran % (Auto) Neut % (Auto) Lymph % (Auto) [place] % (Auto) Eos % (Auto) Baso % (Auto) Lymph # (Auto) [place] # (Auto) Eos # (Auto) Baso # (Auto) Abs Immat Gran (auto) Absolute Neuts (auto) Absolute Nucleated RBC Nucleated RBC % (auto) PT INR APTT VBG pH VBG pCO2 VBG pO2 VBG HCO3 VBG O2 Saturation VBG Base Excess Anion Gap Estim Creat Clear Calc Estimated GFR POC Glucose 140 H 175 H Random Glucose Lactic Acid Lactic Acid F/U @ 2Hr Calcium Magnesium Troponin I High Sens B-Natriuretic Peptide Influenza Type A (PCR) Influenza Type B (PCR) RSV RNA Qual (PCR) SARS-CoV-2 RNA (RT-PCR) Microbiology Microbiology Results: Microbiology 12/27/24 13:15 Blood Culture - Preliminary Blood - Venous No growth after 48 hours. 12/27/24 13:15 Blood Culture - Preliminary Blood - Venous No growth after 48 hours. Assessment and Plan (1) Hypoxia: Status: Acute (2) Pneumonitis: Status: Acute (3) Acute on chronic hypoxic respiratory failure: Status: Acute (4) History of pulmonary embolism: Status: Acute Plan 68yo with pulmonary fibrosis, hypersensitivity pneumonitis, COPD on home O2 6-8L and chronic prednisone 50 mg/d, recent hospitalization for Covid-19 and DVT/PE on apixaban sent in from hospitality coordinator's office due to hypoxia acute-chronic hypoxic respiratory failure post-Covid pneumonitis - CTA negative for PE - Pulmonology consulted, acute hypoxia thought due to aspiration of blood from epistaxis, recommended stopping IV steroids - continue prn nebs, Trelegy inhaler - resume prednisone which her outpatient hospitality coordinator had just decreased from 50 to 40 mg daily - continue baseline oxygen 6 L at rest and 8 L with activity acute lactic acidosis - likely due to hypoxia/albuterol COPD - continue Trelegy hx VTE/PE - had multiple severe nosebleeds on apixaban; no residual clot on CTA or leg venous duplex; change to ASA 81 mg daily as per Pulmonary recommendation mood disorder - escitalopram dispo - PT consulted; recommend STR/IPR In my clinical judgment, the patient requires continued inpatient hospitalization for the following reasons for close clinical monitoring of respiratory status and safe disposition Quality Stroke Does the patient have a stroke diagnosis?: No VTE Prior VTE?: Yes VTE Risk Level:: Medical - moderate - high VTE Device Contraindication: Treatment Not Indicated VTE Drug Contraindication: N/A - Med Ordered
[2024-12-30 19:31] LABS: Glucose, Whole Blood 186 mg/dL (60-115)
[2024-12-30] MEDS: Pravastatin Sodium 40 MG TABLET PO (20:53)
[2024-12-31] VITALS (9 sets, daily range): BP systolic 95–118; BP diastolic 53–65; PULSE 83–110; RESP 16–20; TEMP 36.1–37.4; O2SAT 90–96
[2024-12-31] MEDS: Omeprazole 20 MG CAPSULE.DR PO (06:39)
[2024-12-31] MEDS: Acetaminophen 325 MG TABLET 650 MG PO (06:41)
[2024-12-31 07:57] LABS: Glucose, Whole Blood 93 mg/dL (60-115)
--- NOTE | 2024-12-31 07:58 | PC.NURSE ---
RN alerted to pt with bloody nose. Pt had already gone t hrough several washcloths applying pressure. pt noted to be gagging, states she can feel blood running down her throat. Dr. Esquivel aware and down to see patient. O2 sat found at 82% as pt not able to breath via nares. O2 humidified and applied via oxymiser over mouth. bleeding noted to be from L nare. Pt continuing to apply pressure to nare with litttle relief. pt transferred down to ED for further emergent care.
[2024-12-31] MEDS: Fluticasone/Umeclidinium/Vilanterol 200/62.5/25 BLST.W.DEV 1 PUFF INHALE (08:42)
[2024-12-31] MEDS: predniSONE 20 MG TABLET 40 MG PO (10:18)
[2024-12-31] MEDS: Escitalopram Oxalate 20 MG TABLET PO (10:18)
[2024-12-31] MEDS: 0.9 % Sodium Chloride Flush 3 ML SYRINGE IVFLUSH ×3 (10:20→20:50)
[2024-12-31] MEDS: Sodium Chloride 0.65 % Nasal 44 ML SPRBTL 1 SPRAY NOSTRIL-B (10:23)
[2024-12-31 11:46] LABS: Glucose, Whole Blood 154 mg/dL (60-115)
[2024-12-31 14:56] LABS: Hematocrit 27.7 % (37.0-47.0); Hemoglobin 9.2 g/dl (12.0-16.0); Mean Corpuscular HGB Conc 33.2 g/dl (31.0-35.0); Mean Corpuscular Hemoglobin 33.7 pg (27.0-33.0); Mean Corpuscular Volume 101.5 fL (80.0-98.0); Mean Platelet Volume 9.5 fL (9.4-12.3); Platelet Count 265 X10*3/uL (160-400); Red Blood Count 2.73 X10*6/uL (4.20-5.50); Red Cell Distribution Width 16.1 % (11.0-16.0); White Blood Count 16.9 X10*3/uL (4.8-10.8)
[2024-12-31 15:03] LABS: NRBC Pct Auto 1.3 /100WBC (0.0-0.2)
--- NOTE | 2024-12-31 15:26 | P.PNIM_ITS ---
Subjective Subjective Date of Service: 12/31/24 Interval History: Noted to have significant epistaxis from left nostril , noted to have passing clots Last Eliquis dose 48 hours ago, received aspirin last dose yesterday, not on subQ heparin or Lovenox Denies headache, stable blood pressure, no fevers, no chills, no worsening cough. Review of Systems All other system reviewed and are negative Physical Exam 2 Vital Signs: Vital Signs: Last Vital Signs Temp 98.0 F 12/31/24 12:41 Pulse 88 12/31/24 15:06 Resp 18 12/31/24 12:41 BP 112/59 L 12/31/24 12:41 Pulse Ox 90 L 12/31/24 12:41 O2 Del Method Nasal Cannula 12/31/24 12:41 O2 Flow Rate 4 12/31/24 12:41 Oxygen Flow Rate 3 12/27/24 16:33 BMI result Body Mass Index 35.6 Const: Other: Gen: Anxious HEENT: Significant bleeding left nostril Neck: supple Lungs: Diminished , no acute distress Heart: regular rate and rhythm, no murmurs Abd: soft, non-tender, non-distended, bowel sounds audible Ext: no edema Skin: warm/well-perfused Neuro: alert and oriented x3, no focal findings Psych: appropriate affect Objective Data Active Medications Acetaminophen (Acetaminophen 325 Mg Tablet) 650 mg PO Q6H PRN PRN Reason: Pain, Mild 1-3,fever,headache Last Admin: 12/31/24 06:41 Dose: 650 mg Documented By: ESTER Albuterol Sulfate (Albuterol Sulfate 90 Mcg 8 Gm Inhaler) 2 puff INHALE Q6H PRN PRN Reason: Shortness Of Breath Or Wheezing Albuterol/Ipratropium (Albuterol/Iprat 2.5/0.5mg 3 Ml Ampul.Neb) 3 ml INHALE Q6H PRN PRN Reason: wheezing Last Admin: 12/29/24 00:21 Dose: 3 ml Documented By: BRIDGET Calcium Carbonate (Calcium Carbonate 750 Mg Tab.Chew) 750 mg PO Q4H PRN PRN Reason: Heartburn Last Admin: 12/30/24 01:24 Dose: 750 mg Documented By: TRENT Dextrose (Dextrose 50 % 25 Gm/50 Ml Syringe) 25 gm IVPUSH Q15M PRN; Protocol PRN Reason: per Hypoglycemia Standing Ord. Escitalopram Oxalate (Escitalopram Oxalate 20 Mg Tablet) 20 mg PO DAILY [facility] Last Admin: 12/31/24 10:18 Dose: 20 mg Documented By: MANAV Fluticasone/Umeclidinium/Vilanterol (Fluticasone/Umeclidinium/Vilanterol 200/62.5/25 Blst.W.Dev) 1 puff INHALE RDAILY [facility] Last Admin: 12/31/24 08:42 Dose: 1 puff Documented By: MELISSA Glucose (Glucose Gel 15 Gm Gel..Gram.) 15 gm PO Q15M PRN; Protocol PRN Reason: per Hypoglycemia Standing Ord. Guaifenesin/Dextromethorphan (Guaifenesin Dm 200/20/10 Ml 10 Ml Syrup) 10 ml PO Q4H PRN PRN Reason: Cough Insulin Human Lispro (Insulin Lispro 100 Unit/Ml 3 Ml Vial) 0 unit SUBCUT QIDACHS [facility]; Protocol Last Admin: 12/31/24 14:35 Dose: Not Given Documented By: MANAV Non-Admin Reason: No Access Magnesium Hydroxide (Milk Of Magnesia 30 Ml Oral.Susp) 30 ml PO DAILY PRN PRN Reason: Constipation Melatonin (Melatonin 3 Mg Tablet) 6 mg PO BEDTIME PRN PRN Reason: Insomnia Omeprazole (Omeprazole 20 Mg Capsule.Dr) 20 mg PO DAILY@0630 [facility] Last Admin: 12/31/24 06:39 Dose: 20 mg Documented By: ESTER Ondansetron HCl (Ondansetron Hcl 4 Mg/2 Ml Vial) 4 mg IVPUSH Q8H PRN PRN Reason: Nausea and Vomiting Pravastatin Sodium (Pravastatin Sodium 40 Mg Tablet) 40 mg PO BEDTIME [facility] Last Admin: 12/30/24 20:53 Dose: 40 mg Documented By: ESTER Sodium Chloride (0.9 % Sodium Chloride Flush 3 Ml Syringe) 3 ml IVFLUSH QSHIFT [facility] Last Admin: 12/31/24 10:20 Dose: 3 ml Documented By: MANAV Sodium Chloride (Sodium Chloride 0.65 % Nasal 44 Ml Sprbtl) 1 spray NOSTRIL-B Q1H PRN PRN Reason: dryness Last Admin: 12/31/24 10:23 Dose: 1 spray Documented By: MANAV Labs 12/31/24 14:15 12/28/24 06:33 Labs: Laboratory Results - last 24 hr 12/27/24 12/30/24 12/30/24 13:15 15:33 19:14 MCV MCH MCHC RDW Plt Count MPV Absolute Nucleated RBC Nucleated RBC % (auto) PT INR POC Glucose 175 H 186 H Influenza Type A (PCR) NEGATIVE Influenza Type B (PCR) NEGATIVE RSV RNA Qual (PCR) NEGATIVE SARS-CoV-2 RNA (RT-PCR) NEGATIVE 12/31/24 12/31/24 12/31/24 07:43 11:18 14:15 MCV 101.5 H MCH 33.7 H MCHC 33.2 RDW 16.1 H Plt Count 265 MPV 9.5 Absolute Nucleated RBC 0.220 H Nucleated RBC % (auto) 1.3 H PT 12.0 INR 1.0 POC Glucose 93 154 H Influenza Type A (PCR) Influenza Type B (PCR) RSV RNA Qual (PCR) SARS-CoV-2 RNA (RT-PCR) Assessment and Plan (1) Hypoxia: Status: Acute (2) Pneumonitis: Status: Acute (3) Acute on chronic hypoxic respiratory failure: Status: Acute (4) History of pulmonary embolism: Status: Acute Plan 68yo with pulmonary fibrosis, hypersensitivity pneumonitis, COPD on home O2 6-8L and chronic prednisone 50 mg/d, recent hospitalization for Covid-19 and DVT/PE on apixaban sent in from upholstery tech's office due to hypoxia Left epistaxis Noted to have active bleeding therefore sent to emergency room left nostril rapid rhino was placed bleeding was controlled, noted to have recurrent bleed coughed up clots, therefore sent down to ED again with recurrent epistaxis left nostril, left nostril was packed with long Mericel packing by Dr. Diallo subsequently bleeding stopped hold aspirin, repeat hematocrit stable, INR 1, platelets 265 place on humidified oxygen via facemask/nasal saline sprays as needed/minimize manipulation If noted to have recurrent heavy bleed will transfer to tertiary care center due to lack of ENT service at [place]. acute-chronic hypoxic respiratory failure due to post-Covid pneumonitis - CTA negative for PE - Pulmonology consulted, acute hypoxia thought due to aspiration of blood from epistaxis, recommended stopping IV steroids - continue prn nebs, Trelegy inhaler, recently prednisone dose transitioned to 40 mg daily - continue oxygen to keep finger oximetry 90 92% - on baseline oxygen 6 L at rest and 8 L with activity acute lactic acidosis - likely due to hypoxia/albuterol COPD - continue Trelegy hx VTE/PE - had multiple severe nosebleeds on apixaban; no residual clot on CTA or leg venous duplex; changed to ASA 81 mg daily as per Pulmonary recommendation, due to nosebleed will hold oxygen for now. Add compression boots mood disorder - escitalopram dispo - PT consulted; recommend STR/IPR In my clinical judgment, the patient requires continued inpatient hospitalization for acute nosebleeds requiring close monitoring of CBC and for clinical stabilization. Quality Stroke Does the patient have a stroke diagnosis?: No VTE Prior VTE?: Yes VTE Risk Level:: Medical - moderate - high VTE Device Contraindication: Treatment Not Indicated VTE Drug Contraindication: N/A - Med Ordered
[2024-12-31 16:26] LABS: Glucose, Whole Blood 158 mg/dL (60-115)
[2024-12-31] MEDS: Insulin Lispro 100 UNIT/ML 3 ML VIAL SUBCUT ×2 (18:21→20:49)
[2024-12-31 18:38] LABS: Anion Gap 10 (12-20); Blood Urea Nitrogen 40 mg/dL (9-16); Calcium 8.8 mg/dL (8.4-10.2); Carbon Dioxide 23 mmol/L (22-29); Chloride 112 mmol/L (96-108); Creatinine Clr Calc Pharmacy 64.4; Estimated Glomerular Filt Rate 51; Glucose Random 165 mg/dL (60-115); Sodium 141 mmol/L (135-145)
[2024-12-31 20:11] LABS: Glucose, Whole Blood 204 mg/dL (60-115)
[2024-12-31] MEDS: Pravastatin Sodium 40 MG TABLET PO (20:49)
--- NOTE | 2025-01-01 02:32 | PC.NURSE ---
pt seen on bed alert and oriented, tolerating o2 at 4L/min via Oxymask, denies any pain, noted with rhino rocket on the left nare, no post nasal drip as claimed.
[2025-01-01 03:28] VITALS: BP 112/62; PULSE 90; RESP 18; TEMP 37.1; O2SAT 91
[2025-01-01] MEDS: Omeprazole 20 MG CAPSULE.DR PO (05:24)
[2025-01-01 07:34] VITALS: BP 110/62; PULSE 84; RESP 16; TEMP 36.2; O2SAT 91
[2025-01-01 07:37] LABS: Glucose, Whole Blood 88 mg/dL (60-115)
[2025-01-01] MEDS: Fluticasone/Umeclidinium/Vilanterol 200/62.5/25 BLST.W.DEV 1 PUFF INHALE (07:58)
[2025-01-01 08:00] VITALS: PULSE 94; RESP 16; O2SAT 88
[2025-01-01] MEDS: Escitalopram Oxalate 20 MG TABLET PO (08:19)
[2025-01-01] MEDS: 0.9 % Sodium Chloride Flush 3 ML SYRINGE IVFLUSH (08:19)
[2025-01-01 11:13] VITALS: BP 95/54; PULSE 89; RESP 18; TEMP 36.2; O2SAT 98
[2025-01-01 11:18] LABS: Glucose, Whole Blood 128 mg/dL (60-115)
[2025-01-01] MEDS: Amoxicillin/Potassium Clav 875 MG TABLET PO (11:59)
--- NOTE | 2025-01-01 12:49 | HO.PM.IMPN ---
Subjective Subjective Date of Service: 01/01/25 Interval History: No recurrent episodes of epistaxis overnight, left nostril packing in place, no fevers no chills no coughing, on 4 L of humidified oxygen. Review of Systems All other system reviewed and are negative Physical Exam Vital Signs: Vital Signs: Last Vital Signs Temp 97.1 F 01/01/25 11:13 Pulse 89 01/01/25 11:13 Resp 18 01/01/25 11:13 BP 95/54 L 01/01/25 11:13 Pulse Ox 98 01/01/25 11:13 O2 Del Method Oxymask 01/01/25 11:13 O2 Flow Rate 4 01/01/25 11:13 Oxygen Flow Rate 3 12/27/24 16:33 BMI result Body Mass Index 35.6 Const: Other: Gen: No acute distress HEENT: left nostril packing in place Neck: supple Lungs: Clear , no acute distress Heart: regular rate and rhythm, no murmurs Abd: soft, non-tender, non-distended, bowel sounds audible Ext: no edema Skin: warm/well-perfused Neuro: alert and oriented x3, no focal findings Psych: appropriate affect Objective Data Active Medications Acetaminophen (Acetaminophen 325 Mg Tablet) 650 mg PO Q6H PRN PRN Reason: Pain, Mild 1-3,fever,headache Last Admin: 12/31/24 06:41 Dose: 650 mg Documented By: ESTER Albuterol Sulfate (Albuterol Sulfate 90 Mcg 8 Gm Inhaler) 2 puff INHALE Q6H PRN PRN Reason: Shortness Of Breath Or Wheezing Albuterol/Ipratropium (Albuterol/Iprat 2.5/0.5mg 3 Ml Ampul.Neb) 3 ml INHALE Q6H PRN PRN Reason: wheezing Last Admin: 12/29/24 00:21 Dose: 3 ml Documented By: BRIDGET Amoxicillin/Clavulanate Potassium (Amoxicillin/Potassium Clav 875 Mg Tablet) 875 mg PO Q12H JO Last Admin: 01/01/25 11:59 Dose: 875 mg Documented By: NOAH Calcium Carbonate (Calcium Carbonate 750 Mg Tab.Chew) 750 mg PO Q4H PRN PRN Reason: Heartburn Last Admin: 12/30/24 01:24 Dose: 750 mg Documented By: TRENT Dextrose (Dextrose 50 % 25 Gm/50 Ml Syringe) 25 gm IVPUSH Q15M PRN; Protocol PRN Reason: per Hypoglycemia Standing Ord. Escitalopram Oxalate (Escitalopram Oxalate 20 Mg Tablet) 20 mg PO DAILY [facility] Last Admin: 01/01/25 08:19 Dose: 20 mg Documented By: NOAH Fluticasone/Umeclidinium/Vilanterol (Fluticasone/Umeclidinium/Vilanterol 200/62.5/25 Blst.W.Dev) 1 puff INHALE RDAILY [facility] Last Admin: 01/01/25 07:58 Dose: 1 puff Documented By: MARIBEL Glucose (Glucose Gel 15 Gm Gel..Gram.) 15 gm PO Q15M PRN; Protocol PRN Reason: per Hypoglycemia Standing Ord. Guaifenesin/Dextromethorphan (Guaifenesin Dm 200/20/10 Ml 10 Ml Syrup) 10 ml PO Q4H PRN PRN Reason: Cough Insulin Human Lispro (Insulin Lispro 100 Unit/Ml 3 Ml Vial) 0 unit SUBCUT QIDACHS [facility]; Protocol Last Admin: 01/01/25 11:38 Dose: Not Given Documented By: NOAH Non-Admin Reason: No Insulin Coverage Magnesium Hydroxide (Milk Of Magnesia 30 Ml Oral.Susp) 30 ml PO DAILY PRN PRN Reason: Constipation Melatonin (Melatonin 3 Mg Tablet) 6 mg PO BEDTIME PRN PRN Reason: Insomnia Omeprazole (Omeprazole 20 Mg Capsule.Dr) 20 mg PO DAILY@0630 [facility] Last Admin: 01/01/25 05:24 Dose: 20 mg Documented By: SUKHDEV Ondansetron HCl (Ondansetron Hcl 4 Mg/2 Ml Vial) 4 mg IVPUSH Q8H PRN PRN Reason: Nausea and Vomiting Pravastatin Sodium (Pravastatin Sodium 40 Mg Tablet) 40 mg PO BEDTIME [facility] Last Admin: 12/31/24 20:49 Dose: 40 mg Documented By: SUKHDEV Sodium Chloride (0.9 % Sodium Chloride Flush 3 Ml Syringe) 3 ml IVFLUSH QSHIFT [facility] Last Admin: 01/01/25 08:19 Dose: 3 ml Documented By: NOAH Sodium Chloride (Sodium Chloride 0.65 % Nasal 44 Ml Sprbtl) 1 spray NOSTRIL-B Q1H PRN PRN Reason: dryness Last Admin: 12/31/24 10:23 Dose: 1 spray Documented By: MANAV Labs 12/31/24 14:15 12/31/24 14:15 Labs: Laboratory Results - last 24 hr 12/31/24 12/31/24 12/31/24 14:15 16:22 20:06 MCV 101.5 H MCH 33.7 H MCHC 33.2 RDW 16.1 H Plt Count 265 MPV 9.5 Absolute Nucleated RBC 0.220 H Nucleated RBC % (auto) 1.3 H Smear Path Review SEE NOTE PT 12.0 INR 1.0 Anion Gap 10 L Estim Creat Clear Calc 64.4 Estimated GFR 51 POC Glucose 158 H 204 H Random Glucose 165 H Calcium 8.8 01/01/25 01/01/25 07:33 11:08 MCV MCH MCHC RDW Plt Count MPV Absolute Nucleated RBC Nucleated RBC % (auto) Smear Path Review PT INR Anion Gap Estim Creat Clear Calc Estimated GFR POC Glucose 88 128 H Random Glucose Calcium Assessment and Plan (1) Hypoxia: Status: Acute (2) Pneumonitis: Status: Acute Plan 68yo with pulmonary fibrosis, hypersensitivity pneumonitis, COPD on home O2 6-8L and chronic prednisone 50 mg/d, recent hospitalization for Covid-19 and DVT/PE on apixaban sent in from logistics clerk's office due to hypoxia Left epistaxis No recurrent bleeding overnight, history of recurrent epistaxis prior to hospitalization, while on Eliquis. active bleeding noted on 12/31 sent to emergency room left nostril rapid rhino was placed bleeding was controlled, noted to have recurrent bleed, coughed up clots, therefore sent down to ED again with recurrent epistaxis left nostril, left nostril was packed with long Mericel packing by Dr. Diallo subsequently bleeding stopped aspirin on hold, repeat hematocrit stable, INR 1, platelets 265 Continue humidified oxygen via facemask/nasal saline sprays as needed/minimize manipulation, Augmentin 875 b.i.d. for 5 days Will keep packing x3 days Spoke with gearcase assembler to arrange for ENT follow-up upon discharge in 2 days to remove packing otherwise packing to be removed by ED provider acute-chronic hypoxic respiratory failure due to post-Covid pneumonitis - CTA negative for PE - Pulmonology consulted, acute hypoxia thought due to aspiration of blood from epistaxis, recommended stopping IV steroids - continue prn nebs, Trelegy inhaler, recently prednisone dose transitioned to 40 mg daily, recommended to gradually wean oxygen 10 mg Q 2-3 weeks as per pulmonology - continue oxygen to keep finger oximetry 90 92% - at baseline oxygen 6 L at rest and 8 L with activity acute lactic acidosis- likely due to hypoxia/albuterol COPD- continue Trelegy hx VTE/PE - had multiple severe nosebleeds on apixaban; no residual clot on CTA or leg venous duplex; changed to ASA 81 mg daily as per Pulmonary recommendation, due to nosebleed will hold asa for now. compression boots mood disorder- escitalopram dispo- PT consulted; recommend STR / In my clinical judgment, the patient requires continued inpatient hospitalization for acute nosebleeds requiring close monitoring of CBC and for clinical stabilization, eventual rehab once ENT follow-up obtained. Quality Stroke Does the patient have a stroke diagnosis?: No VTE Prior VTE?: Yes VTE Risk Level:: Medical - moderate - high VTE Device Contraindication: Treatment Not Indicated VTE Drug Contraindication: N/A - Med Ordered
[2025-01-01 15:46] VITALS: BP 96/59; PULSE 87; RESP 18; TEMP 36.7; O2SAT 95
--- NOTE | 2025-01-01 15:56 | MHC.CM.PN ---
pt has packing that needs removalpts auth thru ins expires today called [facility] spoke with leslie toure [phone] who will speak with the dns and get back to us dir cm aware of situation
[2025-01-01 16:12] LABS: Glucose, Whole Blood 98 mg/dL (60-115)
--- NOTE | 2025-01-01 16:19 | PM.DS ---
DS: Providers Provider Date of Service: 01/01/25 Date of admission: 12/27/24 18:59 Date of discharge: 01/01/25 Primary care physician: Artis Whiting MD Consults: 12/27/24 18:59 Consult to Pulmonology Routine Consulting Provider: [facility] Reason for consultation: Hypoxic to the 50s, sent from office DS: Diagnosis Discharge Diagnosis (1) Hypoxia: Status: Acute (2) Pneumonitis: Status: Acute (3) Acute on chronic hypoxic respiratory failure: Status: Acute (4) History of pulmonary embolism: Status: Acute DS: Summary Hospital Course Hospital Course: History of presenting illness: Date of Service: 12/27/24 Attending physician on admission: [place] Darby Chief Complaint: Hypoxia Pt is a 68-year-old female with a PMH significant for?HLD, pulmonary fibrosis, COPD on home O2 6L at rest and 8L with exertion, recent DVT and PE on Eliquis, and former smoker with a 20 pack-year history who presents to the ED from managed care coordinator office visit after being found satting in the 50s. Pt was previously admitted to the hospital last month from 11/27-12/12 where she was treated for chronic hypoxic respiratory failure secondary to acute pulmonary embolism COPD exacerbation from COVID-19. Was initially treated with therapeutic Lovenox and transitioned to Eliquis 5 mg b.i.d.. Since then pt has developed significant epistaxis on at least 3-4 occasions, presenting to the ED last night on 12/26 for treatment. This morning pt presented for pulmonology follow-up and found that her O2 sat dip to 56% and she transitioned from wheelchair to car. Pt reports often will monitor her O2 sats with a home pulse ox, and notes she often becomes hypoxic with exertion, though normally not into the 50s. Complains of chronic SOB and difficulty breathing with exertion, which is currently around baseline. Pt denies cough or wheezing. No fever, sore throat, rhinorrhea, or nasal congestion. Pt states yesterday had some lightheadedness and dizziness with standing, though thought it was secondary to nosebleed. Overall pt reports she feels around baseline. In the ED pt was tachycardic up to 104, tachypneic up to 28, and hypoxic as low as 71% on 6L NC. Labs were significant for leukocytosis of 15.1, lactic acid 4.2 with repeat 1.6, creatinine 1.34. Otherwise grossly unremarkable and around baseline for pt. Stable microcytic anemia of 11.5/38 with MCV 98.9. No significant electrolyte abnormalities. CXR showed slight improved aeration with persistent multifocal pneumonia vs pulmonary hemorrhage vs pulmonary edema vs pneumonitis among other etiologies. CTA of chest found no acute pulmonary artery emboli, resolved since prior CT images. Did show acute on chronic airspace disease vs pulmonary edema vs pneumonitis vs drug toxicity. EKG demonstrated normal sinus rhythm without significant ischemic changes. Pt was treated with IVF. Pt will be admitted to the hospital for treatment and further evaluation of acute on chronic hypoxic respiratory failure concerning for long COVID syndrome. Hospital course: 68yo with pulmonary fibrosis, hypersensitivity pneumonitis, COPD on home O2 6-8L and chronic prednisone 50 mg/d, recent hospitalization for Covid-19 and DVT/PE on apixaban sent in from managed care coordinator's office due to hypoxia acute-chronic hypoxic respiratory failure due to post-Covid pneumonitis, CTA negative for PE, seen by pulmonology they felt acute hypoxemia due to aspiration of blood from epistaxis patient was treated with prn nebs, Trelegy inhaler, recently prednisone dose transitioned to 40 mg daily, recommended to gradually wean prednisone 10 mg Q 2-3 weeks as per pulmonology recommend to continue 4 L of oxygen humidified due to recurrent epistaxis to keep finger oximetry 90-92%, at baseline oxygen 6 L at rest and 8 L with activity, noted to have acute lactic acidosis likely due to hypoxia and albuterol improved. Left epistaxis patient with history of recurrent epistaxis while on Eliquis had an episode of active bleeding noted on 12/31 sent to emergency room, left nostril rapid rhino was placed, bleeding was controlled, noted to have recurrent bleed after couple hours, coughed up clots, therefore previous packing removed and was placed on long Mericel packing by ED provider Dr. Diallo, subsequently bleeding stopped,aspirin held, repeat hematocrit stable, INR 1, platelets 265, no recurrent bleed in last 24 hours, Continue humidified oxygen via facemask/nasal saline sprays as needed/minimize manipulation, Augmentin 875 b.i.d. for 5 days,need packing x3 days ending on 01/03 patient can have packing removed by ENT provider or can be referred to [facility] ED. COPD- continue Trelegy and prednisone as above hx VTE/PE - had multiple severe nosebleeds on apixaban; no residual clot on CTA or leg venous duplex; apixaban discontinued, changed to ASA 81 mg daily as per Pulmonary recommendation, due to nosebleed will hold asa for now, and resume after 7 to 10 days. mood disorder- continue Lexapro. Time Attestation Discharge Coordination Time (in mins): 40 Quality: Safe Use of Opioids Does Pt have an Active Cancer Diagnosis on the Problem List?: No Quality: Stroke Does the patient have a stroke diagnosis?: No Physical Exam Vital Signs: Vital Signs: Last Vital Signs Temp 98.1 F 01/01/25 15:46 Pulse 87 01/01/25 15:46 Resp 18 01/01/25 15:46 BP 96/59 L 01/01/25 15:46 Pulse Ox 95 01/01/25 15:46 O2 Del Method Oxymask 01/01/25 15:46 O2 Flow Rate 4 01/01/25 15:46 Oxygen Flow Rate 3 12/27/24 16:33 BMI result Body Mass Index 35.6 Const: Other: Gen: No acute distress HEENT: left nostril packing in place Neck: supple Lungs: Clear , no acute distress Heart: regular rate and rhythm, no murmurs Abd: soft, non-tender, non-distended, bowel sounds audible Ext: no edema Skin: warm/well-perfused Neuro: alert and oriented x3, no focal findings Psych: appropriate affect DS: Data Data Completed and Pending Labs on day of discharge: Laboratory Results - last 24 hr 12/31/24 12/31/24 12/31/24 14:15 16:22 20:06 Smear Path Review SEE NOTE Sodium 141 Potassium 4.0 Chloride 112 H Carbon Dioxide 23 Anion Gap 10 L BUN 40 H Creatinine 1.08 Estim Creat Clear Calc 64.4 Estimated GFR 51 POC Glucose 158 H 204 H Random Glucose 165 H Calcium 8.8 01/01/25 01/01/25 01/01/25 07:33 11:08 15:51 Smear Path Review Sodium Potassium Chloride Carbon Dioxide Anion Gap BUN Creatinine Estim Creat Clear Calc Estimated GFR POC Glucose 88 128 H 98 Random Glucose Calcium Discharge Plan Discharge Anticipated Discharge Date/Time: 01/01/25 16:11 Patient Disposition: Xfer SNF Discharge Diagnosis: Epistaxis left nostril Acute on chronic hypoxic respiratory failure due to post COVID pneumonitis Acute lactic acidosis. Referrals: francis jo [Other] - 1 Week Artis Whiting MD [Primary Care Provider] - 1 Week Discharge Medications: New dextromethorphan-guaifenesin 10-100 mg/5 mL Syrup 10 ml PO Q4H PRN (Reason: Cough) Qty: 237 0RF prednisone 20 mg Tablet 40 mg PO DAILY Qty: 20 0RF Rx Instructions: Wean prednisone as previously ordered by pulmonology amoxicillin-pot clavulanate 875-125 mg Tablet 1 tab PO Q12H Qty: 10 0RF Continued nystatin 100,000 unit/gram cream 1 appl topical BID PRN (Reason: Rash) omeprazole 20 mg capsule,delayed release(DR/EC) 20 mg PO DAILY@0630 Ozempic 1 mg/dose (4 mg/3 mL) pen injector 1 mg SUBCUT TH Trelegy Ellipta 200-62.5-25 mcg blister with device 1 ea INHALATION DAILY metformin 500 mg tablet 500 mg PO BIDWMEAL Qty: 180 0RF citalopram [Celexa] 40 mg tablet 40 mg PO DAILY pravastatin 40 mg tablet 40 mg PO BEDTIME albuterol sulfate 90 mcg/actuation HFA aerosol inhaler 2 puff inhalation Q6H PRN (Reason: Shortness Of Breath Or Wheezing) ipratropium-albuterol 0.5 mg-3 mg(2.5 mg base)/3 mL solution for nebulization 3 ml inhalation Q6H PRN (Reason: wheezing) Qty: 180 3RF Discontinued prednisone 50 mg tablet 50 mg PO DAILY Qty: 30 0RF Eliquis 5 mg Tablet 5 mg PO BID Qty: 0 0RF Discharge Orders: Discharge Order (Routine); Ordered 01/01/25 Ordered By: Margarette Yuen Diet: Diabetic diet Activity on Discharge: As tolerated Stand Alone Forms: Patient Portal Discharge page Print Language: Hungarian Care Plan Goals: Epistaxis resolved has packing left nostril that can be removed on Wednesday 01/03 by ENT or at [facility] Emergency room Take Augmentin 1 tablet twice daily to prevent infection due to packing Use humidified oxygen 4 L and increased to 6 L with activity if needed On prednisone 40 mg started on 12/29 decreased by 10 mg every 2-3 weeks as per pulmonology recommendation Discontinue Xarelto Resume aspirin 81 mg daily once epistaxis has resolved in 7-10 days Health Concerns: COPD oxygen dependent Plan of Treatment: Outpatient follow-up with primary care physician and pulmonology call for appointment upon discharge Assessment: As above
--- NOTE | 2025-01-01 16:21 | MHC.CM.PN ---
pt to be dcd to [facility] today [facility] to manage packing pt aware and will notify family
[2025-01-01 19:07] VITALS: BP 115/74; PULSE 105; RESP 16; TEMP 36.2; O2SAT 92
== END 2025-01-01 02:05 | disposition skilled nursing facility (03) | DRG 813 ==
LOC: HO.ED 13:19 → HO.EDOVER 19:21 → HO.S3 12-28 05:25
PROVIDERS: Family Medicine; Physician Assistant Medical; Admitting Provider Student in an Organized Health Care Education/Training Program; Emergency Provider Emergency Medicine Emergency Medical Services; PCP Internal Medicine; Visit Provider Hospitalist
DX: D68.32 Hemorrhagic disorder due to extrinsic circulating anticoagulants (principal); E87.21 Acute metabolic acidosis; R04.0 Epistaxis; J47.9 Bronchiectasis, uncomplicated; J84.10 Pulmonary fibrosis, unspecified; F39 Unspecified mood [affective] disorder; U09.9 Post COVID-19 condition, unspecified; D50.9 Iron deficiency anemia, unspecified; E78.5 Hyperlipidemia, unspecified; Z20.822 Contact with and (suspected) exposure to COVID-19; Z86.711 Personal history of pulmonary embolism; Z99.81 Dependence on supplemental oxygen; Z87.891 Personal history of nicotine dependence; Z79.01 Long term (current) use of anticoagulants; Z79.84 Long term (current) use of oral hypoglycemic drugs; Z79.899 Other long term (current) drug therapy
CPT/HCPCS: 0241U; 36415; 71045; 71275; 80048; 80053; 82784; 82803; 82947; 83605; 83735; 83880; 84484; 85025; 85027; 85610; 85730; 86038; 86039; 86225; 86235; 86431; 87040; 93005; 93970; 97162; 99212; 99282; 99283; 99285; J2919; Q9967

== ENCOUNTER → 2024-12-27 12:46 | Outpatient (BNV) | payer MEDICARE, SELFPAY | PROVIDERS: Emergency Provider Emergency Medicine Emergency Medical Services; PCP Internal Medicine; Visit Provider Radiology Diagnostic Radiology | DX: J18.9 Pneumonia, unspecified organism (principal); J44.9 Chronic obstructive pulmonary disease, unspecified; K44.9 Diaphragmatic hernia without obstruction or gangrene | CPT/HCPCS: 71045; 71275 ==

== ENCOUNTER → 2024-12-27 12:46 | Outpatient (BNV) | payer MEDICARE, SELFPAY | PROVIDERS: Admitting Provider Student in an Organized Health Care Education/Training Program; Emergency Provider Emergency Medicine Emergency Medical Services; PCP Internal Medicine; Visit Provider Internal Medicine Cardiovascular Disease | DX: R06.02 Shortness of breath (principal) | CPT/HCPCS: 93010 ==

== ENCOUNTER 2024-12-27 18:59 | Outpatient (BNV) | payer MEDICARE, SELFPAY | END 2024-12-28 14:28 | PROVIDERS: Admitting Provider Student in an Organized Health Care Education/Training Program; Emergency Provider Emergency Medicine Emergency Medical Services; PCP Internal Medicine; Visit Provider Radiology Diagnostic Radiology | DX: R09.02 Hypoxemia (principal) | CPT/HCPCS: 93970 ==

== ENCOUNTER → 2024-12-27 18:59 | Outpatient (BNV) | payer MEDICARE, SELFPAY | PROVIDERS: Admitting Provider Student in an Organized Health Care Education/Training Program; Emergency Provider Emergency Medicine Emergency Medical Services; PCP Internal Medicine; Visit Provider Student in an Organized Health Care Education/Training Program | DX: J96.21 Acute and chronic respiratory failure with hypoxia (principal); Z86.711 Personal history of pulmonary embolism; J98.4 Other disorders of lung | CPT/HCPCS: 99223; 99232; 99239 ==

== ENCOUNTER 2025-01-03 11:44 | Emergency (ER) | payer MEDICARE, SELFPAY ==
[2025-01-03 11:49] VITALS: BP 109/61; PULSE 86; RESP 20; TEMP 36.1; O2SAT 97; BMI 34.8
--- NOTE | 2025-01-03 12:04 | ED.GENADULT ---
HPI - General Adult General Chief complaint: General Medical Stated complaint: rocket in nose Time Seen by Provider: 01/03/25 12:10 Source: patient, family, RN notes reviewed and old records reviewed Mode of arrival: wheelchair Limitations: no limitations History of Present Illness ED Provider: Minoo HPI narrative: 69-year-old female presents for evaluation of nasal packing removal. Patient had a Merocel packing 3 days ago while admitted. She has had no further bleeding She reports that she is no longer taking her anticoagulation She has no pain, she would just like the packing Related Data Home Medications ?Medication ?Instructions ?Recorded ?Confirmed albuterol sulfate 90 mcg/actuation 2 puff inhalation Q6H PRN 03/26/24 12/27/24 aerosol inhaler Shortness Of Breath Or Wheezing citalopram 40 mg tablet (Celexa) 40 mg PO DAILY 03/26/24 12/27/24 pravastatin 40 mg tablet 40 mg PO BEDTIME 03/26/24 12/27/24 fluticasone fur. 200 mcg-umeclid 1 ea inhalation DAILY 11/27/24 12/27/24 62.5 mcg-vilant 25 mcg inhalat.powder (Trelegy Ellipta) nystatin 100,000 unit/gram topical 1 appl topical BID PRN Rash 12/27/24 12/27/24 cream omeprazole 20 mg capsule,delayed 20 mg PO DAILY@0630 12/27/24 12/27/24 release semaglutide 1 mg/dose (4 mg/3 mL) 1 mg subcut TH 12/27/24 12/27/24 subcutaneous pen injector (Ozempic) Previous Rx's ?Medication ?Instructions ?Recorded ipratropium 0.5 mg-albuterol 3 mg 3 ml inhalation Q6H PRN wheezing 09/03/24 (2.5 mg base)/3 mL nebulization #180 mL soln metformin 500 mg tablet 500 mg PO BIDWMEAL #180 tabs 12/11/24 amoxicillin 875 mg-potassium 1 tab PO Q12H #10 tabs 01/01/25 clavulanate 125 mg tablet dextromethorphan-guaifenesin 10 10 ml PO Q4H PRN Cough #237 mL 01/01/25 mg-100 mg/5 mL oral syrup prednisone 20 mg tablet 40 mg (2 x 20 mg) PO DAILY #20 tabs 01/01/25 Allergies Allergy/AdvReac Type Severity Reaction Status Date / Time codeine Allergy Intermediate Rash Verified 01/03/25 11:51 From DEMEROL Allergy Intermediate VOMITING Uncoded 12/27/24 12:47 Demerol Allergy Unknown Vomiting Uncoded 12/27/24 12:47 Review of Systems ENT: Denies epistaxis PMFSH Past Medical History Medical History HLD (hyperlipidemia) Pulmonary fibrosis Social History Social History Household Members: Spouse Housing: House Do you presently have visiting nurse or other home services: No Comment: pt rings call morris appropriately for assistance OOB Patient Tobacco Use Status: Former Tobacco user Tobacco use type: Cigarette e-Cigarette/Vaping Use: Never Used Second Hand Smoke Exposure: No Advance Directives: No Advance Directives Information Provided: Yes service: No Physical Exam ED Vital Signs: Vital Signs - 24 hr 01/03/25 11:49 Temperature 97.0 F Pulse Rate 86 Respiratory Rate 20 Blood Pressure 109/61 Pulse Oximetry 97 Oxygen Delivery Method Nasal Cannula BMI result Body Mass Index 34.8 Const General: healthy appearing, comfortable, no acute distress, alert and awake Nutritional Appearance: well nourished Orientation/consciousness: patient oriented x3 HENMT Other: Merocel packing present in the left nostril Head: Yes normocephalic and Yes atraumatic Eyes Eyelids: Yes eyelids normal Conjunctivae: conjunctivae normal Sclerae: sclerae normal Corneas: corneas normal Pupils: Equal, round and reactive pupils present EOM: EOMs intact bilaterally Neck Neck: Yes full ROM Resp Effort & Inspection: normal respiratory effort, able to speak in complete sentences and not labored Skin General skin exam: elasticity normal Neuro General: patient oriented x3 Cranial nerves: Yes Equal, round and reactive pupils present and Yes Bilaterally intact EOM present Cognition (Neuro): normal cognition Extrem Other: Moving all extremities well without any obvious deformities Medical Decision Making Medical Decision Making MDM Narrative: I was able to lubricate the packing with normal saline and I was able to gently remove the packing without any resistance or difficulty. There was no further bleeding. Differential Diagnosis Differential Diagnoses: The differential diagnosis associated with the presentation includes Epistaxis Coagulopathy Anticoagulation use Thrombocytopenia Packing removal Discharge Plan Discharge Clinical Impression: Epistaxis Patient Disposition: Home, Self-Care Instructions: Nosebleed (ED) Additional Instructions: The packing was removed from your nose without any difficulty. I recommend that you continue the facemask for oxygen supplementation for the rest of today. You may then go back to your nasal cannula Follow-up with ENT as an outpatient Prescriptions: No Action nystatin 100,000 unit/gram cream 1 appl topical BID PRN (Reason: Rash) omeprazole 20 mg capsule,delayed release(DR/EC) 20 mg PO DAILY@0630 Ozempic 1 mg/dose (4 mg/3 mL) pen injector 1 mg SUBCUT TH dextromethorphan-guaifenesin 10-100 mg/5 mL Syrup 10 ml PO Q4H PRN (Reason: Cough) Qty: 237 0RF prednisone 20 mg Tablet 40 mg PO DAILY Qty: 20 0RF Rx Instructions: Wean prednisone as previously ordered by pulmonology amoxicillin-pot clavulanate 875-125 mg Tablet 1 tab PO Q12H Qty: 10 0RF Trelegy Ellipta 200-62.5-25 mcg blister with device 1 ea INHALATION DAILY metformin 500 mg tablet 500 mg PO BIDWMEAL Qty: 180 0RF citalopram [Celexa] 40 mg tablet 40 mg PO DAILY pravastatin 40 mg tablet 40 mg PO BEDTIME albuterol sulfate 90 mcg/actuation HFA aerosol inhaler 2 puff inhalation Q6H PRN (Reason: Shortness Of Breath Or Wheezing) ipratropium-albuterol 0.5 mg-3 mg(2.5 mg base)/3 mL solution for nebulization 3 ml inhalation Q6H PRN (Reason: wheezing) Qty: 180 3RF Referrals: Cordell Hurt [Physician] - (epistaxis) Print Language: Vietnamese
[2025-01-03 12:36] VITALS: BP 109/61; PULSE 86; RESP 20; TEMP 36.1; O2SAT 97
--- OUTSIDE RECORDS SUMMARY | 2025-01-03 12:44 | XMS_ITS | Data Portability ---
Author Organization [facility], Main Office Address [address] [place] [address] Care Team Providers Care Zinc Skimmer Name Role Phone KELSO RE[facility] ([facility]) OTHER UDAY FORD Primary Care Provider Assessment Encounter Date Assessment Date Assessment LastModified by Organization Details LastModified Time 01/02/2025 01/02/2025 Labs 12/31: Na 141-K 4.0-bun 40-cr 1.0 Not available 01/02/2025 19:47:32 Plan of Treatment Reminders Order Date Submit Date Provider Last Modified By Organization Details Last Modified Time Details Appointments None record ed. Lab None record ed. Referral None record ed. Procedures None record ed. Surgeries None record ed. Imaging None record ed. Medication Orders None record ed. Patient TargetsNo targets recorded. Patient InstructionsNo instructions recorded. Reason for Referral None Reported. Problems Name Problem SNOMED Code Status Onset Date Resolution Date Notes Provider Name and Address Organization Details Recorded Time Hyperlipid emia 22023565 Active 2024 Not Available [facility] 16:48:22 Acute exacerbati on of chronic obstructiv e pulmonary disease 495827149 Active 2024 Not Available [facility] 16:49:33 Thromboemb olism of vein 576116532 Active 2024 Not Available [facility] 16:50:25 Type 2 diabetes mellitus without complicati on 879009338 Active 2024 Not Available [facility] 16:52:47 Fibrosis of lung 91888801 Active 2024 Not Available [facility] 5 15:13:26 Acute on chronic hypoxemic respirator y failure 7369427587049 9100 Active 2024 Not Available [facility] 5 15:13:48 Bleeding from nose 947595133 Active 2024 Not Available [facility] 5 18:43:13 Chronic obstructiv e pulmonary disease 43710513 Active 2024 [facility] [address] , [address], [place], [address] , [facility] 5 19:33:28 Depressive disorder 58680372 Active 2024 [facility] [address] [facility] [address], [place], [address] , [facility] 5 19:57:53 Gastroesop hageal reflux disease 900698023 Active 2024 [facility] [address] , [address], [place], [address] , [facility] 5 19:58:45 Problem Notes None recorded. Medical Equipment None Reported. Allergies Allergen ID Allergen Name Allergen Category Reaction Reaction Severity Criticality Documentation Date Start Date Code Code System Note Provider Name and Address Organization Details Recorded Time 62295 Demerol medicatio n Not available Not available Not available 01/01/20252024 18142 1 RxNorm Not Available Not Available Not Available 82396 codeine medicatio n Not available Not available Not available 01/02/2025 2670 RxNorm Not Available Not Available Not Available Medications Name Sig Start Date Stop Date Status Note LastModified by Organization Details LastModified Time metformin 500 mg tablet Give 1 tablet by mouth two times a day for Type 2 DM Give with meals 2024 active Not Available Not Available Not Avai lable prednisone 10 mg tablet Give 4 tablet by mouth in the morning for COPD Exacerbat ion. for 10 Days THEN Give 3 tablet by mouth in the morning for COPD Exacerbat ion. for 14 Days THEN Give 2 tablet by mouth one time a day for COPD Exacerbat ion. for 14 Days THEN Give 1 tablet by mouth one time a day for COPD Exacerbat ion. 2024 active Not Available Not Available Not Avai lable ipratropium 0.5 mg-albutero l 3 mg (2.5 mg base)/3 mL nebulizatio n soln 1 vial inhale orally via nebulizer every 6 hours as needed for Wheeze;Sh ortness of Breath 2024 active Not Available Not Available Not Avai lable pravastatin 40 mg tablet Give 1 tablet by mouth at bedtime for HLD Avoid grapefrui t juice. 2024 active Not Available Not Available Not Avai lable insulin lispro (U-100) 100 unit/mL subcutaneou s solution Inject as per sliding scale: if 200 - 249 = 2 units; 250 - 299 = 4 units; 300 - 349 = 6 units; 350 - 399 = 8 units; 400 - 999 = 10 unit Call MD / OVERNIGHT HOUSEPERSON, subcutane ously before meals for DM 2024 active Not Available Not Available Not Avai lable Laxative (sennosides ) 8.6 mg tablet Give 1 tablet by mouth every 24 hours as needed for Constipat ion 2024 active Not Available Not Available Not Avai lable Celexa 40 mg tablet Give 1 tablet by mouth one time a day for depressio n 2024 active Not Available Not Available Not Avai lable amoxicillin 875 mg-potassiu m clavulanate 125 mg tablet Give 1 tablet by mouth every 12 hours for infection for 5 Days 01/07 completed Not Available Not Available Not Available nystatin-em ollient combo no.54 100,000 unit/gram topical cream Apply to under breasts topically every 12 hours as needed for Rash 2024 active Not Available Not Available Not Avai lable sodium phosphates 19 gram-7 gram/197 mL enema Insert 1 unit rectally every 24 hours as needed for Constipat ion Use only if Bisacodyl Supposito ry is ineffecti ve 2024 active Not Available Not Available Not Avai lable [employer] Counter Assistant (omeprazole ) 20 mg capsule,del ayed release Give 1 capsule by mouth one time a day for Gerd. Take on empty stomach. Do not crush. May be opened and sprinkled on applesauc e. 2024 active Not Available Not Available Not Avai lable Ozempic 1 mg/dose (4 mg/3 mL) subcutaneou s pen injector Inject 1 mg subcutane ously one time a day every Mari for Type 2 DM 2024 active Not Available Not Available Not Avai lable OneLAX Bisacodyl 10 mg rectal suppository Insert 1 supposito ry rectally every 24 hours as needed for constipat ion Use if Senna is Ineffecti ve 2024 active Not Available Not Available Not Avai lable Vitals Date Recorded Heart rate Body temperature Oxygen saturation Oxygen saturation in Arterial blood by Pulse oximetry Respiratory rate Systolic blood pressure Diastolic blood pressure Provider Name and Address Organization Details Last Updated DateTime 72 /min 97.8 [degF] 95 % 95 % 18 /min 113 mm[Hg] 68 mm[Hg] [facility] [address] [facility] [address] [facility], [address], [place], [address], [facility] 5 20:03:26 Social History Question Answer Notes LastModified by Organizat ion Details LastModified Time Tobacco Smoking Status Former Smoker [facility] [address] [facility] [facility], [address], [place], [address], [facility] 01/02/2025 20:00:56 Do You Have An Advance Directive? Yes Information not available 01/02/2025 What Is Your Level Of Alcohol Consumption? None Information not available 01/02/2025 What Is Your Code Status? Full Code MOLST 01/02/25 [email or web address] Information not available 01/02/2025 Where Do You Live? [facility] Information not available 01/02/2025 What Was The Date Of Your Most Recent Tobacco Screening? 01/01/2025 Information not available 01/02/2025 Do You Have An Out Of Hospital DNR? Yes [email or web address] Information not available 01/02/2025 What Is Your Relationship Status? Information not available 01/02/2025 Do You Use Any Illicit Or Recreational Drugs? No Information not available 01/02/2025 Has Tobacco Cessation Counseling Been Provided? No Information not available 01/02/2025 Do You Or Have You Ever Used Any Other Forms Of Tobacco Or Nicotine? No Information not available 01/02/2025 Sex: Unknown Functional Status None recorded. Mental Status None recorded. Family History Nothing Reported. Medical History No medical history recorded. Gynecological HistoryNo gynecological history recorded. Obstetrics History GPAL:G 0 P 0 0 0 0 Immunizations Vaccine Type Date Status Note Provider Nam e and Address Organization Details Recorded Time Respiratory syncytial virus (RSV) vaccine, unspecified 4 completed [facility] 01/02/2025 15:33:31 Pneumococcal conjugate PCV 13 4 completed [facility] 01/02/2025 15:35:04 influenza, unspecified formulation 3 completed [facility] 01/02/2025 15:36:40 influenza, unspecified formulation 4 completed [facility] 01/02/2025 15:36:47 SARS-COV-2 (COVID-19) vaccine, UNSPECIFIED 1 completed [facility] 01/02/2025 15:37:08 Past Encounters Encounter ID Performer Location Encounter Start Date Encounter Closed Date Diagnosis/Indication Diagnosis SNOMED-CT Code Diagnosis ICD10 Code Diagnosis Note [id number] [facility] [address] [place] [address] 01/02/2025 10:57:46 01/02/2025 20:04:14 Acute on chronic hypoxemic respiratory failure 0010363569 0874897 J96.21 see hpistarted on prednisone 40 mg -recommend ed by pulm. to wean recommende d to gradually wean prednisone 10 mg Q 2-3 weeks.base line she was using 6-8 liter O2now recommende d humidified oxygen 4 L and increased to 6 L with activity if neededkeep finger oximetry 90-92%RT eval and tx prn. Bleeding from nose 74950 6005 R04.0 recurrent epistaxisn o residual clot on CTA or leg venous duplexeliq uis discontinu ed in acute careResume aspirin 81 mg daily once epistaxis has resolved in 7-10 daysO2 dependent/ use humidified oxygen Chronic ob structive pulmonary disease 58329018 J44.9 baseline O2 dependentc ont trilegy , albuterol inhaler,on prednisone 40 mg taper to wean every 2 weeks per pulmonolog y recommenda tion Type 2 steve betes mellitus without complication 482888145 E11.9 cont ozempic, metformino n high dose prednisone start lispro SSCmonitor accuchecks TID Hyperlipidemia 97085028 E78.5 cont pravastati n Depressive disorder 3548 9007 F32.A on celexamoni tor mood and behaviors Gastroesop hageal reflux disease 448599940 K21.9 cont omeprazole monitor for gi upset Health Concerns Section Related Observation LastModified by Organization Detai ls LastModified Time None Recorded Concern Status LastModified by Organization Details LastModified Time None Recorded Advance Directives Directive Y: Payers Encounter Date Sequence Insurance Name Policy Number Policy Britton Covered Member ID Britton Member ID Guarantor Name 01/02/2025 1 [facility] (MEDICARE REPLACEMENT/A DVANTAGE - PPO) [id number] Jeny Diez [id number] Jeny Diez Notes Date Note Type Note Provider Name and Address Organization Details Recorded Time 01/02/2025 text/html This is a 68-year-old female patient with a PMH HLD, pulmonary fibrosis, COPD on home O2 6L at rest and 8L with exertion, recent DVT and PE on Eliquis, and former smoker with a 20 pack-year history. She was referred to ED from [facility] with O2 sat in the 50%. She had a recent hospital stay from 11/27-12/12 for chronic hypoxic respiratory failure secondary to acute pulmonary embolism COPD exacerbation from COVID-19. she was anticoagulated and developed epistaxis 3-4 times. She was admitted to hospital for acute on chronic hypoxic respiratory failure concerning for long COVID syndrome. CTA negative for PE, eliquis discontinued. seen by pulmonology they felt acute hypoxemia due to aspiration of blood from epistaxis. She has a recurrence of epistaxis on 12/31, a rapid rhino was placed in left naresnoted to have recurrent bleed after couple hours, coughed up clots, previous packing removed and was placed on long Mericel packing; bleeding stopped,aspirin held, packing to stay in for 3 days and to be removed on 01/03. She can returned to ED at [facility] for removal by ENT or ED provider at [facility] . She was started on augmentin for 5 days Patient is seen for initial intake for continued care and rehab. [facility] [address], [address], [place], [address], [facility] 01/02/2025 20:04:13 OBGyn Episode No OBEpisode recorded.
--- OUTSIDE RECORDS SUMMARY | 2025-01-03 12:44 | XMS_ITS | Encounter Summary ---
Author Organization [facility] Address [address] [place] [address] Care Team Providers Care [employer] Name Role Phone Artis Whiting MD Primary Care Provider [phone] Reason for Visit * Reason Onset Date Comments Appointment 12/05/2024 1st Notification Encounter Details Date Type Department Care Team ([facility] st Contact Info) Description 12/05/2024 Telephone Lung Screening Program - [address] [place] [address] Brook Danielle [place] Appointment (1st Notification) Social History Tobacco Use Types Packs/Day Years Used Date Smoking Tobacco: Former Smokeless Tobacco: Never Alcohol Use Standard Drinks/Week Comments Not Currently 0 (1 standard drink = 0.6 oz pur e alcohol) Comments Unknown Sex and Gender Information Value Date Recorded Sex Assigned at Female 01/01/2025 12:31 PM EST Legal Sex Female 7:32 AM EST Gender Identity Female 01/01/2025 12:31 PM EST Sexual Orientation Not on file documented as of this encounter Progress Notes * Brook Danielle MA - 12/05/2024 11:59 AM EST Jeny Diez was contacted by the Lung Cancer Screening Program today to confirm the appointment of their Lung Cancer Screening. The patient is currently scheduled to have their screening on Monday at [facility]. No answer left answer For all screenings scheduled during the week, the patient will check in at Patient Registration on the first floor of the [facility] hospital. For screenings that take place on [...] Info) Description 01/04/2025 8:30 AM EST Appointment [facility] CT Scan [address] [place] [address] documented as of this encounter Visit Diagnoses Not on filedocumented in this encounter Care Teams [employer] Relationship Specialty Start Date End Date Artis Whiting MD PCP - General 08/10/23 01/01/25 documented as of this encounter
--- OUTSIDE RECORDS SUMMARY | 2025-01-03 12:44 | XMS_ITS | Encounter Summary ---
Author Organization [facility] Address [address] [place] [id number] Care Team Providers Care [employer] Detective Name Role Phone Unavailable Primary Care Provider Unavailabl e Reason for Referral * ENT (Routine) - Pending Review Specialty Diagnoses / Procedures Referred By Terrie mcintyre Referred To Contact Otolaryngology Diagnoses Bilateral hearing loss, unspecified hearing loss type Artis Whiting MD [address] [address] [facility] [address] [place] [phone] Referral ID Status Reason Start Date Expiration Date Visits Requested Visits Authorized [id number] Pending Review Consult 12/09/2024 12/10/2025 1 1 Encounter Details Date Type Department Care Team (Latest Contact Info) Description 12/09/2024 Transcribe Orders [facility] Artis Whiting MD [address] [address] Bilateral hearing loss, unspecified hearing loss type [...]
--- OUTSIDE RECORDS SUMMARY | 2025-01-03 12:44 | XMS_ITS | Clinical Summary ---
Author Organization [facility] Address [address] [place] [address] Phone Care Team Providers Care Fire Prevention Officer Name Role Phone Chuy Nguyễn MD Primary Care Provider [phone] Medications albuterol HFA (PROAIR HFA ; PROVENTIL HFA ; VENTOLIN HFA) 90 mcg/actuation inhaler Inhale 2 puffs by mouth every 6 (six) hours if needed for wheezing. 1 each 1 12/23/2024 Active Encounters Date Type Department Care Team Description 01/02/2025 Lab Requisition [facility] - Main Lab [address] [facility] [place] [id number] Chuy Nguyễn MD Essential (primary) hypertension 12/05/2024 Telephone Lung Screening Program - [address] [place] [phone] [place] Daniel[place] Appointment (1st Notification) from [...] PM EST Sexual Orientation Not on file Obstetrics History [...] Description 01/04/2025 8:30 AM EST Appointment [facility] CT Scan [address] [place] [address] Health Maintenance Due Date Last Done Comments Breast Cancer Screening 1955 DTaP,Tdap,and Td Vaccines (1 - Tdap) 1976 Pneumococcal Vaccine: 50+ Ye ars (1 of 2 - PCV) 1976 Zoster Vaccines (1 of 2) 2007 [...] 5 season) 2024 Influenza Vaccine (#1) 2024 Hypertension/CHF/CAD Annual BMP Blood Test 01/02/2026 01/02/2025 HIB Vaccines Aged Out No longer eligi [...] patient's age to complete this topic Meningococcal B Vacine Aged Out No lo nger eligible based on patient's age to complete this topic RSV Immunization Patients Un lidia 20 months Aged Out No longer eligible b ased on patient's age to complete this topic Varicella Vaccines Aged Out No longer eligible based on patient's age to complete this topic Procedures Procedure Name Priority Date/Time Associated Diagnosis Comments COMPREHENSIVE METABOLIC PANEL Routine 01/02/2025 9:28 AM EST Essential (primary) hypertension COMPLETE BLOOD COUNT Routine 01/02/2025 9:28 AM EST Essential (primary) hypertension from Last 3 Months Results * (ABNORMAL) Complete blood count (01/02/2025 9:28 AM EST) WBC 12.8(H) 4.8 - 10.8 K/mcL LAB HEMETOLOGY METHOD 01/02/2025 12:51 PM [facility] RBC 2.50(L) 3.80 - 4.80 M/mcL LAB HEMETOLOGY METHOD 01/02/2025 12:51 PM [facility] Hemoglobin 8.4(L) 11.5 - 16.0 g/dL LAB HEMETOLOGY METHOD 01/02/2025 12:51 PM [facility] Hematocrit 26.2(L) 35.0 - 47.0 % LAB HEMETOLOGY METHOD 01/02/2025 12:51 PM [facility] MCV 103.6(H) 79.0 - 98.0 FL LAB HEMETOLOGY METHOD 01/02/2025 12:51 PM [facility] MCH 33.2(H) 27.0 - 32.0 pcg LAB HEMETOLOGY METHOD 01/02/2025 12:51 PM EST [facility] MCHC 32.1 32.0 - 37.0 g/dL LAB HEMETOLOGY METHOD 01/02/2025 12:51 PM EST [facility] RDW 16.6(H) 11.0 - 15.0 % LAB HEMETOLOGY METHOD 01/02/2025 12:51 PM EST [facility] Platelets 245 130 - 400 K/mcL LAB HEMETOLOGY METHOD 01/02/2025 12:51 PM EST [facility] MPV 9.5 7.0 - 11.0 FL LAB HEMETOLOGY METHOD 01/02/2025 12:51 PM [facility] NRBC 1.4(H) <1.0 % LAB HEMETOLOGY METHOD 01/02/2025 12:51 PM [facility] NRBC Absolute 0.18(H) <0.10 K/mcL LAB HEMETOLOGY METHOD 01/02/2025 12:51 PM [facility] Blood Venous blood specimen / Unknown Venipuncture / Unknown 01/02/2025 9:28 AM EST 01/02/2025 11:08 AM EST us Chuy Nguyễn MD LAB BLOOD ORDERABLES Final Resul t [facility] [address] [place] [address], * (ABNORMAL) Comprehensive metabolic panel (01/02/2025 9:28 AM EST) Sodium 139 133 - 145 mmol/L LAB CHEMISTRY METHOD 01/02/2025 12:30 PM EST [facility] Potassium 4.0 3.5 - 5.5 mmol/L LAB CHEMISTRY METHOD 01/02/2025 12:30 PM [facility] Chloride 107 96 - 110 mmol/L LAB CHEMISTRY METHOD 01/02/2025 12:30 PM [facility] CO2 24 21 - 32 mmol/L LAB CHEMISTRY METHOD 01/02/2025 12:30 PM [facility] Anion Gap 8 3 - 11 LAB CHEMISTRY METHOD 01/02/2025 12:30 PM [facility] Glucose 95 70 - 100 mg/dL LAB CHEMISTRY METHOD 01/02/2025 12:30 PM [facility] BUN 28(H) 5 - 25 mg/dL LAB CHEMISTRY METHOD 01/02/2025 12:30 PM [facility] Creatinine 1.11(H) 0.50 - 1.10 mg/dL LAB CHEMISTRY METHOD 01/02/2025 12:30 PM [facility] eGFR 55(L) >=60 mL/min/1. 73m2 LAB CHEMISTRY METHOD 01/02/2025 12:30 PM [facility] Comment:Calculation based on the??Chronic Kidney Disease Epidemiology Collaboration (CKD-EPI) equation refit??without adjustment for race. BUN/Creatinine Ratio 25.2 LAB CHEMISTRY METHOD 01/02/2025 12:30 PM [facility] Calcium 9.0 8.5 - 10.5 mg/dL LAB CHEMISTRY METHOD 01/02/2025 12:30 PM [facility] AST (SGOT) 13 10 - 42 unit/L LAB CHEMISTRY METHOD 01/02/2025 12:30 PM [facility] ALT (SGPT) 25 10 - 60 unit/L LAB CHEMISTRY METHOD 01/02/2025 12:30 PM [facility] Alkaline Phosphatase 38(L) 42 - 121 unit/L LAB CHEMISTRY METHOD 01/02/2025 12:30 PM [facility] Total Protein 5.5(L) 6.0 - 8.0 g/dL LAB CHEMISTRY METHOD 01/02/2025 12:30 PM EST [facility] Albumin 3.2 3.2 - 5.0 g/dL LAB CHEMISTRY METHOD 01/02/2025 12:30 PM EST [facility] Total Bilirubin 0.4 0.0 - 1.4 mg/dL LAB CHEMISTRY METHOD 01/02/2025 12:30 PM EST [facility] Blood Venous blood specimen / Unknown Venipuncture / Unknown 01/02/2025 9:28 AM EST 01/02/2025 11:08 AM EST us Chuy Nguyễn MD LAB BLOOD ORDERABLES Final Resul t [facility] [address] [place] [address], [place] [phone] from Last 3 Months Insurance [employer] [place] [address] Care Teams Fire Prevention Officer Relationship Specialty Start Date End Date Chuy Nguyễn MD [address] [place] [address], [phone] PCP - General Family Medicine 01/02/25
--- OUTSIDE RECORDS SUMMARY | 2025-01-03 12:44 | XMS_ITS | Patient Health Record ---
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 Plan Of Treatment Pending Test Test Name Order Date X ray : Foot, right 3V 03/16/2023 Insurance Providers Payer Name Payer Address Payer Phone Subscriber Number Group Number Insured Name Patient Relationship to Insured Coverage Start Date Coverage End Date AARP Medicare Complete [address] [address] [place] [address] [phone] [id number] Jeny Diez Self - patient is the insured Medicare [employer] [address] [place] [address] [id number] Jeny Diez Self - patient is the insured Medical (General) History Medical History History ICD Code Broken bones Chicken pox skin cancer Depression Measles Mumps Psoriasis/Eczema COPD Surgical History Surgery Date(Month/Year) back surgery lung surgery shoulder surgery Hospitalization History Reason Date(Month/Year) [facility] [place]/11/15
--- OUTSIDE RECORDS SUMMARY | 2025-01-03 12:44 | XMS_ITS | Clinical Summary ---
Author Organization [facility] Address [address] [place] [address] Care Team Providers Care Replenishment Analyst Name Role Phone Unavailable Primary Care Provider Unavailabl e Encounters Date Type Department Care Team Description 12/09/2024 Transcribe Orders [facility] PRIMARY CARE SCAN Artis Whiting MD Bilateral [...]
--- OUTSIDE RECORDS SUMMARY | 2025-01-03 12:44 | XMS_ITS | Encounter Summary ---
Author Organization [facility] Address [address] [place] [address] Care Team Providers Care Video Intern Name Role Phone Chuy Nguyễn MD Primary Care Provider [phone] Encounter Details Date Type Department Care Team (Late Contact Info) Description 01/02/2025 Lab Requisition [facility] - Main Lab [address] [place] [address] Chuy Nguyễn MD [address] [place] [address], [phone] Essential (primary) hypertension Social History Tobacco Use Types Packs/Day Years [...] as of this encounter Plan of Treatment Upcoming Encounters Date Type Department Care Team (Late Contact Info) Description 01/04/2025 8:30 AM EST Appointment [facility] CT Scan [address] [place] [address] documented as of this encounter Procedures Procedure Name Priority Date/Time Associated Diagnosis Comments COMPLETE BLOOD COUNT Routine 01/02/2025 9:28 AM EST Essential (primary) hypertension COMPREHENSIVE METABOLIC PANEL Routine 01/02/2025 9:28 AM EST Essential (primary) hypertension documented in this encounter Results * (ABNORMAL) Comprehensive metabolic panel (01/02/2025 9:28 AM EST) Sodium 139 133 - 145 mmol/L LAB CHEMISTRY METHOD 01/02/2025 12:30 PM [facility] Potassium 4.0 3.5 - 5.5 mmol/L LAB CHEMISTRY METHOD 01/02/2025 12:30 PM [facility] Chloride 107 96 - 110 mmol/L LAB CHEMISTRY METHOD 01/02/2025 12:30 PM [facility] CO2 24 21 - 32 mmol/L LAB CHEMISTRY METHOD 01/02/2025 12:30 PM [facility] Anion Gap 8 3 - 11 LAB CHEMISTRY METHOD 01/02/2025 12:30 PM [facility] Glucose 95 70 - 100 mg/dL LAB CHEMISTRY METHOD 01/02/2025 12:30 PM [facility] BUN 28(H) 5 - 25 mg/dL LAB CHEMISTRY METHOD 01/02/2025 12:30 PM [facility] Creatinine 1.11(H) 0.50 - 1.10 mg/dL LAB CHEMISTRY METHOD 01/02/2025 12:30 PM [facility] eGFR 55(L) >=60 mL/min/1. 73m2 LAB CHEMISTRY METHOD 01/02/2025 12:30 PM [facility] Comment:Calculation based on the??Chronic Kidney Disease Epidemiology Collaboration (CKD-EPI) equation refit??without adjustment for race. BUN/Creatinine Ratio 25.2 LAB CHEMISTRY METHOD 01/02/2025 12:30 PM [facility] Calcium 9.0 8.5 - 10.5 mg/dL LAB CHEMISTRY METHOD 01/02/2025 12:[address] [facility] AST (SGOT) 13 10 - 42 unit/L LAB CHEMISTRY METHOD 01/02/2025 12:30 PM [facility] ALT (SGPT) 25 10 - 60 unit/L LAB CHEMISTRY METHOD 01/02/2025 12:30 PM [facility] Alkaline Phosphatase 38(L) 42 - 121 unit/L LAB CHEMISTRY METHOD 01/02/2025 12:30 PM [facility] Total Protein 5.5(L) 6.0 - 8.0 g/dL LAB CHEMISTRY METHOD 01/02/2025 12:30 PM [facility] Albumin 3.2 3.2 - 5.0 g/dL LAB CHEMISTRY METHOD 01/02/2025 12:30 PM [facility] Total Bilirubin 0.4 0.0 - 1.4 mg/dL LAB CHEMISTRY METHOD 01/02/2025 12:30 PM [facility] Blood Venous blood specimen / Unknown Venipuncture / Unknown 01/02/2025 9:28 AM EST 01/02/2025 11:08 AM EST us Chuy Nguyễn MD LAB BLOOD ORDERABLES Final Resul t [facility] [address] [place] [address], * (ABNORMAL) Complete blood count (01/02/2025 9:28 AM EST) WBC 12.8(H) 4.8 - 10.8 K/mcL LAB HEMETOLOGY METHOD 01/02/2025 12:51 PM [facility] RBC 2.50(L) 3.80 - 4.80 M/mcL LAB HEMETOLOGY METHOD 01/02/2025 12:51 PM [facility] Hemoglobin 8.4(L) 11.5 - 16.0 g/dL LAB HEMETOLOGY METHOD 01/02/2025 12:51 PM [facility] Hematocrit 26.2(L) 35.0 - 47.0 % LAB HEMETOLOGY METHOD 01/02/2025 12:51 PM [facility] MCV 103.6(H) 79.0 - 98.0 FL LAB HEMETOLOGY METHOD 01/02/2025 12:51 PM [facility] MCH 33.2(H) 27.0 - 32.0 pcg LAB HEMETOLOGY METHOD 01/02/2025 12:51 PM [facility] MCHC 32.1 32.0 - 37.0 g/dL LAB HEMETOLOGY METHOD 01/02/2025 12:51 PM [facility] RDW 16.6(H) 11.0 - 15.0 % LAB HEMETOLOGY METHOD 01/02/2025 12:51 PM [facility] Platelets 245 130 - 400 K/mcL LAB HEMETOLOGY METHOD 01/02/2025 12:51 PM [facility] MPV 9.5 7.0 - 11.0 FL LAB HEMETOLOGY METHOD 01/02/2025 12:51 PM [facility] NRBC 1.4(H) <1.0 % LAB HEMETOLOGY METHOD 01/02/2025 12:51 PM [facility] NRBC Absolute 0.18(H) <0.10 K/mcL LAB HEMETOLOGY METHOD 01/02/2025 12:51 PM [facility] Blood Venous blood specimen / Unknown Venipuncture / Unknown 01/02/2025 9:28 AM EST 01/02/2025 11:08 AM EST us Chuy Nguyễn MD LAB BLOOD ORDERABLES Final Resul t [facility] [address] [place], [place] [address] [phone] documented in this encounter Visit Diagnoses Diagnosis Essential (primary) hypertension Unspecified essential hypertension documented in this encounter Care Teams Video Intern Relationship Specialty Start Date End Date Chuy Nguyễn MD [address] [place] [address], [phone] PCP - General Family Medicine 01/02/25 documented as of this encounter
== END 2025-01-03 12:37 | disposition home or self-care (01) ==
PROVIDERS: Emergency Provider Emergency Medicine; PCP Internal Medicine
DX: R04.0 Epistaxis (principal)
CPT/HCPCS: 99282

== ENCOUNTER 2025-02-13 12:51 | Outpatient (AMB) | payer MEDICARE, SELFPAY ==
[2025-02-13 12:56] VITALS: BP 98/60; PULSE 83; O2SAT 94; BMI 32.5
--- NOTE | 2025-02-13 12:56 | MHC.OFFVIS ---
Vital Signs 02/13/25 12:56 Height 5 ft 8 in Weight 214 lb BMI 32.5 BP 98/60 Blood Pressure Location Rt brachial Position Sitting Pulse 83 Pulse Source Doppler Pulse Oximetry (%) 94 Oxygen Delivery Method Nasal Cannula Oxygen Flow Rate 6 Intake Visit Reasons: Acute hypoxemic respiratory failure(HOSP FU) Allergies codeine Allergy (Intermediate, Verified 02/13/25 13:03) Rash From DEMEROL Allergy (Intermediate, Uncoded 12/27/24 12:47) VOMITING Demerol Allergy (Unknown, Uncoded 12/27/24 12:47) Vomiting HPI HPI Acute hypoxemic respiratory failure(HOSP FU): Details: 68-year-old lady, former 20 pack-year smoker, with underlying COPD, bronchiectasis, interstitial lung disease, recent pulmonary emboli previously on Eliquis, on supplemental oxygen at 3-4 L at baseline and 4-8 L with exacerbation her to follow-up after hospital discharge. Patient states that her dyspnea has appear to be stable but significantly limiting her activities. PFSH Medical History HLD (hyperlipidemia) Pulmonary fibrosis Social History Household Members: Spouse Housing: House Do you presently have visiting nurse or other home services: No Comment: pt rings call morris appropriately for assistance OOB Patient Tobacco Use Status: Former Tobacco user Tobacco use type: Cigarette e-Cigarette/Vaping Use: Never Used Second Hand Smoke Exposure: No service: No Review of Systems Const Denies daytime sleepiness, Denies excessive sweating, Denies fatigue, Denies fever(s), Denies lethargy, Denies malaise, Denies night sweats, Denies snoring and Denies weight loss Eyes Denies blurry vision and Denies itchy eyes ENT Denies nasal congestion, Denies post nasal drip, Denies sinus pain, Denies sinus pressure and Denies other ( Thrush) Card Denies chest pain, Denies pedal edema, Reports dyspnea, Reports dyspnea on exertion, Reports orthopnea and Reports paroxysmal nocturnal dyspnea Resp Denies cough, Denies hemoptysis, Denies excessive phlegm production, Reports dyspnea, Reports dyspnea on exertion, Denies snoring and Denies wheezing GI Denies abdominal pain and Denies heartburn Musc Denies myalgias, Denies arthralgias and Denies joint swelling Skin/Breast Denies rash Neuro Denies memory loss and Denies seizure-like activity Psych Denies abnormal sleep pattern, Denies anxiety and Denies memory loss Endo Denies excessive sweating, Denies fatigue and Denies heat intolerance Newton/Lymph Denies easy bruising Aller/Immun Denies itchy eyes, Denies seasonal rhinorrhea and Denies wheezing Physical Exam Vital Signs: Last Vital Signs Pulse 83 02/13/25 12:56 BP 98/60 02/13/25 12:56 Pulse Ox 94 02/13/25 12:56 Oxygen Delivery Method Nasal Cannula 02/13/25 12:56 Oxygen Flow Rate 6 02/13/25 12:56 BMI result Body Mass Index 32.5 Const General: no acute distress and alert Orientation/consciousness: Other orientation findings ( oriented) HEENT Head: Yes atraumatic Eyes General: appearance normal, both eyes and all related structures Sclerae: sclerae normal EOM: EOMs intact bilaterally Neck Neck: Yes supple Lymphatic: no lymphadenopathy noted Resp Effort & Inspection: normal respiratory effort and no use of accessory muscles Auscultation: crackles bilateral (Inspiratory) Cardio Rate: regular rate Rhythm: regular rhythm Heart sounds: no gallops, no murmurs and no rubs Skin General skin exam: other ( warm) Extrem General: No clubbing, No cyanosis and No edema Assessment & Plan Assessment & Plan (1) Pulmonary fibrosis: Code(s): J84.10 - Pulmonary fibrosis, unspecified Category: Medical (2) On supplemental oxygen therapy: Code(s): Z99.81 - Dependence on supplemental oxygen Category: Medical (3) COPD (chronic obstructive pulmonary disease): Code(s): J44.9 - Chronic obstructive pulmonary disease, unspecified Category: Medical Plan Stable after hospital discharge, however still significantly symptomatic. Continue on current regimen of Trelegy and duo nebs with albuterol MDI. Patient is finishing prednisone taper. If symptoms worsen off prednisone taper, may consider prednisone sparing therapy. Will repeat CT angio chest and pulmonary function test. Will request referral to lung transplant program. Continue supplemental oxygen to maintain O2 saturation of 89-93%. Coding Level of Care Code Est Pt Level 4 (43643) Complex EM visit Add On G2211 Diagnoses Pulmonary fibrosis J84.10 On supplemental oxygen therapy Z99.81 COPD (chronic obstructive pulmonary disease) J44.9
--- OUTSIDE RECORDS SUMMARY | 2025-02-13 15:54 | XMS_ITS | Data Portability ---
Author Organization [facility], Main Office Address [address] [place] [address] Care Team Providers Care Pressure Testing Technician Name Role Phone [facility] ([facility]) OTHER UDAY FORD Primary Care Provider Assessment Encounter Date Assessment Date Assessment LastModified by Organization Details LastModified Time 01/02/2025 01/02/2025 Labs 2: Na 141-K 4.0-bun 40-cr 1.0 Not available 01/02/2025 19:47:32 01/03/2025 01/03/2025 Labs 2/11: Na 141-K 4.0-bun 40-cr 1.0 [email or web address] Not available 02/08/2025 17:57:30 01/14/2025 01/14/2025 Labs 211: Na 141-K 4.0-bun 40-cr 1.0 [email or web address] Not available 01/14/2025 11:01:05 Plan of Treatment Reminders Order Date Submit [...] Address Organization Details Recorded Time Hyperlipid emia 87681563 Active 2024 Not Available [facility] 16:48:22 Acute exacerbati on of chronic obstructiv e pulmonary disease 190269848 Active 2024 Not Available [facility] 16:49:33 Thromboemb olism of vein 533080517 Active 2024 Not Available [facility] 5 16:50:25 Type 2 diabetes mellitus without complicati on 363485175 Active 2024 Not Available [facility] 5 16:52:47 Fibrosis of lung 15314882 Active 2024 Not Available [facility] 5 15:13:26 Acute on chronic hypoxemic respirator y failure 7444658651193 9100 Active 2024 Not Available [facility] 5 15:13:48 Bleeding from nose 311495848 Active 2024 Not Available [facility] 5 18:43:13 Chronic obstructiv e pulmonary disease 77942348 Active 2024 ISH CHEUNG [address] , [address], [place], [address] , [facility] [employer] [facility] 5 19:33:28 Depressive disorder 38510076 Active 2024 ISH CHEUNG [address] , [address], [place], [address] , [facility] [employer] [facility] 5 19:57:53 Gastroesop hageal reflux disease 723661159 Active 2024 ISH CHEUNG [address] , [address], [place], [address] , [facility] [employer] [facility] 5 19:58:45 Gastroesop hageal reflux disease without esophagiti s 424933890 Active 2024 Not Available [facility] 5 12:49:10 Pulmonary embolism 73483291 Active 2024 Not Available [facility] 5 12:50:12 Muscle weakness 55037859 Active 2024 Not Available [facility] 5 16:05:42 Difficulty walking 116577896 Active 2024 Not Available [facility] 5 16:06:14 Chronic kidney disease stage 3A 393531878 Active 2024 Theresa Ospina MD [address], [address], [place], [address] , [facility] 18:04:08 Problem Notes None recorded. Medical Equipment None Reported. Allergies Allergen ID Allergen Name Allergen Category Reaction Reaction Severity Criticality Documentation Date Start Date Code Code System Note Provider Name and Address Organization Details Recorded Time 35601 Demerol medicatio n Not available Not available Not available 01/01/20252024 58899 1 RxNorm Not Available Not Available Not Available 10334 codeine medicatio n Not available Not available [...] 999 = 10 unit Call MD / HEMATOLOGY ONCOLOGY CONSULTANT, subcutane ously before meals for DM 2024 [...] Available Not Available Not Avai lable Acid Bitumen Plant Operator (omeprazole ) 20 mg capsule,del ayed release [...] and Address Organization Details Last Updated DateTime 5 72 /min 97.8 [degF] 95 % 95 % 18 /min 113 mm[Hg] 68 mm[Hg] ISH CHEUNG [address], [address], [place], [address], [employer] 20:03:26 Date Recorded Body height Body mass index (BMI) Body weight Heart rate Respiratory rate Body temperature Oxygen saturation Oxygen saturation in Arterial blood by Pulse oximetry Systolic blood pressure Diastolic blood pressure Provider Name and Address Organization Details Last Updated DateTime 172.72 cm 34.6 kg/m2 179242. 9 g 82 /min 18 /min 98.1 [degF] 98 % 98 % 124 mm[Hg] 70 mm[Hg] Theresa Ospina MD [address] [facility], [address], [place], [address], [facility] 22:49:01 Social History Question Answer Notes LastModified by Organizat ion Details LastModified Time Tobacco Smoking Status Former Smoker ISH CHEUNG [address], [address], [place], [address], [facility] 01/02/2025 20:00:56 Do You Have An Advance Directive? Yes Information not available 01/02/2025 What Is Your Level Of Alcohol Consumption? None Information not available 01/02/2025 What Is Your Code Status? Full Code MOLST 01/02/25 Information not available 01/02/2025 Where Do You Live? [facility] With , But Has Commode On Main Level And Sleeps On Couch. Information not available 01/03/2025 Legal Guardian? No Informati on not available 01/03/2025 Do You Have A Medical Power Of Substation Operator Automatic? Yes Information not available 01/03/2025 What Was The Date Of Your Most Recent Tobacco Screening? 01/01/2025 Information not available 01/02/2025 Do You Have An Out Of Hospital DNR? No Information not available 01/03/2025 What Is Your Relationship Status? Information not [...] Mental Status None recorded. Family History Nothing Reported Notes:n/c Medical History No medical history recorded. Gynecological HistoryNo gynecological history recorded. Obstetrics History GPAL:G 0 P 0 0 0 0 Immunizations Vaccine Type Date Status Note Provider Nam e and Address Organization Details Recorded Time Respiratory syncytial virus (RSV) vaccine, unspecified 4 completed [facility] 01/02/2025 15:33:31 Pneumococcal conjugate PCV 13 4 completed [facility] 01/02/2025 15:35:04 influenza, unspecified formulation 3 completed [facility] 01/02/2025 15:36:40 influenza, unspecified formulation 4 [facility] 01/02/2025 15:36:47 SARS-COV-2 (COVID-19) vaccine, UNSPECIFIED 1 completed [facility] 01/02/2025 15:37:08 Past Encounters Encounter ID Performer Location Encounter Start Date Encounter Closed Date Diagnosis/Indication Diagnosis SNOMED-CT Code Diagnosis ICD10 Code Diagnosis Note [id number] ISH CHEUNG REDCHANTAL [address] [place] [address] 01/02/2025 10:57:46 01/03/2025 13:55:30 Acute on chronic hypoxemic respiratory failure 8446409333 4370510 J96.21 see hpistarted on prednisone 40 mg -recommend ed by pulm. to wean recommende d to gradually wean prednisone 10 mg Q 2-3 weeks.base line she was using 6-8 liter O2now recommende d humidified oxygen 4 L and increased to 6 L with activity if neededkeep finger oximetry 90-92%RT eval and tx prn. Bleeding from nose 36370 6005 R04.0 recurrent epistaxisn o residual clot on CTA or leg venous duplexeliq uis discontinu ed in acute careResume aspirin 81 mg daily once epistaxis has resolved in 7-10 daysO2 dependent/ use humidified oxygen Chronic ob structive pulmonary disease 58954712 J44.9 baseline O2 dependentc ont trilegy , albuterol inhaler,on prednisone 40 mg taper to wean every 2 weeks per pulmonolog y recommenda tion Type 2 steve betes mellitus without complication 591343071 E11.9 cont ozempic, metformino n high dose prednisone start lispro SSCmonitor accuchecks TID Hyperlipidemia 28505990 E78.5 cont pravastati n Depressive disorder 3548 9007 F32.A on celexamoni tor mood and behaviors Gastroesop hageal reflux disease 033150201 K21.9 cont omeprazole monitor for gi upset [id number] MD DARRON RossNEPHI [address] [place] [address] 01/03/2025 18:50:58 02/10/2025 16:13:35 Acute on chronic hypoxemic respiratory failure 6148385857 4300484 J96.21 Much improved, but not back to baseline.C ontinue slow prednisone taper.Cont inue supplement al O2 to maintain sats 90-92%Cont inue COPD meds as below.Comp leting course of Augmentin for post-covi d pneumoniti s .RT following Bleeding from nose 34797 6005 R04.0 Rhinorocke t removed today at [facility] ED.Feels good, no further bleeding.C ontinue humidified O2 and saline nasal spray.Ally tor Chronic ob structive pulmonary disease 82732602 J43.8 Almost back to baseline.C ontinue O2 and prednisone as above.Cont inue Trelegy 200/62.5/2 5 mcg qd, duonebs q 6 hrs prn and albuterol MDI 2 puffs q 6 hrs prn.Monito r resp status. Type 2 steve betes mellitus without complication 685068493 E11.9 BS good since here.HgA1C 6.5 in 5Cont inue ozempic 1 mg weekly, metformin 500 mg BID and SSI.Monito r fingerstic ks TID and HgA1C as an outpt. Hyperlipidemia 68439070 E78.49 Continue pravastati n 40 mg qd and ASA 81 mg qd.Monitor labs as outpt. Depressive disorder 3548 9007 F33.8 Mood good tonight.Co ntinue citalopram 40 mg qd.Monitor mood.Consu lt psych prn Gastroesop hageal reflux disease 614671418 K21.9 No current sxs.Contin ue omeprazole 20 mg qd.Monitor GI sxs. Chronic ki dney disease stage 3A 937865994 N18.31 Back to baseline.C ontinue to avoid nephrotoxi c meds as able.Monit or labs.Renal consult prn. [id number] KATHARINE KIM, BRE-C SHON [address] [place] [address] 01/14/2025 09:48:23 01/16/2025 10:23:22 Acute on chronic hypoxemic respiratory failure 8353141044 6645649 J96.21 continue prednisone taperconti nue home O2 at 4-8 Lkeep finger oximetry 90-92%f/up with pcp Bleeding from nose 95037 6005 R04.0 resolved with rhino rocketsno longer on ACwill restart asprin 81 mg dailyf/up with pcp if bleeding returnsmon itor hgb outpt, currently stable at 7.9 Chronic ob structive pulmonary disease 75655431 J44.9 baseline O2 dependentc ont trilegy , albuterol inhaler,on prednisone 40 mg taper to wean every 2 weeks per pulmonolog y recommenda tionf/up with pcp Type 2 steve betes mellitus without complication 807329988 E11.9 cont ozempic, metformino n high dose prednisone educated prednisone can increase sugarsf/up with pcp Hyperlipidemia 27792112 E78.5 cont pravastati nf/up with pcp Depressive disorder 3548 9007 F32.A on celexaf/up with pcp Gastroesop hageal reflux disease 096210011 K21.9 cont omeprazole f/up with pcp Stomach ache 445689085 R 10.9 reports start of GI upsetno diarrhea at this timenurse will monitorf/u p with pcp if this continues at home Health Concerns Section Related Observation LastModified by Organization Gasper broussard LastModified Time None Recorded Concern Status LastModified by Organization Details LastModified Time None Recorded Advance Directives Directive Y: Payers Encounter Date Sequence Insurance Name Policy Number Policy Britton Covered Member ID Britton Member ID Guarantor Name 01/02/2025 1 [facility] (MEDICARE REPLACEMENT/A DVANTAGE - PPO) [id number] Jeny Meng Stone [id number] Jeny Meng Stone 01/03/2025 1 [facility] (MEDICARE REPLACEMENT/A DVANTAGE - PPO) [id number] Jeny Yusra Stone [id number] Jeny Meng Stone 01/14/2025 1 [facility] (MEDICARE REPLACEMENT/A DVANTAGE - PPO) [id number] Jeny Meng Stone [id number] Jeny Meng Stone Notes Date Note Type Note Provider Name and Address Organization Details Recorded Time 01/02/2025 text/html This is a 68-yea r-old female patient with a PMH HLD, pulmonary fibrosis, COPD on home O2 6L at rest and 8L with exertion, recent DVT and PE on Eliquis, and former smoker with a 20 pack-year history. She was referred to ED from social security benefits interviewer office with O2 sat in the 50%. [...] 01/03. She can returned to ED at [facility] for removal by ENT or ED provider at [facility] . She was started on augmentin for 5 days Patient is seen for initial intake for continued care and rehab. ISH CHEUNG [address] [place] [address], [address], [place], [address], [facility] 01/02/2025 20:04:13 01/03/2025 text/html This is a 68 yo woman who is here for rehab after an acute hospitalization for She was sent to the [facility] ED from the social security benefits interviewer's office because of O2 sat in the 50%. She had [...] 01/03. She can returned to ED at [facility] for removal by ENT or ED provider at [facility] . She was started on augmentin for 5 days Feels like breathing is back to usual, always terrible.Happy to have rhinorocket out. Her PMH includes COPD on home O2 6L at rest and 8L with exertion, CKD stage 3A, pulmonary fibrosis, HLD, recent DVT and PE on Eliquis, and former smoker with a 20 pack-year hx. Theresa Ospina MD [address] [place] [address], [address], [place], [address], [facility] 02/08/2025 18:09:38 01/14/2025 text/html This is a 68-yea r-old female patient being seen today for discharge summary visit.She was admitted to hospital for acute on chronic hypoxic respiratory failure concerning for aspiration of blood from epistaxis. This required rhino rockets x 3 days and aspirin held. While here hgb has remained stable. Hgb 7.9 yesterday. She is no longer on asa or AC. The rhino rockets have been removed and nose bleed has stopped. She currently has some abd upset that just started this am. She has no other symptoms. She will let nursing know if she needs anything. The plan is for dc home tomorrow with . At this time she is medically clear for dc home with meds and services. PMH HLD, pulmonary fibrosis, COPD on home O2 6L at rest and 8L with exertion, recent DVT and PE on Eliquis, and former smoker with a 20 pack-year history. UMANG MEHTAC [address] [facility] [facility] [facility], [address], [place], [address], [facility] 01/14/2025 11:11:46 OBGyn Episode No OBEpisode recorded.
--- OUTSIDE RECORDS SUMMARY | 2025-02-13 15:54 | XMS_ITS | Encounter Summary ---
Author Organization [facility] Address [address] [place] [address] Care Team Providers Care Inside Sales Territory Manager Name Role Phone Chuy Nguyễn MD Primary Care Provider Encounter Details Date Type Department Care Team (Late Contact Info) Description 01/04/[address] [facility] - Main Lab [address] [place] [address] Chuy Nguyễn MD [address] [place] [address], [address] Essential (primary) hypertension Social History Tobacco [...] Department Care Team (Late Contact Info) Description 02/15/2025 9:15 AM EDT Appointment [facility] CT Scan [address] [place] [address] documented as of this encounter Procedures Procedure Name Priority Date/Time Associated Diagnosis Comments COMPLETE BLOOD COUNT Routine 01/06/2025 6:49 AM EST Essential (primary) hypertension BASIC METABOLIC PANEL Routine 01/06/2025 6:49 AM EST Essential (primary) hypertension documented in this encounter Results * (ABNORMAL) Basic metabolic panel (01/06/2025 6:49 AM EST) Sodium 142 133 - 145 mmol/L LAB CHEMISTRY METHOD 01/06/2025 11:49 AM [facility] Potassium 3.9 3.5 - 5.5 mmol/L LAB CHEMISTRY METHOD 01/06/2025 11:49 AM [facility] Chloride 107 96 - 110 mmol/L LAB CHEMISTRY METHOD 01/06/2025 11:49 AM [facility] CO2 29 21 - 32 mmol/L LAB CHEMISTRY METHOD 01/06/2025 11:49 AM [facility] Anion Gap 6 3 - 11 LAB CHEMISTRY METHOD 01/06/2025 11:49 AM [facility] Glucose 72 70 - 100 mg/dL LAB CHEMISTRY METHOD 01/06/2025 11:49 AM [facility] BUN 21 5 - 25 mg/dL LAB CHEMISTRY METHOD 01/06/2025 11:49 AM [facility] Creatinine 1.10 0.50 - 1.10 mg/dL LAB CHEMISTRY METHOD 01/06/2025 11:49 AM [facility] eGFR 55(L) >=60 mL/min/1. 73m2 LAB CHEMISTRY METHOD 01/06/2025 11:49 AM [facility] Comment:Calculation based on the??Chronic Kidney Disease Epidemiology Collaboration (CKD-EPI) equation refit??without adjustment for race. BUN/Creatinine Ratio 19.1 LAB CHEMISTRY METHOD 01/06/2025 11:49 AM [facility] Calcium 8.6 8.5 - 10.5 mg/dL LAB CHEMISTRY METHOD 01/06/2025 11:49 AM [facility] Blood Venous blood specimen / Unknown Venipuncture / Unknown 01/06/2025 6:49 AM EST 01/06/2025 11:07 AM EST us Chuy Nguyễn MD LAB BLOOD ORDERABLES Final Resul t [facility] [address] [place] [address], * (ABNORMAL) Complete blood count (01/06/2025 6:49 AM EST) WBC 9.4 4.8 - 10.8 K/mcL LAB HEMETOLOGY METHOD 01/06/2025 11:33 AM [facility] RBC 2.30(L) 3.80 - 4.80 M/mcL LAB HEMETOLOGY METHOD 01/06/2025 11:33 AM [facility] Hemoglobin 7.6(L) 11.5 - 16.0 g/dL LAB HEMETOLOGY METHOD 01/06/2025 11:33 AM [facility] Hematocrit 24.5(L) 35.0 - 47.0 % LAB HEMETOLOGY METHOD 01/06/2025 11:33 AM [facility] MCV 106.1(H) 79.0 - 98.0 FL LAB HEMETOLOGY METHOD 01/06/2025 11:33 AM [facility] MCH 32.9(H) 27.0 - 32.0 pcg LAB HEMETOLOGY METHOD 01/06/2025 11:33 AM [facility] MCHC 31.0(L) 32.0 - 37.0 g/dL LAB HEMETOLOGY METHOD 01/06/2025 11:33 AM [facility] RDW 17.3(H) 11.0 - 15.0 % LAB HEMETOLOGY METHOD 01/06/2025 11:33 AM [facility] Platelets 279 130 - 400 K/mcL LAB HEMETOLOGY METHOD 01/06/2025 11:33 AM EST [facility] MPV 9.3 7.0 - 11.0 FL LAB HEMETOLOGY METHOD 01/06/2025 11:33 AM EST [facility] NRBC 0.5 <1.0 % LAB HEMETOLOGY METHOD 01/06/2025 11:33 AM EST [facility] NRBC Absolute 0.05 <0.10 K/mcL LAB HEMETOLOGY METHOD 01/06/2025 11:33 AM EST [facility] Blood Venous blood specimen / Unknown Venipuncture / Unknown 01/06/2025 6:49 AM EST 01/06/2025 11:07 AM EST us Chuy Nguyễn MD LAB BLOOD ORDERABLES Final Resul t [facility] [address] [place] [address], documented in this encounter Visit Diagnoses Diagnosis Essential (primary) hypertension Unspecified essential hypertension documented in this encounter Care Teams Inside Sales Territory Manager Relationship Specialty Start Date End Date Chuy Nguyễn MD [address] [place] [address] [address] [place], [address] PCP - General Family Medicine 01/02/25 documented as of this encounter
--- OUTSIDE RECORDS SUMMARY | 2025-02-13 15:54 | XMS_ITS | Patient Health Record ---
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 Plan Of Treatment Pending Test Test Name Order Date X ray : Foot, right 3V 03/16/2023 Insurance Providers Payer Name Payer Address Payer Phone Subscriber Number Group Number Insured Name Patient Relationship to Insured Coverage Start Date Coverage End Date A[employer] Medicare Complete [address] [address] [place] [address] [phone] [id number] Jeny Diez Self - patient is the insured Medicare [employer] [address] [place] [address] [id number] Jeny Diez Self - patient is the insured Medical (General) History Medical History History ICD Code Broken bones Chicken pox skin cancer Depression Measles Mumps Psoriasis/Eczema COPD Surgical History Surgery Date(Month/Year) back surgery lung surgery shoulder surgery Hospitalization History Reason Date(Month/Year) [facility] [place] bilateral ankles 08/11/15
--- OUTSIDE RECORDS SUMMARY | 2025-02-13 15:54 | XMS_ITS | Encounter Summary ---
Author Organization [facility] Address [address] [place] [address] Care Team Providers Care Collarette Separator Name Role Phone Chuy Nguyễn MD Primary Care Provider [phone] Encounter Details Date Type Department Care Team (Late Contact Info) Description 01/02/2025 Lab Requisition [facility] - Main Lab [address] [place] [address] Chuy Nguyễn MD [address] [place] [address], [phone] Essential (primary) hypertension Social History Tobacco [...] Info) Description 02/15/2025 9:15 AM EDT Appointment [facility] CT Scan [address] [place] [address] documented as of this encounter Procedures Procedure Name Priority Date/Time Associated Diagnosis Comments COMPLETE BLOOD COUNT Routine 01/02/2025 9:28 AM EST Essential (primary) hypertension COMPREHENSIVE METABOLIC PANEL Routine 01/02/2025 9:28 AM EST Essential (primary) hypertension documented in this encounter Results * (ABNORMAL) Comprehensive metabolic panel (01/02/2025 9:28 AM EST) Sodium 139 133 - 145 mmol/L LAB CHEMISTRY METHOD 01/02/2025 12:30 PM [facility] Potassium 4.0 3.5 - 5.5 mmol/L LAB CHEMISTRY METHOD 01/02/2025 12:30 PM [facility] Chloride 107 96 - 110 mmol/L LAB CHEMISTRY METHOD 01/02/2025 12:30 PM [facility] CO2 24 21 - 32 mmol/L LAB CHEMISTRY METHOD 01/02/2025 12:30 PM [facility] Anion Gap 8 3 - 11 LAB CHEMISTRY METHOD 01/02/2025 12:30 PM [facility] Glucose 95 70 - 100 mg/dL LAB CHEMISTRY METHOD 01/02/2025 12:30 PM [facility] BUN 28(H) 5 - 25 mg/dL LAB CHEMISTRY METHOD 01/02/2025 12:30 PM [facility] Creatinine 1.11(H) 0.50 - 1.10 mg/dL LAB CHEMISTRY METHOD 01/02/2025 12:30 PM [facility] eGFR 55(L) >=60 mL/min/1. 73m2 LAB CHEMISTRY METHOD 01/02/2025 12:30 PM [facility] Comment:Calculation based on the??Chronic Kidney Disease Epidemiology Collaboration (CKD-EPI) equation refit??without adjustment for race. BUN/Creatinine Ratio 25.2 LAB CHEMISTRY METHOD 01/02/2025 12:30 PM [facility] Calcium 9.0 8.5 - 10.5 mg/dL LAB CHEMISTRY METHOD 01/02/2025 12:30 PM [facility] AST (SGOT) 13 10 - 42 unit/L LAB CHEMISTRY METHOD 01/02/2025 12:30 PM [facility] ALT (SGPT) 25 10 - 60 unit/L LAB CHEMISTRY METHOD 01/02/2025 12:30 PM [facility] Alkaline Phosphatase 38(L) 42 - 121 unit/L LAB CHEMISTRY METHOD 01/02/2025 12:30 PM [facility] Total Protein 5.5(L) 6.0 - 8.0 g/dL LAB CHEMISTRY METHOD 01/02/2025 12:30 PM [facility] Albumin 3.2 3.2 - 5.0 g/dL LAB CHEMISTRY METHOD 01/02/2025 12:30 PM [facility] Total Bilirubin 0.4 0.0 - 1.4 mg/dL LAB CHEMISTRY METHOD 01/02/2025 12:30 PM [facility] Blood Venous blood specimen / Unknown Venipuncture / Unknown 01/02/2025 9:28 AM EST 01/02/2025 11:08 AM EST us Chuy Nguyễn MD LAB BLOOD ORDERABLES Final Resul t [facility] [address] [place] [address], * (ABNORMAL) Complete blood count (01/02/2025 9:28 AM EST) WBC 12.8(H) 4.8 - 10.8 K/mcL LAB HEMETOLOGY METHOD 01/02/2025 12:51 PM [facility] RBC 2.50(L) 3.80 - 4.80 M/mcL LAB HEMETOLOGY METHOD 01/02/2025 12:51 PM [facility] Hemoglobin 8.4(L) 11.5 - 16.0 g/dL LAB HEMETOLOGY METHOD 01/02/2025 12:51 PM [facility] Hematocrit 26.2(L) 35.0 - 47.0 % LAB HEMETOLOGY METHOD 01/02/2025 12:51 PM [facility] MCV 103.6(H) 79.0 - 98.0 FL LAB HEMETOLOGY METHOD 01/02/2025 12:51 PM [facility] MCH 33.2(H) 27.0 - 32.0 pcg LAB HEMETOLOGY METHOD 01/02/2025 12:51 PM [facility] MCHC 32.1 32.0 - 37.0 g/dL LAB HEMETOLOGY METHOD 01/02/2025 12:51 PM [facility] RDW 16.6(H) 11.0 - 15.0 % LAB HEMETOLOGY METHOD 01/02/2025 12:51 PM [facility] Platelets 245 130 - 400 K/mcL LAB HEMETOLOGY METHOD 01/02/2025 12:51 PM [facility] MPV 9.5 7.0 - 11.0 FL LAB HEMETOLOGY METHOD 01/02/2025 12:51 PM [facility] NRBC 1.4(H) <1.0 % LAB HEMETOLOGY METHOD 01/02/2025 12:51 PM [facility] NRBC Absolute 0.18(H) <0.10 K/mcL LAB HEMETOLOGY METHOD 01/02/2025 12:51 PM [facility] Blood Venous blood specimen / Unknown Venipuncture / Unknown 01/02/2025 9:28 AM EST 01/02/2025 11:08 AM EST us Chuy Nguyễn MD LAB BLOOD ORDERABLES Final Resul t [facility] [address] [place], [place] [address]RUST [phone] documented in this encounter Visit Diagnoses Diagnosis Essential (primary) hypertension Unspecified essential hypertension documented in this encounter Care Teams Collarette Separator Relationship Specialty Start Date End Date Chuy Nguyễn MD [address] [place] [address], [phone] PCP - General Family Medicine 01/02/25 documented as of this encounter
--- OUTSIDE RECORDS SUMMARY | 2025-02-13 15:54 | XMS_ITS | Clinical Summary ---
Author Organization [facility] Address [address] [place] [address] Care Team Providers Care Online Advertising Manager Name Role Phone Unavailable Primary Care Provider Unavailabl e Encounters Date Type Department Care Team Description 12/09/2024 Transcribe Orders [facility] PRIMARY [facility]ARE SCAN Artis Whiting MD [...]
--- OUTSIDE RECORDS SUMMARY | 2025-02-13 15:54 | XMS_ITS | Encounter Summary ---
Author Organization [facility] Address [address] [place] [address] Care Team Providers Care Academic Coordinator Name Role Phone Chuy Nguyễn MD Primary Care Provider [phone] Encounter Details Date Type Department Care Team (Late Contact Info) Description 01/11/2025 Lab Requisition [facility] - Main Lab [address] [place] [address] Chuy Nguyễn MD [address] [place] [address], [phone] Essential (primary) hypertension Social History Tobacco [...] Info) Description 02/15/2025 9:15 AM EDT Appointment [facility] CT Scan [address] [place] [address] documented as of this encounter Procedures Procedure Name Priority Date/Time Associated Diagnosis Comments COMPLETE BLOOD COUNT Routine 01/13/2025 6:29 AM EST Essential (primary) hypertension BASIC METABOLIC PANEL Routine 01/13/2025 6:29 AM EST Essential (primary) hypertension documented in this encounter Results * (ABNORMAL) Basic metabolic panel (01/13/2025 6:29 AM EST) Sodium 144 133 - 145 mmol/L LAB CHEMISTRY METHOD 01/13/2025 1:25 PM [facility] Potassium 4.1 3.5 - 5.5 mmol/L LAB CHEMISTRY METHOD 01/13/2025 1:25 PM [facility] Chloride 108 96 - 110 mmol/L LAB CHEMISTRY METHOD 01/13/2025 1:25 PM [facility] CO2 27 21 - 32 mmol/L LAB CHEMISTRY METHOD 01/13/2025 1:25 PM [facility] Anion Gap 9 3 - 11 LAB CHEMISTRY METHOD 01/13/2025 1:25 PM [facility] Glucose 59(L) 70 - 100 mg/dL LAB CHEMISTRY METHOD 01/13/2025 1:25 PM [facility] BUN 17 5 - 25 mg/dL LAB CHEMISTRY METHOD 01/13/2025 1:25 PM [facility] Creatinine 0.98 0.50 - 1.10 mg/dL LAB CHEMISTRY METHOD 01/13/2025 1:25 PM [facility] eGFR 63 >=60 mL/min/1. 73m2 LAB CHEMISTRY METHOD 01/13/2025 1:25 PM [facility] Comment:Calculation based on the??Chronic Kidney Disease Epidemiology Collaboration (CKD-EPI) equation refit??without adjustment for race. BUN/Creatinine Ratio 17.3 LAB CHEMISTRY METHOD 01/13/2025 1:25 PM [facility] Calcium 8.9 8.5 - 10.5 mg/dL LAB CHEMISTRY METHOD 01/13/2025 1:25 PM [facility] Blood Venous blood specimen / Unknown Venipuncture / Unknown 01/13/2025 6:29 AM EST 01/13/2025 11:44 AM EST us Chuy Nguyễn MD LAB BLOOD ORDERABLES Final Resul t [facility] [address] [place] [address], * (ABNORMAL) Complete blood count (01/13/2025 6:29 AM EST) WBC 10.0 4.8 - 10.8 K/mcL LAB HEMETOLOGY METHOD 01/13/2025 1:40 PM [facility] RBC 2.40(L) 3.80 - 4.80 M/mcL LAB HEMETOLOGY METHOD 01/13/2025 1:40 PM [facility] Hemoglobin 7.9(L) 11.5 - 16.0 g/dL LAB HEMETOLOGY METHOD 01/13/2025 1:40 PM [facility] Hematocrit 26.7(L) 35.0 - 47.0 % LAB HEMETOLOGY METHOD 01/13/2025 1:40 PM [facility] MCV 111.3(H) 79.0 - 98.0 FL LAB HEMETOLOGY METHOD 01/13/2025 1:40 PM [facility] MCH 32.9(H) 27.0 - 32.0 pcg LAB HEMETOLOGY METHOD 01/13/2025 1:40 PM [facility] MCHC 29.6(L) 32.0 - 37.0 g/dL LAB HEMETOLOGY METHOD 01/13/2025 1:40 PM [facility] RDW 16.6(H) 11.0 - 15.0 % LAB HEMETOLOGY METHOD 01/13/2025 1:40 PM [facility] Platelets 333 130 - 400 K/mcL LAB HEMETOLOGY METHOD 01/13/2025 1:40 PM EST [facility] MPV 9.4 7.0 - 11.0 FL LAB HEMETOLOGY METHOD 01/13/2025 1:40 PM EST [facility] NRBC 0.0 <1.0 % LAB HEMETOLOGY METHOD 01/13/2025 1:40 PM EST [facility] NRBC Absolute 0.00 <0.10 K/mcL LAB HEMETOLOGY METHOD 01/13/2025 1:40 PM EST [facility] Blood Venous blood specimen / Unknown Venipuncture / Unknown 01/13/2025 6:29 AM EST 01/13/2025 11:44 AM EST us Chuy Nguyễn MD LAB BLOOD ORDERABLES Final Resul t [facility] [address] [place] [address], documented in this encounter Visit Diagnoses Diagnosis Essential (primary) hypertension Unspecified essential hypertension documented in this encounter Care Teams Academic Coordinator Relationship Specialty Start Date End Date Chuy Nguyễn MD [address] [place] [address] [address] [place], [phone] PCP - General Family Medicine 01/02/25 documented as of this encounter
--- OUTSIDE RECORDS SUMMARY | 2025-02-13 15:54 | XMS_ITS ---
Author Organization [facility] Care Team Providers Care Spooler Operator Automatic Name Role Phone Zohreh Sibley Unavailable Unavailable Susiefebruary Unavailable Unavailabl aung Monroy, Haydee Unavailable Unavailable , Brie Unavailable Unavailable Chuy Nguyễn Unavailable Unavailable Sayra Holder Unavailable Unavailable Yanet, Melanie Unavailable Unavailable Levheim, Theresa Unavailable Unavailable Nahid, Paulina Unavailable Unava ilable Aaliyah Deshpande Unavailable Unavailable Maryam Louis Unavailable Unavailable Allergies and adverse reactions Code CodeSystem Substance Reaction Severity StartDate Concern Status Tylenol with codeine Unknown 01/01/2025 active 6754 RXNORM Demerol Unknown 01/01/2025 active Care Team Name Role Address Phone Organization Dates Chuy Nguyễn PCP [address] [facility] [address], [place], [address], [place] (Office): : : [facility] 01/02/2025 - 01/15/2025 Zohreh Sibley Attending Physician [address] [place] [address], [phone], [facility] (Office): : [facility] 01/02/2025 - 01/15/2025 Amada morales Attending Physician [address] [place] [address], [phone], [facility] (Office): : [facility] 01/02/2025 - 01/15/2025 Haydee Monroy Attending Physician [address] [place] [address], [place], [address], [facility] (Office): : [facility] 01/02/2025 - 01/15/2025 Brie Macdonald Attending Physician [address] [place] [address], [id number], [facility] (Office): : [facility] 01/02/2025 - 01/15/2025 Sayra Holder Attending Physician [address] [place] [address], [place], [address], [facility] (Office): : [facility] 01/02/2025 - 01/15/2025 Melanie Holt Attending Physician [address] [place] [address], [phone], [facility] (Office): : [facility] 01/02/2025 - 01/15/2025 Theresa Ospina Attending Physician [address] [place] [address], [place], [address], [facility] (Office): : [facility] 01/02/2025 - 01/15/2025 Paulina posey Attending Physician [address] [place] [address], [place], [address], [facility] (Office): : [facility] 01/02/2025 - 01/15/2025 Aaliyah Deshpande Attending Physician [address] [facility], [place], [address], [place] (Office): [facility] 01/02/2025 - 01/15/2025 Maryam Louis Attending Physician [address] [facility] [address], [place], [address], [place] (Office): : [facility] 01/02/2025 - 01/15/2025 Goals Section Description Status Target Date Advanced Directives will be honored and reevalua nacho as needed Active 01/17/2025 Jeny will participate in se lect activities such as: singing, reading the newspaper and magazines cooking and watching Netflix on tv through NRD Active 01/17/2025 Infection will be resolved without complications Active 01/17/2025 Intake of meals greater than or equal to 85% or as tolerated. Active 01/17/2025 Maintain weight 224lbs +/- < 5%, gradual weight loss is acceptable/beneficial Active 01/17/2025 Minimize risk for falls Active 01/17/20 25 Minimize risk for injury related to falls Active 01/17/2025 Nutrition related labs at baseline for medical c onditions Active 01/17/2025 Skin to remain intact Active 01/17/2025 Skin will remain free of lai akdown within limits of disease process Active 01/17/2025 Will be able to make needs known to staff Active 01/17/2025 Will be clean, dressed and w ell groomed daily to promote dignity and psychosocial well-being Active 01/17/2025 Will be discharged to home w hen clinical and rehabilitation goals are met Active 01/17/2025 Will be free from skin breakdown Active 01/17/2025 Will be free of complications related to disease process Active 01/17/2025 Will exhibit no signs or symptoms of gastric dis tress Active 01/17/2025 Will express feelings of adj ustment to new surroundings by next review Active 01/17/2025 Will express that pain management is within acce ptable limits Active 01/17/2025 Will have a bowel movement at least every three days Active 01/17/2025 Will have no acute respiratory distress Active 01/17/2025 Will have no adverse effects related to all ASA therapy Active 01/17/2025 Will have no adverse effects related to steroid therapy Active 01/17/2025 Will have no complications due to incontinence A ctive 01/17/2025 Will have no complications related to constipati on Active 01/17/2025 Will maintain existing ADL self performance Acti ve 01/17/2025 Will not develop complications related to decrea sed mobility Active 01/17/2025 Will not exhibit abnormal bleeding or abdominal pain Active 01/17/2025 Will not experience an acute exacerbation requiring hospitalization Active 01/17/2025 Will receive assistance necessary to meet ADL ne eds Active 01/17/2025 Will show no side effects of medication use Acti ve 01/17/2025 Will tolerate diet, texture and fluid consistency without signs and symptoms of aspiration Active 01/17/2025 Immunizations Immunization Status Vaccine Details Vaccine Code CodeSystem Date Notes Influenza completed Influenza, split virus, trivalent, injectable, contains preservative 141 CVX created date: 01/02/2025 administere d date: 08/01/2024 Prevnar 20 Pneumococcal conjugate (PCV20) completed Pneumococcal conjugate vaccine 20-valent (PCV20), polysaccharide [id number] conjugate, adjuvant, preservative free 216 CVX created date: 01/02/2025 administere d date: 02/15/2024 RSV, bivalent, protein subunit RSVpreF, diluent rec completed Respiratory syncytial virus (RSV), vaccine, bivalent, protein subunit RSV prefusion F, diluent reconstituted, 0.5 mL, preservative free 305 CVX created date: 01/02/2025 administere d date: 09/03/2024 COVID-19, mRNA, LNP-S, PF, 50 mcg/0.5 mL cancelled SARS-COV-2 (COVID-19) vaccine, mRNA, spike protein, LNP, preservative free, 50 mcg/0.5 mL dose 312 CVX created date: 01/02/2025 consent date: 01/02/2025 Medications Section Medication Name Status Code CodeSystem Dose Route Frequency Admin Type Sig Text Start Date End Date Trelegy Ellipta Inhalation Aerosol Powder Breath Activated 200-62.5-25 MCG/ACT active 005689 1 RXNORM 1 inhala tion Inhalat ion one time a day Routine 1 inhala tion inhale orally one time a day for COPD EXCERB ATION Rinse mouth after use 2024 - Ozempic (1 MG/DOSE) Subcutaneous Solution Pen-injector 4 MG/3ML active 678250 2 RXNORM 1 mg Subcuta neous one time a day Routine Inject 1 mg subcut aneous ly one time a day every Mari for Type 2 DM 2024 - Omeprazole Capsule Delayed Release 20 MG active 812493 RXNORM 1 capsul e Oral one time a day Routine Give 1 capsul e by mouth one time a day for Gerd. Take on empty stomac h. Do not crush. May be opened and sprink led on apples auce. 2024 - Pravastatin Sodium Tablet 40 MG active 916422 RXNORM 1 tablet Oral at bedtime Routine Give 1 tablet by mouth at bedtim e for HLD Avoid grapef ruit juice. 2024 - CeleXA Oral Tablet 40 MG active 128389 RXNORM 1 tablet Oral one time a day Routine Give 1 tablet by mouth one time a day for depres jami 2024 - Albuterol Sulfate HFA Inhalation Aerosol Solution 108 (90 Base) MCG/ACT active 422887 RXNORM 2 puff Inhalat ion as needed PRN 2 puff inhale orally every 6 hours as needed for COPD 2024 - Fleet Enema Enema 7-19 GM/118ML aborted 891561 RXNORM 1 unit Rectal as needed PRN Insert 1 unit rectal ly every 24 hours as needed for Consti pation Use only if Bisaco dyl Suppos itory is ineffe ctive 01/15 predniSONE Oral Tablet 10 MG aborted 435249 RXNORM 4 tablet Oral in the morning Titrati on Give 4 tablet by mouth in the mornin g for COPD Exacer bation . for 3 Days THEN Give 3 tablet by mouth in the mornin g for COPD Exacer bation . for 7 Days THEN Give 2 tablet by mouth one time a day for COPD Exacer bation . for 7 Days THEN Give 1 tablet by mouth one time a day for COPD Exacer bation . 01/0345 RXNORM 3 tablet Oral in the morning Titrati on Give 4 tablet by mouth in the mornin g for COPD Exacer bation . for 3 Days THEN Give 3 tablet by mouth in the mornin g for COPD Exacer bation . for 7 Days THEN Give 2 tablet by mouth one time a day for COPD Exacer bation . for 7 Days THEN Give 1 tablet by mouth one time a day for COPD Exacer bation . 01/0345 RXNORM 2 tablet Oral one time a day Titrati on Give 4 tablet by mouth in the mornin g for COPD Exacer bation . for 3 Days THEN Give 3 tablet by mouth in the mornin g for COPD Exacer bation . for 7 Days THEN Give 2 tablet by mouth one time a day for COPD Exacer bation . for 7 Days THEN Give 1 tablet by mouth one time a day for COPD Exacer bation . 01/0345 RXNORM 1 tablet Oral one time a day Titrati on Give 4 tablet by mouth in the mornin g for COPD Exacer bation . for 3 Days THEN Give 3 tablet by mouth in the mornin g for COPD Exacer bation . for 7 Days THEN Give 2 tablet by mouth one time a day for COPD Exacer bation . for 7 Days THEN Give 1 tablet by mouth one time a day for COPD Exacer bation . 01/03 MetFORMIN HCl Tablet 500 MG active 124618 RXNORM 1 tablet Oral two times a day Routine Give 1 tablet by mouth two times a day for Type 2 DM Give with meals 2024 - Ipratropium-A lbuterol Solution 0.5-2.5 (3) MG/3ML active 336860 2 RXNORM 1 vial Inhalat ion as needed PRN 1 vial inhale orally via nebuli zer every 6 hours as needed for Wheeze ;Short ness of Breath 2024 - Bisacodyl Suppository 10 MG aborted RXNORM 1 suppos itory Rectal as needed PRN Insert 1 suppos itory rectal ly every 24 hours as needed for consti pation Use if Senna is Ineffe ctive 01/15 Senna Tablet 8.6 MG aborted 621744 RXNORM 1 tablet Oral as needed PRN Give 1 tablet by mouth every 24 hours as needed for Consti pation 01/15 Amoxicillin-P ot Clavulanate Oral Tablet 875-125 MG complete d 655774 RXNORM 1 tablet Oral every 12 hours Routine Give 1 tablet by mouth every 12 hours for infect ion for 5 Days 01/07 Nystatin Cream 921467 UNIT/GM aborted 902528 RXNORM n/a n/a Topical as needed PRN Apply to under breast s topica lly every 12 hours as needed for Rash 01/02 Dextromethorp naranjo-guaiFENes in Oral Liquid 10-100 MG/5ML active 388319 4 RXNORM 10 ml Oral as needed PRN Give 10 ml by mouth every 4 hours as needed for cough 2024 - Insulin Lispro Injection Solution 100 UNIT/ML active 502711 RXNORM n/a n/a Subcuta neous before meals Routine Inject as per slidin g scale: if 200 - 249 = 2 units; 250 - 299 = 4 units; 300 - 349 = 6 units; 350 - 399 = 8 units; 400 - 999 = 10 unit Call MD / CLINICAL RESEARCH ASSOCIATE, subcut aneous ly before meals for DM 2024 - predniSONE Oral Tablet 10 MG active 086576 RXNORM 4 tablet Oral in the morning Titrati on Give 4 tablet by mouth in the mornin g for COPD Exacer bation . for 10 Days THEN Give 3 tablet by mouth in the mornin g for COPD Exacer bation . for 14 Days THEN Give 2 tablet by mouth one time a day for COPD Exacer bation . for 14 Days THEN Give 1 tablet by mouth one time a day for COPD Exacer bation . 19810222 RXNORM 3 tablet Oral in the morning Titrati on Give 4 tablet by mouth in the mornin g for COPD Exacer bation . for 10 Days THEN Give 3 tablet by mouth in the mornin g for COPD Exacer bation . for 14 Days THEN Give 2 tablet by mouth one time a day for COPD Exacer bation . for 14 Days THEN Give 1 tablet by mouth one time a day for COPD Exacer bation . 01/27 399752 RXNORM 2 tablet Oral one time a day Titrati on Give 4 tablet by mouth in the mornin g for COPD Exacer bation . for 10 Days THEN Give 3 tablet by mouth in the mornin g for COPD Exacer bation . for 14 Days THEN Give 2 tablet by mouth one time a day for COPD Exacer bation . for 14 Days THEN Give 1 tablet by mouth one time a day for COPD Exacer bation . 02/1045 RXNORM 1 tablet Oral one time a day Titrati on Give 4 tablet by mouth in the mornin g for COPD Exacer bation . for 10 Days THEN Give 3 tablet by mouth in the mornin g for COPD Exacer bation . for 14 Days THEN Give 2 tablet by mouth one time a day for COPD Exacer bation . for 14 Days THEN Give 1 tablet by mouth one time a day for COPD Exacer bation . 2024 - Aspirin 81 Oral Tablet Chewable active 81 mg Oral one time a day Routine Give 81 mg by mouth one time a day for antico agulen t 2024 - Mental Status Section Date Assessment Total Score Description 01/07/2025 BIMS 15 cognitively int act CAM 0 No delirium ind icated 01/07/2025 BIMS 15 cognitively int act CAM 0 No delirium ind icated Problems Problem # Description Date of onset Resolved Date Code CodeSystem Concern Status 1 EPISTAXIS 01/02/[address] active 2 ACUTE AND CHRONIC RESPIRATORY FAILURE WITH HYPOXIA 01/01/[address] active 3 CHRONIC EMBOLISM AND THROMBOSIS OF UNSPECIFIED VEIN 01/01/[address] active 4 CHRONIC OBSTRUCTIVE PULMONARY DISEASE WITH (ACUTE) EXACERBATION 01/01/[address] active 5 DEPRESSION, UNSPECIFIED 01/01/[address] active 6 DIFFICULTY IN WALKING, NOT ELSEWHERE CLASSIFIED 01/01/[address] active 7 GASTRO-ESOPHAGEAL REFLUX DISEASE WITHOUT ESOPHAGITIS 01/01/[address] active 8 HYPERLIPIDEMIA, UNSPECIFIED 01/01/[address] active 9 MUSCLE WEAKNESS (GENERALIZED) 01/01/[address] active 10 PERSONAL HISTORY OF PULMONARY EMBOLISM 01/01/[address] active 11 PULMONARY FIBROSIS, UNSPECIFIED 01/01/[address] active 12 TYPE 2 DIABETES MELLITUS WITHOUT COMPLICATIONS 01/01/[address] active Reason for Referral No Reasons for Referral Entered Social History Social History Observation Description Start Date End Date Code Code System Current Smoking Status Tobacco smoking consumption unknown 767409135 SNOMED CT Sex Assigned At Female 1955 25003-2 [facility] Vital Signs Code Code System Vitals Name Values and Units Timing Information 02611-9 [facility] O2 % BldC Oximetry Value=94.0 Units= % 01/15/2025 66618-4 [facility] Pain Level Value=0.0 01/15/2025 2339-0 [facility] Blood Sugar Value=79.0 Units=mg/dL 01/15/2025 8867-4 [facility] Heart rate Value=73.0 Units=/min 8462-4 [facility] Blood Pressure-Diastolic Value=74 Un its=mmHg 01/15/2025 8480-6 [facility] Blood Pressure-Systolic Ksvxx=176 Un its=mmHg 01/15/2025 8310-5 [facility] Body Temperature Value=98.6 Units=?? F 01/14/2025 9279-1 [facility] Respiratory Rate Value=18.0 Units=/m in 01/14/2025 16352-0 [facility] Weight Xzldg=126.4 Units=Lbs 8302-2 [facility] Height Value=68.0 Units=Inches 01/02/2025
--- OUTSIDE RECORDS SUMMARY | 2025-02-13 15:54 | XMS_ITS | Clinical Summary ---
Author Organization [facility] Address [address] [place] [address] Phone Care Team Providers Care Assistant Professor Of Art Name Role Phone Chuy Nguyễn MD Primary Care Provider [phone] Medications albuterol HFA (PROAIR HFA ; PROVENTIL HFA ; VENTOLIN HFA) 90 mcg/actuation inhaler Inhale 2 puffs by mouth every 6 (six) hours if needed for wheezing. 1 each 1 12/23/2024 Active Encounters Date Type Department Care Team Description 01/18/2025 Lab Requisition [facility] [address] [place] [phone] Chuy Nguyễn MD Essential (primary) hypertension 01/11/2025 Lab Requisition [facility] [address] [place] [phone] Chuy Nguyễn MD Essential (primary) hypertension 01/04/2025 Lab Requisition [facility] [address] [place] [phone] Chuy Nguyễn MD Essential (primary) hypertension 01/02/2025 Lab Requisition [facility] [address] [place] [phone] Chuy Nguyễn MD Essential (primary) hypertension 12/05/2024 Telephone Lung Screening Program - [place] [address] [facility] [address] [place] [address] [place] Appointment (1st Notification) from [...] Care Team (Late st Contact Info) Description 02/15/2025 9:[address] [facility] CT Scan [address] [place] [address] Health Maintenance Due Date Last Done Comments Breast Cancer Screening 1955 Diabetes: Annual Foot Exam 1967 Diabetes: Annual Retina Eye Exam 1967 DTaP,Tdap,and Td Vaccines (1 - Tdap) 1976 Zoster Vaccines (1 of 2) 2007 RSV Immunization Patients 60 + Years Old (1 - Risk 60-74 years 1-dose series) 2017 09/03/2024 Cholesterol Screening (Lipid Panel) 10/23/2022 Colorectal Cancer Screening: Colonoscopy 10/23/2022 Depression Screening 10/23/2022 Hepatitis C Screening 10/23/2022 Medicare Annual Wellness Visit 10/23/2022 Osteoporosis Screening (Bone Density Screening) 10/23/2022 Social Influencers of Health Screening 10/23/2022 Falls Risk Assessment 2022 Pneumococcal Vaccine: 50+ Years (2 of 2 - PPSV23) 04/11/2024 02/15/2024 COVID-19 Vaccine (2 - 2023-2 5 season) 2024 03/01/2021 Diabetes: Annual Urine Albumin-Creatinine Ratio (uACR) 02/08/2025 Diabetes: Blood Sugar Contro l Test (HGBA1C) 02/08/2025 Diabetes: Annual GFR (Glomerular Filtration Rate) 01/13/2026 01/13/2025, 01/06/2025, 01/02/2025 Hypertension/CHF/CAD Annual BMP Blood Test 01/13/2026 01/13/2025, 01/06/2025, 01/02/2025 Influenza Vaccine Completed 08/01/2024, 09/28/2023 RSV Immunization Patients Under 20 months Aged Out 09/03/2024 No longer eligible b ased on patient's age to complete this topic HIB Vaccines Aged Out No longer eligi [...] Procedure Name Priority Date/Time Associated Diagnosis Comments BASIC METABOLIC PANEL Routine 01/13/2025 6:29 AM EST Essential (primary) hypertension COMPLETE BLOOD COUNT Routine 01/13/2025 6:29 AM EST Essential (primary) hypertension BASIC METABOLIC PANEL Routine 01/06/2025 6:49 AM EST Essential (primary) hypertension COMPLETE BLOOD COUNT Routine 01/06/2025 6:49 AM EST Essential (primary) hypertension COMPREHENSIVE METABOLIC PANEL Routine 01/02/2025 9:28 AM EST Essential (primary) hypertension COMPLETE BLOOD COUNT Routine 01/02/2025 9:28 AM EST Essential (primary) hypertension from Last 3 Months Results * (ABNORMAL) Complete blood count (01/13/2025 6:29 AM EST) Only the most recent of3 resultswithin the time period is included. WBC 10.0 4.8 - 10.8 K/mcL LAB [...] g/dL LAB HEMETOLOGY METHOD 01/13/2025 1:[address] [facility] RDW 16.6(H) 11.0 - 15.0 % LAB HEMETOLOGY METHOD 01/13/2025 1:[address] [facility] Platelets 333 130 - 400 K/mcL LAB HEMETOLOGY METHOD 01/13/2025 1:[address] [facility] MPV 9.4 7.0 - 11.0 FL LAB HEMETOLOGY METHOD 01/13/2025 1:[address] [facility] NRBC 0.0 <1.0 % LAB HEMETOLOGY METHOD 01/13/2025 1:[address] [facility] NRBC Absolute 0.00 <0.10 K/mcL LAB HEMETOLOGY METHOD 01/13/2025 1:[address] [facility] Blood Venous blood specimen / Unknown Venipuncture / Unknown 01/13/2025 6:29 AM EST 01/13/2025 11:44 AM EST us Chuy Nguyễn MD LAB BLOOD ORDERABLES Final Resul t [facility] [address] [place] [address], [place] [phone] * (ABNORMAL) Basic metabolic panel (01/13/2025 6:29 AM EST) Only the most recent of2 resultswithin the time period is included. Sodium 144 133 - 145 mmol/L LAB CHEMISTRY METHOD 01/13/2025 1:[address] [facility] Potassium 4.1 3.5 - 5.5 mmol/L LAB CHEMISTRY METHOD 01/13/2025 1:[address] [facility] Chloride 108 96 - 110 mmol/L LAB CHEMISTRY METHOD 01/13/2025 1:[address] [facility] CO2 27 21 - 32 mmol/L [...] MD LAB BLOOD ORDERABLES Final Resul t [facility] [address] [place] [address], * (ABNORMAL) Comprehensive metabolic panel (01/02/2025 9:28 AM EST) Sodium 139 133 - 145 mmol/L LAB CHEMISTRY METHOD 01/02/2025 12:30 PM [facility] Potassium 4.0 3.5 - 5.5 mmol/L LAB CHEMISTRY METHOD 01/02/2025 12:30 PM [facility] Chloride 107 96 - 110 mmol/L LAB CHEMISTRY METHOD 01/02/2025 12:30 PM [facility] CO2 24 21 - 32 mmol/L LAB CHEMISTRY METHOD 01/02/2025 12:30 PM [facility] Anion Gap 8 3 - 11 LAB CHEMISTRY METHOD 01/02/2025 12:30 PM [facility] Glucose 95 70 - 100 mg/dL LAB CHEMISTRY METHOD 01/02/2025 12:30 PM [facility] BUN 28(H) 5 - 25 mg/dL LAB CHEMISTRY METHOD 01/02/2025 12:30 PM [facility] Creatinine 1.11(H) 0.50 - 1.10 mg/dL LAB CHEMISTRY METHOD 01/02/2025 12:30 PM [facility] eGFR 55(L) >=60 mL/min/1. 73m2 LAB CHEMISTRY METHOD 01/02/2025 12:30 PM [facility] Comment:Calculation based on the??Chronic Kidney Disease Epidemiology Collaboration (CKD-EPI) equation refit??without adjustment for race. BUN/Creatinine Ratio 25.2 LAB CHEMISTRY METHOD 01/02/2025 12:30 PM [facility] Calcium 9.0 8.5 - 10.5 mg/dL LAB CHEMISTRY METHOD 01/02/2025 12:30 PM [facility] AST (SGOT) 13 10 - 42 unit/L LAB CHEMISTRY METHOD 01/02/2025 12:30 PM [facility] ALT (SGPT) 25 10 - 60 unit/L LAB CHEMISTRY METHOD 01/02/2025 12:30 PM [facility] Alkaline Phosphatase 38(L) 42 - 121 unit/L LAB CHEMISTRY METHOD 01/02/2025 12:30 PM [facility] Total Protein 5.5(L) 6.0 - 8.0 g/dL LAB CHEMISTRY METHOD 01/02/2025 12:[address] [facility] Albumin 3.2 3.2 - 5.0 g/dL LAB CHEMISTRY METHOD 01/02/2025 12:[address] [facility] Total Bilirubin 0.4 0.0 - 1.4 mg/dL LAB CHEMISTRY METHOD 01/02/2025 12:[address] [facility] Blood Venous blood specimen / Unknown Venipuncture / Unknown 01/02/2025 9:28 AM EST 01/02/2025 11:08 AM EST us Chuy Nguyễn MD LAB BLOOD ORDERABLES Final Resul t [facility] [address] [place] [address], [place] [phone] from Last 3 Months Insurance [employer] MEDICARE Care Teams Assistant Professor Of Art Relationship Specialty Start Date End Date Chuy Nguyễn MD [address] [place] [address], [phone] PCP - General Family Medicine 01/02/25
--- OUTSIDE RECORDS SUMMARY | 2025-02-13 15:54 | XMS_ITS | Encounter Summary ---
Author Organization [facility] Address [address] [place] [address] Care Team Providers Care Township Clerk Name Role Phone Chuy Nguyễn MD Primary Care Provider [phone] Encounter Details Date Type Department Care Team ([facility] Contact Info) Description 01/18/2025 Lab Requisition [facility] [address] [place] [address] Chuy Nguyễn MD [address] [place] [address], [phone] Essential (primary) hypertension Social History Tobacco [...] Info) Description 02/15/2025 9:15 AM EDT Appointment [facility] CT Scan [address] [place] [address] documented as of this encounter Visit Diagnoses Diagnosis Essential (primary) hypertension Unspecified essential hypertension documented in this encounter Care Teams Township Clerk Relationship Specialty Start Date End Date Delma, Chuy, MD [address] [place] [address], [phone] PCP - General Family Medicine 01/02/25 documented as of this encounter
== END 2025-02-13 13:37 | disposition home or self-care (01) ==
LOC: HO.HPS 12:52
PROVIDERS: PCP Internal Medicine; Visit Provider Internal Medicine Pulmonary Disease
DX: J84.10 Pulmonary fibrosis, unspecified (principal); Z99.81 Dependence on supplemental oxygen; J44.9 Chronic obstructive pulmonary disease, unspecified
CPT/HCPCS: 99214; G2211

== ENCOUNTER → 2025-02-13 12:51 | Outpatient (BNVA) | payer MEDICARE, SELFPAY | PROVIDERS: PCP Internal Medicine; Visit Provider Internal Medicine Pulmonary Disease | DX: J44.9 Chronic obstructive pulmonary disease, unspecified (principal); J84.10 Pulmonary fibrosis, unspecified; Z99.81 Dependence on supplemental oxygen | CPT/HCPCS: 99212 ==

== ENCOUNTER 2025-02-24 13:20 | Outpatient (REF) | payer MEDICARE, SELFPAY ==
--- NOTE | ~2025-02-24 | CT_ITS ---
EXAMINATION: CT ANGIOGRAM CHEST CLINICAL INFORMATION: Personal history of pulmonary embolism. COMPARISON: 12/27/24. TECHNIQUE: Multiple axial images were obtained through the chest after the administration of 65 mL of Omnipaque 350 intravenous contrast. Extensive vascular post-processing including two-dimensional and three-dimensional reformatted images were created and reviewed on an independent workstation. This CT examination was performed using dose optimization techniques as appropriate, variously including the following: *Automated exposure control *Adjustment of mA and/or kV according to patient size (this includes techniques or standardized protocols for targeted exams where dose is matched to indication/reason for exam; i.e. extremities or head) *Use of iterative reconstruction technique FINDINGS: VASCULAR: Examination is positive for bilateral segmental and subsegmental PE. Clot burden is moderate to low. There is no right heart strain pattern. There is no reflux of contrast into the IVC. There is enlargement of the main pulmonary artery suggesting increased pressure. The aorta is normal in caliber and course. There is no acute aortic syndrome. There is mild cardiac enlargement. There is no pericardial effusion. LUNGS: There is moderate to severe centrilobular emphysema. There are subpleural regions of scarring and reticular opacity in the lower lobes, lingula, and right middle lobe. These findings are stable. There is mosaic attenuation to both lungs. This is likely on the basis of PE. There is no pleural effusion or pneumothorax. No pleural thickening. Small airways demonstrate mild diffuse bronchiectasis. No small airway thickening. Elevated right hemidiaphragm. MEDIASTINUM: There is a prominent epicardial fat pad. There is a moderate-sized type III hiatus hernia. There is no mediastinal lymphadenopathy or mass. Esophagus is normal. The thyroid is normal. Similar right paratracheal lymph node. AXILLA/CHEST WALL: No lymphadenopathy. UPPER ABDOMEN: Unremarkable. OSSEOUS STRUCTURES: No suspicious lytic or blastic bone lesion. Mild degenerative spinal changes. CT/CT angio chest PE protocol IMPRESSION: 1. Recurrent bilateral pulmonary emboli. Small to moderate clot burden. No right heart strain and no reflux of contrast into the IVC. Findings do not meet criteria for submassive PE. 2. Enlargement of the main pulmonary artery. 3. No evidence of acute aortic syndrome or aneurysm. 4. Moderate to severe centrilobular emphysema. Mosaic attenuation pattern, most likely on the basis of PE. Regions of subpleural scarring and reticular change in the lower lobes, lingula, and right middle lobe. These changes appear similar to the prior examination. Chronic interstitial lung disease is a consideration. 5. There is mild cardiac enlargement. There is no pleural effusion or pneumothorax. 6. Moderate-sized type III hiatus hernia. 7. Additional ancillary findings as detailed in the body of report. Findings relayed to Dr. Orozco via secure fax at 5:00 PM, 02/24/2025. Electronically signed by: Rickey Weinberg MD 02/24/2025 05:02 PM EDT
[2025-02-24 14:16] LABS: Anion Gap 15 (12-20); Blood Urea Nitrogen 17 mg/dL (9-16); Carbon Dioxide 24 mmol/L (22-29); Chloride 109 mmol/L (96-108); Estimated Glomerular Filt Rate 51; Glucose Random 103 mg/dL (60-115); Potassium 3.7 mmol/L (3.3-5.1); Sodium 144 mmol/L (135-145)
[2025-02-24] MEDS: iohexoL 350 MG/ML 75 ML INFUS..BTL 65 ML IV (15:48)
--- OUTSIDE RECORDS SUMMARY | 2025-02-24 15:49 | XMS_ITS | Clinical Summary ---
Author Organization [facility] Address [address] [place] [address] Care Team Providers Care Ammonium Hydroxide Operator Name Role Phone Unavailable Primary Care Provider Unavailabl e Encounters Date Type Department Care Team Description 12/09/2024 Transcribe Orders [facility] Artis Whiting [...]
--- OUTSIDE RECORDS SUMMARY | 2025-02-24 15:49 | XMS_ITS | Encounter Summary ---
Author Organization [facility] Address [address] [place] [address] Care Team Providers Care Computer Hardware Designer Name Role Phone Chuy Nguyễn MD Primary Care Provider [phone] Encounter Details Date Type Department Care Team (Late st Contact Info) Description 01/11/2025 Lab Requisition [facility] - Main Lab [address] [facility] [place] [address] Chuy Nguyễn MD [address] [place] [address] [address] [place], [address] Essential (primary) hypertension Social History Tobacco [...] as of this encounter Plan of Treatment Not on file documented as of this encounter Procedures Procedure Name Priority Date/Time Associated Diagnosis Comments COMPLETE BLOOD COUNT Routine 01/13/2025 6:29 AM EST Essential (primary) hypertension BASIC METABOLIC PANEL Routine 01/13/2025 6:29 AM EST Essential (primary) hypertension documented in this encounter Results * (ABNORMAL) Basic metabolic panel (01/13/2025 6:29 AM EST) Sodium 144 133 - 145 mmol/L LAB CHEMISTRY METHOD 01/13/2025 1:25 PM [facility] Potassium 4.1 3.5 - 5.5 mmol/L LAB CHEMISTRY METHOD 01/13/2025 1:25 PM [facility] Chloride 108 96 - 110 mmol/L LAB CHEMISTRY METHOD 01/13/2025 1:25 PM [facility] CO2 27 21 - 32 mmol/L LAB CHEMISTRY METHOD 01/13/2025 1:25 PM [facility] Anion Gap 9 3 - 11 LAB CHEMISTRY METHOD 01/13/2025 1:25 PM [facility] Glucose 59(L) 70 - 100 mg/dL LAB CHEMISTRY METHOD 01/13/2025 1:25 PM [facility] BUN 17 5 - 25 mg/dL LAB CHEMISTRY METHOD 01/13/2025 1:25 PM [facility] Creatinine 0.98 0.50 - 1.10 mg/dL LAB CHEMISTRY METHOD 01/13/2025 1:25 PM [facility] eGFR 63 >=60 mL/min/1. 73m2 LAB CHEMISTRY METHOD 01/13/2025 1:25 PM [facility] Comment:Calculation based on the??Chronic Kidney Disease Epidemiology Collaboration (CKD-EPI) equation refit??without adjustment for race. BUN/Creatinine Ratio 17.3 LAB CHEMISTRY METHOD 01/13/2025 1:25 PM [facility] Calcium 8.9 8.5 - 10.5 mg/dL LAB CHEMISTRY METHOD 01/13/2025 1:25 PM [facility] Blood Venous blood specimen / Unknown Venipuncture / Unknown 01/13/2025 6:29 AM EST 01/13/2025 11:44 AM EST us Chuy Nguyễn MD LAB BLOOD ORDERABLES Final Resul t [facility] [address] [place] [address], [place] [phone] * (ABNORMAL) Complete blood count (01/13/2025 6:29 AM EST) WBC 10.0 4.8 - 10.8 K/mcL LAB HEMETOLOGY METHOD 01/13/2025 1:40 PM [facility] RBC 2.40(L) 3.80 - 4.80 M/mcL LAB HEMETOLOGY METHOD 01/13/2025 1:40 PM [facility] Hemoglobin 7.9(L) 11.5 - 16.0 g/dL LAB HEMETOLOGY METHOD 01/13/2025 1:40 PM [facility] Hematocrit 26.7(L) 35.0 - 47.0 % LAB HEMETOLOGY METHOD 01/13/2025 1:40 PM [facility] MCV 111.3(H) 79.0 - 98.0 FL LAB HEMETOLOGY METHOD 01/13/2025 1:40 PM [facility] MCH 32.9(H) 27.0 - 32.0 pcg LAB HEMETOLOGY METHOD 01/13/2025 1:40 PM [facility] MCHC 29.6(L) 32.0 - 37.0 g/dL LAB HEMETOLOGY METHOD 01/13/2025 1:40 PM [facility] RDW 16.6(H) 11.0 - 15.0 % LAB HEMETOLOGY METHOD 01/13/2025 1:40 PM [facility] Platelets 333 130 - 400 K/mcL LAB HEMETOLOGY METHOD 01/13/2025 1:40 PM [facility] MPV 9.4 7.0 - 11.0 FL LAB HEMETOLOGY METHOD 01/13/2025 1:40 PM EST [facility] NRBC 0.0 <1.0 % LAB HEMETOLOGY METHOD 01/13/2025 1:40 PM EST [facility] NRBC Absolute 0.00 <0.10 K/mcL LAB HEMETOLOGY METHOD 01/13/2025 1:40 PM EST [facility] Blood Venous blood specimen / Unknown Venipuncture / Unknown 01/13/2025 6:29 AM EST 01/13/2025 11:44 AM EST us Chuy Nguyễn MD LAB BLOOD ORDERABLES Final Resul t [facility] [address] [place] [address], documented in this encounter Visit Diagnoses Diagnosis Essential (primary) hypertension Unspecified essential hypertension documented in this encounter Care Teams Computer Hardware Designer Relationship Specialty Start Date End Date Chuy Nguyễn MD [address] [place] [address], [phone] PCP - General Family Medicine 01/02/25 documented as of this encounter
--- OUTSIDE RECORDS SUMMARY | 2025-02-24 15:49 | XMS_ITS | Encounter Summary ---
Author Organization [facility] Address [address] [place] [address] Care Team Providers Care Air Analysis Technician Name Role Phone Chuy Nguyễn MD Primary Care Provider [phone] Encounter Details Date Type Department Care Team (Late st Contact Info) Description 01/18/2025 Lab Requisition [facility] - Main Lab 299 [facility] [place] [address] Chuy Nguyễn MD [address] [facility] [address] [place], [phone] Essential (primary) hypertension Social History Tobacco [...] on file documented as of this encounter Visit Diagnoses Diagnosis Essential (primary) hypertension Unspecified essential hypertension documented in this encounter Care Teams Air Analysis Technician Relationship Specialty Start Date End Date Chuy Nguyễn MD [address] [facility] [address] [place], [phone] PCP - General Family Medicine 01/02/25 documented as of this encounter
--- OUTSIDE RECORDS SUMMARY | 2025-02-24 15:50 | XMS_ITS | Patient Health Record ---
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 Plan Of Treatment Pending Test Test Name Order Date X ray : Foot, right 3V 03/16/2023 Insurance Providers Payer Name Payer Address Payer Phone Subscriber Number Group Number Insured Name Patient Relationship to Insured Coverage Start Date Coverage End Date AARP Medicare Complete [address] [address] [place] [address] [phone] [id number] Jeny Diez Self - patient is the insured Medicare [employer] [address] [place] [address] [id number] Jeny Diez Self - patient is the insured Medical (General) History Medical History History ICD Code Broken bones Chicken pox skin cancer Depression Measles Mumps Psoriasis/Eczema COPD Surgical History Surgery Date(Month/Year) back surgery lung surgery shoulder surgery Hospitalization History Reason Date(Month/Year) [facility] xrays bilateral ankles 08/11/15
--- OUTSIDE RECORDS SUMMARY | 2025-02-24 15:50 | XMS_ITS | Encounter Summary ---
Author Organization [facility] Address [address] [place] [address] Care Team Providers Care Program Development Specialist Name Role Phone Chuy Nguyễn MD Primary Care Provider [phone] Encounter Details Date Type Department Care Team (Late st Contact Info) Description 01/04/2025 Lab Requisition [facility] - Main Lab 299 [facility] [place] [address] Chuy Nguyễn MD [address] [place] [address] [address] [place], [phone] Essential (primary) hypertension Social History Tobacco [...] mmol/L LAB CHEMISTRY METHOD 01/06/2025 11:49 AM [facility] Potassium 3.9 3.5 - 5.5 mmol/L LAB CHEMISTRY METHOD 01/06/2025 11:49 AM [facility] Chloride 107 96 - 110 mmol/L LAB CHEMISTRY METHOD 01/06/2025 11:49 AM [facility] CO2 29 21 - 32 mmol/L LAB CHEMISTRY METHOD 01/06/2025 11:49 AM [facility] Anion Gap 6 3 - 11 LAB CHEMISTRY METHOD 01/06/2025 11:49 AM [facility] Glucose 72 70 - 100 mg/dL LAB CHEMISTRY METHOD 01/06/2025 11:49 AM [facility] BUN 21 5 - 25 mg/dL LAB CHEMISTRY METHOD 01/06/2025 11:49 AM [facility] Creatinine 1.10 0.50 - 1.10 mg/dL LAB CHEMISTRY METHOD 01/06/2025 11:49 AM [facility] eGFR 55(L) >=60 mL/min/1. 73m2 LAB CHEMISTRY METHOD 01/06/2025 11:49 AM [facility] Comment:Calculation based on the??Chronic Kidney Disease Epidemiology Collaboration (CKD-EPI) equation refit??without adjustment for race. BUN/Creatinine Ratio 19.1 LAB CHEMISTRY METHOD 01/06/2025 11:49 AM [facility] Calcium 8.6 8.5 - 10.5 mg/dL LAB CHEMISTRY METHOD 01/06/2025 11:49 AM [facility] Blood Venous blood specimen / Unknown Venipuncture / Unknown 01/06/2025 6:49 AM EST 01/06/2025 11:07 AM EST us Chuy Nguyễn MD LAB BLOOD ORDERABLES Final Resul t [facility] [address] [place] [address], * (ABNORMAL) Complete blood count (01/06/2025 6:49 AM EST) WBC 9.4 4.8 - 10.8 K/mcL LAB HEMETOLOGY METHOD 01/06/2025 11:33 AM EST [facility] RBC 2.30(L) 3.80 - 4.80 M/mcL LAB HEMETOLOGY METHOD 01/06/2025 11:33 AM [facility] Hemoglobin 7.6(L) 11.5 - 16.0 g/dL LAB HEMETOLOGY METHOD 01/06/2025 11:33 AM [facility] Hematocrit 24.5(L) 35.0 - 47.0 % LAB HEMETOLOGY METHOD 01/06/2025 11:33 AM [facility] MCV 106.1(H) 79.0 - 98.0 FL LAB HEMETOLOGY METHOD 01/06/2025 11:33 AM [facility] MCH 32.9(H) 27.0 - 32.0 pcg LAB HEMETOLOGY METHOD 01/06/2025 11:33 AM [facility] MCHC 31.0(L) 32.0 - 37.0 g/dL LAB HEMETOLOGY METHOD 01/06/2025 11:33 AM [facility] RDW 17.3(H) 11.0 - 15.0 % LAB HEMETOLOGY METHOD 01/06/2025 11:33 AM [facility] Platelets 279 130 - 400 K/mcL LAB HEMETOLOGY METHOD 01/06/2025 11:33 AM [facility] MPV 9.3 7.0 - 11.0 FL LAB HEMETOLOGY METHOD 01/06/2025 11:33 AM EST [facility] NRBC 0.5 <1.0 % LAB HEMETOLOGY METHOD 01/06/2025 11:33 AM EST [facility] NRBC Absolute 0.05 <0.10 K/mcL LAB HEMETOLOGY METHOD 01/06/2025 11:33 AM EST [facility] Blood Venous blood specimen / Unknown Venipuncture / Unknown 01/06/2025 6:49 AM EST 01/06/2025 11:07 AM EST us Chuy Nguyễn MD LAB BLOOD ORDERABLES Final Resul t [facility] [address] [place] [address], documented in this encounter Visit Diagnoses Diagnosis Essential (primary) hypertension Unspecified essential hypertension documented in this encounter Care Teams Program Development Specialist Relationship Specialty Start Date End Date Chuy Nguyễn MD [address] [place] [address], [phone] PCP - General Family Medicine 01/02/25 documented as of this encounter
--- OUTSIDE RECORDS SUMMARY | 2025-02-24 15:50 | XMS_ITS | Encounter Summary ---
Author Organization [facility] Address [address] [place] [address] Care Team Providers Care City Weighmaster Name Role Phone Chuy Nguyễn MD Primary Care Provider [phone] Encounter Details Date Type Department Care Team (Late st Contact Info) Description 01/02/2025 Lab Requisition [facility] - Main Lab 299 [facility] [place] [address] Chuy Nguyễn MD [address] [place] [address] [address] [place], [phone] Essential (primary) hypertension Social History Tobacco [...] mmol/L LAB CHEMISTRY METHOD 01/02/2025 12:30 PM [facility] Potassium 4.0 3.5 - 5.5 mmol/L LAB CHEMISTRY METHOD 01/02/2025 12:30 PM [facility] Chloride 107 96 - 110 mmol/L LAB CHEMISTRY METHOD 01/02/2025 12:30 PM [facility] CO2 24 21 - 32 mmol/L LAB CHEMISTRY METHOD 01/02/2025 12:30 PM [facility] Anion Gap 8 3 - 11 LAB CHEMISTRY METHOD 01/02/2025 12:30 PM [facility] Glucose 95 70 - 100 mg/dL LAB CHEMISTRY METHOD 01/02/2025 12:30 PM [facility] BUN 28(H) 5 - 25 mg/dL LAB CHEMISTRY METHOD 01/02/2025 12:30 PM [facility] Creatinine 1.11(H) 0.50 - 1.10 mg/dL LAB CHEMISTRY METHOD 01/02/2025 12:30 PM [facility] eGFR 55(L) >=60 mL/min/1. 73m2 LAB CHEMISTRY METHOD 01/02/2025 12:30 PM [facility] Comment:Calculation based on the??Chronic Kidney Disease Epidemiology Collaboration (CKD-EPI) equation refit??without adjustment for race. BUN/Creatinine Ratio 25.2 LAB CHEMISTRY METHOD 01/02/2025 12:30 PM [facility] Calcium 9.0 8.5 - 10.5 mg/dL LAB CHEMISTRY METHOD 01/02/2025 12:30 PM [facility] AST (SGOT) 13 10 - 42 unit/L LAB CHEMISTRY METHOD 01/02/2025 12:30 PM [facility] ALT (SGPT) 25 10 - 60 unit/L LAB CHEMISTRY METHOD 01/02/2025 12:30 PM [facility] Alkaline Phosphatase 38(L) 42 - 121 unit/L LAB CHEMISTRY METHOD 01/02/2025 12:30 PM [facility] Total Protein 5.5(L) 6.0 - 8.0 g/dL LAB CHEMISTRY METHOD 01/02/2025 12:30 PM [facility] Albumin 3.2 3.2 - 5.0 g/dL LAB CHEMISTRY METHOD 01/02/2025 12:30 PM [facility] Total Bilirubin 0.4 0.0 - 1.4 mg/dL LAB CHEMISTRY METHOD 01/02/2025 12:30 PM [facility] Blood Venous blood specimen / Unknown Venipuncture / Unknown 01/02/2025 9:28 AM EST 01/02/2025 11:08 AM EST us Chuy Nguyễn MD LAB BLOOD ORDERABLES Final Resul t [facility] [address] [place] [address], * (ABNORMAL) Complete blood count (01/02/2025 9:28 AM EST) WBC 12.8(H) 4.8 - 10.8 K/mcL LAB HEMETOLOGY METHOD 01/02/2025 12:51 PM [facility] RBC 2.50(L) 3.80 - 4.80 M/mcL LAB HEMETOLOGY METHOD 01/02/2025 12:51 PM [facility] Hemoglobin 8.4(L) 11.5 - 16.0 g/dL LAB HEMETOLOGY METHOD 01/02/2025 12:51 PM [facility] Hematocrit 26.2(L) 35.0 - 47.0 % LAB HEMETOLOGY METHOD 01/02/2025 12:51 PM EST [facility] MCV 103.6(H) 79.0 - 98.0 FL LAB HEMETOLOGY METHOD 01/02/2025 12:51 PM [facility] MCH 33.2(H) 27.0 - 32.0 pcg LAB HEMETOLOGY METHOD 01/02/2025 12:51 PM [facility] MCHC 32.1 32.0 - 37.0 g/dL LAB HEMETOLOGY METHOD 01/02/2025 12:51 PM [facility] RDW 16.6(H) 11.0 - 15.0 % LAB HEMETOLOGY METHOD 01/02/2025 12:51 PM [facility] Platelets 245 130 - 400 K/mcL LAB HEMETOLOGY METHOD 01/02/2025 12:51 PM [facility] MPV 9.5 7.0 - 11.0 FL LAB HEMETOLOGY METHOD 01/02/2025 12:51 PM [facility] NRBC 1.4(H) <1.0 % LAB HEMETOLOGY METHOD 01/02/2025 12:51 PM [facility] NRBC Absolute 0.18(H) <0.10 K/mcL LAB HEMETOLOGY METHOD 01/02/2025 12:51 PM [facility] Blood Venous blood specimen / Unknown Venipuncture / Unknown 01/02/2025 9:28 AM EST 01/02/2025 11:08 AM EST us Chuy Nguyễn MD LAB BLOOD ORDERABLES Final Resul t [facility] [address] [place] [address], [place] [phone] documented in this encounter Visit Diagnoses Diagnosis Essential (primary) hypertension Unspecified essential hypertension documented in this encounter Care Teams City Weighmaster Relationship Specialty Start Date End Date Chuy Nguyễn MD [address] [facility] [place] [address] [place], [phone] PCP - General Family Medicine 01/02/25 documented as of this encounter
--- OUTSIDE RECORDS SUMMARY | 2025-02-24 15:50 | XMS_ITS | Clinical Summary ---
Author Organization [facility] Address [address] [place] [address] Phone Care Team Providers Care Office Technologist Name Role Phone Chuy Nguyễn MD Primary Care Provider [phone] Medications albuterol HFA (PROAIR HFA ; PROVENTIL HFA ; VENTOLIN HFA) 90 mcg/actuation inhaler Inhale 2 puffs by mouth every 6 (six) hours if needed for wheezing. 1 each 1 12/23/2024 Active Encounters Date Type Department Care Team Description 01/18/[address] [facility] [address] [place] [phone] Chuy Nguyễn MD Essential (primary) hypertension 01/11/[address] [facility] [address] [place] [phone] Chuy Nguyễn MD Essential (primary) hypertension 01/04/[address] [facility] [address] [place] [phone] Chuy Nguyễn MD Essential (primary) hypertension 01/02/[address] [facility] [address] [place] [phone] Chuy Nguyễn MD Essential (primary) hypertension 12/05/2024 Telephone Lung Screening Program - [address] [place] [address] [place] Appointment (1st [...] 02/12/2024 10:58 AM EDT Plan of Treatment Health Maintenance Due Date Last Done Comments Breast Cancer Screening 1957 Diabetes: Annual Foot Exam 1967 Diabetes: Annual Retina Eye Exam 1967 DTaP,Tdap,and Td Vaccines (1 - Tdap) 1976 Zoster Vaccines (1 of 2) 2007 RSV Immunization Adult Patients (1 - Risk 60-74 years 1-dose series) [...] age to complete this topic Meningococcal B Vaccine Aged Out No l onger eligible based on patient's age to complete [...] of3 resultswithin the time period is included. [facility] WBC 10.0 4.8 - 10.8 K/mcL LAB HEMETOLOGY METHOD 01/13/2025 1:[address] [facility] RBC 2.40(L) 3.80 - 4.80 M/mcL LAB HEMETOLOGY METHOD 01/13/2025 1:[address] [facility] Hemoglobin 7.9(L) 11.5 - 16.0 g/dL LAB HEMETOLOGY METHOD 01/13/2025 1:[address] [facility] Hematocrit 26.7(L) 35.0 - 47.0 % LAB HEMETOLOGY METHOD 01/13/2025 1:[address] [facility] MCV 111.3(H) 79.0 - 98.0 FL LAB HEMETOLOGY METHOD 01/13/2025 1:[address] [facility] MCH 32.9(H) 27.0 - 32.0 pcg LAB HEMETOLOGY METHOD 01/13/2025 1:[address] [facility] MCHC 29.6(L) 32.0 - 37.0 g/dL LAB HEMETOLOGY METHOD 01/13/2025 1:[address] [facility] RDW 16.6(H) 11.0 - 15.0 % LAB HEMETOLOGY METHOD 01/13/2025 1:40 PM EST [facility] Platelets 333 130 - 400 K/mcL LAB HEMETOLOGY METHOD 01/13/2025 1:40 PM EST [facility] MPV 9.4 7.0 - 11.0 FL LAB HEMETOLOGY METHOD 01/13/2025 1:40 PM EST [facility] NRBC 0.0 <1.0 % LAB HEMETOLOGY METHOD 01/13/2025 1:40 PM EST [facility] NRBC Absolute 0.00 <0.10 K/mcL LAB HEMETOLOGY METHOD 01/13/2025 1:40 PM EST [facility] Blood Venous blood specimen / Unknown Venipuncture / Unknown 01/13/2025 6:29 AM EST 01/13/2025 11:44 AM EST us Chuy Nguyễn MD LAB BLOOD ORDERABLES Final Resul t [facility] [address] [place] [address], [place] [phone] * (ABNORMAL) Basic metabolic panel (01/13/2025 6:29 AM EST) Only the most recent of2 resultswithin the time period is included. Sodium 144 133 - 145 mmol/L LAB CHEMISTRY METHOD 01/13/2025 1:[address] [facility] Potassium 4.1 3.5 - 5.5 mmol/L LAB CHEMISTRY METHOD 01/13/2025 1:[address] [facility] Chloride 108 96 - 110 mmol/L LAB CHEMISTRY METHOD 01/13/2025 1:[address] [facility] CO2 27 21 - 32 mmol/L LAB CHEMISTRY METHOD 01/13/2025 1:[address] [facility] Anion Gap 9 3 - 11 LAB CHEMISTRY METHOD 01/13/2025 1:[address] [facility] Glucose 59(L) 70 - 100 mg/dL LAB CHEMISTRY METHOD 01/13/2025 1:25 PM EST [facility] BUN 17 5 - 25 mg/dL LAB CHEMISTRY METHOD 01/13/2025 1:[address] [facility] Creatinine 0.98 0.50 - 1.10 mg/dL LAB CHEMISTRY METHOD 01/13/2025 1:[address] [facility] eGFR 63 >=60 mL/min/1. 73m2 LAB CHEMISTRY METHOD 01/13/2025 1:[address] [facility] Comment:Calculation based on the??Chronic Kidney Disease Epidemiology Collaboration (CKD-EPI) equation refit??without adjustment for race. BUN/Creatinine Ratio 17.3 LAB CHEMISTRY METHOD 01/13/2025 1:[address] [facility] Calcium 8.9 8.5 - 10.5 mg/dL LAB CHEMISTRY METHOD 01/13/2025 1:[address] [facility] Blood Venous blood specimen / Unknown Venipuncture / Unknown 01/13/2025 6:29 AM EST 01/13/2025 11:44 AM EST us Chuy Nguyễn MD LAB BLOOD ORDERABLES Final Resul t [facility] [address] [place] [address], * (ABNORMAL) Comprehensive metabolic panel (01/02/2025 9:28 AM EST) Sodium 139 133 - 145 mmol/L LAB CHEMISTRY METHOD 01/02/2025 12:[address] [facility] Potassium 4.0 3.5 - 5.5 mmol/L LAB CHEMISTRY METHOD 01/02/2025 12:[address] [facility] Chloride 107 96 - 110 mmol/L LAB CHEMISTRY METHOD 01/02/2025 12:[address] [facility] CO2 24 21 - 32 mmol/L LAB CHEMISTRY METHOD 01/02/2025 12:[address] [facility] Anion Gap 8 3 - 11 LAB CHEMISTRY METHOD 01/02/2025 12:[address] [facility] Glucose 95 70 - 100 mg/dL LAB CHEMISTRY METHOD 01/02/2025 12:[address] [facility] BUN 28(H) 5 - 25 mg/dL LAB CHEMISTRY METHOD 01/02/2025 12:[address] [facility] Creatinine 1.11(H) 0.50 - 1.10 mg/dL LAB CHEMISTRY METHOD 01/02/2025 12:[address] [facility] eGFR 55(L) >=60 mL/min/1. 73m2 LAB CHEMISTRY METHOD 01/02/2025 12:[address] [facility] Comment:Calculation based on the??Chronic Kidney Disease Epidemiology Collaboration (CKD-EPI) equation refit??without adjustment for race. BUN/Creatinine Ratio 25.2 LAB CHEMISTRY METHOD 01/02/2025 12:[address] [facility] Calcium 9.0 8.5 - 10.5 mg/dL LAB CHEMISTRY METHOD 01/02/2025 12:[address] [facility] AST (SGOT) 13 10 - 42 unit/L LAB CHEMISTRY METHOD 01/02/2025 12:[address] [facility] ALT (SGPT) 25 10 - 60 unit/L LAB CHEMISTRY METHOD 01/02/2025 12:[address] [facility] Alkaline Phosphatase 38(L) 42 - 121 unit/L LAB CHEMISTRY METHOD 01/02/2025 12:[address] [facility] Total Protein 5.5(L) 6.0 - 8.0 g/dL LAB CHEMISTRY METHOD 01/02/2025 12:[address] [facility] Albumin 3.2 3.2 - 5.0 g/dL LAB CHEMISTRY METHOD 01/02/2025 12:[address] [facility] Total Bilirubin 0.4 0.0 - 1.4 mg/dL LAB CHEMISTRY METHOD 01/02/2025 12:30 PM EST [facility] Blood Venous blood specimen / Unknown Venipuncture / Unknown 01/02/2025 9:28 AM EST 01/02/2025 11:08 AM EST us Chuy Nguyễn MD LAB BLOOD ORDERABLES Final Resul t [facility] [address] [place] [address], [place] [phone] from Last 3 Months Insurance [employer] MEDICARE Care Teams Office Technologist Relationship Specialty Start Date End Date Chuy Nguyễn MD [address] [place] [address], [phone] PCP - General Family Medicine 01/02/25
--- OUTSIDE RECORDS SUMMARY | 2025-02-24 15:50 | XMS_ITS | Data Portability ---
Author Organization [facility], Main Office Address [address] [place] [address] Care Team Providers Care Experimental Machining Lab Manager Name Role Phone [facility] OTHER UDAY FORD Primary Care Provider [phone] Assessment Encounter Date Assessment Date Assessment LastModified by Organization Details LastModified Time 01/02/2025 01/02/2025 Labs 2: Na 141-K 4.0-bun 40-cr 1.0 Not available 01/02/2025 19:47:32 01/03/2025 01/03/2025 Labs 2/11: Na 141-K 4.0-bun 40-cr 1.0 [place] Not available 02/08/2025 17:57:30 01/14/2025 01/14/2025 Labs 211: Na 141-K 4.0-bun 40-cr 1.0 Not available 01/14/2025 11:01:05 Plan of Treatment [...] Address Organization Details Recorded Time Hyperlipid emia 50840743 Active 2024 Not Available [facility] 16:48:22 Acute exacerbati on of chronic obstructiv e pulmonary disease 098075739 Active 2024 Not Available [facility] 16:49:33 Thromboemb olism of vein 755797341 Active 2024 Not Available [facility] 5 16:50:25 Type 2 diabetes mellitus without complicati on 121100508 Active 2024 Not Available [facility] 5 16:52:47 Fibrosis of lung 27655125 Active 2024 Not Available [facility] 5 15:13:26 Acute on chronic hypoxemic respirator y failure 1764874236987 9100 Active 2024 Not Available [facility] 5 15:13:48 Bleeding from nose 923647968 Active 2024 Not Available [facility] 5 18:43:13 Chronic obstructiv e pulmonary disease 66995417 Active 2024 ISH CHEUNG [address], [place], [address] , [facility] 5 19:33:28 Depressive disorder 61102611 Active 2024 ISH CHEUNG [address] , [address], [place], [address] , [facility] 5 19:57:53 Gastroesop hageal reflux disease 154001295 Active 2024 ISH CHEUNG [address] , [address], [place], [address] , [facility] 5 19:58:45 Gastroesop hageal reflux disease without esophagiti s 676145785 Active 2024 Not Available [facility] 5 12:49:10 Pulmonary embolism 09946913 Active 2024 Not Available [facility] 5 12:50:12 Muscle weakness 92370305 Active 2024 Not Available [facility] 5 16:05:42 Difficulty walking 952386431 Active 2024 Not Available [facility] 5 16:06:14 Chronic kidney disease stage 3A 698042237 Active 2024 Theresa Ospina MD [address], [address], [place], [address] , [facility] 18:04:08 Problem Notes None recorded. Medical Equipment None Reported. Allergies Allergen ID Allergen Name Allergen Category Reaction Reaction Severity Criticality Documentation Date Start Date Code Code System Note Provider Name and Address Organization Details Recorded Time 32183 Demerol medicatio n Not available Not available Not available 01/01/20252024 04919 1 RxNorm Not Available Not Available Not Available 02643 codeine medicatio n Not available Not available [...] 999 = 10 unit Call MD / DIE SINKING MACHINE OPERATOR, subcutane ously before meals for DM 2024 [...] Available Not Available Not Avai lable Acid Loading Machine Adjuster (omeprazole ) 20 mg capsule,del ayed release [...] 113 mm[Hg] 68 mm[Hg] ISH CHEUNG [address], [address], [place], [address], [facility] 20:03:26 Date Recorded Body height Body mass index (BMI) Body weight Heart rate Respiratory rate Body temperature Oxygen saturation Oxygen saturation in Arterial blood by Pulse oximetry Systolic blood pressure Diastolic blood pressure Provider Name and Address Organization Details Last Updated DateTime 172.72 cm 34.6 kg/m2 527767. 9 g 82 /min 18 /min 98.1 [degF] 98 % 98 % 124 mm[Hg] 70 mm[Hg] Theresa Ospina MD [address], [address], [place], [address], [facility] 22:49:01 Social History Question Answer Notes LastModified by Organizat ion Details LastModified Time Tobacco Smoking Status Former Smoker ISH CHEUNG [address], [address], [place], [address], [facility] 01/02/2025 20:00:56 Do You Have An Advance Directive? Yes Information not available 01/02/2025 What Is Your Level Of Alcohol Consumption? None Information not available 01/02/2025 What Is Your Code Status? Full Code MOLST 01/02/25 Information not available 01/02/2025 Where Do You Live? [facility] Split Level Home With , But Has Commode On Main Level And Sleeps On Couch. Information not available 01/03/2025 Legal Guardian? No Informati on not available 01/03/2025 Do You Have A Medical Power Of Tree Topper? Yes Information not available 01/03/2025 What Was [...] syncytial virus (RSV) vaccine, unspecified 4 completed [facility] 01/02/2025 15:33:31 Pneumococcal conjugate PCV 13 4 completed [facility] 01/02/2025 15:35:04 influenza, unspecified formulation 3 completed [facility] 01/02/2025 15:36:40 influenza, unspecified formulation 4 [facility] 01/02/2025 15:36:47 SARS-COV-2 (COVID-19) vaccine, UNSPECIFIED 1 completed [facility] 01/02/2025 15:37:08 Past Encounters Encounter ID Performer Location Encounter Start Date Encounter Closed Date Diagnosis/Indication Diagnosis SNOMED-CT Code Diagnosis ICD10 Code Diagnosis Note [id number] ISH CHEUNG [facility] [address] [place] [address] 01/02/2025 10:57:46 01/03/2025 13:55:30 Acute on chronic hypoxemic respiratory failure 8788362461 2515503 J96.21 see hpistarted on prednisone 40 mg -recommend ed by pulm. to wean recommende d to gradually wean prednisone 10 mg Q 2-3 weeks.base line she was using 6-8 liter O2now recommende d humidified oxygen 4 L and increased to 6 L with activity if neededkeep finger oximetry 90-92%RT eval and tx prn. Bleeding from nose 91729 6005 R04.0 recurrent epistaxisn o residual clot on CTA or leg venous duplexeliq uis discontinu ed in acute careResume aspirin 81 mg daily once epistaxis has resolved in 7-10 daysO2 dependent/ use humidified oxygen Chronic ob structive pulmonary disease 67299737 J44.9 baseline O2 dependentc ont trilegy , albuterol inhaler,on prednisone 40 mg taper to wean every 2 weeks per pulmonolog y recommenda tion Type 2 steve betes mellitus without complication 327187098 E11.9 cont ozempic, metformino n high dose prednisone start lispro SSCmonitor accuchecks TID Hyperlipidemia 61679069 E78.5 cont pravastati n Depressive disorder 3548 9007 F32.A on celexamoni tor mood and behaviors Gastroesop hageal reflux disease 192987586 K21.9 cont omeprazole monitor for gi upset [id number] MD [facility] [address] [place] [address] 01/03/2025 18:50:58 02/10/2025 16:13:35 Acute on chronic hypoxemic respiratory failure 4654125078 5907130 J96.21 Much improved, but not back to baseline.C ontinue slow prednisone taper.Cont inue supplement al O2 to maintain sats 90-92%Cont inue COPD meds as below.Comp leting course of Augmentin for post-covi d pneumoniti s .RT following Bleeding from nose 57162 6005 R04.0 Rhinorocke t removed today at [facility] ED.Feels good, no further bleeding.C ontinue humidified O2 and saline nasal spray.Ally tor Chronic ob structive pulmonary disease 88027068 J43.8 Almost back to baseline.C ontinue O2 and prednisone as above.Cont inue Trelegy 200/62.5/2 5 mcg qd, duonebs q 6 hrs prn and albuterol MDI 2 puffs q 6 hrs prn.Monito r resp status. Type 2 steve betes mellitus without complication 719638728 E11.9 BS good since here.HgA1C 6.5 in 5Cont inue ozempic 1 mg weekly, metformin 500 mg BID and SSI.Monito r fingerstic ks TID and HgA1C as an outpt. Hyperlipidemia 56391980 E78.49 Continue pravastati n 40 mg qd and ASA 81 mg qd.Monitor labs as outpt. Depressive disorder 3548 9007 F33.8 Mood good tonight.Co ntinue citalopram 40 mg qd.Monitor mood.Consu lt psych prn Gastroesop hageal reflux disease 668442646 K21.9 No current sxs.Contin ue omeprazole 20 mg qd.Monitor GI sxs. Chronic ki dney disease stage 3A 905928369 N18.31 Back to baseline.C ontinue to avoid nephrotoxi c meds as able.Monit or labs.Renal consult prn. [id number] KATHARINE KIM, BRE-C SHON [address] [place] [address] 01/14/2025 09:48:23 01/16/2025 10:23:22 Acute on chronic hypoxemic respiratory failure 2529915691 2786501 J96.21 continue prednisone taperconti nue home O2 at 4-8 Lkeep finger oximetry 90-92%f/up with pcp Bleeding from nose 14295 6005 R04.0 resolved with rhino rocketsno longer on ACwill restart asprin 81 mg dailyf/up with pcp if bleeding returnsmon itor hgb outpt, currently stable at 7.9 Chronic ob structive pulmonary disease 50045573 J44.9 baseline O2 dependentc ont trilegy , albuterol inhaler,on prednisone 40 mg taper to wean every 2 weeks per pulmonolog y recommenda tionf/up with pcp Type 2 steve betes mellitus without complication 691066528 E11.9 cont ozempic, metformino n high dose prednisone educated prednisone can increase sugarsf/up with pcp Hyperlipidemia 79087204 E78.5 cont pravastati nf/up with pcp Depressive disorder 3548 9007 F32.A on celexaf/up with pcp Gastroesop hageal reflux disease 953012763 K21.9 cont omeprazole f/up with pcp Stomach ache 496725783 R 10.9 reports start of GI upsetno [...] Britton Member ID Guarantor Name 01/02/2025 1 [facility] (MEDICARE REPLACEMENT/A DVANTAGE - PPO) [id number] Jeny Meng Stone [id number] Jeny Meng Stone 01/03/2025 1 [facility] (MEDICARE REPLACEMENT/A DVANTAGE - PPO) [id number] Jeny Yusra Stone [id number] Jeny Meng Stone 01/14/2025 1 [facility] (MEDICARE REPLACEMENT/A DVANTAGE - PPO) [id number] Jeny Meng Stone [id number] Jeny Meng Stone Notes Date Note Type Note Provider Name and Address Organization Details Recorded Time 01/02/2025 text/html This is a 68-yea r-old female patient with a PMH HLD, pulmonary fibrosis, COPD on home O2 6L at rest and 8L with exertion, recent DVT and PE on Eliquis, and former smoker with a 20 pack-year history. She was referred to ED from [employer] office with O2 sat in the 50%. [...] 01/03. She can returned to ED at [facility] for removal by ENT or ED provider at [facility] . She was started on augmentin for 5 days Patient is seen for initial intake for continued care and rehab. ISH CHEUNG [address] [place] [address], [address], [place], [address], [facility] 01/02/2025 20:04:13 01/03/2025 text/html This is a 68 yo woman who is here for rehab after an acute hospitalization for She was sent to the [facility] ED from the [employer] office because of O2 sat in the [...] 01/03. She can returned to ED at [facility] for removal by ENT or ED provider at [facility] . She was started on augmentin for 5 days Feels like breathing is back to usual, always terrible.Happy to have rhinorocket out. Her PMH includes COPD on home O2 6L at rest and 8L with exertion, CKD stage 3A, pulmonary fibrosis, HLD, recent DVT and PE on Eliquis, and former smoker with a 20 pack-year hx. Theresa Ospina MD [address] [place] [address], [address], [place], [address], [facility] 02/08/2025 18:09:38 01/14/2025 text/html This is a [...] a 20 pack-year history. UMANG MEHTAC [address], [address], [place], [address], [facility] 01/14/2025 11:11:46 OBGyn Episode No OBEpisode recorded.
--- OUTSIDE RECORDS SUMMARY | 2025-02-24 15:50 | XMS_ITS | Encounter Summary ---
Author Organization [facility] Address [address] [place] [address] Care Team Providers Care Office Clerk Assistant Name Role Phone Chuy Nguyễn MD Primary Care Provider [phone] Reason for Visit * Reason Onset Date Comments Appointment 12/05/2024 1st Notification Encounter Details Date Type Department Care Team ([facility] st Contact Info) Description 12/05/2024 Telephone Lung Screening Program - [address] [address] Brook Danielle [place] Appointment (1st Notification) Social [...] as of this encounter Progress Notes * Dorothy Stearns MA - 02/20/2025 10:39 AM EDT Left patient voicemail to call to reschedule/decline Lung screening program. Patient has cancelled last 3 appointments and [facility] previous appointment. (Cancelled 02/15/25, 01/25/25, 01/04/25, [facility] 12/23/24. Letter sent to patient to address on file. * Brook Danielle MA - 12/05/2024 11:59 AM EST Jeny Diez was contacted by the Lung Cancer Screening Program today to confirm the appointment of their Lung Cancer Screening. The patient is currently scheduled to have their screening on [facility]. No answer left answer For all screenings scheduled during the week, the patient will check in at Patient Registration on the first floor of the [facility]. For screenings that take place [...] documented in this encounter Plan of Treatment Not on file documented as of this encounter Visit Diagnoses Not on filedocumented in this encounter Care Teams Office Clerk Assistant Relationship Specialty Start Date End Date Chuy Nguyễn MD [address] [place] [address], [phone] PCP - General Family Medicine 01/02/25 documented as of this encounter
== END 2025-02-24 13:21 | disposition home or self-care (01) ==
LOC: HO.CT 13:20
PROVIDERS: PCP Internal Medicine; Visit Provider Internal Medicine Pulmonary Disease
DX: J84.10 Pulmonary fibrosis, unspecified (principal); Z86.711 Personal history of pulmonary embolism
CPT/HCPCS: 36415; 71275; 80048; Q9967

== ENCOUNTER → 2025-02-24 13:50 | Outpatient (BNV) | payer MEDICARE, SELFPAY | PROVIDERS: PCP Internal Medicine; Visit Provider Radiology Diagnostic Radiology | DX: I26.99 Other pulmonary embolism without acute cor pulmonale (principal); I28.8 Other diseases of pulmonary vessels; J43.2 Centrilobular emphysema; K44.9 Diaphragmatic hernia without obstruction or gangrene | CPT/HCPCS: 71275 ==

== ENCOUNTER 2025-02-27 11:16 | Outpatient (REF) | payer MEDICARE, SELFPAY ==
--- NOTE | 2025-02-27 12:00 | PFT_ITS ---
Flows: FEV1: 63 % of predicted at 1.65 L FVC: 59 % of predicted at 1.97 L FEV1/FVC: 83 % Bronchodilator response: Absent Volumes: Total lung capacity: 51 % of predicted at 2.95 L Residual volume: 44 % of predicted at 0.95 L Slow vital capacity: 56 % of predicted at 2.00 L Expiratory reserve volume: 72 % of predicted at 0.64 L Diffusion capacity: Severely decreased. Impression: Moderate restrictive ventilatory defect with no bronchodilator response. Decreased expiratory reserve volume suggests extrathoracic restriction likely secondary to abdominal obesity. Combination of restrictive ventilatory defect and decreased diffusion capacity suggests underlying pulmonary parenchymal disease. Clinical correlation is advised. MTDD
[2025-02-27 12:03] VITALS: PULSE 118; O2SAT 88
--- OUTSIDE RECORDS SUMMARY | 2025-02-27 13:41 | XMS_ITS | Data Portability ---
Author Organization [facility], Main Office Address [address] [facility] [address] [place] [address] Care Team Providers Care Nurses Aide Name Role Phone [facility] OTHER UDAY FORD Primary Care Provider Assessment Encounter Date Assessment Date Assessment LastModified by Organization Details LastModified Time 01/02/2025 01/02/2025 Labs 2: Na 141-K 4.0-bun 40-cr 1.0 Not available 01/02/2025 19:47:32 01/03/2025 01/03/2025 Labs 2/11: Na 141-K 4.0-bun 40-cr 1.0 [email or web address] Not available 02/08/2025 17:57:30 01/14/2025 01/14/2025 Labs 211: Na 141-K 4.0-bun 40-cr 1.0 [email or web address] Not available 01/14/2025 11:01:05 Plan of Treatment [...] Address Organization Details Recorded Time Hyperlipid emia 14667882 Active 2024 Not Available [facility] 16:48:22 Acute exacerbati on of chronic obstructiv e pulmonary disease 606883387 Active 2024 Not Available [facility] 16:49:33 Thromboemb olism of vein 654028059 Active 2024 Not Available [facility] 5 16:50:25 Type 2 diabetes mellitus without complicati on 617392987 Active 2024 Not Available [facility] 5 16:52:47 Fibrosis of lung 93988043 Active 2024 Not Available [facility] 5 15:13:26 Acute on chronic hypoxemic respirator y failure 2621507627368 9100 Active 2024 Not Available [facility] 5 15:13:48 Bleeding from nose 262317687 Active 2024 Not Available [facility] 5 18:43:13 Chronic obstructiv e pulmonary disease 96003874 Active 2024 ISH CHEUNG [address] , [address], [place], [address] , [facility] [employer] [facility] 5 19:33:28 Depressive disorder 09249949 Active 2024 ISH CHEUNG [address] , [address], [place], [address] , [facility] 5 19:57:53 Gastroesop hageal reflux disease 256439613 Active 2024 ISH CHEUNG [address] , [address], [place], [address] , [facility] 5 19:58:45 Gastroesop hageal reflux disease without esophagiti s 424613970 Active 2024 Not Available [facility] 5 12:49:10 Pulmonary embolism 73616424 Active 2024 Not Available [facility] 5 12:50:12 Muscle weakness 78358603 Active 2024 Not Available [facility] 5 16:05:42 Difficulty walking 253672402 Active 2024 Not Available [facility] 5 16:06:14 Chronic kidney disease stage 3A 120263422 Active 2024 Theresa Ospina MD [address] [facility], [address], [place], [address] , [facility] [employer] 18:04:08 Problem Notes None recorded. Medical Equipment None Reported. Allergies Allergen ID Allergen Name Allergen Category Reaction Reaction Severity Criticality Documentation Date Start Date Code Code System Note Provider Name and Address Organization Details Recorded Time 76953 Demerol medicatio n Not available Not available Not available 01/01/20252024 85162 1 RxNorm Not Available Not Available Not Available 23838 codeine medicatio n Not available Not available [...] 999 = 10 unit Call MD / COMBATANT DIVER OFFICER, subcutane ously before meals for DM 2024 [...] Available Not Available Not Avai lable Acid Terminal Worker (omeprazole ) 20 mg capsule,del ayed release [...] 113 mm[Hg] 68 mm[Hg] ISH CHEUNG [address] [facility], [address], [place], [address], [facility] 20:03:26 Date Recorded Body height Body mass index (BMI) Body weight Heart rate Respiratory rate Body temperature Oxygen saturation Oxygen saturation in Arterial blood by Pulse oximetry Systolic blood pressure Diastolic blood pressure Provider Name and Address Organization Details Last Updated DateTime 172.72 cm 34.6 kg/m2 559782. 9 g 82 /min 18 /min 98.1 [degF] 98 % 98 % 124 mm[Hg] 70 mm[Hg] Theresa Ospina MD [address] [facility], [address], [place], [address], [facility] 22:49:01 Social History Question Answer Notes LastModified by Organizat ion Details LastModified Time Tobacco Smoking Status Former Smoker ISH CHEUNG [address] [facility], [address], [place], [address], [facility] 01/02/2025 20:00:56 Do You Have An Advance Directive? Yes Information not available 01/02/2025 What Is Your Level Of Alcohol Consumption? None Information not available 01/02/2025 What Is Your Code Status? Full Code MOLST 01/02/25 [email or web address] Information not available 01/02/2025 Where Do You Live? [facility] Split Level Home With , But Has Commode On Main Level And Sleeps On Couch. Information not available 01/03/2025 Legal Guardian? No Informati on not available 01/03/2025 Do You Have A Medical Power Of Engine Mechanic? Yes Information not available 01/03/2025 What Was [...] syncytial virus (RSV) vaccine, unspecified 4 completed [facility] [address] 01/02/2025 15:33:31 Pneumococcal conjugate PCV 13 4 completed [facility] [address] 01/02/2025 15:35:04 influenza, unspecified formulation 3 completed [facility] [address] 01/02/2025 15:36:40 influenza, unspecified formulation 4 [facility] 01/02/2025 15:36:47 SARS-COV-2 (COVID-19) vaccine, UNSPECIFIED 1 completed [facility] [address] 01/02/2025 15:37:08 Past Encounters Encounter ID Performer Location Encounter Start Date Encounter Closed Date Diagnosis/Indication Diagnosis SNOMED-CT Code Diagnosis ICD10 Code Diagnosis Note [id number] ISH CHEUNG REDCHANTAL [address] [place] [address] 01/02/2025 10:57:46 01/03/2025 13:55:30 Acute on chronic hypoxemic respiratory failure 3370656374 5765439 J96.21 see hpistarted on prednisone 40 mg -recommend ed by pulm. to wean recommende d to gradually wean prednisone 10 mg Q 2-3 weeks.base line she was using 6-8 liter O2now recommende d humidified oxygen 4 L and increased to 6 L with activity if neededkeep finger oximetry 90-92%RT eval and tx prn. Bleeding from nose 39518 6005 R04.0 recurrent epistaxisn o residual clot on CTA or leg venous duplexeliq uis discontinu ed in acute careResume aspirin 81 mg daily once epistaxis has resolved in 7-10 daysO2 dependent/ use humidified oxygen Chronic ob structive pulmonary disease 81347727 J44.9 baseline O2 dependentc ont trilegy , albuterol inhaler,on prednisone 40 mg taper to wean every 2 weeks per pulmonolog y recommenda tion Type 2 steve betes mellitus without complication 033222345 E11.9 cont ozempic, metformino n high dose prednisone start lispro SSCmonitor accuchecks TID Hyperlipidemia 19698615 E78.5 cont pravastati n Depressive disorder 3548 9007 F32.A on celexamoni tor mood and behaviors Gastroesop hageal reflux disease 201948141 K21.9 cont omeprazole monitor for gi upset [id number] MD DARRON RossELMORE [address] [place] [address] 01/03/2025 18:50:58 02/10/2025 16:13:35 Acute on chronic hypoxemic respiratory failure 9062223639 0587538 J96.21 Much improved, but not back to baseline.C ontinue slow prednisone taper.Cont inue supplement al O2 to maintain sats 90-92%Cont inue COPD meds as below.Comp leting course of Augmentin for post-covi d pneumoniti s .RT following Bleeding from nose 87755 6005 R04.0 Rhinorocke t removed today at [facility] ED.Feels good, no further bleeding.C ontinue humidified O2 and saline nasal spray.Ally tor Chronic ob structive pulmonary disease 84170166 J43.8 Almost back to baseline.C ontinue O2 and prednisone as above.Cont inue Trelegy 200/62.5/2 5 mcg qd, duonebs q 6 hrs prn and albuterol MDI 2 puffs q 6 hrs prn.Monito r resp status. Type 2 steve betes mellitus without complication 402638242 E11.9 BS good since here.HgA1C 6.5 in 5Cont inue ozempic 1 mg weekly, metformin 500 mg BID and SSI.Monito r fingerstic ks TID and HgA1C as an outpt. Hyperlipidemia 85179575 E78.49 Continue pravastati n 40 mg qd and ASA 81 mg qd.Monitor labs as outpt. Depressive disorder 3548 9007 F33.8 Mood good tonight.Co ntinue citalopram 40 mg qd.Monitor mood.Consu lt psych prn Gastroesop hageal reflux disease 029064678 K21.9 No current sxs.Contin ue omeprazole 20 mg qd.Monitor GI sxs. Chronic ki dney disease stage 3A 750466607 N18.31 Back to baseline.C ontinue to avoid nephrotoxi c meds as able.Monit or labs.Renal consult prn. [id number] KATHARINE KIM, BRE-C SHON [address] [place] [address] 01/14/2025 09:48:23 01/16/2025 10:23:22 Acute on chronic hypoxemic respiratory failure 5908447816 2414287 J96.21 continue prednisone taperconti nue home O2 at 4-8 Lkeep finger oximetry 90-92%f/up with pcp Bleeding from nose 46236 6005 R04.0 resolved with rhino rocketsno longer on ACwill restart asprin 81 mg dailyf/up with pcp if bleeding returnsmon itor hgb outpt, currently stable at 7.9 Chronic ob structive pulmonary disease 56142240 J44.9 baseline O2 dependentc ont trilegy , albuterol inhaler,on prednisone 40 mg taper to wean every 2 weeks per pulmonolog y recommenda tionf/up with pcp Type 2 steve betes mellitus without complication 972315889 E11.9 cont ozempic, metformino n high dose prednisone educated prednisone can increase sugarsf/up with pcp Hyperlipidemia 98978317 E78.5 cont pravastati nf/up with pcp Depressive disorder 3548 9007 F32.A on celexaf/up with pcp Gastroesop hageal reflux disease 086531146 K21.9 cont omeprazole f/up with pcp Stomach ache 725038717 R 10.9 reports start of GI upsetno [...] Britton Member ID Guarantor Name 01/02/2025 1 [facility] (MEDICARE REPLACEMENT/A DVANTAGE - PPO) [id number] Jeny Megn Stone [id number] Jeny Meng Stone 01/03/2025 1 [facility] (MEDICARE REPLACEMENT/A DVANTAGE - PPO) [id number] Jeny Yusra Stone [id number] Jeny Meng Stone 01/14/2025 1 [facility] (MEDICARE REPLACEMENT/A DVANTAGE - PPO) [id number] Jeny Meng Stone [id number] Jeny Meng Stone Notes Date Note Type Note Provider Name and Address Organization Details Recorded Time 01/02/2025 text/html This is a 68-yea r-old female patient with a PMH HLD, pulmonary fibrosis, COPD on home O2 6L at rest and 8L with exertion, recent DVT and PE on Eliquis, and former smoker with a 20 pack-year history. She was referred to ED from director of claims office with O2 sat in the 50%. [...] 01/03. She can returned to ED at [facility] for removal by ENT or ED provider at [facility] . She was started on augmentin for 5 days Patient is seen for initial intake for continued care and rehab. ISH CHEUNG [address] [place] [address], [address], [place], [address], [facility] 01/02/2025 20:04:13 01/03/2025 text/html This is a 68 yo woman who is here for rehab after an acute hospitalization for She was sent to the [facility] ED from the director of claims's office because of O2 sat in the [...] 01/03. She can returned to ED at [facility] for removal by ENT or ED provider at [facility] . She was started on augmentin for 5 days Feels like breathing is back to usual, always terrible.Happy to have rhinorocket out. Her PMH includes COPD on home O2 6L at rest and 8L with exertion, CKD stage 3A, pulmonary fibrosis, HLD, recent DVT and PE on Eliquis, and former smoker with a 20 pack-year hx. Theresa Ospina MD [address] [place] [address], [address], [place], [address], [facility] [employer] 02/08/2025 18:09:38 01/14/2025 text/html This is a [...] a 20 pack-year history. UMANG MEHTAC [address] [facility] [facility], [address], [place], [address], [facility] 01/14/2025 11:11:46 OBGyn Episode No OBEpisode recorded.
--- OUTSIDE RECORDS SUMMARY | 2025-02-27 13:41 | XMS_ITS | Clinical Summary ---
Author Organization [facility] Address [address] [place] [address] Care Team Providers Care Electronic Equipment Set Up Operator Name Role Phone Unavailable Primary Care Provider Unavailabl e Encounters Date Type Department Care Team Description 12/09/2024 Transcribe Orders [facility] PRIMARY [facility]ARE [facility]AN Artis Whiting MD [...]
--- OUTSIDE RECORDS SUMMARY | 2025-02-27 13:41 | XMS_ITS | Encounter Summary ---
Author Organization [facility] Address [address] [place] [address] Care Team Providers Care Land Degradation Analyst Name Role Phone Chuy Nguyễn MD Primary Care Provider Encounter Details Date Type Department Care Team (Late st Contact Info) Description 01/02/2025 Lab Requisition [facility] - Main Lab [address] [facility] [place] [address] Chuy Nguyễn MD [address] [place] [address] [address] [place], [address] Essential (primary) hypertension Social History Tobacco [...] mmol/L LAB CHEMISTRY METHOD 01/02/2025 12:30 PM [facility] Potassium 4.0 3.5 - 5.5 mmol/L LAB CHEMISTRY METHOD 01/02/2025 12:30 PM [facility] Chloride 107 96 - 110 mmol/L LAB CHEMISTRY METHOD 01/02/2025 12:30 PM [facility] CO2 24 21 - 32 mmol/L LAB CHEMISTRY METHOD 01/02/2025 12:30 PM [facility] Anion Gap 8 3 - 11 LAB CHEMISTRY METHOD 01/02/2025 12:30 PM [facility] Glucose 95 70 - 100 mg/dL LAB CHEMISTRY METHOD 01/02/2025 12:30 PM [facility] BUN 28(H) 5 - 25 mg/dL LAB CHEMISTRY METHOD 01/02/2025 12:30 PM [facility] Creatinine 1.11(H) 0.50 - 1.10 mg/dL LAB CHEMISTRY METHOD 01/02/2025 12:30 PM [facility] eGFR 55(L) >=60 mL/min/1. 73m2 LAB CHEMISTRY METHOD 01/02/2025 12:30 PM [facility] Comment:Calculation based on the??Chronic Kidney Disease Epidemiology Collaboration (CKD-EPI) equation refit??without adjustment for race. BUN/Creatinine Ratio 25.2 LAB CHEMISTRY METHOD 01/02/2025 12:30 PM [facility] Calcium 9.0 8.5 - 10.5 mg/dL LAB CHEMISTRY METHOD 01/02/2025 12:30 PM [facility] AST (SGOT) 13 10 - 42 unit/L LAB CHEMISTRY METHOD 01/02/2025 12:30 PM [facility] ALT (SGPT) 25 10 - 60 unit/L LAB CHEMISTRY METHOD 01/02/2025 12:30 PM [facility] Alkaline Phosphatase 38(L) 42 - 121 unit/L LAB CHEMISTRY METHOD 01/02/2025 12:30 PM [facility] Total Protein 5.5(L) 6.0 - 8.0 g/dL LAB CHEMISTRY METHOD 01/02/2025 12:30 PM [facility] Albumin 3.2 3.2 - 5.0 g/dL LAB CHEMISTRY METHOD 01/02/2025 12:30 PM [facility] Total Bilirubin 0.4 0.0 - 1.4 mg/dL LAB CHEMISTRY METHOD 01/02/2025 12:30 PM [facility] Blood Venous blood specimen / Unknown Venipuncture / Unknown 01/02/2025 9:28 AM EST 01/02/2025 11:08 AM EST us Chuy Nguyễn MD LAB BLOOD ORDERABLES Final Resul t [facility] [address] [place] [address], * (ABNORMAL) Complete blood count (01/02/2025 9:28 AM EST) WBC 12.8(H) 4.8 - 10.8 K/mcL LAB HEMETOLOGY METHOD 01/02/2025 12:51 PM [facility] RBC 2.50(L) 3.80 - 4.80 M/mcL LAB HEMETOLOGY METHOD 01/02/2025 12:51 PM [facility] Hemoglobin 8.4(L) 11.5 - 16.0 g/dL LAB HEMETOLOGY METHOD 01/02/2025 12:51 PM [facility] Hematocrit 26.2(L) 35.0 - 47.0 % LAB HEMETOLOGY METHOD 01/02/2025 12:51 PM EST [facility] MCV 103.6(H) 79.0 - 98.0 FL LAB HEMETOLOGY METHOD 01/02/2025 12:51 PM [facility] MCH 33.2(H) 27.0 - 32.0 pcg LAB HEMETOLOGY METHOD 01/02/2025 12:51 PM [facility] MCHC 32.1 32.0 - 37.0 g/dL LAB HEMETOLOGY METHOD 01/02/2025 12:51 PM [facility] RDW 16.6(H) 11.0 - 15.0 % LAB HEMETOLOGY METHOD 01/02/2025 12:51 PM [facility] Platelets 245 130 - 400 K/mcL LAB HEMETOLOGY METHOD 01/02/2025 12:51 PM [facility] MPV 9.5 7.0 - 11.0 FL LAB HEMETOLOGY METHOD 01/02/2025 12:51 PM [facility] NRBC 1.4(H) <1.0 % LAB HEMETOLOGY METHOD 01/02/2025 12:51 PM [facility] NRBC Absolute 0.18(H) <0.10 K/mcL LAB HEMETOLOGY METHOD 01/02/2025 12:51 PM [facility] Blood Venous blood specimen / Unknown Venipuncture / Unknown 01/02/2025 9:28 AM EST 01/02/2025 11:08 AM EST us Chuy Nguyễn MD LAB BLOOD ORDERABLES Final Resul t [facility] [address] [place] [address], [place] [phone] documented in this encounter Visit Diagnoses Diagnosis Essential (primary) hypertension Unspecified essential hypertension documented in this encounter Care Teams Land Degradation Analyst Relationship Specialty Start Date End Date Chuy Nguyễn MD [address] [facility] [address] [place], [address] PCP - General Family Medicine 01/02/25 documented as of this encounter
--- OUTSIDE RECORDS SUMMARY | 2025-02-27 13:41 | XMS_ITS | Encounter Summary ---
Author Organization [facility] Address [address] [place] [address] Care Team Providers Care Community Health Advisor Name Role Phone Chuy Nguyễn MD Primary Care Provider [phone] Encounter Details Date Type Department Care Team (Late st Contact Info) Description 01/18/2025 Lab Requisition [facility] - Main Lab [address] [facility] [place] [address] Chuy Nguyễn MD [address] [facility] [address] [place], [address] Essential (primary) hypertension Social History Tobacco [...] hypertension documented in this encounter Care Teams Community Health Advisor Relationship Specialty Start Date End Date Chuy Nguyễn MD [address] [facility] [address] [place], [address] PCP - General Family Medicine 01/02/25 documented as of this encounter
--- OUTSIDE RECORDS SUMMARY | 2025-02-27 13:41 | XMS_ITS | Encounter Summary ---
Author Organization [facility] Address [address] [place] [address] Care Team Providers Care Charge Nurse Name Role Phone Chuy Nguyễn MD Primary Care Provider [phone] Encounter Details Date Type Department Care Team (Late st Contact Info) Description 01/04/2025 Lab Requisition [facility] - Main Lab [address] [facility] [place] [address] Chuy Nguyễn MD [address] [place] [address] [address] [place], [address] Essential (primary) hypertension Social History Tobacco [...] mmol/L LAB CHEMISTRY METHOD 01/06/2025 11:49 AM [facility] Potassium 3.9 3.5 - 5.5 mmol/L LAB CHEMISTRY METHOD 01/06/2025 11:49 AM [facility] Chloride 107 96 - 110 mmol/L LAB CHEMISTRY METHOD 01/06/2025 11:49 AM [facility] CO2 29 21 - 32 mmol/L LAB CHEMISTRY METHOD 01/06/2025 11:49 AM [facility] Anion Gap 6 3 - 11 LAB CHEMISTRY METHOD 01/06/2025 11:49 AM [facility] Glucose 72 70 - 100 mg/dL LAB CHEMISTRY METHOD 01/06/2025 11:49 AM [facility] BUN 21 5 - 25 mg/dL LAB CHEMISTRY METHOD 01/06/2025 11:49 AM [facility] Creatinine 1.10 0.50 - 1.10 mg/dL LAB CHEMISTRY METHOD 01/06/2025 11:49 AM [facility] eGFR 55(L) >=60 mL/min/1. 73m2 LAB CHEMISTRY METHOD 01/06/2025 11:49 AM [facility] Comment:Calculation based on the??Chronic Kidney Disease Epidemiology Collaboration (CKD-EPI) equation refit??without adjustment for race. BUN/Creatinine Ratio 19.1 LAB CHEMISTRY METHOD 01/06/2025 11:49 AM [facility] Calcium 8.6 8.5 - 10.5 mg/dL LAB CHEMISTRY METHOD 01/06/2025 11:49 AM [facility] Blood Venous blood specimen / Unknown Venipuncture / Unknown 01/06/2025 6:49 AM EST 01/06/2025 11:07 AM EST us Chuy Nguyễn MD LAB BLOOD ORDERABLES Final Resul t [facility] [address] [place] [address], * (ABNORMAL) Complete blood count (01/06/2025 6:49 AM EST) WBC 9.4 4.8 - 10.8 K/mcL LAB HEMETOLOGY METHOD 01/06/2025 11:33 AM EST [facility] RBC 2.30(L) 3.80 - 4.80 M/mcL LAB HEMETOLOGY METHOD 01/06/2025 11:33 AM [facility] Hemoglobin 7.6(L) 11.5 - 16.0 g/dL LAB HEMETOLOGY METHOD 01/06/2025 11:33 AM [facility] Hematocrit 24.5(L) 35.0 - 47.0 % LAB HEMETOLOGY METHOD 01/06/2025 11:33 AM [facility] MCV 106.1(H) 79.0 - 98.0 FL LAB HEMETOLOGY METHOD 01/06/2025 11:33 AM [facility] MCH 32.9(H) 27.0 - 32.0 pcg LAB HEMETOLOGY METHOD 01/06/2025 11:33 AM [facility] MCHC 31.0(L) 32.0 - 37.0 g/dL LAB HEMETOLOGY METHOD 01/06/2025 11:33 AM [facility] RDW 17.3(H) 11.0 - 15.0 % LAB HEMETOLOGY METHOD 01/06/2025 11:33 AM [facility] Platelets 279 130 - 400 K/mcL LAB HEMETOLOGY METHOD 01/06/2025 11:33 AM [facility] MPV 9.3 7.0 - 11.0 FL LAB HEMETOLOGY METHOD 01/06/2025 11:33 AM EST [facility] NRBC 0.5 <1.0 % LAB HEMETOLOGY METHOD 01/06/2025 11:33 AM EST [facility] NRBC Absolute 0.05 <0.10 K/mcL LAB HEMETOLOGY METHOD 01/06/2025 11:33 AM EST [facility] Blood Venous blood specimen / Unknown Venipuncture / Unknown 01/06/2025 6:49 AM EST 01/06/2025 11:07 AM EST us Chuy Nguyễn MD LAB BLOOD ORDERABLES Final Resul t [facility] [address] [place] [address], documented in this encounter Visit Diagnoses Diagnosis Essential (primary) hypertension Unspecified essential hypertension documented in this encounter Care Teams Charge Nurse Relationship Specialty Start Date End Date Chuy Nguyễn MD [address] [place] [address], [phone] PCP - General Family Medicine 01/02/25 documented as of this encounter
--- OUTSIDE RECORDS SUMMARY | 2025-02-27 13:41 | XMS_ITS | Clinical Summary ---
Author Organization [facility] Address [address] [place] [address] Phone Care Team Providers Care Practice Managers Name Role Phone Chuy Nguyễn MD Primary Care Provider [phone] Medications albuterol HFA (PROAIR HFA ; PROVENTIL HFA ; VENTOLIN HFA) 90 mcg/actuation inhaler Inhale 2 puffs by mouth every 6 (six) hours if needed for wheezing. 1 each 1 12/23/2024 Active Encounters Date Type Department Care Team Description 01/18/2025 Lab Requisition [facility] Lab [address] [place] [phone] Chuy Nguyễn MD Essential (primary) hypertension 01/11/2025 Lab Requisition [facility] Lab [address] [place] [phone] Chuy Nguyễn MD Essential (primary) hypertension 01/04/2025 Lab Requisition [facility] Lab [address] [place] [phone] Chuy Nguyễn MD Essential (primary) hypertension 01/02/2025 Lab Requisition [facility] Lab [address] [place] [phone] Chuy Nguyễn MD Essential (primary) hypertension 12/05/2024 Telephone Lung Screening Program - [address] [place] [address] [place] Appointment (1st [...] of3 resultswithin the time period is included. [facility] WBC 10.0 4.8 - 10.8 K/mcL LAB HEMETOLOGY METHOD 01/13/2025 1:40 PM [facility] LAB RBC 2.40(L) 3.80 - 4.80 M/mcL LAB HEMETOLOGY METHOD 01/13/2025 1:40 PM [facility] LAB Hemoglobin 7.9(L) 11.5 - 16.0 g/dL LAB HEMETOLOGY METHOD 01/13/2025 1:40 PM [facility] LAB Hematocrit 26.7(L) 35.0 - 47.0 % LAB HEMETOLOGY METHOD 01/13/2025 1:40 PM [facility] LAB MCV 111.3(H) 79.0 - 98.0 FL LAB HEMETOLOGY METHOD 01/13/2025 1:40 PM [facility] LAB MCH 32.9(H) 27.0 - 32.0 pcg LAB HEMETOLOGY METHOD 01/13/2025 1:40 PM [facility] LAB MCHC 29.6(L) 32.0 - 37.0 g/dL LAB HEMETOLOGY METHOD 01/13/2025 1:40 PM [facility] LAB RDW 16.6(H) 11.0 - 15.0 % LAB HEMETOLOGY METHOD 01/13/2025 1:40 PM EST [facility] Platelets 333 130 - 400 K/mcL LAB HEMETOLOGY METHOD 01/13/2025 1:40 PM EST [facility] LAB MPV 9.4 7.0 - 11.0 FL LAB HEMETOLOGY METHOD 01/13/2025 1:40 PM EST [facility] LAB NRBC 0.0 <1.0 % LAB HEMETOLOGY METHOD 01/13/2025 1:40 PM EST [facility] LAB NRBC Absolute 0.00 <0.10 K/mcL LAB HEMETOLOGY METHOD 01/13/2025 1:40 PM EST [facility] LAB Blood Venous blood specimen / Unknown Venipuncture / Unknown 01/13/2025 6:29 AM EST 01/13/2025 11:44 AM EST us Chuy Nguyễn MD LAB BLOOD ORDERABLES Final Resul t [facility] LAB [address] [place] [address], [place] [phone] * (ABNORMAL) Basic metabolic panel (01/13/2025 6:29 AM EST) Only the most recent of2 resultswithin the time period is included. Sodium 144 133 - 145 mmol/L LAB CHEMISTRY METHOD 01/13/2025 1:25 PM [facility] LAB Potassium 4.1 3.5 - 5.5 mmol/L LAB CHEMISTRY METHOD 01/13/2025 1:25 PM [facility] LAB Chloride 108 96 - 110 mmol/L LAB CHEMISTRY METHOD 01/13/2025 1:25 PM [facility] LAB CO2 27 21 - 32 mmol/L LAB CHEMISTRY METHOD 01/13/2025 1:25 PM [facility] LAB Anion Gap 9 3 - 11 LAB CHEMISTRY METHOD 01/13/2025 1:25 PM [facility] LAB Glucose 59(L) 70 - 100 mg/dL LAB CHEMISTRY METHOD 01/13/2025 1:25 PM EST [facility] LAB BUN 17 5 - 25 mg/dL LAB CHEMISTRY METHOD 01/13/2025 1:25 PM [facility] LAB Creatinine 0.98 0.50 - 1.10 mg/dL LAB CHEMISTRY METHOD 01/13/2025 1:25 PM [facility] LAB eGFR 63 >=60 mL/min/1. 73m2 LAB CHEMISTRY METHOD 01/13/2025 1:25 PM [facility] LAB Comment:Calculation based on the??Chronic Kidney Disease Epidemiology Collaboration (CKD-EPI) equation refit??without adjustment for race. BUN/Creatinine Ratio 17.3 LAB CHEMISTRY METHOD 01/13/2025 1:25 PM [facility] LAB Calcium 8.9 8.5 - 10.5 mg/dL LAB CHEMISTRY METHOD 01/13/2025 1:25 PM [facility] LAB Blood Venous blood specimen / Unknown Venipuncture / Unknown 01/13/2025 6:29 AM EST 01/13/2025 11:44 AM EST us Chuy Nguyễn MD LAB BLOOD ORDERABLES Final Resul t [facility] LAB [address] [place] [address], * (ABNORMAL) Comprehensive metabolic panel (01/02/2025 9:28 AM EST) Sodium 139 133 - 145 mmol/L LAB CHEMISTRY METHOD 01/02/2025 12:30 PM [facility] LAB Potassium 4.0 3.5 - 5.5 mmol/L LAB CHEMISTRY METHOD 01/02/2025 12:30 PM [facility] LAB Chloride 107 96 - 110 mmol/L LAB CHEMISTRY METHOD 01/02/2025 12:30 PM [facility] LAB CO2 24 21 - 32 mmol/L LAB CHEMISTRY METHOD 01/02/2025 12:30 PM [facility] LAB Anion Gap 8 3 - 11 LAB CHEMISTRY METHOD 01/02/2025 12:30 PM [facility] LAB Glucose 95 70 - 100 mg/dL LAB CHEMISTRY METHOD 01/02/2025 12:30 PM [facility] LAB BUN 28(H) 5 - 25 mg/dL LAB CHEMISTRY METHOD 01/02/2025 12:30 PM [facility] LAB Creatinine 1.11(H) 0.50 - 1.10 mg/dL LAB CHEMISTRY METHOD 01/02/2025 12:30 PM [facility] LAB eGFR 55(L) >=60 mL/min/1. 73m2 LAB CHEMISTRY METHOD 01/02/2025 12:30 PM [facility] LAB Comment:Calculation based on the??Chronic Kidney Disease Epidemiology Collaboration (CKD-EPI) equation refit??without adjustment for race. BUN/Creatinine Ratio 25.2 LAB CHEMISTRY METHOD 01/02/2025 12:30 PM [facility] LAB Calcium 9.0 8.5 - 10.5 mg/dL LAB CHEMISTRY METHOD 01/02/2025 12:30 PM [facility] LAB AST (SGOT) 13 10 - 42 unit/L LAB CHEMISTRY METHOD 01/02/2025 12:30 PM [facility] LAB ALT (SGPT) 25 10 - 60 unit/L LAB CHEMISTRY METHOD 01/02/2025 12:30 PM [facility] LAB Alkaline Phosphatase 38(L) 42 - 121 unit/L LAB CHEMISTRY METHOD 01/02/2025 12:30 PM [facility] LAB Total Protein 5.5(L) 6.0 - 8.0 g/dL LAB CHEMISTRY METHOD 01/02/2025 12:30 PM [facility] LAB Albumin 3.2 3.2 - 5.0 g/dL LAB CHEMISTRY METHOD 01/02/2025 12:30 PM [facility] LAB Total Bilirubin 0.4 0.0 - 1.4 mg/dL LAB CHEMISTRY METHOD 01/02/2025 12:30 PM EST [facility] LAB Blood Venous blood specimen / Unknown Venipuncture / Unknown 01/02/2025 9:28 AM EST 01/02/2025 11:08 AM EST us Chuy Nguyễn MD LAB BLOOD ORDERABLES Final Resul t [facility] LAB [address] [place] [address], [place] [phone] from Last 3 Months Insurance [place] [address] Care Teams Practice Managers Relationship Specialty Start Date End Date Chuy Nguyễn MD [address] [place] [address], [phone] PCP - General Family Medicine 01/02/25
--- OUTSIDE RECORDS SUMMARY | 2025-02-27 13:41 | XMS_ITS | Encounter Summary ---
Author Organization [facility] Address [address] [place] [address] Care Team Providers Care Manager Retail Store Name Role Phone Chuy Nguyễn MD Primary Care Provider [phone] Encounter Details Date Type Department Care Team (Late st Contact Info) Description 01/11/[address] [facility] - Main Lab [address] [facility] [place] [address] Chuy Nguyễn MD [address] [place] [address] [address] [place], [phone] Essential (primary) hypertension Social History Tobacco [...] MD LAB BLOOD ORDERABLES Final Resul t [facility] LAB [address] [place] [address], [place] [phone] * (ABNORMAL) Complete blood count (01/13/2025 6:29 [...] LAB HEMETOLOGY METHOD 01/13/2025 1:40 PM EST [facility] LAB NRBC 0.0 <1.0 % LAB HEMETOLOGY METHOD 01/13/2025 1:40 PM EST [facility] LAB NRBC Absolute 0.00 <0.10 K/mcL LAB HEMETOLOGY METHOD 01/13/2025 1:40 PM EST [facility] LAB Blood Venous blood specimen / Unknown Venipuncture / Unknown 01/13/2025 6:29 AM EST 01/13/2025 11:44 AM EST us Chuy Nguyễn MD LAB BLOOD ORDERABLES Final Resul t [facility] LAB [address] [place] [address], documented in this encounter Visit Diagnoses Diagnosis Essential (primary) hypertension Unspecified essential hypertension documented in this encounter Care Teams Manager Retail Store Relationship Specialty Start Date End Date Chuy Nguyễn MD [address] [place] [address], [phone] PCP - General Family Medicine 01/02/25 documented as of this encounter
--- OUTSIDE RECORDS SUMMARY | 2025-02-27 13:42 | XMS_ITS | Patient Health Record ---
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 Plan Of Treatment Pending Test Test Name Order Date X ray : Foot, right 3V 03/16/2023 Insurance Providers Payer Name Payer Address Payer Phone Subscriber Number Group Number Insured Name Patient Relationship to Insured Coverage Start Date Coverage End Date AARP Medicare Complete [address] [address] [place] [address] [id number] Jeny Diez Self - patient is the insured Medicare [employer] [address] [place] [address] [id number] Jeny Diez Self - patient is the insured Medical (General) History Medical History History ICD Code Broken bones Chicken pox skin cancer Depression Measles Mumps Psoriasis/Eczema COPD Surgical History Surgery Date(Month/Year) back surgery lung surgery shoulder surgery Hospitalization History Reason Date(Month/Year) [facility] [place] bilateral [place] 08/11/15
== END 2025-02-27 11:17 | disposition home or self-care (01) ==
LOC: HO.RESP 11:16
PROVIDERS: PCP Internal Medicine; Visit Provider Internal Medicine Pulmonary Disease
DX: J84.10 Pulmonary fibrosis, unspecified (principal)
CPT/HCPCS: 94010; 94640; 94727; 94729; 99212

== ENCOUNTER 2025-02-27 13:22 | Outpatient (AMB) | payer MEDICARE, SELFPAY ==
[2025-02-27 13:49] VITALS: BP 102/66; PULSE 89; O2SAT 98
--- NOTE | 2025-02-27 13:49 | A.OFFVIS_ITS ---
Vital Signs 02/27/25 13:49 Height 5 ft 8 in BP 102/66 Blood Pressure Location Rt brachial Position Sitting Pulse 89 Pulse Source Doppler Pulse Oximetry (%) 98 Oxygen Delivery Method Nasal Cannula Oxygen Flow Rate 6 Intake Visit Reasons: Acute hypoxemic respiratory failure(HOSP FU) Allergies codeine Allergy (Intermediate, Verified 02/27/25 14:02) Rash From DEMEROL Allergy (Intermediate, Uncoded 12/27/24 12:47) VOMITING Demerol Allergy (Unknown, Uncoded 12/27/24 12:47) Vomiting HPI HPI Acute hypoxemic respiratory failure(HOSP FU): Details: 68-year-old lady, former 20 pack-year smoker, with underlying COPD, bronchiectasis, interstitial lung disease, recent pulmonary emboli previously on Eliquis, on supplemental oxygen at 3-4 L at baseline and 4-8 L with exacerbation. After the last office visit patient had pulmonary function test that shows moderate COPD, but with severe decrease in diffusion capacity, also h er repeat CT angio chest shows new pulmonary emboli. PFSH Medical History HLD (hyperlipidemia) Pulmonary fibrosis Social History Household Members: Spouse Housing: House Do you presently have visiting nurse or other home services: No Comment: pt rings call morris appropriately for assistance OOB Patient Tobacco Use Status: Former Tobacco user Tobacco use type: Cigarette e-Cigarette/Vaping Use: Never Used Second Hand Smoke Exposure: No service: No Review of Systems Const Denies daytime sleepiness, Denies excessive sweating, Denies fatigue, Denies fever(s), Denies lethargy, Denies malaise, Denies night sweats, Denies snoring and Denies weight loss Eyes Denies blurry vision and Denies itchy eyes ENT Denies nasal congestion, Denies post nasal drip, Denies sinus pain, Denies sinus pressure and Denies other ( Thrush) Card Denies chest pain, Denies pedal edema, Denies dyspnea, Reports dyspnea on exertion, Denies orthopnea and Denies paroxysmal nocturnal dyspnea Resp Denies cough, Denies hemoptysis, Denies excessive phlegm production, Denies dyspnea, Reports dyspnea on exertion, Denies snoring and Denies wheezing GI Denies abdominal pain and Denies heartburn Musc Denies myalgias, Denies arthralgias and Denies joint swelling Skin/Breast Denies rash Neuro Denies memory loss and Denies seizure-like activity Psych Denies abnormal sleep pattern, Denies anxiety and Denies memory loss Endo Denies excessive sweating, Denies fatigue and Denies heat intolerance Newton/Lymph Denies easy bruising Aller/Immun Denies itchy eyes, Denies seasonal rhinorrhea and Denies wheezing Physical Exam Vital Signs: Last Vital Signs Pulse 89 02/27/25 13:49 BP 102/66 02/27/25 13:49 Pulse Ox 98 02/27/25 13:49 Oxygen Delivery Method Nasal Cannula 02/27/25 13:49 Oxygen Flow Rate 6 02/27/25 13:49 Const General: no acute distress and alert Nutritional Appearance: not obese Orientation/consciousness: Other orientation findings ( oriented) HEENT Head: Yes atraumatic Eyes General: appearance normal, both eyes and all related structures Sclerae: sclerae normal EOM: EOMs intact bilaterally Neck Neck: Yes supple Lymphatic: no lymphadenopathy noted Resp Effort & Inspection: normal respiratory effort and no use of accessory muscles Auscultation: clear to auscultation bilaterally Cardio Rate: regular rate Rhythm: regular rhythm Heart sounds: no gallops, no murmurs and no rubs Skin General skin exam: other ( warm) Extrem General: No clubbing, No cyanosis and No edema Assessment & Plan Assessment & Plan (1) COPD (chronic obstructive pulmonary disease): Code(s): J44.9 - Chronic obstructive pulmonary disease, unspecified Category: Medical Plan: Results of pulmonary function test reviewed underlying moderate COPD with severe decrease in diffusion capacity. Continue Trelegy, duo nebs, and albuterol MDI. Will refer for lung transplant evaluation. (2) On supplemental oxygen therapy: Code(s): Z99.81 - Dependence on supplemental oxygen Category: Medical Plan: Continue supplemental oxygen to maintain O2 saturation of 89-93%. (3) Pulmonary fibrosis: Code(s): J84.10 - Pulmonary fibrosis, unspecified Category: Medical Plan: Areas of fibrosis noted on CT chest. (4) Multiple pulmonary emboli: Code(s): I26.99 - Other pulmonary embolism without acute cor pulmonale Category: Medical Plan: Recurrent pulmonary emboli, essentially unprovoked. Previously unable to tolerate anticoagulation secondary to multiple severe nosebleeds. Will opt for placement of IVC filter and antiplatelet therapy with aspirin. Orders: Orders IR IVC filter placement Today I26.99 - Other pulmonary embolism without acute cor pulmonale Coding Level of Care Code Est Pt Level 4 (00936) Complex EM visit Add On G2211 Diagnoses COPD (chronic obstructive pulmonary disease) J44.9 On supplemental oxygen therapy Z99.81 Pulmonary fibrosis J84.10 Multiple pulmonary emboli I26.99
--- OUTSIDE RECORDS SUMMARY | 2025-02-27 16:09 | XMS_ITS | Clinical Summary ---
Author Organization [facility] Address [address] [place] [address] Care Team Providers Care Floor Broker Name Role Phone Unavailable Primary Care Provider Unavailabl e Encounters Date Type Department Care Team Description 12/09/2024 Transcribe Orders [facility] PRIMARY [facility]ARE SCAN Artis Whiting MD [...]
--- OUTSIDE RECORDS SUMMARY | 2025-02-27 16:09 | XMS_ITS | Encounter Summary ---
Author Organization [facility] Address [address] [place] [address] Care Team Providers Care Manager Hospice Name Role Phone Chuy Nguyễn MD Primary Care Provider [phone] Encounter Details Date Type Department Care Team (Late st Contact Info) Description 01/11/2025 Lab Requisition [facility] - Main Lab [address] [facility] [place] [address] Chuy Nguyễn MD [address] [place] [address] [address] [place], [phone] Essential (primary) hypertension Social History Tobacco [...] mmol/L LAB CHEMISTRY METHOD 01/13/2025 1:25 PM [facility] LAB Potassium 4.1 3.5 - 5.5 mmol/L LAB CHEMISTRY METHOD 01/13/2025 1:25 PM [facility] LAB Chloride 108 96 - 110 mmol/L LAB CHEMISTRY METHOD 01/13/2025 1:25 PM [facility] LAB CO2 27 21 - 32 mmol/L LAB CHEMISTRY METHOD 01/13/2025 1:25 PM [facility] LAB Anion Gap 9 3 - 11 LAB CHEMISTRY METHOD 01/13/2025 1:25 PM [facility] LAB Glucose 59(L) 70 - 100 mg/dL LAB CHEMISTRY METHOD 01/13/2025 1:25 PM [facility] LAB BUN 17 5 - 25 mg/dL LAB CHEMISTRY METHOD 01/13/2025 1:25 PM [facility] LAB Creatinine 0.98 0.50 - 1.10 mg/dL LAB CHEMISTRY METHOD 01/13/2025 1:25 PM [facility] LAB eGFR 63 >=60 mL/min/1. 73m2 LAB CHEMISTRY METHOD 01/13/2025 1:25 PM [facility] LAB Comment:Calculation based on the??Chronic Kidney Disease Epidemiology Collaboration (CKD-EPI) equation refit??without adjustment for race. BUN/Creatinine Ratio 17.3 LAB CHEMISTRY METHOD 01/13/2025 1:25 PM [facility] LAB Calcium 8.9 8.5 - 10.5 mg/dL LAB CHEMISTRY METHOD 01/13/2025 1:25 PM [facility] LAB Blood Venous blood specimen / Unknown Venipuncture / Unknown 01/13/2025 6:29 AM EST 01/13/2025 11:44 AM EST us Chuy Nguyễn MD LAB BLOOD ORDERABLES Final Resul t [facility] LAB [address] [place] [address], [place] [phone] * (ABNORMAL) Complete blood count (01/13/2025 6:29 AM EST) WBC 10.0 4.8 - 10.8 K/mcL LAB HEMETOLOGY METHOD 01/13/2025 1:40 PM [facility] LAB RBC 2.40(L) 3.80 - 4.80 M/mcL LAB HEMETOLOGY METHOD 01/13/2025 1:40 PM [facility] LAB Hemoglobin 7.9(L) 11.5 - 16.0 g/dL LAB HEMETOLOGY METHOD 01/13/2025 1:40 PM [facility] LAB Hematocrit 26.7(L) 35.0 - 47.0 % LAB HEMETOLOGY METHOD 01/13/2025 1:40 PM [facility] LAB MCV 111.3(H) 79.0 - 98.0 FL LAB HEMETOLOGY METHOD 01/13/2025 1:40 PM [facility] LAB MCH 32.9(H) 27.0 - 32.0 pcg LAB HEMETOLOGY METHOD 01/13/2025 1:40 PM [facility] LAB MCHC 29.6(L) 32.0 - 37.0 g/dL LAB HEMETOLOGY METHOD 01/13/2025 1:40 PM [facility] LAB RDW 16.6(H) 11.0 - 15.0 % LAB HEMETOLOGY METHOD 01/13/2025 1:40 PM [facility] LAB Platelets 333 130 - 400 K/mcL LAB HEMETOLOGY METHOD 01/13/2025 1:40 PM [facility] LAB MPV 9.4 7.0 - [...] [facility] [address] [place] [address], documented in this encounter Visit Diagnoses Diagnosis Essential (primary) hypertension Unspecified essential hypertension documented in this encounter Care Teams Manager Hospice Relationship Specialty Start Date End Date Chuy Nguyễn MD [address] [place] [address], [phone] PCP - General Family Medicine 01/02/25 documented as of this encounter
--- OUTSIDE RECORDS SUMMARY | 2025-02-27 16:09 | XMS_ITS | Encounter Summary ---
Author Organization [facility] Address [address] [place] [address] Care Team Providers Care Cloth Winding Supervisor Name Role Phone Chuy Nguyễn MD Primary Care Provider [phone] Encounter Details Date Type Department Care Team (Late st Contact Info) Description 01/18/2025 Lab Requisition [facility] - Main Lab [address] [facility] [place] [address] Chuy Nguyễn MD [address] [facility] [address] [place], [phone] Essential (primary) hypertension Social History Tobacco [...] hypertension documented in this encounter Care Teams Cloth Winding Supervisor Relationship Specialty Start Date End Date Chuy Nguyễn MD [address] [facility] [address] [place], [phone] PCP - General Family Medicine 01/02/25 documented as of this encounter
--- OUTSIDE RECORDS SUMMARY | 2025-02-27 16:09 | XMS_ITS | Encounter Summary ---
Author Organization [facility] Address [address] [place] [address] Care Team Providers Care Rn Telephone Triage Name Role Phone Chuy Nguyễn MD Primary Care Provider [phone] Encounter Details Date Type Department Care Team (Late st Contact Info) Description 01/04/2025 Lab Requisition [facility] - Main Lab [address] [facility] [place] [address] Chuy Nguyễn MD [address] [place] [address] [address] [place], [phone] Essential (primary) hypertension Social History Tobacco [...] mmol/L LAB CHEMISTRY METHOD 01/06/2025 11:49 AM [facility] LAB Potassium 3.9 3.5 - 5.5 mmol/L LAB CHEMISTRY METHOD 01/06/2025 11:49 AM [facility] LAB Chloride 107 96 - 110 mmol/L LAB CHEMISTRY METHOD 01/06/2025 11:49 AM [facility] LAB CO2 29 21 - 32 mmol/L LAB CHEMISTRY METHOD 01/06/2025 11:49 AM [facility] LAB Anion Gap 6 3 - 11 LAB CHEMISTRY METHOD 01/06/2025 11:49 AM [facility] LAB Glucose 72 70 - 100 mg/dL LAB CHEMISTRY METHOD 01/06/2025 11:49 AM [facility] LAB BUN 21 5 - 25 mg/dL LAB CHEMISTRY METHOD 01/06/2025 11:49 AM [facility] LAB Creatinine 1.10 0.50 - 1.10 mg/dL LAB CHEMISTRY METHOD 01/06/2025 11:49 AM [facility] LAB eGFR 55(L) >=60 mL/min/1. 73m2 LAB CHEMISTRY METHOD 01/06/2025 11:49 AM [facility] LAB Comment:Calculation based on the??Chronic Kidney Disease Epidemiology Collaboration (CKD-EPI) equation refit??without adjustment for race. BUN/Creatinine Ratio 19.1 LAB CHEMISTRY METHOD 01/06/2025 11:49 AM [facility] LAB Calcium 8.6 8.5 - 10.5 mg/dL LAB CHEMISTRY METHOD 01/06/2025 11:49 AM [facility] LAB Blood Venous blood specimen / Unknown Venipuncture / Unknown 01/06/2025 6:49 AM EST 01/06/2025 11:07 AM EST us Chuy Nguyễn MD LAB BLOOD ORDERABLES Final Resul t [facility] LAB [address] [place] [address], * (ABNORMAL) Complete blood count (01/06/2025 6:49 AM EST) WBC 9.4 4.8 - 10.8 K/mcL LAB HEMETOLOGY METHOD 01/06/2025 11:33 AM EST [facility] LAB RBC 2.30(L) 3.80 - 4.80 M/mcL LAB HEMETOLOGY METHOD 01/06/2025 11:33 AM [facility] LAB Hemoglobin 7.6(L) 11.5 - 16.0 g/dL LAB HEMETOLOGY METHOD 01/06/2025 11:33 AM [facility] LAB Hematocrit 24.5(L) 35.0 - 47.0 % LAB HEMETOLOGY METHOD 01/06/2025 11:33 AM [facility] LAB MCV 106.1(H) 79.0 - 98.0 FL LAB HEMETOLOGY METHOD 01/06/2025 11:33 AM [facility] LAB MCH 32.9(H) 27.0 - 32.0 pcg LAB HEMETOLOGY METHOD 01/06/2025 11:33 AM [facility] LAB MCHC 31.0(L) 32.0 - 37.0 g/dL LAB HEMETOLOGY METHOD 01/06/2025 11:33 AM [facility] LAB RDW 17.3(H) 11.0 - 15.0 % LAB HEMETOLOGY METHOD 01/06/2025 11:33 AM [facility] LAB Platelets 279 130 - 400 K/mcL LAB HEMETOLOGY METHOD 01/06/2025 11:33 AM [facility] LAB MPV 9.3 7.0 - 11.0 FL LAB HEMETOLOGY METHOD 01/06/2025 11:33 AM EST [facility] LAB NRBC 0.5 <1.0 % LAB HEMETOLOGY METHOD 01/06/2025 11:33 AM EST [facility] LAB NRBC Absolute 0.05 <0.10 K/mcL LAB HEMETOLOGY METHOD 01/06/2025 11:33 AM EST [facility] LAB Blood Venous blood specimen / Unknown Venipuncture / Unknown 01/06/2025 6:49 AM EST 01/06/2025 11:07 AM EST us Chuy Nguyễn MD LAB BLOOD ORDERABLES Final Resul t [facility] LAB [address] [place] [address], documented in this encounter Visit Diagnoses Diagnosis Essential (primary) hypertension Unspecified essential hypertension documented in this encounter Care Teams Rn Telephone Triage Relationship Specialty Start Date End Date Chuy Nguyễn MD [address] [place] [address], [phone] PCP - General Family Medicine 01/02/25 documented as of this encounter
--- OUTSIDE RECORDS SUMMARY | 2025-02-27 16:10 | XMS_ITS | Clinical Summary ---
Author Organization [facility] Address [address] [place] [address] Phone Care Team Providers Care Bale Piler Name Role Phone Chuy Nguyễn MD Primary Care Provider [phone] Medications albuterol HFA (PROAIR HFA ; PROVENTIL HFA ; VENTOLIN HFA) 90 mcg/actuation inhaler Inhale 2 puffs by mouth every 6 (six) hours if needed for wheezing. 1 each 1 12/23/2024 Active Encounters Date Type Department Care Team Description 01/18/2025 Lab Requisition [facility] Lab [address] [place] [phone] Chuy Nguyễn MD Essential (primary) hypertension 01/11/2025 Lab Requisition [facility] Lab [address] [place] [phone] Chuy Nguyễn MD Essential (primary) hypertension 01/04/2025 Lab Requisition [facility] Lab [address] [place] [phone] Chuy Nguyễn MD Essential (primary) hypertension 01/02/2025 Lab Requisition [facility] Lab [address] [place] [phone] Chuy Nguyễn MD Essential (primary) hypertension 12/05/2024 Telephone Lung Screening Program - [address] [place] [address] [place] Appointment (1st [...] of3 resultswithin the time period is included. [facility] WBC 10.0 4.8 - 10.8 K/mcL [...] LAB HEMETOLOGY METHOD 01/13/2025 1:40 PM EST [facility] MPV 9.4 7.0 - 11.0 FL LAB HEMETOLOGY METHOD 01/13/2025 1:40 PM EST [facility] NRBC 0.0 <1.0 % LAB HEMETOLOGY METHOD 01/13/2025 1:40 PM EST [facility] NRBC Absolute 0.00 <0.10 K/mcL LAB HEMETOLOGY METHOD 01/13/2025 1:40 PM EST [facility] Blood Venous blood specimen / Unknown Venipuncture / Unknown 01/13/2025 6:29 AM EST 01/13/2025 11:44 AM EST us Chuy Nguyễn MD LAB BLOOD ORDERABLES Final Resul t [facility] [address] [place] [address], [place] [phone] * (ABNORMAL) Basic metabolic panel (01/13/2025 6:29 [...] LAB CHEMISTRY METHOD 01/13/2025 1:25 PM EST [facility] BUN 17 5 - [...] Resul t [facility] [address] [place] [address], * (ABNORMAL) Comprehensive metabolic panel (01/02/2025 9:28 [...] g/dL LAB CHEMISTRY METHOD 01/02/2025 12:30 PM [facility] Albumin 3.2 3.2 - 5.0 g/dL LAB CHEMISTRY METHOD 01/02/2025 12:30 PM [facility] Total Bilirubin 0.4 0.0 - 1.4 mg/dL LAB CHEMISTRY METHOD 01/02/2025 12:30 PM EST [facility] Blood Venous blood specimen / Unknown Venipuncture / Unknown 01/02/2025 9:28 AM EST 01/02/2025 11:08 AM EST us Chuy Nguyễn MD LAB BLOOD ORDERABLES Final Resul t [facility] [address] [place] [address], [place] [phone] from Last 3 Months Insurance [employer] MEDICARE Care Teams Bale Piler Relationship Specialty Start Date End Date Chuy Nguyễn MD [address] [place] [address], [phone] PCP - General Family Medicine 01/02/25
--- OUTSIDE RECORDS SUMMARY | 2025-02-27 16:10 | XMS_ITS | Encounter Summary ---
Author Organization [facility] Address [address] [place] [address] Care Team Providers Care Data Center Consultant Name Role Phone Chuy Nguyễn MD Primary Care Provider [phone] Encounter Details Date Type Department Care Team (Late st Contact Info) Description 01/02/2025 Lab Requisition [facility] Lab [address] [facility] [place] [address] Chuy Nguyễn MD [address] [place] [address] [address] [place], [phone] Essential (primary) hypertension Social History Tobacco [...] 01/02/2025 12:[address] [facility] Blood Venous blood specimen / Unknown Venipuncture / Unknown 01/02/2025 9:28 AM EST 01/02/2025 11:08 AM EST us Chuy Nguyễn MD LAB BLOOD ORDERABLES Final Resul t [facility] [address] [place] [address], * (ABNORMAL) Complete blood count (01/02/2025 9:28 AM EST) WBC 12.8(H) 4.8 - 10.8 K/mcL LAB HEMETOLOGY METHOD 01/02/2025 12:[address] [facility] RBC 2.50(L) 3.80 - 4.80 M/mcL LAB HEMETOLOGY METHOD 01/02/2025 12:[address] [facility] Hemoglobin 8.4(L) 11.5 - 16.0 g/dL LAB HEMETOLOGY METHOD 01/02/2025 12:[address] [facility] Hematocrit 26.2(L) 35.0 - 47.0 % LAB HEMETOLOGY METHOD 01/02/2025 12:51 PM EST [facility] MCV 103.6(H) 79.0 - 98.0 FL LAB HEMETOLOGY METHOD 01/02/2025 12:[address] [facility] MCH 33.2(H) 27.0 - 32.0 pcg LAB HEMETOLOGY METHOD 01/02/2025 12:[address] [facility] MCHC 32.1 32.0 - 37.0 g/dL LAB HEMETOLOGY METHOD 01/02/2025 12:[address] [facility] RDW 16.6(H) 11.0 - 15.0 % LAB HEMETOLOGY METHOD 01/02/2025 12:[address] [facility] Platelets 245 130 - 400 K/mcL LAB HEMETOLOGY METHOD 01/02/2025 12:[address] [facility] MPV 9.5 7.0 - 11.0 FL LAB HEMETOLOGY METHOD 01/02/2025 12:[address] [facility] NRBC 1.4(H) <1.0 % LAB HEMETOLOGY METHOD 01/02/2025 12:[address] [facility] NRBC Absolute 0.18(H) <0.10 K/mcL LAB HEMETOLOGY METHOD 01/02/2025 12:[address] [facility] Blood Venous blood specimen / Unknown Venipuncture / Unknown 01/02/2025 9:28 AM EST 01/02/2025 11:08 AM EST us Chuy Nguyễn MD LAB BLOOD ORDERABLES Final Resul t [facility] [address] [place] [address], [place] [phone] documented in this encounter Visit Diagnoses Diagnosis Essential (primary) hypertension Unspecified essential hypertension documented in this encounter Care Teams Data Center Consultant Relationship Specialty Start Date End Date Chuy Nguyễn MD [address] [facility] [address] [place], [phone] PCP - General Family Medicine 01/02/25 documented as of this encounter
== END 2025-02-27 14:16 | disposition home or self-care (01) ==
LOC: HO.HPS 13:23
PROVIDERS: PCP Internal Medicine; Visit Provider Internal Medicine Pulmonary Disease
DX: J44.9 Chronic obstructive pulmonary disease, unspecified (principal); Z99.81 Dependence on supplemental oxygen; J84.10 Pulmonary fibrosis, unspecified; I26.99 Other pulmonary embolism without acute cor pulmonale
CPT/HCPCS: 99214; G2211

== ENCOUNTER 2025-03-06 11:15 | Day surgery (SDC) | payer MEDICARE, SELFPAY ==
--- OUTSIDE RECORDS SUMMARY | 2025-03-03 17:04 | XMS_ITS | Encounter Summary ---
Author Organization [facility] Address [address] [place] [address] Care Team Providers Care Industrial Controller Name Role Phone Chuy Nguyễn MD Primary Care Provider [phone] Encounter Details Date Type Department Care Team (Late st Contact Info) Description 01/04/2025 Lab Requisition [facility] - Main Lab [address] [facility] [place] [address] Chuy Nguyễn MD [address] [place] [address] [address] [place], [phone] Essential (primary) hypertension Social History Tobacco [...] mmol/L LAB CHEMISTRY METHOD 01/06/2025 11:49 AM [facility] Potassium 3.9 3.5 - 5.5 mmol/L LAB CHEMISTRY METHOD 01/06/2025 11:49 AM [facility] Chloride 107 96 - 110 mmol/L LAB CHEMISTRY METHOD 01/06/2025 11:49 AM [facility] CO2 29 21 - 32 mmol/L LAB CHEMISTRY METHOD 01/06/2025 11:49 AM [facility] Anion Gap 6 3 - 11 LAB CHEMISTRY METHOD 01/06/2025 11:49 AM [facility] Glucose 72 70 - 100 mg/dL LAB CHEMISTRY METHOD 01/06/2025 11:49 AM [facility] BUN 21 5 - 25 mg/dL LAB CHEMISTRY METHOD 01/06/2025 11:49 AM [facility] Creatinine 1.10 0.50 - 1.10 mg/dL LAB CHEMISTRY METHOD 01/06/2025 11:49 AM [facility] eGFR 55(L) >=60 mL/min/1. 73m2 LAB CHEMISTRY METHOD 01/06/2025 11:49 AM [facility] Comment:Calculation based on the??Chronic Kidney Disease Epidemiology Collaboration (CKD-EPI) equation refit??without adjustment for race. BUN/Creatinine Ratio 19.1 LAB CHEMISTRY METHOD 01/06/2025 11:49 AM [facility] Calcium 8.6 8.5 - 10.5 mg/dL LAB CHEMISTRY METHOD 01/06/2025 11:49 AM [facility] Blood Venous blood specimen / Unknown Venipuncture / Unknown 01/06/2025 6:49 AM EST 01/06/2025 11:07 AM EST us Chuy Nguyễn MD LAB BLOOD ORDERABLES Final Resul t [facility] [address] [place] [address], * (ABNORMAL) Complete blood count (01/06/2025 6:49 AM EST) WBC 9.4 4.8 - 10.8 K/mcL LAB HEMETOLOGY METHOD 01/06/2025 11:33 AM EST [facility] RBC 2.30(L) 3.80 - 4.80 M/mcL LAB HEMETOLOGY METHOD 01/06/2025 11:33 AM [facility] Hemoglobin 7.6(L) 11.5 - 16.0 g/dL LAB HEMETOLOGY METHOD 01/06/2025 11:33 AM [facility] Hematocrit 24.5(L) 35.0 - 47.0 % LAB HEMETOLOGY METHOD 01/06/2025 11:33 AM [facility] MCV 106.1(H) 79.0 - 98.0 FL LAB HEMETOLOGY METHOD 01/06/2025 11:33 AM [facility] MCH 32.9(H) 27.0 - 32.0 pcg LAB HEMETOLOGY METHOD 01/06/2025 11:33 AM [facility] MCHC 31.0(L) 32.0 - 37.0 g/dL LAB HEMETOLOGY METHOD 01/06/2025 11:33 AM [facility] RDW 17.3(H) 11.0 - 15.0 % LAB HEMETOLOGY METHOD 01/06/2025 11:33 AM [facility] Platelets 279 130 - 400 K/mcL LAB HEMETOLOGY METHOD 01/06/2025 11:33 AM [facility] MPV 9.3 7.0 - [...] Resul t [facility] [address] [place] [address], documented in this encounter Visit Diagnoses Diagnosis Essential (primary) hypertension Unspecified essential hypertension documented in this encounter Care Teams Industrial Controller Relationship Specialty Start Date End Date Chuy Nguyễn MD [address] [place] [address], [phone] PCP - General Family Medicine 01/02/25 documented as of this encounter
--- OUTSIDE RECORDS SUMMARY | 2025-03-03 17:04 | XMS_ITS | Encounter Summary ---
Author Organization [facility] Address [address] [place] [address] Care Team Providers Care Political Worker Name Role Phone Chuy Nguyễn MD Primary Care Provider [phone] Encounter Details Date Type Department Care Team (Late st Contact Info) Description 01/18/[address] [facility] - Main Lab [address] [facility] [place] [address] Chuy Nguyễn MD [address] [facility] [address] [place], [phone] Essential (primary) hypertension Social History Tobacco [...] hypertension documented in this encounter Care Teams Political Worker Relationship Specialty Start Date End Date Chuy Nguyễn MD [address] [facility] [address] [place], [address] PCP - General Family Medicine 01/02/25 documented as of this encounter
--- OUTSIDE RECORDS SUMMARY | 2025-03-03 17:04 | XMS_ITS | Data Portability ---
Author Organization [facility], Main Office Address [address] [facility] [address] [place] [address] Care Team Providers Care Sr. Unix System Administrator Name Role Phone [facility] U[facility] FOR[facility] Primary Care Provider [phone] Assessment Encounter Date Assessment Date Assessment LastModified by Organization Details LastModified Time 01/02/2025 01/02/2025 Labs 2: Na 141-K 4.0-bun 40-cr 1.0 Not available 01/02/2025 19:47:32 01/03/2025 01/03/2025 Labs 2/11: Na 141-K 4.0-bun 40-cr 1.0 [email or web address] Not available 02/08/2025 17:57:30 01/14/2025 01/14/2025 Labs 211: Na 141-K 4.0-bun 40-cr 1.0 [email or web address] Not available 01/14/2025 11:01:05 Plan of Treatment [...] Address Organization Details Recorded Time Hyperlipid emia 32165218 Active 2024 Not Available [facility] 16:48:22 Acute exacerbati on of chronic obstructiv e pulmonary disease 836095459 Active 2024 Not Available [facility] 16:49:33 Thromboemb olism of vein 970245657 Active 2024 Not Available [facility] 5 16:50:25 Type 2 diabetes mellitus without complicati on 697736520 Active 2024 Not Available [facility] 5 16:52:47 Fibrosis of lung 47559280 Active 2024 Not Available [facility] 5 15:13:26 Acute on chronic hypoxemic respirator y failure 9110940113592 9100 Active 2024 Not Available [facility] 5 15:13:48 Bleeding from nose 238591508 Active 2024 Not Available [facility] 5 18:43:13 Chronic obstructiv e pulmonary disease 46957542 Active 2024 ISH CHEUNG [address], [place], [address] , [facility] [employer] [facility] 5 19:33:28 Depressive disorder 16387500 Active 2024 ISH CHEUNG [address] , [address], [place], [address] , [facility] 5 19:57:53 Gastroesop hageal reflux disease 284245527 Active 2024 ISH CHEUNG [address] , [address], [place], [address] , [facility] 5 19:58:45 Gastroesop hageal reflux disease without esophagiti s 995685547 Active 2024 Not Available [facility] 5 12:49:10 Pulmonary embolism 50482005 Active 2024 Not Available [facility] 5 12:50:12 Muscle weakness 96817957 Active 2024 Not Available [facility] 5 16:05:42 Difficulty walking 846656764 Active 2024 Not Available [facility] 5 16:06:14 Chronic kidney disease stage 3A 718978670 Active 2024 Theresa Ospina MD [address] [facility], [address], [place], [address] , [facility] 18:04:08 Problem Notes None recorded. Medical Equipment None Reported. Allergies Allergen ID Allergen Name Allergen Category Reaction Reaction Severity Criticality Documentation Date Start Date Code Code System Note Provider Name and Address Organization Details Recorded Time 63989 Demerol medicatio n Not available Not available Not available 01/01/20252024 56005 1 RxNorm Not Available Not Available Not Available 57365 codeine medicatio n Not available Not available [...] 999 = 10 unit Call MD / SAS ETL DEVELOPER, subcutane ously before meals for DM 2024 [...] Available Not Available Not Avai lable Acid [facility] Judge (omeprazole ) 20 mg capsule,del ayed release [...] 113 mm[Hg] 68 mm[Hg] ISH CHEUNG [address] [facility], [address], [place], [address], [email or web address] 20:03:26 Date Recorded Body height Body mass index (BMI) Body weight Heart rate Respiratory rate Body temperature Oxygen saturation Oxygen saturation in Arterial blood by Pulse oximetry Systolic blood pressure Diastolic blood pressure Provider Name and Address Organization Details Last Updated DateTime 172.72 cm 34.6 kg/m2 165823. 9 g 82 /min 18 /min 98.1 [degF] 98 % 98 % 124 mm[Hg] 70 mm[Hg] Theresa Ospina MD [address] [facility], [address], [place], [address], [email or web address] 22:49:01 Social History Question Answer Notes LastModified by Organizat ion Details LastModified Time Tobacco Smoking Status Former Smoker ISH CHEUNG [address] [facility], [address], [place], [address], [email or web address] 01/02/2025 20:00:56 Do You Have An Advance Directive? Yes Information not available 01/02/2025 What Is Your Level Of Alcohol Consumption? None Information not available 01/02/2025 What Is Your Code Status? Full Code MOLST 01/02/25 [email or web address] Information not available 01/02/2025 Where Do You Live? [facility] Split Level Home With , But Has Commode On Main Level And Sleeps On Couch. Information not available 01/03/2025 Legal Guardian? No Informati on not available 01/03/2025 Do You Have A Medical Power Of Mold Parter? Yes Information not available 01/03/2025 What Was [...] unspecified 4 completed [facility] 01/02/2025 15:33:31 Pneumococcal conjugate PCV 13 4 completed [facility] 01/02/2025 15:35:04 influenza, unspecified formulation 3 completed [facility] 01/02/2025 15:36:40 influenza, unspecified formulation 4 [facility] 01/02/2025 15:36:47 SARS-COV-2 (COVID-19) vaccine, UNSPECIFIED 1 completed [facility] 01/02/2025 15:37:08 Past Encounters Encounter ID Performer Location Encounter Start Date Encounter Closed Date Diagnosis/Indication Diagnosis SNOMED-CT Code Diagnosis ICD10 Code Diagnosis Note [id number] ISH CHEUNG RED[facility] [address] [place] [address] 01/02/2025 10:57:46 01/03/2025 13:55:30 Acute on chronic hypoxemic respiratory failure 4852043331 2064554 J96.21 see hpistarted on prednisone 40 mg -recommend ed by pulm. to wean recommende d to gradually wean prednisone 10 mg Q 2-3 weeks.base line she was using 6-8 liter O2now recommende d humidified oxygen 4 L and increased to 6 L with activity if neededkeep finger oximetry 90-92%RT eval and tx prn. Bleeding from nose 27284 6005 R04.0 recurrent epistaxisn o residual clot on CTA or leg venous duplexeliq uis discontinu ed in acute careResume aspirin 81 mg daily once epistaxis has resolved in 7-10 daysO2 dependent/ use humidified oxygen Chronic ob structive pulmonary disease 28955806 J44.9 baseline O2 dependentc ont trilegy , albuterol inhaler,on prednisone 40 mg taper to wean every 2 weeks per pulmonolog y recommenda tion Type 2 steve betes mellitus without complication 133953808 E11.9 cont ozempic, metformino n high dose prednisone start lispro SSCmonitor accuchecks TID Hyperlipidemia 56102312 E78.5 cont pravastati n Depressive disorder 3548 9007 F32.A on celexamoni tor mood and behaviors Gastroesop hageal reflux disease 887154127 K21.9 cont omeprazole monitor for gi upset [id number] MD DARRON RossSEVERANCE [address] [place] [address] 01/03/2025 18:50:58 02/10/2025 16:13:35 Acute on chronic hypoxemic respiratory failure [id number] 6488958 J96.21 Much improved, but not back to baseline.C ontinue slow prednisone taper.Cont inue supplement al O2 to maintain sats 90-92%Cont inue COPD meds as below.Comp leting course of Augmentin for post-covi d pneumoniti s .RT following Bleeding from nose 89515 6005 R04.0 Rhinorocke t removed today at [facility].Feels good, no further bleeding.C ontinue humidified O2 and saline nasal spray.Ally tor Chronic ob structive pulmonary disease 97536687 J43.8 Almost back to baseline.C ontinue O2 and prednisone as above.Cont inue Trelegy 200/62.5/2 5 mcg qd, duonebs q 6 hrs prn and albuterol MDI 2 puffs q 6 hrs prn.Monito r resp status. Type 2 steve betes mellitus without complication 785238565 E11.9 BS good since here.HgA1C 6.5 in 5Cont inue ozempic 1 mg weekly, metformin 500 mg BID and SSI.Monito r fingerstic ks TID and HgA1C as an outpt. Hyperlipidemia 71326330 E78.49 Continue pravastati n 40 mg qd and ASA 81 mg qd.Monitor labs as outpt. Depressive disorder 3548 9007 F33.8 Mood good tonight.Co ntinue citalopram 40 mg qd.Monitor mood.Consu lt psych prn Gastroesop hageal reflux disease 126987468 K21.9 No current sxs.Contin ue omeprazole 20 mg qd.Monitor GI sxs. Chronic ki dney disease stage 3A 367686557 N18.31 Back to baseline.C ontinue to avoid nephrotoxi c meds as able.Monit or labs.Renal consult prn. [id number] KATHRAINE KIM, BRE-C SHON [address] [place] [address] 01/14/2025 09:48:23 01/16/2025 10:23:22 Acute on chronic hypoxemic respiratory failure 8814668791 7277670 J96.21 continue prednisone taperconti nue home O2 at 4-8 Lkeep finger oximetry 90-92%f/up with pcp Bleeding from nose 27586 6005 R04.0 resolved with rhino rocketsno longer on ACwill restart asprin 81 mg dailyf/up with pcp if bleeding returnsmon itor hgb outpt, currently stable at 7.9 Chronic ob structive pulmonary disease 29814923 J44.9 baseline O2 dependentc ont trilegy , albuterol inhaler,on prednisone 40 mg taper to wean every 2 weeks per pulmonolog y recommenda tionf/up with pcp Type 2 steve betes mellitus without complication 041174887 E11.9 cont ozempic, metformino n high dose prednisone educated prednisone can increase sugarsf/up with pcp Hyperlipidemia 24483783 E78.5 cont pravastati nf/up with pcp Depressive disorder 3548 9007 F32.A on celexaf/up with pcp Gastroesop hageal reflux disease 485235784 K21.9 cont omeprazole f/up with pcp Stomach ache 234012193 R 10.9 reports start of GI upsetno [...] Britton Member ID Guarantor Name 01/02/2025 1 [facility] (MEDICARE REPLACEMENT/A DVANTAGE - PPO) [id number] Jeny Meng Stone [id number] Jeny Meng Stone 01/03/2025 1 [facility] (MEDICARE REPLACEMENT/A DVANTAGE - PPO) [id number] Jeny Yusra Stone [id number] Jeny Meng Stone 01/14/2025 1 [facility] (MEDICARE REPLACEMENT/A DVANTAGE - PPO) [id number] Jeny Meng Stone [id number] Jeny Meng Stone Notes Date Note Type Note Provider Name and Address Organization Details Recorded Time 01/02/2025 text/html This is a 68-yea r-old female patient with a PMH HLD, pulmonary fibrosis, COPD on home O2 6L at rest and 8L with exertion, recent DVT and PE on Eliquis, and former smoker with a 20 pack-year history. She was referred to ED from supervisor cutting and boning office with O2 sat in the 50%. [...] 01/03. She can returned to ED at [facility] for removal by ENT or ED provider at [facility] . She was started on augmentin for 5 days Patient is seen for initial intake for continued care and rehab. ISH CHEUNG [address] [place] [address], [address], [place], [address], [facility] 01/02/2025 20:04:13 01/03/2025 text/html This is a 68 yo woman who is here for rehab after an acute hospitalization for She was sent to the [facility] from the supervisor cutting and boning's office because of O2 sat in the [...] 01/03. She can returned to ED at [facility] for removal by ENT or ED provider at [facility] . She was started on augmentin for 5 days Feels like breathing is back to usual, always terrible.Happy to have rhinorocket out. Her PMH includes COPD on home O2 6L at rest and 8L with exertion, CKD stage 3A, pulmonary fibrosis, HLD, recent DVT and PE on Eliquis, and former smoker with a 20 pack-year hx. Theresa Ospina MD [address] [place] [address], [address], [place], [address], [facility] 02/08/2025 18:09:38 01/14/2025 text/html This is a [...] a 20 pack-year history. UMANG MEHTAC [address] [facility], [address], [place], [address], [facility] 01/14/2025 11:11:46 OBGyn Episode No OBEpisode recorded.
--- OUTSIDE RECORDS SUMMARY | 2025-03-03 17:04 | XMS_ITS | Encounter Summary ---
Author Organization [facility] Address [address] [place] [address] Care Team Providers Care Management Trainee Program Stores Name Role Phone Chuy Nguyễn MD Primary Care Provider [phone] Encounter Details Date Type Department Care Team (Late st Contact Info) Description 01/11/2025 Lab Requisition [facility] - Main Lab [address] [facility] [place] [address] Chuy Nguyễn MD [address] [place] [address] [address] [place], [phone] Essential (primary) hypertension Social History Tobacco [...] mmol/L LAB CHEMISTRY METHOD 01/13/2025 1:25 PM [facility] Potassium 4.1 3.5 - 5.5 mmol/L LAB CHEMISTRY METHOD 01/13/2025 1:25 PM [facility] Chloride 108 96 - 110 mmol/L LAB CHEMISTRY METHOD 01/13/2025 1:25 PM [facility] CO2 27 21 - 32 mmol/L LAB CHEMISTRY METHOD 01/13/2025 1:25 PM [facility] Anion Gap 9 3 - 11 LAB CHEMISTRY METHOD 01/13/2025 1:25 PM [facility] Glucose 59(L) 70 - 100 mg/dL LAB CHEMISTRY METHOD 01/13/2025 1:25 PM [facility] BUN 17 5 - 25 mg/dL LAB CHEMISTRY METHOD 01/13/2025 1:25 PM [facility] Creatinine 0.98 0.50 - 1.10 mg/dL LAB CHEMISTRY METHOD 01/13/2025 1:25 PM [facility] eGFR 63 >=60 mL/min/1. 73m2 LAB CHEMISTRY METHOD 01/13/2025 1:25 PM [facility] Comment:Calculation based on the??Chronic Kidney Disease Epidemiology Collaboration (CKD-EPI) equation refit??without adjustment for race. BUN/Creatinine Ratio 17.3 LAB CHEMISTRY METHOD 01/13/2025 1:25 PM [facility] Calcium 8.9 8.5 - 10.5 mg/dL LAB CHEMISTRY METHOD 01/13/2025 1:25 PM [facility] Blood Venous blood specimen / Unknown Venipuncture / Unknown 01/13/2025 6:29 AM EST 01/13/2025 11:44 AM EST us Chuy Nguyễn MD LAB BLOOD ORDERABLES Final Resul t [facility] [address] [place] [address], [place] [phone] * (ABNORMAL) Complete blood count (01/13/2025 6:29 AM EST) WBC 10.0 4.8 - 10.8 K/mcL LAB HEMETOLOGY METHOD 01/13/2025 1:40 PM [facility] RBC 2.40(L) 3.80 - 4.80 M/mcL LAB HEMETOLOGY METHOD 01/13/2025 1:40 PM [facility] Hemoglobin 7.9(L) 11.5 - 16.0 g/dL LAB HEMETOLOGY METHOD 01/13/2025 1:40 PM [facility] Hematocrit 26.7(L) 35.0 - 47.0 % LAB HEMETOLOGY METHOD 01/13/2025 1:40 PM [facility] MCV 111.3(H) 79.0 - 98.0 FL LAB HEMETOLOGY METHOD 01/13/2025 1:40 PM [facility] MCH 32.9(H) 27.0 - 32.0 pcg LAB HEMETOLOGY METHOD 01/13/2025 1:40 PM [facility] MCHC 29.6(L) 32.0 - 37.0 g/dL LAB HEMETOLOGY METHOD 01/13/2025 1:40 PM [facility] RDW 16.6(H) 11.0 - 15.0 % LAB HEMETOLOGY METHOD 01/13/2025 1:40 PM [facility] Platelets 333 130 - 400 K/mcL LAB HEMETOLOGY METHOD 01/13/2025 1:40 PM [facility] MPV 9.4 7.0 - 11.0 FL LAB HEMETOLOGY METHOD 01/13/2025 1:40 PM EST [facility] NRBC 0.0 <1.0 % LAB HEMETOLOGY METHOD 01/13/2025 1:40 PM EST [facility] NRBC Absolute 0.00 <0.10 K/mcL LAB HEMETOLOGY METHOD 01/13/2025 1:40 PM EST [facility] Blood Venous blood specimen / Unknown Venipuncture / Unknown 01/13/2025 6:29 AM EST 01/13/2025 11:44 AM EST us Chuy Nguyễn MD LAB BLOOD ORDERABLES Final Resul t [facility] [address] [place] [address], documented in this encounter Visit Diagnoses Diagnosis Essential (primary) hypertension Unspecified essential hypertension documented in this encounter Care Teams Management Trainee Program Stores Relationship Specialty Start Date End Date Chuy Nguyễn MD [address] [place] [address], [phone] PCP - General Family Medicine 01/02/25 documented as of this encounter
--- OUTSIDE RECORDS SUMMARY | 2025-03-03 17:04 | XMS_ITS | Encounter Summary ---
Author Organization [facility] Address [address] [place] [address] Care Team Providers Care Mounter Brass Wind Instruments Name Role Phone Chuy Nguyễn MD Primary Care Provider [phone] Encounter Details Date Type Department Care Team (Late st Contact Info) Description 01/02/2025 Lab Requisition [facility] - Main Lab [address] [facility] [place] [address] Chuy Nguyễn MD [address] [place] [address] [address] [place], [phone] Essential (primary) hypertension Social History Tobacco [...] mmol/L LAB CHEMISTRY METHOD 01/02/2025 12:30 PM [facility] Potassium 4.0 3.5 - 5.5 mmol/L LAB CHEMISTRY METHOD 01/02/2025 12:30 PM [facility] Chloride 107 96 - 110 mmol/L LAB CHEMISTRY METHOD 01/02/2025 12:30 PM [facility] CO2 24 21 - 32 mmol/L LAB CHEMISTRY METHOD 01/02/2025 12:30 PM [facility] Anion Gap 8 3 - 11 LAB CHEMISTRY METHOD 01/02/2025 12:30 PM [facility] Glucose 95 70 - 100 mg/dL LAB CHEMISTRY METHOD 01/02/2025 12:30 PM [facility] BUN 28(H) 5 - 25 mg/dL LAB CHEMISTRY METHOD 01/02/2025 12:30 PM [facility] Creatinine 1.11(H) 0.50 - 1.10 mg/dL LAB CHEMISTRY METHOD 01/02/2025 12:30 PM [facility] eGFR 55(L) >=60 mL/min/1. 73m2 LAB CHEMISTRY METHOD 01/02/2025 12:30 PM [facility] Comment:Calculation based on the??Chronic Kidney Disease Epidemiology Collaboration (CKD-EPI) equation refit??without adjustment for race. BUN/Creatinine Ratio 25.2 LAB CHEMISTRY METHOD 01/02/2025 12:30 PM [facility] Calcium 9.0 8.5 - 10.5 mg/dL LAB CHEMISTRY METHOD 01/02/2025 12:30 PM [facility] AST (SGOT) 13 10 - 42 unit/L LAB CHEMISTRY METHOD 01/02/2025 12:30 PM [facility] ALT (SGPT) 25 10 - 60 unit/L LAB CHEMISTRY METHOD 01/02/2025 12:30 PM [facility] Alkaline Phosphatase 38(L) 42 - 121 unit/L LAB CHEMISTRY METHOD 01/02/2025 12:30 PM [facility] Total Protein 5.5(L) 6.0 - 8.0 g/dL LAB CHEMISTRY METHOD 01/02/2025 12:30 PM [facility] Albumin 3.2 3.2 - 5.0 g/dL LAB CHEMISTRY METHOD 01/02/2025 12:30 PM [facility] Total Bilirubin 0.4 0.0 - 1.4 mg/dL LAB CHEMISTRY METHOD 01/02/2025 12:30 PM [facility] Blood Venous blood specimen / Unknown Venipuncture / Unknown 01/02/2025 9:28 AM EST 01/02/2025 11:08 AM EST us Chuy Nguyễn MD LAB BLOOD ORDERABLES Final Resul t [facility] [address] [place] [address], * (ABNORMAL) Complete blood count (01/02/2025 9:28 AM EST) WBC 12.8(H) 4.8 - 10.8 K/mcL LAB HEMETOLOGY METHOD 01/02/2025 12:51 PM [facility] RBC 2.50(L) 3.80 - 4.80 M/mcL LAB HEMETOLOGY METHOD 01/02/2025 12:51 PM [facility] Hemoglobin 8.4(L) 11.5 - 16.0 g/dL LAB HEMETOLOGY METHOD 01/02/2025 12:51 PM [facility] Hematocrit 26.2(L) 35.0 - 47.0 % LAB HEMETOLOGY METHOD 01/02/2025 12:51 PM EST [facility] MCV 103.6(H) 79.0 - 98.0 FL LAB HEMETOLOGY METHOD 01/02/2025 12:51 PM [facility] MCH 33.2(H) 27.0 - 32.0 pcg LAB HEMETOLOGY METHOD 01/02/2025 12:51 PM [facility] MCHC 32.1 32.0 - 37.0 g/dL LAB HEMETOLOGY METHOD 01/02/2025 12:51 PM [facility] RDW 16.6(H) 11.0 - 15.0 % LAB HEMETOLOGY METHOD 01/02/2025 12:51 PM [facility] Platelets 245 130 - 400 K/mcL LAB HEMETOLOGY METHOD 01/02/2025 12:51 PM [facility] MPV 9.5 7.0 - 11.0 FL LAB HEMETOLOGY METHOD 01/02/2025 12:51 PM [facility] NRBC 1.4(H) <1.0 % LAB HEMETOLOGY METHOD 01/02/2025 12:51 PM [facility] NRBC Absolute 0.18(H) <0.10 K/mcL LAB HEMETOLOGY METHOD 01/02/2025 12:51 PM [facility] Blood Venous blood specimen / Unknown Venipuncture / Unknown 01/02/2025 9:28 AM EST 01/02/2025 11:08 AM EST us Chuy Nguyễn MD LAB BLOOD ORDERABLES Final Resul t [facility] [address] [place] [address], [place] [phone] documented in this encounter Visit Diagnoses Diagnosis Essential (primary) hypertension Unspecified essential hypertension documented in this encounter Care Teams Mounter Brass Wind Instruments Relationship Specialty Start Date End Date Chuy Nguyễn MD [address] [facility] [address] [place], [phone] PCP - General Family Medicine 01/02/25 documented as of this encounter
--- OUTSIDE RECORDS SUMMARY | 2025-03-03 17:04 | XMS_ITS | Clinical Summary ---
Author Organization [facility] Address [address] [place] [address] Phone Care Team Providers Care Law Enforcement Officer Name Role Phone Chuy Nguyễn MD Primary Care Provider [phone] Medications albuterol HFA (PROAIR HFA ; PROVENTIL HFA ; VENTOLIN HFA) 90 mcg/actuation inhaler Inhale 2 puffs by mouth every 6 (six) hours if needed for wheezing. 1 each 1 12/23/2024 Active Encounters Date Type Department Care Team Description 01/18/2025 Lab Requisition [facility] [address] [place] [phone] Chuy Nguyễn MD Essential (primary) hypertension 01/11/2025 Lab Requisition [facility] [address] [place] [phone] Chuy Nguyễn MD Essential (primary) hypertension 01/04/2025 Lab Requisition [facility] [address] [place] [phone] Chuy Nguyễn MD Essential (primary) hypertension 01/02/2025 Lab Requisition [facility] [address] [place] [phone] Chuy Nguyễn MD Essential (primary) hypertension 12/05/2024 Telephone Lung Screening Program - [address] [place] [address] [place] Appointment (1st [...] of3 resultswithin the time period is included. [facility] WBC 10.0 4.8 - 10.8 K/mcL [...] LAB HEMETOLOGY METHOD 01/13/2025 1:40 PM EST [facility] MPV 9.4 7.0 - 11.0 FL LAB HEMETOLOGY METHOD 01/13/2025 1:40 PM EST [facility] NRBC 0.0 <1.0 % LAB HEMETOLOGY METHOD 01/13/2025 1:40 PM EST [facility] NRBC Absolute 0.00 <0.10 K/mcL LAB HEMETOLOGY METHOD 01/13/2025 1:40 PM EST [facility] Blood Venous blood specimen / Unknown Venipuncture / Unknown 01/13/2025 6:29 AM EST 01/13/2025 11:44 AM EST us Chuy Nguyễn MD LAB BLOOD ORDERABLES Final Resul t [facility] [address] [place] [address], [place] [phone] * (ABNORMAL) Basic metabolic panel (01/13/2025 6:29 [...] LAB CHEMISTRY METHOD 01/13/2025 1:25 PM EST [facility] BUN 17 5 - 25 [...] MD LAB BLOOD ORDERABLES Final Resul t [facility] [address] [place] [address], * (ABNORMAL) Comprehensive metabolic panel (01/02/2025 9:28 AM EST) Sodium 139 133 - 145 mmol/L LAB CHEMISTRY METHOD 01/02/2025 12:30 PM [facility] Potassium 4.0 3.5 - 5.5 mmol/L LAB CHEMISTRY METHOD 01/02/2025 12:30 PM [facility] Chloride 107 96 - 110 mmol/L LAB CHEMISTRY METHOD 01/02/2025 12:30 PM [facility] CO2 24 21 - 32 mmol/L LAB CHEMISTRY METHOD 01/02/2025 12:30 PM [facility] Anion Gap 8 3 - 11 LAB CHEMISTRY METHOD 01/02/2025 12:30 PM [facility] Glucose 95 70 - 100 mg/dL LAB CHEMISTRY METHOD 01/02/2025 12:30 PM [facility] BUN 28(H) 5 - 25 mg/dL LAB CHEMISTRY METHOD 01/02/2025 12:30 PM [facility] Creatinine 1.11(H) 0.50 - 1.10 mg/dL LAB CHEMISTRY METHOD 01/02/2025 12:30 PM [facility] eGFR 55(L) >=60 mL/min/1. 73m2 LAB CHEMISTRY METHOD 01/02/2025 12:30 PM [facility] Comment:Calculation based on the??Chronic Kidney Disease Epidemiology Collaboration (CKD-EPI) equation refit??without adjustment for race. BUN/Creatinine Ratio 25.2 LAB CHEMISTRY METHOD 01/02/2025 12:30 PM [facility] Calcium 9.0 8.5 - 10.5 mg/dL LAB CHEMISTRY METHOD 01/02/2025 12:30 PM [facility] AST (SGOT) 13 10 - 42 unit/L LAB CHEMISTRY METHOD 01/02/2025 12:30 PM [facility] ALT (SGPT) 25 10 - 60 unit/L LAB CHEMISTRY METHOD 01/02/2025 12:30 PM [facility] Alkaline Phosphatase 38(L) 42 - 121 unit/L LAB CHEMISTRY METHOD 01/02/2025 12:30 PM [facility] Total Protein 5.5(L) 6.0 - 8.0 g/dL LAB CHEMISTRY METHOD 01/02/2025 12:30 PM [facility] Albumin 3.2 3.2 - 5.0 g/dL LAB CHEMISTRY METHOD 01/02/2025 12:30 PM [facility] Total Bilirubin 0.4 0.0 - 1.4 mg/dL LAB CHEMISTRY METHOD 01/02/2025 12:30 PM EST [facility] Blood Venous blood specimen / Unknown Venipuncture / Unknown 01/02/2025 9:28 AM EST 01/02/2025 11:08 AM EST us Chuy Nguyễn MD LAB BLOOD ORDERABLES Final Resul t [facility] [address] [place] [address], [place] [phone] from Last 3 Months Insurance [employer] MEDICARE Care Teams Law Enforcement Officer Relationship Specialty Start Date End Date Chuy Nguyễn MD [address] [place] [address], [phone] PCP - General Family Medicine 01/02/25
--- OUTSIDE RECORDS SUMMARY | 2025-03-03 17:04 | XMS_ITS | Clinical Summary ---
Author Organization [facility] Address [address] [place] [address] Care Team Providers Care Greenhouse Instructor Name Role Phone Unavailable Primary Care Provider Unavailabl e Encounters Date Type Department Care Team Description 12/09/2024 Transcribe Orders [facility] PRIMARY CARE SCAN Artis Whiting [...]
--- OUTSIDE RECORDS SUMMARY | 2025-03-03 17:05 | XMS_ITS | Patient Health Record ---
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 Plan Of Treatment Pending Test Test Name Order Date X ray : Foot, right 3V 03/16/2023 Insurance Providers Payer Name Payer Address Payer Phone Subscriber Number Group Number Insured Name Patient Relationship to Insured Coverage Start Date Coverage End Date AARP Medicare Complete [address] [address] [place] [address] [id number] Jeny Diez Self - patient is the insured Medicare [employer] [address] [place] [address] [id number] Jeny Diez Self - patient is the insured Medical (General) History Medical History History ICD Code Broken bones Chicken pox skin cancer Depression Measles Mumps Psoriasis/Eczema COPD Surgical History Surgery Date(Month/Year) back surgery lung surgery shoulder surgery Hospitalization History Reason Date(Month/Year) [facility] xrays bilateral ankles 08/11/15
[2025-03-06] VITALS (12 sets, daily range): BP systolic 107–160; BP diastolic 70–88; PULSE 75–101; RESP 18–25; TEMP 35.9–36.2; O2SAT 98–100; BMI 32.8
--- NOTE | ~2025-03-06 | IR_ITS ---
CLINICAL HISTORY: DVT/PE with contraindication to anticoagulation PROCEDURES: IVC filter placement MEDICATIONS: -Fentanyl 50 mcg, Lidocaine 1% 10 mL SQ. -For additional details, please see nursing flowsheet. COMPLICATIONS: None. ESTIMATED BLOOD LOSS: <5 ml SPECIMENS: None FLUOROSCOPY TIME: 1.7 min PROCEDURE NOTE: The procedure, risks, benefits, and alternatives were carefully explained to patient, and written informed consent was obtained. The patient was placed supine on the fluoroscopy table. A timeout was performed. The right neck and chest was prepped and draped in usual sterile fashion. Local anesthesia was administered to the right IJ access site with lidocaine. Under ultrasound guidance, the right internal jugular vein was accessed with a 5 Fr micropuncture set. A 0.035 in wire was advanced to the IVC to maintain access during the tunneling process. The mira IVC filter sheath was placed. A cavogram was performed which demonstrated the IVC to be of normal caliber with single renal veins bilaterally. A mira retrievable IVC filter was then placed in the infrarenal IVC. Cavogram was performed which demonstrated satisfactory position of the filter. The sheath was removed and hemostasis was achieved with manual compression and a dressing was applied The patient was stable after the procedure and was transferred to the post anesthesia care unit. FINDINGS: 1. Patent right internal jugular vein. 2. Placement of a mira retrievable IVC filter IR/IR IVC filter placement IMPRESSION: Placement of a retrievable infrarenal IVC filter PLAN: -Follow-up with pulmonology. -If IVC filter retrieval is desired, please reach out to interventional radiology Electronically signed by: Issac Frenandez MD 03/06/2025 03:03 PM EDT
[2025-03-06 12:15] LABS: MANUAL DIFF FLAG NO
[2025-03-06 12:17] LABS: Basophils Absolute Auto 0.1 X10*3/uL (0.0-0.2); Basophils Percent Auto 0.8 % (0-2); Eosinophils Absolute Auto 0.2 X10*3/uL (0.0-0.4); Eosinophils Percent Auto 1.6 % (0-4); Hematocrit 35.8 % (37.0-47.0); Hemoglobin 11.7 g/dl (12.0-16.0); Imm Gran Abs Auto 0.13 X10*3/uL (0.00-0.03); Imm Gran Pct Auto 1.2 % (0.0-0.4); Lymphocytes Absolute Auto 2.1 X10*3/uL (1.2-4.9); Lymphocytes Percent Auto 19.1 % (20-40); Mean Corpuscular HGB Conc 32.7 g/dl (31.0-35.0); Mean Corpuscular Hemoglobin 32.3 pg (27.0-33.0); Mean Corpuscular Volume 98.9 fL (80.0-98.0); Mean Platelet Volume 9.2 fL (9.4-12.3); Monocytes Absolute Auto 1.1 X10*3/uL (0.1-1.2); Neutrophils Absolute Auto 7.3 x10*3/uL (2.0-8.3); Neutrophils Percent Auto 67.3 % (45-73); Platelet Count 348 X10*3/uL (160-400); Red Blood Count 3.62 X10*6/uL (4.20-5.50); Red Cell Distribution Width 13.5 % (11.0-16.0); White Blood Count 10.9 X10*3/uL (4.8-10.8)
[2025-03-06 12:22] LABS: Prothrombin Time 11.8 SEC (10.9-12.4)
[2025-03-06] MEDS: fentaNYL citrate/PF 100 MCG/2 ML VIAL 50 MCG IVPUSH (13:35)
== END 2025-03-06 14:51 | disposition home or self-care (01) ==
LOC: HO.SSS 11:15
PROVIDERS: Student in an Organized Health Care Education/Training Program; PCP Internal Medicine; Visit Provider Internal Medicine Pulmonary Disease
DX: Z45.2 Encounter for adjustment and management of vascular access device (principal); I26.99 Other pulmonary embolism without acute cor pulmonale; J44.9 Chronic obstructive pulmonary disease, unspecified; J84.10 Pulmonary fibrosis, unspecified; Z99.81 Dependence on supplemental oxygen; E78.5 Hyperlipidemia, unspecified; Z79.51 Long term (current) use of inhaled steroids; Z79.899 Other long term (current) drug therapy; Z88.5 Allergy status to narcotic agent; Z87.891 Personal history of nicotine dependence
CPT/HCPCS: 36415; 37191; 85025; 85610; C1769; C1880; J1644; J2310; J3010; Q9967

== ENCOUNTER → 2025-03-06 12:48 | Outpatient (BNV) | payer MEDICARE, SELFPAY | PROVIDERS: PCP Internal Medicine; Visit Provider Student in an Organized Health Care Education/Training Program | DX: I26.99 Other pulmonary embolism without acute cor pulmonale (principal) | CPT/HCPCS: 37191 ==

== ENCOUNTER 2025-04-02 12:47 | Outpatient (AMB) | payer MEDICARE, SELFPAY ==
[2025-04-02 12:55] VITALS: BP 127/78; PULSE 76; O2SAT 91
--- NOTE | 2025-04-02 12:55 | MHC.OFFVIS ---
Vital Signs 04/02/25 12:55 Weight 224 lb BP 127/78 Blood Pressure Location Rt brachial Position Sitting Pulse 76 Pulse Source Pulse Oximeter Pulse Oximetry (%) 91 L Oxygen Delivery Method Nasal Cannula Oxygen Flow Rate 6 Intake Visit Reasons: Acute hypoxemic respiratory failure Allergies codeine Allergy (Intermediate, Verified 04/02/25 13:01) Rash Demerol Allergy (Severe, Uncoded 03/06/25 11:47) Vomiting From DEMEROL Allergy (Intermediate, Uncoded 12/27/24 12:47) VOMITING HPI HPI Acute hypoxemic respiratory failure: Details: 68-year-old lady, former 20 pack-year smoker, with underlying COPD, bronchiectasis, interstitial lung disease, recent pulmonary emboli previously on Eliquis, on supplemental oxygen at 3-4 L at baseline and 4-8 L with exacerbation. Patient had pulmonary function test that shows moderate COPD, but with severe decrease in diffusion capacity, also her repeat CT angio chest shows new pulmonary emboli now status post Ciarra filter placement. Today she is also complain of worsening dyspnea on exertion and lower extremity edema that is now taut. PFS Medical History (Updated 04/02/25 @ 15:23 by Dwayne Orozco MD) HLD (hyperlipidemia) Pulmonary fibrosis Surgical History (Updated 03/06/25 @ 11:51 by Alia Yanecy RN) History of hernia surgery History of shoulder surgery History of back surgery History of tonsillectomy H/O section Social History Household Members: Spouse Housing: House Do you presently have visiting nurse or other home services: No Comment: pt rings call morris appropriately for assistance OOB Patient Tobacco Use Status: Former Tobacco user Tobacco use type: Cigarette e-Cigarette/Vaping Use: Never Used Second Hand Smoke Exposure: No service: No Review of Systems Const Denies daytime sleepiness, Denies excessive sweating, Denies fatigue, Denies fever(s), Denies lethargy, Denies malaise, Denies night sweats, Denies snoring and Denies weight loss Eyes Denies blurry vision and Denies itchy eyes ENT Denies nasal congestion, Denies post nasal drip, Denies sinus pain, Denies sinus pressure and Denies other ( Thrush) Card Denies chest pain, Reports pedal edema, Denies dyspnea, Reports dyspnea on exertion, Denies orthopnea and Denies paroxysmal nocturnal dyspnea Resp Denies cough, Denies hemoptysis, Denies excessive phlegm production, Denies dyspnea, Reports dyspnea on exertion, Denies snoring and Denies wheezing GI Denies abdominal pain and Denies heartburn Musc Denies myalgias, Denies arthralgias and Denies joint swelling Skin/Breast Denies rash Neuro Denies memory loss and Denies seizure-like activity Psych Denies abnormal sleep pattern, Denies anxiety and Denies memory loss Endo Denies excessive sweating, Denies fatigue and Denies heat intolerance Newton/Lymph Denies easy bruising Aller/Immun Denies itchy eyes, Denies seasonal rhinorrhea and Denies wheezing Physical Exam Vital Signs: Last Vital Signs Pulse 76 04/02/25 12:55 BP 127/78 04/02/25 12:55 Pulse Ox 91 L 04/02/25 12:55 Oxygen Delivery Method Nasal Cannula 04/02/25 12:55 Oxygen Flow Rate 6 04/02/25 12:55 Const General: no acute distress and alert Nutritional Appearance: obese Orientation/consciousness: Other orientation findings ( oriented) HEENT Head: Yes atraumatic Eyes General: appearance normal, both eyes and all related structures Sclerae: sclerae normal EOM: EOMs intact bilaterally Neck Neck: Yes supple Lymphatic: no lymphadenopathy noted Resp Effort & Inspection: normal respiratory effort and no use of accessory muscles Auscultation: crackles (Mild bilateral) Cardio Rate: regular rate Rhythm: regular rhythm Heart sounds: no gallops, no murmurs and no rubs Skin General skin exam: other ( warm) Extrem General: No clubbing, No cyanosis and Yes edema (3+ taut to the knees) Assessment & Plan Assessment & Plan (1) COPD (chronic obstructive pulmonary disease): Code(s): J44.9 - Chronic obstructive pulmonary disease, unspecified Category: Medical Plan: Baseline controlled on Trelegy, duo nebs, and albuterol MDI. Continue current regimen. (2) On supplemental oxygen therapy: Code(s): Z99.81 - Dependence on supplemental oxygen Category: Medical Plan: Continue supplemental oxygen to maintain O2 saturation of 89-92%. (3) Multiple pulmonary emboli: Code(s): I26.99 - Other pulmonary embolism without acute cor pulmonale Category: Medical Plan: Unable to tolerate full-dose anticoagulation secondary to recurrent posterior epistaxis, now status post [place] filter placement. Continues on aspirin. (4) Orthopnea: Code(s): R06.01 - Orthopnea Category: Medical Plan: With worsening orthopnea lower extremity edema, will start on Lasix 40 mg daily. Medications: New furosemide 40 mg PO QAM 30 tabs 6RF Coding Level of Care Code Est Pt Level 4 (46289) Complex EM visit Add On G2211 Diagnoses COPD (chronic obstructive pulmonary disease) J44.9 On supplemental oxygen therapy Z99.81 Multiple pulmonary emboli I26.99 Orthopnea R06.01
--- OUTSIDE RECORDS SUMMARY | 2025-04-02 13:07 | XMS_ITS | Encounter Summary ---
Author Organization [facility] Address [address] [place] [address] Care Team Providers Care Building Repair Maintenance Supervisor Name Role Phone Chuy Nguyễn MD Primary Care Provider [phone] Encounter Details Date Type Department Care Team (Late st Contact Info) Description 01/18/2025 Lab Requisition [facility] - Main Lab [address] [facility] [place] [address] Chuy Nguyễn MD [address] [facility] [address] [place], [phone] Essential (primary) hypertension Social History Tobacco [...] hypertension documented in this encounter Care Teams Building Repair Maintenance Supervisor Relationship Specialty Start Date End Date Chuy Nguyễn MD [address] [facility] [address] [place], [phone] PCP - General Family Medicine 01/02/25 documented as of this encounter
--- OUTSIDE RECORDS SUMMARY | 2025-04-02 13:07 | XMS_ITS | Encounter Summary ---
Author Organization [facility] Address [address] [place] [address] Care Team Providers Care Aircraft Mechanic Name Role Phone Chuy Nguyễn MD Primary Care Provider Encounter Details Date Type Department Care Team (Late st Contact Info) Description 01/11/2025 Lab Requisition [facility] - Main Lab [address] [facility] [place] [address] Chuy Nguyễn MD [address] [place] [address] [address] [place], [phone] Essential (primary) hypertension Social History Tobacco [...] Resul t [facility] [address] [place] [address], [place] [phone] * (ABNORMAL) Complete blood count (01/13/2025 6:29 [...] LAB HEMETOLOGY METHOD 01/13/2025 1:[address] [facility] NRBC 0.0 <1.0 % LAB HEMETOLOGY METHOD 01/13/2025 1:[address] [facility] NRBC Absolute 0.00 <0.10 K/mcL LAB HEMETOLOGY METHOD 01/13/2025 1:[address] [facility] Blood Venous blood specimen / Unknown Venipuncture / Unknown 01/13/2025 6:29 AM EST 01/13/2025 11:44 AM EST us Chuy Nguyễn MD LAB BLOOD ORDERABLES Final Resul t [facility] [address] [place] [address], documented in this encounter Visit Diagnoses Diagnosis Essential (primary) hypertension Unspecified essential hypertension documented in this encounter Care Teams Aircraft Mechanic Relationship Specialty Start Date End Date Chuy Nguyễn MD [address] [place] [address], [phone] PCP - General Family Medicine 01/02/25 documented as of this encounter
--- OUTSIDE RECORDS SUMMARY | 2025-04-02 13:07 | XMS_ITS | Clinical Summary ---
Author Organization [facility] Address [address] [place] [address] Phone Care Team Providers Care Spectral Scientist Name Role Phone Chuy Nguyễn MD Primary Care Provider [phone] Medications albuterol HFA (PROAIR HFA ; PROVENTIL HFA ; VENTOLIN HFA) 90 mcg/actuation inhaler Inhale 2 puffs by mouth every 6 (six) hours if needed for wheezing. 1 each 1 12/23/2024 Active Encounters Date Type Department Care Team Description 01/18/[address] [facility] Lab [address] [place] [phone] Chuy Nguyễn MD Essential (primary) hypertension 01/11/[address] [facility] Lab [address] [place] [phone] Chuy Nguyễn MD Essential (primary) hypertension 01/04/[address] [facility] Lab [address] [place] [phone] Chuy Nguyễn MD Essential (primary) hypertension from Last 3 Months Medical History Medical [...] 01/06/2025 6:49 AM EST Essential (primary) hypertension from Last 3 Months Results * (ABNORMAL) Complete blood count (01/13/2025 6:29 AM EST) Only the most recent of2 resultswithin the time period is included. WBC 10.0 4.8 - 10.8 K/[facility] LAB HEMETOLOGY METHOD 01/13/2025 1:40 PM [facility] LAB RBC 2.40(L) 3.80 - 4.80 M/mcL LAB HEMETOLOGY METHOD 01/13/2025 1:40 PM [facility] LAB Hemoglobin 7.9(L) 11.5 - 16.0 g/dL LAB HEMETOLOGY METHOD 01/13/2025 1:40 PM [facility] LAB Hematocrit 26.7(L) 35.0 - 47.0 % LAB HEMETOLOGY METHOD 01/13/2025 1:40 PM [facility] LAB MCV 111.3(H) 79.0 - 98.0 FL LAB HEMETOLOGY METHOD 01/13/2025 1:40 PM [facility] LAB MCH 32.9(H) 27.0 - 32.0 pcg LAB HEMETOLOGY METHOD 01/13/2025 1:40 PM [facility] LAB MCHC 29.6(L) 32.0 - 37.0 g/dL LAB HEMETOLOGY METHOD 01/13/2025 1:40 PM [facility] LAB RDW 16.6(H) 11.0 - 15.0 % LAB HEMETOLOGY METHOD 01/13/2025 1:40 PM [facility] LAB Platelets 333 130 - 400 K/mcL LAB HEMETOLOGY METHOD 01/13/2025 1:40 PM [facility] LAB MPV 9.4 7.0 - 11.0 FL LAB HEMETOLOGY METHOD 01/13/2025 1:40 PM [facility] LAB NRBC 0.0 <1.0 % LAB HEMETOLOGY METHOD 01/13/2025 1:40 PM [facility] LAB NRBC Absolute 0.00 <0.10 K/[facility] LAB HEMETOLOGY METHOD 01/13/2025 1:40 PM [facility] LAB Blood Venous blood specimen / Unknown Venipuncture / Unknown 01/13/2025 6:29 AM EST 01/13/2025 11:44 AM EST us Chuy Nguyễn MD LAB BLOOD ORDERABLES Final Resul t [facility] [address] [place] [address], [place] [phone] * (ABNORMAL) Basic metabolic panel (01/13/2025 6:29 AM EST) Only the most recent of2 resultswithin the time period is included. Sodium 144 133 - 145 mmol/L LAB CHEMISTRY METHOD 01/13/2025 1:25 PM [facility] LAB Potassium 4.1 3.5 - 5.5 mmol/L LAB CHEMISTRY METHOD 01/13/2025 1:25 PM [facility] LAB Chloride 108 96 - 110 mmol/L LAB CHEMISTRY METHOD 01/13/2025 1:25 PM [facility] LAB CO2 27 21 - 32 mmol/L LAB CHEMISTRY METHOD 01/13/2025 1:25 PM [facility] LAB Anion Gap 9 3 - 11 LAB CHEMISTRY METHOD 01/13/2025 1:25 PM [facility] LAB Glucose 59(L) 70 - 100 mg/dL LAB CHEMISTRY METHOD 01/13/2025 1:25 PM [facility] LAB BUN 17 5 - 25 mg/dL LAB CHEMISTRY METHOD 01/13/2025 1:25 PM [facility] LAB Creatinine 0.98 0.50 - 1.10 mg/dL LAB CHEMISTRY METHOD 01/13/2025 1:25 PM [facility] LAB eGFR 63 >=60 mL/min/1. 73m2 LAB CHEMISTRY METHOD 01/13/2025 1:25 PM [facility] LAB Comment:Calculation based on the??Chronic Kidney Disease Epidemiology Collaboration (CKD-EPI) equation refit??without adjustment for race. BUN/Creatinine Ratio 17.3 LAB CHEMISTRY METHOD 01/13/2025 1:25 PM EST [facility] Calcium 8.9 8.5 - 10.5 mg/dL LAB CHEMISTRY METHOD 01/13/2025 1:25 PM EST [facility] LAB Blood Venous blood specimen / Unknown Venipuncture / Unknown 01/13/2025 6:29 AM EST 01/13/2025 11:44 AM EST us Chuy Nguyễn MD LAB BLOOD ORDERABLES Final Resul t [facility] [address] [place] [address], from Last 3 Months Insurance [employer] MEDICARE Care Teams Spectral Scientist Relationship Specialty Start Date End Date Chuy Nguyễn MD [address] [place] [address], [phone] PCP - General Family Medicine 01/02/25
--- OUTSIDE RECORDS SUMMARY | 2025-04-02 13:07 | XMS_ITS | Clinical Summary ---
Author Organization [facility] Address [address] [place] [address] Care Team Providers Care Drier Take Off Tender Name Role Phone Unavailable Primary Care Provider Unavailabl e Social History Tobacco Use Types Packs/Day Years Used Date Smoking Tobacco: Never Assessed Comments Unknown Sex and Gender Information Value Date Recorded Sex Assigned at Not on file Legal Sex Female 6:36 PM EST Gender Identity Not on file Sexual Orientation [...]
--- OUTSIDE RECORDS SUMMARY | 2025-04-02 13:07 | XMS_ITS | Patient Health Record ---
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 Plan Of Treatment Pending Test Test Name Order Date X ray : Foot, right 3V 03/16/2023 Insurance Providers Payer Name Payer Address Payer Phone Subscriber Number Group Number Insured Name Patient Relationship to Insured Coverage Start Date Coverage End Date AARP Medicare Complete [address] [address] [place] [address] [phone] [id number] Jeny Diez Self - patient is the insured Medicare [employer] [address] [place] [address] [id number] Jeny Diez Self - patient is the insured Medical (General) History Medical History History ICD Code Broken bones Chicken pox skin cancer Depression Measles Mumps Psoriasis/Eczema COPD Surgical History Surgery Date(Month/Year) back surgery lung surgery shoulder surgery Hospital[place] History Reason Date([place] [facility] [place]
--- OUTSIDE RECORDS SUMMARY | 2025-04-02 13:07 | XMS_ITS | Encounter Summary ---
Author Organization [facility] Address [address] [place] [address] Care Team Providers Care Sports Cartoonist Name Role Phone Chuy Nguyễn MD Primary Care Provider [phone] Encounter Details Date Type Department Care Team (Late st Contact Info) Description 01/04/2025 Lab Requisition [facility] Lab [address] [facility] [place] [address] Chuy Nguyễn MD [address] [place] [address] [address], [phone] Essential (primary) hypertension Social History Tobacco [...] mmol/L LAB CHEMISTRY METHOD 01/06/2025 11:49 AM [facility] LAB Potassium 3.9 3.5 - 5.5 mmol/L LAB CHEMISTRY METHOD 01/06/2025 11:49 AM [facility] LAB Chloride 107 96 - 110 mmol/L LAB CHEMISTRY METHOD 01/06/2025 11:49 AM [facility] LAB CO2 29 21 - 32 mmol/L LAB CHEMISTRY METHOD 01/06/2025 11:49 AM [facility] LAB Anion Gap 6 3 - 11 LAB CHEMISTRY METHOD 01/06/2025 11:49 AM [facility] LAB Glucose 72 70 - 100 mg/dL LAB CHEMISTRY METHOD 01/06/2025 11:49 AM [facility] BUN 21 5 - 25 mg/dL LAB CHEMISTRY METHOD 01/06/2025 11:49 AM [facility] Creatinine 1.10 0.50 - 1.10 mg/dL LAB CHEMISTRY METHOD 01/06/2025 11:49 AM [facility] LAB eGFR 55(L) >=60 mL/min/1. 73m2 LAB CHEMISTRY METHOD 01/06/2025 11:49 AM [facility] LAB Comment:Calculation based on the??Chronic Kidney Disease Epidemiology Collaboration (CKD-EPI) equation refit??without adjustment for race. BUN/Creatinine Ratio 19.1 LAB CHEMISTRY METHOD 01/06/2025 11:49 AM [facility] LAB Calcium 8.6 8.5 - 10.5 mg/dL LAB CHEMISTRY METHOD 01/06/2025 11:49 AM [facility] LAB Blood Venous blood specimen / Unknown Venipuncture / Unknown 01/06/2025 6:49 AM EST 01/06/2025 11:07 AM EST us Chuy Nguyễn MD LAB BLOOD ORDERABLES Final Resul t [facility] [address] [place] [address], * (ABNORMAL) Complete blood count (01/06/2025 6:49 AM EST) WBC 9.4 4.8 - 10.8 K/mcL LAB HEMETOLOGY METHOD 01/06/2025 11:33 AM EST [facility] LAB RBC 2.30(L) 3.80 - 4.80 M/mcL LAB HEMETOLOGY METHOD 01/06/2025 11:33 AM [facility] LAB Hemoglobin 7.6(L) 11.5 - 16.0 g/dL LAB HEMETOLOGY METHOD 01/06/2025 11:33 AM [facility] LAB Hematocrit 24.5(L) 35.0 - 47.0 % LAB HEMETOLOGY METHOD 01/06/2025 11:33 AM [facility] LAB MCV 106.1(H) 79.0 - 98.0 FL LAB HEMETOLOGY METHOD 01/06/2025 11:33 AM [facility] LAB MCH 32.9(H) 27.0 - 32.0 pcg LAB HEMETOLOGY METHOD 01/06/2025 11:33 AM [facility] LAB MCHC 31.0(L) 32.0 - 37.0 g/dL LAB HEMETOLOGY METHOD 01/06/2025 11:33 AM [facility] LAB RDW 17.3(H) 11.0 - 15.0 % LAB HEMETOLOGY METHOD 01/06/2025 11:33 AM [facility] LAB Platelets 279 130 - 400 K/mcL LAB HEMETOLOGY METHOD 01/06/2025 11:33 AM [facility] LAB MPV 9.3 7.0 - 11.0 FL LAB HEMETOLOGY METHOD 01/06/2025 11:33 AM EST [facility] LAB NRBC 0.5 <1.0 % LAB HEMETOLOGY METHOD 01/06/2025 11:33 AM EST [facility] LAB NRBC Absolute 0.05 <0.10 K/mcL LAB HEMETOLOGY METHOD 01/06/2025 11:33 AM EST [facility] LAB Blood Venous blood specimen / Unknown Venipuncture / Unknown 01/06/2025 6:49 AM EST 01/06/2025 11:07 AM EST us Chuy Nguyễn MD LAB BLOOD ORDERABLES Final Resul t [facility] [address] [place] [address], documented in this encounter Visit Diagnoses Diagnosis Essential (primary) hypertension Unspecified essential hypertension documented in this encounter Care Teams Sports Cartoonist Relationship Specialty Start Date End Date Chuy Nguyễn MD [address] [place] [address], [phone] PCP - General Family Medicine 01/02/25 documented as of this encounter
--- OUTSIDE RECORDS SUMMARY | 2025-04-02 13:07 | XMS_ITS | Encounter Summary ---
Author Organization [facility] Address [address] [place] [address] Care Team Providers Care Business Performance Specialist Name Role Phone Chuy Nguyễn MD Primary Care Provider [phone] Encounter Details Date Type Department Care Team (Late st Contact Info) Description 01/02/2025 Lab Requisition [facility] - [facility] Lab [address] [facility] [place] [address] Chuy Nguyễn MD [address] [place] [address] [address] [place], [phone] Essential (primary) hypertension Social History Tobacco [...] mmol/L LAB CHEMISTRY METHOD 01/02/2025 12:30 PM [facility] LAB Potassium 4.0 3.5 - 5.5 mmol/L LAB CHEMISTRY METHOD 01/02/2025 12:30 PM [facility] LAB Chloride 107 96 - 110 mmol/L LAB CHEMISTRY METHOD 01/02/2025 12:30 PM [facility] CO2 24 21 - 32 mmol/L LAB CHEMISTRY METHOD 01/02/2025 12:30 PM [facility] LAB Anion Gap 8 3 - 11 LAB CHEMISTRY METHOD 01/02/2025 12:30 PM [facility] LAB Glucose 95 70 - 100 mg/dL LAB CHEMISTRY METHOD 01/02/2025 12:30 PM [facility] LAB BUN 28(H) 5 - 25 mg/dL LAB CHEMISTRY METHOD 01/02/2025 12:30 PM [facility] LAB Creatinine 1.11(H) 0.50 - 1.10 mg/dL LAB CHEMISTRY METHOD 01/02/2025 12:30 PM [facility] LAB eGFR 55(L) >=60 mL/min/1. 73m2 LAB CHEMISTRY METHOD 01/02/2025 12:30 PM [facility] LAB Comment:Calculation based on the??Chronic Kidney Disease Epidemiology Collaboration (CKD-EPI) equation refit??without adjustment for race. BUN/Creatinine Ratio 25.2 LAB CHEMISTRY METHOD 01/02/2025 12:30 PM [facility] LAB Calcium 9.0 8.5 - 10.5 mg/dL LAB CHEMISTRY METHOD 01/02/2025 12:30 PM [facility] LAB AST (SGOT) 13 10 - 42 unit/L LAB CHEMISTRY METHOD 01/02/2025 12:30 PM [facility] ALT (SGPT) 25 10 - 60 unit/L LAB CHEMISTRY METHOD 01/02/2025 12:30 PM [facility] LAB Alkaline Phosphatase 38(L) 42 - 121 unit/L LAB CHEMISTRY METHOD 01/02/2025 12:30 PM [facility] LAB Total Protein 5.5(L) 6.0 - 8.0 g/dL LAB CHEMISTRY METHOD 01/02/2025 12:30 PM [facility] Albumin 3.2 3.2 - 5.0 g/dL LAB CHEMISTRY METHOD 01/02/2025 12:30 PM [facility] Total Bilirubin 0.4 0.0 - 1.4 mg/dL LAB CHEMISTRY METHOD 01/02/2025 12:30 PM [facility] LAB Blood Venous blood specimen / Unknown Venipuncture / Unknown 01/02/2025 9:28 AM EST 01/02/2025 11:08 AM EST us Chuy Nguyễn MD LAB BLOOD ORDERABLES Final Resul t [facility] [address] [place] [address], * (ABNORMAL) Complete blood count (01/02/2025 9:28 AM EST) WBC 12.8(H) 4.8 - 10.8 K/mcL LAB HEMETOLOGY METHOD 01/02/2025 12:51 PM [facility] RBC 2.50(L) 3.80 - 4.80 M/mcL LAB HEMETOLOGY METHOD 01/02/2025 12:51 PM [facility] Hemoglobin 8.4(L) 11.5 - 16.0 g/dL LAB HEMETOLOGY METHOD 01/02/2025 12:51 PM [facility] LAB Hematocrit 26.2(L) 35.0 - 47.0 % LAB HEMETOLOGY METHOD 01/02/2025 12:51 PM EST [facility] LAB MCV 103.6(H) 79.0 - 98.0 FL LAB HEMETOLOGY METHOD 01/02/2025 12:51 PM [facility] LAB MCH 33.2(H) 27.0 - 32.0 pcg LAB HEMETOLOGY METHOD 01/02/2025 12:51 PM [facility] LAB MCHC 32.1 32.0 - 37.0 g/dL LAB HEMETOLOGY METHOD 01/02/2025 12:51 PM [facility] LAB RDW 16.6(H) 11.0 - 15.0 % LAB HEMETOLOGY METHOD 01/02/2025 12:51 PM [facility] LAB Platelets 245 130 - 400 K/mcL LAB HEMETOLOGY METHOD 01/02/2025 12:51 PM [facility] LAB MPV 9.5 7.0 - 11.0 FL LAB HEMETOLOGY METHOD 01/02/2025 12:51 PM [facility] LAB NRBC 1.4(H) <1.0 % LAB HEMETOLOGY METHOD 01/02/2025 12:51 PM [facility] LAB NRBC Absolute 0.18(H) <0.10 K/mcL LAB HEMETOLOGY METHOD 01/02/2025 12:51 PM [facility] LAB Blood Venous blood specimen / Unknown Venipuncture / Unknown 01/02/2025 9:28 AM EST 01/02/2025 11:08 AM EST us Chuy Nguyễn MD LAB BLOOD ORDERABLES Final Resul t [facility] [address] [place] [address], [place] [phone] documented in this encounter Visit Diagnoses Diagnosis Essential (primary) hypertension Unspecified essential hypertension documented in this encounter Care Teams Business Performance Specialist Relationship Specialty Start Date End Date Chuy Nguyễn MD [address] [facility] [address] [place], [phone] PCP - General Family Medicine 01/02/25 documented as of this encounter
--- OUTSIDE RECORDS SUMMARY | 2025-04-02 13:07 | XMS_ITS | Data Portability ---
Author Organization [facility], Main Office Address [address] [place] [address] Care Team Providers Care Aircraft Maintenance Supervisor Name Role Phone GEARY REHAB ([facility]) OTHER UDAY FORD Primary Care Provider [phone] Assessment Encounter Date Assessment Date Assessment LastModified [...] Address Organization Details Recorded Time Hyperlipid emia 00213176 Active 2024 Not Available [facility] 16:48:22 Acute exacerbati on of chronic obstructiv e pulmonary disease 449824882 Active 2024 Not Available [facility] 16:49:33 Thromboemb olism of vein 721376929 Active 2024 Not Available [facility] 5 16:50:25 Type 2 diabetes mellitus without complicati on 420631458 Active 2024 Not Available [facility] 5 16:52:47 Fibrosis of lung 72367653 Active 2024 Not Available [facility] 5 15:13:26 Acute on chronic hypoxemic respirator y failure 1791485803176 9100 Active 2024 Not Available [facility] 5 15:13:48 Bleeding from nose 345960154 Active 2024 Not Available [facility] 5 18:43:13 Chronic obstructiv e pulmonary disease 57245625 Active 2024 ISH CHEUNG [address] , [address], [place], [address] , [facility] 5 19:33:28 Depressive disorder 36758790 Active 2024 ISH CHEUNG [address] , [address], [place], [address] , [facility] [employer] [facility] 5 19:57:53 Gastroesop hageal reflux disease 264172991 Active 2024 ISH CHEUNG [address] , [address], [place], [address] , [facility] 5 19:58:45 Gastroesop hageal reflux disease without esophagiti s 415744180 Active 2024 Not Available [facility] 5 12:49:10 Pulmonary embolism 48342667 Active 2024 Not Available [facility] 5 12:50:12 Muscle weakness 62623754 Active 2024 Not Available [facility] 5 16:05:42 Difficulty walking 120717227 Active 2024 Not Available [facility] 5 16:06:14 Chronic kidney disease stage 3A 383489139 Active 2024 Theresa Ospina MD [address] [facility] [address], [place], [address] , [facility] 5 18:04:08 Problem Notes None recorded. Medical Equipment None Reported. Allergies Allergen ID Allergen Name Allergen Category Reaction Reaction Severity Criticality Documentation Date Start Date Code Code System Note Provider Name and Address Organization Details Recorded Time 35351 Demerol medicatio n Not available Not available Not available 01/01/20252024 10054 1 RxNorm Not Available [facility] 21:17:04 16396 codeine medicatio n Not available Not available Not available 01/02/2025 2670 RxNorm ISH CHEUNG [address] [facility] [address], [place], [address], [facility] 5 20:01:57 Medications Name Sig Start Date Stop Date [...] 999 = 10 unit Call MD / IMPREGNATOR OPERATOR, subcutane ously before meals for DM [...] Available Not Available Not Avai lable Acid Social Media Designer (omeprazole ) 20 mg capsule,del ayed release [...] 113 mm[Hg] 68 mm[Hg] ISH CHEUNG [address], [address], [place], [address], [facility] 5 20:03:26 Date Recorded Body height Body mass index (BMI) Body weight Heart rate Respiratory rate Body temperature Oxygen saturation Oxygen saturation in Arterial blood by Pulse oximetry Systolic blood pressure Diastolic blood pressure Provider Name and Address Organization Details Last Updated DateTime 5 172.72 cm 34.6 kg/m2 856757. 9 g 82 /min 18 /min 98.1 [degF] 98 % 98 % 124 mm[Hg] 70 mm[Hg] Theresa Ospina MD [address], [address], [place], [address], [facility] 5 22:49:01 Social History Question Answer Notes LastModified by Organizat ion Details LastModified Time Tobacco Smoking Status Former Smoker ISH CHEUNG [address], [address], [place], [address], [facility] 01/02/2025 20:00:56 Do You Have An Advance Directive? Yes Information not available 01/02/2025 What Is Your Code Status? Full Code MOLST 01/02/25 [email or web address] Information not available 01/02/2025 [facility] , But Has Commode On Main Level And Sleeps On Couch. Information not available 01/03/2025 Legal Guardian? No Informati on not available 01/03/2025 Do You Have A Medical Power Of Sales Superintendent? Yes Information not available 01/03/2025 What Was The Date Of Your Most Recent Tobacco Screening? 01/01/2025 Information not available 01/02/2025 Do You Have An Out Of Hospital DNR? No Information not available 01/03/2025 What Is Your Relationship Status? Information not available 01/02/2025 Has Tobacco Cessation Counseling Been Provided? No Information not available 01/02/2025 Sex: Unknown Functional Status Question Answer Note LastModified by Organizat ion Details LastModified Time Do you use any illicit or recreational drugs? No Information not available 01/02/2025 Do you or have you ever used any other forms of tobacco or nicotine? No Information not available 01/02/2025 What is your level of alcohol consumption? None Information not available 01/02/2025 Mental Status None recorded. Family History Nothing Reported Notes:n/c Medical History No medical history recorded. Gynecological HistoryNo gynecological history recorded. Obstetrics History GPAL:G 0 P 0 0 0 0 Immunizations Vaccine Type Date Status Note Provider Nam e and Address Organization Details Recorded Time Respiratory syncytial virus (RSV) vaccine, unspecified 4 completed [facility] 01/02/2025 15:33:31 Pneumococcal conjugate PCV 13 4 completed [facility] 01/02/2025 15:35:04 influenza, unspecified formulation 3 completed [facility] 01/02/2025 15:36:40 influenza, unspecified formulation 4 completed [facility] 01/02/2025 15:36:47 SARS-COV-2 (COVID-19) vaccine, UNSPECIFIED 1 completed [facility] 01/02/2025 15:37:08 Past Encounters Encounter ID Performer Location Encounter Start Date Encounter Closed Date Diagnosis/Indication Diagnosis SNOMED-CT Code Diagnosis ICD10 Code Diagnosis Note [id number] ISH CHEUNG [address] [place] [address] 01/02/2025 10:57:46 01/03/2025 13:55:30 Acute on chronic hypoxemic respiratory failure [id number] 7591047 J96.21 see hpistarted on prednisone 40 mg -recommend ed by pulm. to wean recommende d to gradually wean prednisone 10 mg Q 2-3 weeks.base line she was using 6-8 liter O2now recommende d humidified oxygen 4 L and increased to 6 L with activity if neededkeep finger oximetry 90-92%RT eval and tx prn. Bleeding from nose 95857 6005 R04.0 recurrent epistaxisn o residual clot on CTA or leg venous duplexeliq uis discontinu ed in acute careResume aspirin 81 mg daily once epistaxis has resolved in 7-10 daysO2 dependent/ use humidified oxygen Chronic ob structive pulmonary disease 25559821 J44.9 baseline O2 dependentc ont trilegy , albuterol inhaler,on prednisone 40 mg taper to wean every 2 weeks per pulmonolog y recommenda tion Type 2 steve betes mellitus without complication 839983341 E11.9 cont ozempic, metformino n high dose prednisone start lispro SSCmonitor accuchecks TID Hyperlipidemia 44726921 E78.5 cont pravastati n Depressive disorder 3548 9007 F32.A on celexamoni tor mood and behaviors Gastroesop hageal reflux disease 744057993 K21.9 cont omeprazole monitor for gi upset [id number] MD SHON Ross [address] [place] [address] 01/03/2025 18:50:58 02/10/2025 16:13:35 Acute on chronic hypoxemic respiratory failure 5290532797 0037301 J96.21 Much improved, but not back to baseline.C ontinue slow prednisone taper.Cont inue supplement al O2 to maintain sats 90-92%Cont inue COPD meds as below.Comp leting course of Augmentin for post-covi d pneumoniti s .RT following Bleeding from nose 43884 6005 R04.0 Rhinorocke t removed today at [facility] ED.Feels good, no further bleeding.C ontinue humidified O2 and saline nasal spray.Ally tor Chronic ob structive pulmonary disease 91149599 J43.8 Almost back to baseline.C ontinue O2 and prednisone as above.Cont inue Trelegy 200/62.5/2 5 mcg qd, duonebs q 6 hrs prn and albuterol MDI 2 puffs q 6 hrs prn.Monito r resp status. Type 2 steve betes mellitus without complication 121468995 E11.9 BS good since here.HgA1C 6.5 in 5Cont inue ozempic 1 mg weekly, metformin 500 mg BID and SSI.Monito r fingerstic ks TID and HgA1C as an outpt. Hyperlipidemia 37424756 E78.49 Continue pravastati n 40 mg qd and ASA 81 mg qd.Monitor labs as outpt. Depressive disorder 3548 9007 F33.8 Mood good tonight.Co ntinue citalopram 40 mg qd.Monitor mood.Consu lt psych prn Gastroesop hageal reflux disease 497821654 K21.9 No current sxs.Contin ue omeprazole 20 mg qd.Monitor GI sxs. Chronic ki dney disease stage 3A 184210271 N18.31 Back to baseline.C ontinue to avoid nephrotoxi c meds as able.Monit or labs.Renal consult prn. [id number] KATHARINE KIM, IMPREGNATOR OPERATOR-C [facility] [address] [place] [address] 01/14/2025 09:48:23 01/16/2025 10:23:22 Acute on chronic hypoxemic respiratory failure 9391550790 6895853 J96.21 continue prednisone taperconti nue home O2 at 4-8 Lkeep finger oximetry 90-92%f/up with pcp Bleeding from nose 97403 6005 R04.0 resolved with rhino rocketsno longer on ACwill restart asprin 81 mg dailyf/up with pcp if bleeding returnsmon itor hgb outpt, currently stable at 7.9 Chronic ob structive pulmonary disease 98129599 J44.9 baseline O2 dependentc ont trilegy , albuterol inhaler,on prednisone 40 mg taper to wean every 2 weeks per pulmonolog y recommenda tionf/up with pcp Type 2 steve betes mellitus without complication 520357415 E11.9 cont ozempic, metformino n high dose prednisone educated prednisone can increase sugarsf/up with pcp Hyperlipidemia 85521973 E78.5 cont pravastati nf/up with pcp Depressive disorder 3548 9007 F32.A on celexaf/up with pcp Gastroesop hageal reflux disease 894901757 K21.9 cont omeprazole f/up with pcp Stomach ache 396379679 R 10.9 reports start of GI upsetno [...] Britton Member ID Guarantor Name 01/02/2025 1 [facility] (MEDICARE REPLACEMENT/A DVANTAGE - PPO) [id number] Jeny A Stone [id number] Jeny A Stone 01/03/2025 1 [facility] (MEDICARE REPLACEMENT/A DVANTAGE - PPO) [id number] Jeny A Stone [id number] Jeny A Stone 01/14/2025 1 [facility] (MEDICARE REPLACEMENT/A DVANTAGE - PPO) [id number] Jeny A Stone [id number] Jeny A Stone Notes Date Note Type Note Provider Name and Address Organization Details Recorded Time 01/02/2025 text/html This is a 68-yea r-old female patient with a PMH HLD, pulmonary fibrosis, COPD on home O2 6L at rest and 8L with exertion, recent DVT and PE on Eliquis, and former smoker with a 20 pack-year history. She was referred to ED from [facility] with O2 sat in the 50%. [...] 01/03. She can returned to ED at [facility] for removal by ENT or ED provider at [facility] . She was started on augmentin for 5 days Patient is seen for initial intake for continued care and rehab. ISH CHEUNG [address], [address], [place], [address], [place] [facility] 01/02/2025 20:04:13 01/03/2025 text/html This is a 68 yo woman who is here for rehab after an acute hospitalization for She was sent to the [facility] ED from the [facility] because of O2 sat in the [...] 01/03. She can returned to ED at [facility] for removal by ENT or ED provider at [facility] . She was started on augmentin for 5 days Feels like breathing is back to usual, always terrible.Happy to have rhinorocket out. Her PMH includes COPD on home O2 6L at rest and 8L with exertion, CKD stage 3A, pulmonary fibrosis, HLD, recent DVT and PE on Eliquis, and former smoker with a 20 pack-year hx. Theresa Ospina MD [address] [place] [address], [address], [place], [address], [facility] 02/08/2025 18:09:38 01/14/2025 text/html This is a [...] former smoker with a 20 pack-year history. KATHARINE KIM IMPREGNATOR OPERATOR-C [address] [place] [address], [address], [place], [address], [facility] [employer] 01/14/2025 11:11:46 OBGyn Episode No OBEpisode recorded.
== END 2025-04-02 13:34 | disposition home or self-care (01) ==
LOC: HO.HPS 12:47
PROVIDERS: PCP Internal Medicine; Visit Provider Internal Medicine Pulmonary Disease
DX: J44.9 Chronic obstructive pulmonary disease, unspecified (principal); Z99.81 Dependence on supplemental oxygen; I26.99 Other pulmonary embolism without acute cor pulmonale; R06.01 Orthopnea
CPT/HCPCS: 99214; G2211

== ENCOUNTER → 2025-04-02 12:47 | Outpatient (BNVA) | payer MEDICARE, SELFPAY | PROVIDERS: PCP Internal Medicine; Visit Provider Internal Medicine Pulmonary Disease | DX: J44.9 Chronic obstructive pulmonary disease, unspecified (principal); I26.99 Other pulmonary embolism without acute cor pulmonale; R06.01 Orthopnea; Z99.81 Dependence on supplemental oxygen | CPT/HCPCS: 99212 ==

== ENCOUNTER 2025-04-11 14:23 | Emergency (ER) | payer MEDICARE, SELFPAY ==
--- NOTE | ~2025-04-11 | US_ITS ---
EXAMINATION: US TRIPLEX LOWER EXTREMITY, RIGHT CLINICAL INFORMATION: Pain, right lower extremity. COMPARISON: None available. TECHNIQUE: Color-flow triplex imaging with spectral analysis and compression Doppler were performed on the right lower extremity. FINDINGS: Respiratory variation, normal compression and augmented flow are present throughout the interrogated common femoral vein, superficial femoral vein, profunda femoral vein, popliteal vein and midcalf peroneal and posterior tibial venous segments . There is no Ray's cyst. US/US venous duplex LE RT IMPRESSION: No acute deep venous thrombosis interrogated veins, right lower extremity. Negative for DVT. Electronically signed by: Steve Cabrera MD 04/11/2025 03:22 PM EDT
--- NOTE | ~2025-04-11 | CT_ITS ---
CLINICAL HISTORY: right lower abdominal pain CT ABDOMEN AND PELVIS WITHOUT CONTRAST Comparison: CT/OR/SR - CT ANGIO CHEST PE PROTOCOL - 02/24/25 14:49 EDT Findings: Scarring and subpleural bands in the bilateral lower lobes. No consolidation or pleural effusion. Dystrophic calcifications and/or calcified granulomas in the juxtapleural left base. Moderate hiatal hernia with eccentric wall thickening. No acute abnormalities in the unenhanced solid organs. No renal or ureteral calculus. Small right renal cyst. No large calcified gallstone. No AAA. There is an IVC filter. No bowel obstruction, pneumoperitoneum, or pneumatosis. Ventral herniorrhaphy changes. No ascites or significant mesenteric edema. The appendix is identified. No acute appendicitis. Colonic diverticulosis. No acute diverticulitis. Atrophic uterus. Empty urinary bladder. The bones are intact. IMPRESSION: 1. No acute obstructive uropathy or urolithiasis. 2. No obstructive or acute inflammatory changes in the gastrointestinal tract. 3. Diverticulosis coli. 4. Moderate hiatal hernia with eccentric wall thickening. Underlying mass is not entirely excluded. Recommend clinical correlation. This document has been electronically signed by: Rachel Mcgovern DO on 04/11/2025 17:32:20
[2025-04-11 14:30] VITALS: BP 109/60; PULSE 76; RESP 18; TEMP 36.6; O2SAT 100; BMI 34.1
--- NOTE | 2025-04-11 14:31 | ED.GENADULT ---
HPI - General Adult General Chief complaint: Extremity Problem Stated complaint: Groin Pain Time Seen by Provider: 04/11/25 16:04 Source: patient, RN notes reviewed and old records reviewed Mode of arrival: wheelchair Limitations: no limitations History of Present Illness ED Provider: Minoo TRUONG narrative: 69-year-old female past medical history significant for COPD on 6-8 L supplemental oxygen via nasal cannula, history of PE status post IVC filter, pulmonary fibrosis presents for evaluation of right lower abdominal/groin pain. She reports she has had pain for about a week and a half in the right groin. She is concerned that she has a new DVT in the area Her pain is worse when she gets up to stand up, or walk around. She reports that she is predominantly lying in bed due to her oxygen needs Denies any falls or overuse injury. Denies any fevers, chills, cough, shortness of breath Denies any nausea vomiting, diarrhea Her pain is intermittent, currently is a 2/10 but occasionally a 10/10 Related Data Home Medications ?Medication ?Instructions ?Recorded ?Confirmed albuterol sulfate 90 mcg/actuation 2 puff inhalation Q6H PRN 03/26/24 12/27/24 aerosol inhaler Shortness Of Breath Or Wheezing citalopram 40 mg tablet (Celexa) 40 mg PO DAILY 03/26/24 12/27/24 pravastatin 40 mg tablet 40 mg PO BEDTIME 03/26/24 12/27/24 fluticasone fur. 200 mcg-umeclid 1 ea inhalation DAILY 11/27/24 12/27/24 62.5 mcg-vilant 25 mcg inhalat.powder (Trelegy Ellipta) nystatin 100,000 unit/gram topical 1 appl topical BID PRN Rash 12/27/24 12/27/24 cream omeprazole 20 mg capsule,delayed 20 mg PO DAILY@0630 12/27/24 12/27/24 release aspirin 325 mg PO DAILY 03/06/25 03/06/25 Previous Rx's ?Medication ?Instructions ?Recorded ipratropium 0.5 mg-albuterol 3 mg 3 ml inhalation Q6H PRN wheezing 09/03/24 (2.5 mg base)/3 mL nebulization #180 mL soln metformin 500 mg tablet 500 mg PO BIDWMEAL #180 tabs 12/11/24 dextromethorphan-guaifenesin 10 10 ml PO Q4H PRN Cough #237 mL 01/01/25 mg-100 mg/5 mL oral syrup furosemide 40 mg tablet 40 mg PO QAM #30 tabs 04/02/25 cefuroxime axetil 250 mg tablet 250 mg PO Q12H #10 tabs 04/11/25 cyclobenzaprine 10 mg tablet 10 mg PO TID PRN muscle spasm #20 04/11/25 tabs dexamethasone 4 mg tablet 4 mg PO BID #6 tabs 04/11/25 Allergies Allergy/AdvReac Type Severity Reaction Status Date / Time codeine Allergy Intermediate Rash Verified 04/11/25 14:32 Demerol Allergy Severe Vomiting Uncoded 04/11/25 14:32 From DEMEROL Allergy Intermediate VOMITING Uncoded 04/11/25 14:32 Review of Systems Constitutional: Constitutional: Denies body ache(s), Denies chills and Denies headache(s) ENT: Denies vertigo and Denies headache(s) Cardiovascular: Cardiovascular: Denies chest pain and Denies dyspnea Respiratory: Respiratory: Denies cough and Denies dyspnea Gastrointestinal: Gastrointestinal: Reports abdominal pain, Denies nausea and Denies vomiting Musculoskeletal: Musculoskeletal: Reports arthralgias, Denies joint swelling, Reports limited range of motion and Reports radiating pain into limb Neurologic: Denies vertigo and Denies headache(s) Psychiatric: Psychiatric: Denies anxiety [facility] Past Medical History Medical History (Updated 04/11/25 @ 18:00 by Shivam Hennessy) HLD (hyperlipidemia) Pulmonary fibrosis Surgical History (Updated 03/06/25 @ 11:51 by Alia Yancey RN) History of hernia surgery History of shoulder surgery History of back surgery History of tonsillectomy H/O section Social History Social History Household Members: Spouse Housing: House Do you presently have visiting nurse or other home services: No Comment: pt rings call morris appropriately for assistance OOB Patient Tobacco Use Status: Former Tobacco user Tobacco use type: Cigarette e-Cigarette/Vaping Use: Never Used Second Hand Smoke Exposure: No Advance Directives: No Advance Directives Information Provided: Yes Do you have a plan to hurt others: No Plan service: No Physical Exam ED Vital Signs: Vital Signs - 24 hr 04/11/25 14:30 04/11/25 15:26 04/11/25 17:45 Temperature 97.8 F Pulse Rate 76 84 67 Respiratory Rate 18 18 16 Blood Pressure 109/60 92/62 124/69 Pulse Oximetry 100 100 Oxygen Delivery Method Room Air Nasal Cannula Nasal Cannula Nasal Cannula Oxygen Flow Rate 6 6 BMI result Body Mass Index 34.1 Const General: healthy appearing, comfortable, no acute distress, alert and awake Nutritional Appearance: well nourished Orientation/consciousness: patient oriented x3 HENMT Head: Yes normocephalic and Yes atraumatic Throat: Yes posterior oropharynx normal Eyes Eyelids: Yes eyelids normal Conjunctivae: conjunctivae normal Sclerae: sclerae normal Corneas: corneas normal Pupils: Equal, round and reactive pupils present EOM: EOMs intact bilaterally Neck Neck: Yes full ROM Resp Effort & Inspection: normal respiratory effort, able to speak in complete sentences and not labored Cardio Rate: regular rate Rhythm: regular rhythm GI Inspection: No distended Palpation (GI): Soft to palpation, not firm, nontender, no guarding and not rigid Back/Spine/Pelvis Other: No right-sided lumbosacral tenderness. Straight leg raise negative bilaterally. Skin General skin exam: elasticity normal Neuro General: patient oriented x3 Cranial nerves: Yes Equal, round and reactive pupils present and Yes Bilaterally intact EOM present Cognition (Neuro): normal cognition Extrem Other: Moving all extremities well without any obvious deformities. No tenderness or deformity to the right lower extremity Course Course Course Narrative: RME, this is a rapid medical exam performed by Isai Hennessy please refer to primary provider for complete H&P- 69-year-old female past medical history significant for COPD on oxygen, 6-8 L, history of PE not anticoagulated due to history of bleeding, status post IVC filter presents for evaluation of right groin pain. Pain started a few weeks ago in his worse with movement. Plan for labs, UA and ultrasound of the right lower extremity. Reevaluation(s) Reevaluation #1: Discussed patient's workup with her, she has a UTI. CT scan does not show any acute findings to explain her right lower abdominal pain. Her symptoms may be related to radiculopathy versus muscle spasm. I did discuss the incidental findings including hiatal hernia with the patient. She reports she has very well controlled heartburn. Plan to discharge her with dexamethasone, cyclobenzaprine for the pain and cefuroxime for UTI Time: 17:58 Medications Administered Discontinued Medications Generic Name Dose Route Start Last Admin Trade Name Madhuri PRN Reason Stop Dose Admin Potassium Chloride 40 meq 04/11/25 16:26 04/11/25 16:58 Potassium Chloride Er 20 Meq Tab.Er.Prt PO 04/11/25 16:27 40 meq ONCE ONE Administration Medical Decision Making Medical Decision Making [facility] Narrative: 69-year-old female presents for evaluation of right lower abdominal/groin pain. Her pain radiates some to the right leg occasionally. Her pain is not reproducible on exam, she has no back pain. Differential includes muscle strain, radiculopathy, obstructive uropathy, pyelonephritis, inguinal hernia, DVT. Plan for labs, urinalysis, ultrasound of the right lower extremity, CT scan of the abdomen pelvis. Differential Diagnosis Differential Diagnoses: The differential diagnosis associated with the presentation includes As above Lab Data [facility] Lab Attestation statement: I reviewed the patient's lab results. No leukocytosis. The patient has a baseline anemia. Chemistries significant for a potassium is low at 3.1, carbon dioxide level of 31 which is likely due to supplemental oxygen and CO2 retaining. Creatinine is elevated to 1.41, unclear etiology but possibly related to obstructive uropathy. 04/11/25 15:21 04/11/25 15:21 Labs: Lab Results 04/11/25 04/11/25 Range/Units 15:21 16:05 WBC 10.5 (4.8-10.8) X10*3/uL RBC 3.71 L (4.20-5.50) X10*6/uL Hgb 10.9 L (12.0-16.0) g/dl Hct 34.2 L (37.0-47.0) % MCV 92.2 (80.0-98.0) fL MCH 29.4 (27.0-33.0) pg MCHC 31.9 (31.0-35.0) g/dl RDW 13.9 (11.0-16.0) % Plt Count 432 H (160-400) X10*3/uL MPV 9.4 (9.4-12.3) fL Immature Gran % (Auto) 0.4 (0.0-0.4) % Neut % (Auto) 66.0 (45-73) % Lymph % (Auto) 20.1 (20-40) % [place] % (Auto) 9.4 (2-11) % Eos % (Auto) 3.2 (0-4) % Baso % (Auto) 0.9 (0-2) % Lymph # (Auto) 2.1 (1.2-4.9) X10*3/uL [place] # (Auto) 1.0 (0.1-1.2) X10*3/uL Eos # (Auto) 0.3 (0.0-0.4) X10*3/uL Baso # (Auto) 0.1 (0.0-0.2) X10*3/uL Abs Immat Gran (auto) 0.04 H (0.00-0.03) X10*3/uL Absolute Neuts (auto) 6.9 (2.0-8.3) x10*3/uL Absolute Nucleated RBC 0.000 (0.0-0.012) X10*3/uL Nucleated RBC % (auto) 0.0 (0.0-0.2) /100WBC Sodium 145 (135-145) mmol/L Potassium 3.1 L (3.3-5.1) mmol/L Chloride 101 (96-108) mmol/L Carbon Dioxide 31 H (22-29) mmol/L Anion Gap 16 (12-20) BUN 16 (9-16) mg/dL Creatinine 1.41 H (0.5-1.4) mg/dL Estim Creat Clear Calc 48.2 Estimated GFR 37 Random Glucose 148 H (60-115) mg/dL Calcium 9.9 D (8.4-10.2) mg/dL Total Bilirubin 0.4 (0.0-1.0) mg/dL AST 24 (5-31) U/L ALT 6 (0-31) U/L Alkaline Phosphatase 68 (39-117) U/L Total Protein 6.8 (6.5-8.0) g/dL Albumin 4.0 (3.5-5.0) g/dL Lipase 27 (8-78) U/L Urine Color Dark Yellow Urine Appearance Cloudy Urine pH 5.5 (5.0-9.0) Ur Specific [place] 1.020 (1.005-1.025) Urine Protein Trace (Neg-Trace) mg/dL Urine Glucose (UA) Negative (Negative) mg/dL Urine Ketones Trace (Negative) mg/dL Urine Blood Negative (Negative) Urine Nitrite Negative (Negative) Ur Leukocyte Esterase Moderate (2+) H (Negative) Urine RBC 0-2 (0-2) /HPF Urine WBC 21-50 H (0-5) /HPF Ur Squamous Epith Cells >20 (0-2) /HPF Calcium Oxalate Crystal Present Urine Bacteria 4+ (None Seen) Hyaline Casts >20 (0-2) /LPF Independent Interpretation I performed an independent interpretation of an: CT Scan Interpretation: Mild stool burden Radiology Impression Discussion of test interpretation with radiology: I have reviewed the radiologist's reading. Radiologist Impression: Findings: Scarring and subpleural bands in the bilateral lower lobes. No consolidation or pleural effusion. Dystrophic calcifications and/or calcified granulomas in the juxtapleural left base. Moderate hiatal hernia with eccentric wall thickening. No acute abnormalities in the unenhanced solid organs. No renal or ureteral calculus. Small right renal cyst. No large calcified gallstone. No AAA. There is an IVC filter. No bowel obstruction, pneumoperitoneum, or pneumatosis. Ventral herniorrhaphy changes. No ascites or significant mesenteric edema. The appendix is identified. No acute appendicitis. Colonic diverticulosis. No acute diverticulitis. Atrophic uterus. Empty urinary bladder. The bones are intact. IMPRESSION: 1. No acute obstructive uropathy or urolithiasis. 2. No obstructive or acute inflammatory changes in the gastrointestinal tract. 3. Diverticulosis coli. 4. Moderate hiatal hernia with eccentric wall thickening. Underlying mass is not entirely excluded. Recommend clinical correlation. This document has been electronically signed by: Rachel Mcgovern DO on 04/11/2025 17:32:20 Discharge Plan Discharge Clinical Impression: Groin pain, Urinary tract infection Patient Disposition: Home, Self-Care Instructions: Muscle Strain (ED) Additional Instructions: Your blood work was significant for a very slight elevation in your kidney function. Your potassium was slightly low at 3.1. Your CT scan did not show any acute abnormalities to explain the pain. You do have a hiatal hernia and mild constipation Your pain is most likely related to a muscle strain Take them dexamethasone and cyclobenzaprine as discussed Take cefuroxime twice daily for 5 days to treat UTI Follow-up with your primary doctor, return for new or worsening symptoms Prescriptions: New cyclobenzaprine 10 mg tablet 10 mg PO TID PRN (Reason: muscle spasm) Qty: 20 0RF cefuroxime axetil 250 mg tablet 250 mg PO Q12H Qty: 10 0RF dexamethasone 4 mg tablet 4 mg PO BID Qty: 6 0RF No Action nystatin 100,000 unit/gram cream 1 appl topical BID PRN (Reason: Rash) omeprazole 20 mg capsule,delayed release(DR/EC) 20 mg PO DAILY@0630 dextromethorphan-guaifenesin 10-100 mg/5 mL Syrup 10 ml PO Q4H PRN (Reason: Cough) Qty: 237 0RF Trelegy Ellipta 200-62.5-25 mcg blister with device 1 ea INHALATION DAILY metformin 500 mg tablet 500 mg PO BIDWMEAL Qty: 180 0RF aspirin 325 mg PO DAILY citalopram [Celexa] 40 mg tablet 40 mg PO DAILY pravastatin 40 mg tablet 40 mg PO BEDTIME albuterol sulfate 90 mcg/actuation HFA aerosol inhaler 2 puff inhalation Q6H PRN (Reason: Shortness Of Breath Or Wheezing) ipratropium-albuterol 0.5 mg-3 mg(2.5 mg base)/3 mL solution for nebulization 3 ml inhalation Q6H PRN (Reason: wheezing) Qty: 180 3RF furosemide 40 mg tablet 40 mg PO QAM Qty: 30 6RF Print Language: Citizen [place]
--- NOTE | 2025-04-11 15:01 | MHC.EDTECH ---
PATIENT IS IN ULTRASOUND PRIOR TO BLOOD WORK. PA AWARE.
--- OUTSIDE RECORDS SUMMARY | 2025-04-11 15:23 | XMS_ITS | Encounter Summary ---
Author Organization [facility] Address [address] [place] [address] Care Team Providers Care Candy Bar Attendant Name Role Phone Chuy Nguyễn MD Primary Care Provider [phone] Encounter Details Date Type Department Care Team (Late st Contact Info) Description 01/11/2025 Lab Requisition [facility] - Main Lab [address] [facility] [place] [address] Chuy Nguyễn MD [address] [place] [address] [address] [place], [phone] Essential (primary) hypertension Social History Tobacco [...] mmol/L LAB CHEMISTRY METHOD 01/13/2025 1:25 PM [facility] Potassium 4.1 3.5 - 5.5 mmol/L LAB CHEMISTRY METHOD 01/13/2025 1:25 PM [facility] Chloride 108 96 - 110 mmol/L LAB CHEMISTRY METHOD 01/13/2025 1:25 PM [facility] CO2 27 21 - 32 mmol/L LAB CHEMISTRY METHOD 01/13/2025 1:25 PM [facility] Anion Gap 9 3 - 11 LAB CHEMISTRY METHOD 01/13/2025 1:25 PM [facility] Glucose 59(L) 70 - 100 mg/dL LAB CHEMISTRY METHOD 01/13/2025 1:25 PM [facility] BUN 17 5 - 25 mg/dL LAB CHEMISTRY METHOD 01/13/2025 1:25 PM [facility] Creatinine 0.98 0.50 - 1.10 mg/dL LAB CHEMISTRY METHOD 01/13/2025 1:25 PM [facility] eGFR 63 >=60 mL/min/1. 73m2 LAB CHEMISTRY METHOD 01/13/2025 1:25 PM [facility] Comment:Calculation based on the??Chronic Kidney Disease Epidemiology Collaboration (CKD-EPI) equation refit??without adjustment for race. BUN/Creatinine Ratio 17.3 LAB CHEMISTRY METHOD 01/13/2025 1:25 PM [facility] Calcium 8.9 8.5 - 10.5 mg/dL LAB CHEMISTRY METHOD 01/13/2025 1:25 PM [facility] Blood Venous blood specimen / Unknown Venipuncture / Unknown 01/13/2025 6:29 AM EST 01/13/2025 11:44 AM EST us Chuy Nguyễn MD LAB BLOOD ORDERABLES Final Resul t [facility] [address] [place] [address], [place] [phone] * (ABNORMAL) Complete blood count (01/13/2025 6:29 AM EST) WBC 10.0 4.8 - 10.8 K/mcL LAB HEMETOLOGY METHOD 01/13/2025 1:40 PM [facility] RBC 2.40(L) 3.80 - 4.80 M/mcL LAB HEMETOLOGY METHOD 01/13/2025 1:40 PM [facility] Hemoglobin 7.9(L) 11.5 - 16.0 g/dL LAB HEMETOLOGY METHOD 01/13/2025 1:40 PM [facility] Hematocrit 26.7(L) 35.0 - 47.0 % LAB HEMETOLOGY METHOD 01/13/2025 1:40 PM [facility] MCV 111.3(H) 79.0 - 98.0 FL LAB HEMETOLOGY METHOD 01/13/2025 1:40 PM [facility] MCH 32.9(H) 27.0 - 32.0 pcg LAB HEMETOLOGY METHOD 01/13/2025 1:40 PM [facility] MCHC 29.6(L) 32.0 - 37.0 g/dL LAB HEMETOLOGY METHOD 01/13/2025 1:40 PM [facility] RDW 16.6(H) 11.0 - 15.0 % LAB HEMETOLOGY METHOD 01/13/2025 1:40 PM [facility] Platelets 333 130 - 400 K/mcL LAB HEMETOLOGY METHOD 01/13/2025 1:40 PM [facility] MPV 9.4 7.0 - 11.0 FL LAB HEMETOLOGY METHOD 01/13/2025 1:40 PM EST [facility] NRBC 0.0 <1.0 % LAB HEMETOLOGY METHOD 01/13/2025 1:40 PM EST [facility] NRBC Absolute 0.00 <0.10 K/mcL LAB HEMETOLOGY METHOD 01/13/2025 1:40 PM EST [facility] Blood Venous blood specimen / Unknown Venipuncture / Unknown 01/13/2025 6:29 AM EST 01/13/2025 11:44 AM EST us Chuy Nguyễn MD LAB BLOOD ORDERABLES Final Resul t [facility] [address] [place] [address], documented in this encounter Visit Diagnoses Diagnosis Essential (primary) hypertension Unspecified essential hypertension documented in this encounter Care Teams Candy Bar Attendant Relationship Specialty Start Date End Date Chuy Nguyễn MD [address] [place] [address], [phone] PCP - General Family Medicine 01/02/25 documented as of this encounter
[2025-04-11 15:26] VITALS: BP 92/62; PULSE 84; RESP 18
[2025-04-11 15:37] LABS: MANUAL DIFF FLAG NO
[2025-04-11 15:38] LABS: Basophils Absolute Auto 0.1 X10*3/uL (0.0-0.2); Basophils Percent Auto 0.9 % (0-2); Eosinophils Absolute Auto 0.3 X10*3/uL (0.0-0.4); Eosinophils Percent Auto 3.2 % (0-4); Hematocrit 34.2 % (37.0-47.0); Hemoglobin 10.9 g/dl (12.0-16.0); Imm Gran Abs Auto 0.04 X10*3/uL (0.00-0.03); Imm Gran Pct Auto 0.4 % (0.0-0.4); Lymphocytes Absolute Auto 2.1 X10*3/uL (1.2-4.9); Lymphocytes Percent Auto 20.1 % (20-40); Mean Corpuscular HGB Conc 31.9 g/dl (31.0-35.0); Mean Corpuscular Hemoglobin 29.4 pg (27.0-33.0); Mean Corpuscular Volume 92.2 fL (80.0-98.0); Mean Platelet Volume 9.4 fL (9.4-12.3); Monocytes Percent Auto 9.4 % (2-11); Neutrophils Absolute Auto 6.9 x10*3/uL (2.0-8.3); Platelet Count 432 X10*3/uL (160-400); Red Blood Count 3.71 X10*6/uL (4.20-5.50); Red Cell Distribution Width 13.9 % (11.0-16.0); White Blood Count 10.5 X10*3/uL (4.8-10.8)
[2025-04-11 15:59] LABS: Alanine Aminotransferase 6 U/L (0-31); Anion Gap 16 (12-20); Aspartate Amino Transferase 24 U/L (5-31); Bilirubin Total 0.4 mg/dL (0.0-1.0); Blood Urea Nitrogen 16 mg/dL (9-16); Calcium 9.9 mg/dL (8.4-10.2); Carbon Dioxide 31 mmol/L (22-29); Chloride 101 mmol/L (96-108); Creatinine Clr Calc Pharmacy 48.2; Estimated Glomerular Filt Rate 37; Glucose Random 148 mg/dL (60-115); Lipase 27 U/L (8-78); Potassium 3.1 mmol/L (3.3-5.1); Sodium 145 mmol/L (135-145); Total Protein 6.8 g/dL (6.5-8.0)
[2025-04-11 16:15] LABS: Appearance Urine Cloudy; Color Urine Dark Yellow; Glucose Urine UA Negative (Negative); Leukocyte Esterase Urine Moderate (2+) (Negative); Nitrite Urine Negative (Negative); PH 5.5 (5.0-9.0); UMIC TRIGGER UACC YES; Urine Blood Negative (Negative); Urine Ketones Trace mg/dL (Negative); Urine Protein Trace mg/dL (Neg-Trace)
[2025-04-11 16:23] LABS: Alkaline Phosphatase 68 U/L (39-117)
[2025-04-11 16:28] LABS: Bacteria Urine 4+ (None Seen); Calcium Oxalate Crystals Urine Present; Hyaline Casts Urine >20 /LPF (0-2); RBC Urine 0-2 /HPF (0-2); Squamous Epithelial Cell Urine >20 /HPF (0-2); UACC Culture Trigger YES; WBC Urine 21-50 /HPF (0-5)
[2025-04-11] MEDS: Potassium Chloride ER 20 MEQ TAB.ER.PRT 40 MEQ PO (16:58)
[2025-04-11 17:45] VITALS: BP 124/69; PULSE 67; RESP 16; O2SAT 100
[2025-04-11 18:08] VITALS: BP 118/72; PULSE 69; RESP 20; TEMP 36.1; O2SAT 100
[2025-04-11 18:49] VITALS: BP 118/72; PULSE 69; RESP 20; TEMP 36.1; O2SAT 100
== END 2025-04-11 18:49 | disposition home or self-care (01) ==
PROVIDERS: Physician Assistant; Emergency Provider Emergency Medicine Emergency Medical Services; PCP Internal Medicine
DX: N39.0 Urinary tract infection, site not specified (principal); R10.31 Right lower quadrant pain; R10.2 Pelvic and perineal pain; J44.9 Chronic obstructive pulmonary disease, unspecified; R60.0 Localized edema; Z99.81 Dependence on supplemental oxygen; Z79.899 Other long term (current) drug therapy; Z87.891 Personal history of nicotine dependence
CPT/HCPCS: 36415; 74176; 80053; 81001; 83690; 85025; 87086; 93971; 99283; 99284

== ENCOUNTER → 2025-04-11 14:31 | Outpatient (BNV) | payer MEDICARE, SELFPAY | PROVIDERS: PCP Internal Medicine; Visit Provider Radiology Diagnostic Radiology | DX: K57.30 Diverticulosis of large intestine without perforation or abscess without bleeding (principal); K44.9 Diaphragmatic hernia without obstruction or gangrene; M79.661 Pain in right lower leg | CPT/HCPCS: 74176; 93971 ==

== ENCOUNTER 2025-04-29 12:55 | Outpatient (AMB) | payer MEDICARE, SELFPAY ==
[2025-04-29 13:16] VITALS: BP 119/67; PULSE 87; O2SAT 93
--- NOTE | 2025-04-29 13:16 | A.OFFVIS_ITS ---
Vital Signs 04/29/25 13:16 Weight 211 lb BP 119/67 Blood Pressure Location Rt brachial Position Sitting Pulse 87 Pulse Source Pulse Oximeter Pulse Oximetry (%) 93 Oxygen Delivery Method Nasal Cannula Oxygen Flow Rate 6 Intake Visit Reasons: Acute hypoxemic respiratory failure Allergies codeine Allergy (Intermediate, Verified 04/11/25 14:32) Rash Demerol Allergy (Severe, Uncoded 04/11/25 14:32) Vomiting From DEMEROL Allergy (Intermediate, Uncoded 04/11/25 14:32) VOMITING HPI HPI Acute hypoxemic respiratory failure: Details: 68-year-old lady, former 20 pack-year smoker, with underlying COPD, bronchiectasis, interstitial lung disease, recent pulmonary emboli previously on Eliquis, on supplemental oxygen at 3-4 L at baseline and 4-8 L with exacerbation. Patient had pulmonary function test that shows moderate COPD, but with severe decrease in diffusion capacity, also her repeat CT angio chest shows new pulmonary emboli now status post Manson filter placement. Her respiratory symptoms have improved with diuresis, however now she has some dizziness when trying to stand up. [facility] Medical History (Updated 04/12/25 @ 00:00 by Cherie Portillo) HLD (hyperlipidemia) Pulmonary fibrosis Surgical History (Updated 03/06/25 @ 11:51 by Alia Yancey RN) History of hernia surgery History of shoulder surgery History of back surgery History of tonsillectomy H/O section Social History Household Members: Spouse Housing: House Do you presently have visiting nurse or other home services: No Comment: pt rings call morris appropriately for assistance OOB Patient Tobacco Use Status: Former Tobacco user Tobacco use type: Cigarette e-Cigarette/Vaping Use: Never Used Second Hand Smoke Exposure: No service: No Review of Systems Const Denies daytime sleepiness, Denies excessive sweating, Denies fatigue, Denies fever(s), Denies lethargy, Denies malaise, Denies night sweats, Denies snoring and Denies weight loss Eyes Denies blurry vision and Denies itchy eyes ENT Denies nasal congestion, Denies post nasal drip, Denies sinus pain, Denies sinus pressure and Denies other ( Thrush) Card Denies chest pain, Denies pedal edema, Denies dyspnea, Denies orthopnea and Denies paroxysmal nocturnal dyspnea Resp Denies cough, Denies hemoptysis, Denies excessive phlegm production, Denies dyspnea, Denies snoring and Denies wheezing GI Denies abdominal pain and Denies heartburn Musc Denies myalgias, Denies arthralgias and Denies joint swelling Skin/Breast Denies rash Neuro Denies memory loss and Denies seizure-like activity Psych Denies abnormal sleep pattern, Denies anxiety and Denies memory loss Endo Denies excessive sweating, Denies fatigue and Denies heat intolerance Newton/Lymph Denies easy bruising Aller/Immun Denies itchy eyes, Denies seasonal rhinorrhea and Denies wheezing Physical Exam Vital Signs: Last Vital Signs Pulse 87 04/29/25 13:16 BP 119/67 04/29/25 13:16 Pulse Ox 93 04/29/25 13:16 Oxygen Delivery Method Nasal Cannula 04/29/25 13:16 Oxygen Flow Rate 6 04/29/25 13:16 Const General: no acute distress and alert Nutritional Appearance: obese Orientation/consciousness: Other orientation findings ( oriented) HEENT Head: Yes atraumatic Eyes General: appearance normal, both eyes and all related structures Sclerae: sclerae normal EOM: EOMs intact bilaterally Neck Neck: Yes supple Lymphatic: no lymphadenopathy noted Resp Effort & Inspection: normal respiratory effort and no use of accessory muscles Auscultation: clear to auscultation bilaterally Cardio Rate: regular rate Rhythm: regular rhythm Heart sounds: no gallops, no murmurs and no rubs Skin General skin exam: other ( warm) Extrem General: No clubbing, No cyanosis and No edema Assessment & Plan Assessment & Plan (1) COPD (chronic obstructive pulmonary disease): Code(s): J44.9 - Chronic obstructive pulmonary disease, unspecified Category: Medical Plan: Reasonable baseline control on current regimen of trilogy, duo nebs, and albuterol MDI. Continue current regimen. (2) On supplemental oxygen therapy: Code(s): Z99.81 - Dependence on supplemental oxygen Category: Medical Plan: Continue supplemental oxygen to maintain O2 saturation of 88-92%. (3) Pulmonary emboli: Code(s): I26.99 - Other pulmonary embolism without acute cor pulmonale Category: Medical Plan: Intolerant of anticoagulation, status post Manson filter. Continues on aspirin. (4) Orthopnea: Code(s): R06.01 - Orthopnea Category: Medical Plan: Improved control on current diuretic regimen, however with some dizziness when standing up, decrease Lasix to 20 mg daily. Coding Level of Care Code Est Pt Level 4 (97179) Complex EM visit Add On G2211 Diagnoses COPD (chronic obstructive pulmonary disease) J44.9 On supplemental oxygen therapy Z99.81 Pulmonary emboli I26.99 Orthopnea R06.01
--- OUTSIDE RECORDS SUMMARY | 2025-04-29 15:09 | XMS_ITS | Encounter Summary ---
Author Organization [facility] Address [address] [place] [address] Care Team Providers Care Head Of Academic Technology Name Role Phone Chuy Nguyễn MD Primary Care Provider [phone] Encounter Details Date Type Department Care Team (Late st Contact Info) Description 01/11/2025 Lab Requisition [facility] - Main Lab [address] [facility] [place] [address] Chuy Nguyễn MD [address] [place] [address] [address] [place], [phone] Essential (primary) hypertension Social History Tobacco [...] mmol/L LAB CHEMISTRY METHOD 01/13/2025 1:25 PM [facility] Potassium 4.1 3.5 - 5.5 mmol/L LAB CHEMISTRY METHOD 01/13/2025 1:25 PM [facility] Chloride 108 96 - 110 mmol/L LAB CHEMISTRY METHOD 01/13/2025 1:25 PM [facility] CO2 27 21 - 32 mmol/L LAB CHEMISTRY METHOD 01/13/2025 1:25 PM [facility] Anion Gap 9 3 - 11 LAB CHEMISTRY METHOD 01/13/2025 1:25 PM [facility] Glucose 59(L) 70 - 100 mg/dL LAB CHEMISTRY METHOD 01/13/2025 1:25 PM [facility] BUN 17 5 - 25 mg/dL LAB CHEMISTRY METHOD 01/13/2025 1:25 PM [facility] Creatinine 0.98 0.50 - 1.10 mg/dL LAB CHEMISTRY METHOD 01/13/2025 1:25 PM [facility] eGFR 63 >=60 mL/min/1. 73m2 LAB CHEMISTRY METHOD 01/13/2025 1:25 PM [facility] Comment:Calculation based on the??Chronic Kidney Disease Epidemiology Collaboration (CKD-EPI) equation refit??without adjustment for race. BUN/Creatinine Ratio 17.3 LAB CHEMISTRY METHOD 01/13/2025 1:25 PM [facility] Calcium 8.9 8.5 - 10.5 mg/dL LAB CHEMISTRY METHOD 01/13/2025 1:25 PM [facility] Blood Venous blood specimen / Unknown Venipuncture / Unknown 01/13/2025 6:29 AM EST 01/13/2025 11:44 AM EST us Chuy Nguyễn MD LAB BLOOD ORDERABLES Final Resul t [facility] [address] [place] [address], [place] [phone] * (ABNORMAL) Complete blood count (01/13/2025 6:29 AM EST) WBC 10.0 4.8 - 10.8 K/mcL LAB HEMETOLOGY METHOD 01/13/2025 1:40 PM [facility] RBC 2.40(L) 3.80 - 4.80 M/mcL LAB HEMETOLOGY METHOD 01/13/2025 1:40 PM [facility] Hemoglobin 7.9(L) 11.5 - 16.0 g/dL LAB HEMETOLOGY METHOD 01/13/2025 1:40 PM [facility] Hematocrit 26.7(L) 35.0 - 47.0 % LAB HEMETOLOGY METHOD 01/13/2025 1:40 PM [facility] MCV 111.3(H) 79.0 - 98.0 FL LAB HEMETOLOGY METHOD 01/13/2025 1:40 PM [facility] MCH 32.9(H) 27.0 - 32.0 pcg LAB HEMETOLOGY METHOD 01/13/2025 1:40 PM [facility] MCHC 29.6(L) 32.0 - 37.0 g/dL LAB HEMETOLOGY METHOD 01/13/2025 1:40 PM [facility] RDW 16.6(H) 11.0 - 15.0 % LAB HEMETOLOGY METHOD 01/13/2025 1:40 PM [facility] Platelets 333 130 - 400 K/mcL LAB HEMETOLOGY METHOD 01/13/2025 1:40 PM [facility] MPV 9.4 7.0 - 11.0 FL LAB HEMETOLOGY METHOD 01/13/2025 1:40 PM EST [facility] NRBC 0.0 <1.0 % LAB HEMETOLOGY METHOD 01/13/2025 1:40 PM EST [facility] NRBC Absolute 0.00 <0.10 K/mcL LAB HEMETOLOGY METHOD 01/13/2025 1:40 PM EST [facility] Blood Venous blood specimen / Unknown Venipuncture / Unknown 01/13/2025 6:29 AM EST 01/13/2025 11:44 AM EST us Chuy Nguyễn MD LAB BLOOD ORDERABLES Final Resul t [facility] [address] [place] [address], documented in this encounter Visit Diagnoses Diagnosis Essential (primary) hypertension Unspecified essential hypertension documented in this encounter Care Teams Head Of Academic Technology Relationship Specialty Start Date End Date Chuy Nguyễn MD [address] [place] [address], [phone] PCP - General Family Medicine 01/02/25 documented as of this encounter
== END 2025-04-29 13:35 | disposition home or self-care (01) ==
LOC: HO.HPS 12:55
PROVIDERS: PCP Internal Medicine; Visit Provider Internal Medicine Pulmonary Disease
DX: J44.9 Chronic obstructive pulmonary disease, unspecified (principal); Z99.81 Dependence on supplemental oxygen; I26.99 Other pulmonary embolism without acute cor pulmonale; R06.01 Orthopnea
CPT/HCPCS: 99214; G2211

== ENCOUNTER → 2025-04-29 12:55 | Outpatient (BNVA) | payer MEDICARE, SELFPAY | PROVIDERS: PCP Internal Medicine; Visit Provider Internal Medicine Pulmonary Disease | DX: J44.9 Chronic obstructive pulmonary disease, unspecified (principal); I26.99 Other pulmonary embolism without acute cor pulmonale; R06.01 Orthopnea; Z99.81 Dependence on supplemental oxygen | CPT/HCPCS: 99212 ==

== ENCOUNTER 2025-07-14 09:20 | Outpatient (AMB) | payer MEDICARE, SELFPAY ==
[2025-07-14 09:22] VITALS: BP 102/62; PULSE 72; O2SAT 98; BMI 33.0
--- NOTE | 2025-07-14 09:22 | A.OFFVIS_ITS ---
Vital Signs 07/14/25 09:22 Height 5 ft 8 in Weight 217 lb BMI 33.0 BP 102/62 Blood Pressure Location Rt brachial Position Sitting Pulse 72 Pulse Source Pulse Oximeter Pulse Oximetry (%) 98 Oxygen Delivery Method Nasal Cannula Oxygen Flow Rate 6 Intake Visit Reasons: Acute Hypoxemic Respiratory Failure Allergies codeine Allergy (Intermediate, Verified 07/14/25 09:29) Rash Demerol Allergy (Severe, Uncoded 04/11/25 14:32) Vomiting From DEMEROL Allergy (Intermediate, Uncoded 04/11/25 14:32) VOMITING HPI HPI Acute Hypoxemic Respiratory Failure: Details: 69-year-old lady, former 20 pack-year smoker, with underlying COPD, bronchiectasis, interstitial lung disease, recent pulmonary emboli previously on Eliquis, on supplemental oxygen at 3-4 L at baseline and 4-8 L with exacerbation. Patient had pulmonary function test that shows moderate COPD, but with severe decrease in diffusion capacity, also her repeat CT angio chest shows new pulmonary emboli now status post Ciarra filter placement. Her respiratory symptoms have improved with diuresis. She has been [place] [facility] [place] and at this time is not interested in further follow up there.She denies recent exacerbations. [facility] Medical History (Updated 04/12/25 @ 00:00 by Cherie Portillo) HLD (hyperlipidemia) Pulmonary fibrosis Surgical History (Updated 03/06/25 @ 11:51 by Alia Yancey RN) History of hernia surgery History of shoulder surgery History of back surgery History of tonsillectomy H/O section Social History Household Members: Spouse Housing: House Do you presently have visiting nurse or other home services: No Comment: pt rings call morris appropriately for assistance OOB Patient Tobacco Use Status: Former Tobacco user Tobacco use type: Cigarette e-Cigarette/Vaping Use: Never Used Second Hand Smoke Exposure: No service: No Review of Systems Const Denies daytime sleepiness, Denies excessive sweating, Denies fatigue, Denies fever(s), Denies lethargy, Denies malaise, Denies night sweats, Denies snoring and Denies weight loss Eyes Denies blurry vision and Denies itchy eyes ENT Denies nasal congestion, Denies post nasal drip, Denies sinus pain, Denies sinus pressure and Denies other ( Thrush) Card Denies chest pain, Denies pedal edema, Denies dyspnea, Reports dyspnea on exertion (at baseline), Denies orthopnea and Denies paroxysmal nocturnal dyspnea Resp Denies cough, Denies hemoptysis, Denies excessive phlegm production, Denies dyspnea, Reports dyspnea on exertion (at baseline), Denies snoring and Denies wheezing GI Denies abdominal pain and Denies heartburn Musc Denies myalgias, Denies arthralgias and Denies joint swelling Skin/Breast Denies rash Neuro Denies memory loss and Denies seizure-like activity Psych Denies abnormal sleep pattern, Denies anxiety and Denies memory loss Endo Denies excessive sweating, Denies fatigue and Denies heat intolerance Newton/Lymph Denies easy bruising Aller/Immun Denies itchy eyes, Denies seasonal rhinorrhea and Denies wheezing Physical Exam Vital Signs: Last Vital Signs Pulse 72 07/14/25 09:22 BP 102/62 07/14/25 09:22 Pulse Ox 98 07/14/25 09:22 Oxygen Delivery Method Nasal Cannula 07/14/25 09:22 Oxygen Flow Rate 6 07/14/25 09:22 BMI result Body Mass Index 33.0 Const General: no acute distress and alert Nutritional Appearance: not obese Orientation/consciousness: Other orientation findings ( oriented) HEENT Head: Yes atraumatic Eyes General: appearance normal, both eyes and all related structures Sclerae: sclerae normal EOM: EOMs intact bilaterally Neck Neck: Yes supple Lymphatic: no lymphadenopathy noted Resp Effort & Inspection: normal respiratory effort and no use of accessory muscles Auscultation: clear to auscultation bilaterally Cardio Rate: regular rate Rhythm: regular rhythm Heart sounds: no gallops, no murmurs and no rubs Skin General skin exam: other ( warm) Extrem General: No clubbing, No cyanosis and Yes edema (trace bilateral) Assessment & Plan Assessment & Plan (1) COPD (chronic obstructive pulmonary disease): Code(s): J44.9 - Chronic obstructive pulmonary disease, unspecified Category: Medical Plan: Advanced COPD now with reasonable control on Trelegy, DuoNebs, and albuterol MDI. Evaluated by [facility] [place], but does not want to follow up further. Contune current regimen. (2) On supplemental oxygen therapy: Code(s): Z99.81 - Dependence on supplemental oxygen Category: Medical Plan: Continue supplemental oxygen to maintain O2 sat of 88-92%. (3) Pulmonary emboli: Code(s): I26.99 - Other pulmonary embolism without acute cor pulmonale Category: Medical Plan: Intolerant of anticoagulation secondary to massive posterior epistaxis with Crohn's. Now status post IVC filter. Continue aspirin. (4) Orthopnea: Code(s): R06.01 - Orthopnea Category: Medical Plan: Controlled on current regimen of Lasix 20 mg daily. Continue current regimen. Coding Level of Care Code Est Pt Level 4 (51058) Complex EM visit Add On G2211 Diagnoses COPD (chronic obstructive pulmonary disease) J44.9 On supplemental oxygen therapy Z99.81 Pulmonary emboli I26.99 Orthopnea R06.01
--- OUTSIDE RECORDS SUMMARY | 2025-07-14 10:04 | XMS_ITS | Clinical Summary ---
Author Organization [facility] Address [address] [place] [address] Phone Care Team Providers Care Delinquency Prevention Social Worker Name Role Phone Artis Whiting MD Primary Care Provider [phone] Dwayne Orozco MD Unavailable [phone] Encounters Date Type Department Care Team Description 07/11/2025 Telephone [facility] [address] [place] [phone] Chayito Murray 06/26/2025 Ancillary Orders [facility] [address] [place] [address] Leydi Pena MD 06/26/2025 Ancillary Orders [facility] [address] [place] [address] Leydi Pena MD 06/11/2025 12:16 PM EDT - 06/11/2025 11:59 PM EDT Hospital Encounter [facility] [address] [place] [phone] Unknown, Mariella, Discharge Disposition: Home or Self Care 06/11/2025 10:09 AM EDT - 06/11/2025 12:15 PM EDT Hospital Encounter [facility] [address] [place] [phone] Karel Feldman MD Discharge Disposition: Home or Self Care 06/10/2025 Ancillary Orders [facility] [address] [place] [phone] Ghanshyam Devine MD 06/10/2025 Ancillary Orders [facility] [address] [place] [address] Ghanshyam Devine MD 06/09/2025 Telephone [facility] [address] [place] [address] Xi Brooks 06/05/2025 Orders Only [facility] [address] [place] [address] Ghanshyam Devine MD Encounter for pre-transplant evaluation for lung transplant (Primary Dx) 06/05/2025 Telephone [facility] [address] [place] [address] Xi Brooks Lung Transplant Referral from Last 3 Months Social History Tobacco Use Types Packs/Day Years Used Date Smoking Tobacco: Never Assessed Education Answer Date Recorded Are you interested in more education? Not on sofia e 06/05/2025 Are you concerned about learning? Not on file 06/05/2025 No 06/05/2025 No 06/05/2025 Digital Access Answer Date Recorded No 06/05/2025 No 06/05/2025 Reliable internet access at home? Not on file 06/05/2025 Device with a working camera? Not on file Comments Unknown Sex and Gender Information Value Date Recorded Sex Assigned at Female 06/05/2025 12:58 PM EDT Legal Sex Female 12:50 PM EDT Gender Identity Female 06/05/2025 12:58 PM EDT Sexual Orientation Straight 06/05/2025 12 :58 PM EDT Last Filed Vital Signs Vital Sign Reading Time Taken Comments Blood Pressure 121/65 06/11/2025 10:34 AM EDT Pulse 80 06/11/2025 10:34 AM EDT Temperature 36.1 C (96.9 F) 06/11/2025 10:34 AM EDT Respiratory Rate 16 06/11/2025 10:34 AM EDT Oxygen Saturation 100% 06/11/2025 10:34 AM EDT 6L Inhaled Oxygen Concentration - - Weight 97.1 kg (214 lb) 06/11/2025 10:34 AM EDT Height 172.7 cm (5' 8 ) 06/11/2025 10:34 AM EDT Body Mass Index 32.54 06/11/2025 10:34 AM EDT Plan of Treatment Upcoming Encounters Date Type Department Care Team (Late st Contact Info) Description 01/12/2026 10:00 AM EST Appointment [facility] [address] [place] [address] Leydi Pena MD [address] [place] [address] [email or web address] Due Date Last Done Comments Adult Td,Tdap Booster 1957 LIPID PANEL 1957 SMOKING Hx and SMOKELESS TOB ACCO SCREENING 1970 HEPATITIS C SCREENING 1975 SCREENING FOR DIABETES 1992 MAMMOGRAM 1997 COLOGUARD 2002 COLONOSCOPY 2002 COLORECTAL CANCER SCREENING 2002 FIT TEST 2002 FOBT 2002 SIGMOIDOSCOPY 2002 VIRTUAL COLONOSCOPY 2002 ZOSTER VACCINES (1 of 2) 2007 OSTEOPOROSIS SCREENING INITI AL (ONE-TIME) 2022 COVID-19 VACCINE (2 - 2023-2 5 season) 2024 03/01/2021 DEPRESSION SCREENING 06/11/2026 06/11/2025 PNEUMOCOCCAL VACCINES (50+ years) Completed 024 RSV VACCINE Completed 09/03/2024 HEPATITIS A VACCINES Aged Out No long er eligible based on patient's age to complete this topic HIB VACCINES Aged Out No longer eligi ble based on patient's age to complete this topic MENINGOCOCCAL VACCINES (ACWY) Aged Out No longer eligible based on patient's age to complete this topic MENINGOCOCCAL VACCINES (B) Aged Out N o longer eligible based on patient's age to complete this topic Medical Devices Not on file Procedures Procedure Name Priority Date/Time Associated Diagnosis Comments CO NONINVASV OXYGEN SATUR;SINGLE Routine 06/11/2025 12:00 AM EDT Encounter for pre-transplant evaluation for lung transplant from Last 3 Months Results * Pulmonary Function Test Reason for Exam: Dyspnea/Shortness of Breath; Performing Location: [facility];Please specify: [facility] Main [place] (06/11/2025 12:00 AM EDT) Anatomical Region Laterality Modality Other 06/11/2025 Narrative 06/11/2025 12:00 AM EDT [employer] Tube Tester Notes: Two Patient Identifiers (Name, ) used to identify patient. Starting HR and saturation: 83 BPM and 100 % on 8L Distance walked: 516 ft SpO2 on 8L with EXERTION: 85%: Oxygen titration performed? - yes If yes, supplemental oxygen required to maintain saturation >88% (L/min): 12L SPO2 on 10L with EXERTION: 87%: SPO2 on 12L with EXERTION: 91% Maximum HR during walk: 96 BPM on 12 L Minimum saturation during walk: 85% on 8 L Ending HR, saturation: 96 BPM and 91% on 12 L Physician Interpretation: Exercise oximetry on 8 L/min supplemental oxygen demonstrates an oxygen saturation of 100% at rest and a joann of 85% with ambulation. On 10 L/min supplemental oxygen the joann oxygen saturation with exertion was 87%. On 12 L/min supplemental oxygen the joann oxygen saturation with exertion was 91%. Karel Feldman MD PFT ORDERABLES Final Result from Last 3 Months Insurance [id number] [place] [address] MEDICARE REPLACEMENT MEDICARE PART A & B [id number] [place] [address] MEDICARE REPLACEMENT MEDICARE PART A & B [id number] [place] [address] MEDICARE REPLACEMENT [place] [id number] MEDICARE PART A & B [address] MEDICARE REPLACEMENT MEDICARE PART A & B [id number] MEDICARE REPLACEMENT MEDICARE PART A & B MEDICARE REPLACEMENT MEDICARE PART A & B Care Teams Delinquency Prevention Social Worker Relationship Specialty Start Date End Date Artis Whiting MD [address] [place] [address] PCP - General Internal Medicine 06/05/25 Dwayne Orozco MD [address] [place] [address] Referring Physician Internal Medicine 06/10/25 Additional Source Comments The information contained in this document represents components of the legal health record. It is not the complete legal health record.[facility]
--- OUTSIDE RECORDS SUMMARY | 2025-07-14 10:04 | XMS_ITS | Clinical Summary ---
Author Organization [facility] Address [address] [place] [address] Care Team Providers Care Advisory Services Associate Name Role Phone Unavailable Primary Care Provider [...]
--- OUTSIDE RECORDS SUMMARY | 2025-07-14 10:04 | XMS_ITS | Encounter Summary ---
Author Organization [facility] Address [address] [place] [address] Care Team Providers Care Mask Layout Designer Name Role Phone Chuy Nguyễn MD Primary Care Provider [phone] Encounter Details Date Type Department Care Team (Late st Contact Info) Description 01/02/2025 Lab Requisition [facility] - Main Lab [address] [facility] [place] [address] Chuy Nguyễn MD [address] [place] [address] [address] [place], [phone] Essential (primary) hypertension Social History Tobacco [...] [facility] Comment:Calculation based on the Chronic Kidney Disease Epidemiology Collaboration (CKD-EPI) equation refit without adjustment for race. BUN/Creatinine Ratio 25.2 LAB [...] MD LAB BLOOD ORDERABLES Final Resul t [facility] [address] [place] [address], * (ABNORMAL) Complete blood count (01/02/2025 9:28 AM EST) WBC 12.8(H) 4.8 - 10.8 K/[facility] LAB HEMETOLOGY METHOD 01/02/2025 12:51 PM [facility] RBC 2.50(L) 3.80 - 4.80 M/[facility] LAB HEMETOLOGY METHOD 01/02/2025 12:51 PM [facility] Hemoglobin 8.4(L) 11.5 - 16.0 g/dL LAB HEMETOLOGY METHOD 01/02/2025 12:51 PM [facility] Hematocrit 26.2(L) 35.0 - 47.0 % LAB HEMETOLOGY METHOD 01/02/2025 12:51 PM EST [facility] MCV 103.6(H) 79.0 - 98.0 FL LAB HEMETOLOGY METHOD 01/02/2025 12:51 PM EST [facility] MCH 33.2(H) 27.0 - 32.0 [...] MD LAB BLOOD ORDERABLES Final Resul t [facility] [address] [place] [address], documented in this encounter Visit Diagnoses Diagnosis Essential (primary) hypertension Unspecified essential hypertension documented in this encounter Care Teams Mask Layout Designer Relationship Specialty Start Date End Date Chuy Nguyễn MD [address] [facility] [address] [place], [phone] PCP - General Family Medicine 01/02/25 documented as of this encounter
== END 2025-07-14 09:48 | disposition home or self-care (01) ==
LOC: HO.HPS 09:21
PROVIDERS: PCP Internal Medicine; Visit Provider Internal Medicine Pulmonary Disease
DX: J44.9 Chronic obstructive pulmonary disease, unspecified (principal); Z99.81 Dependence on supplemental oxygen; I26.99 Other pulmonary embolism without acute cor pulmonale; R06.01 Orthopnea
CPT/HCPCS: 99214; G2211

== ENCOUNTER → 2025-07-14 09:20 | Outpatient (BNVA) | payer MEDICARE, SELFPAY | PROVIDERS: PCP Internal Medicine; Visit Provider Internal Medicine Pulmonary Disease | DX: I26.99 Other pulmonary embolism without acute cor pulmonale (principal); J44.9 Chronic obstructive pulmonary disease, unspecified; R06.01 Orthopnea; Z99.81 Dependence on supplemental oxygen | CPT/HCPCS: 99212 ==